=== PATIENT | female | born 1945 | race Caucasian/White ===

== ENCOUNTER 2020-02-02 07:56 | Day surgery (SDC) | payer OTHER ==
[2020-02-02] MEDS ORDERED: Ringers Lactate 1,000 ML IV ONE (08:38)
--- OUTSIDE RECORDS SUMMARY | 2020-02-02 09:04 | XMS REPORT | Clinical Summary ---
:1945 Author Organization [facility] Address [address] [place] [address] Care Team Providers Name Role Phone JOSEE Kraft Primary Care Provider Allergies Active Allergy Reactions Severity Noted Date Comments Amoxicillin Rash Low 08/28/2018 itching Medications Medication Sig Dispensed Refills Start Date End Date Status spironolactone Take 25 mg by 0 A ctive (ALDACTONE) 25 MG tablet mouth daily. oxybutynin (DITROPAN) 5 Take 5 mg by 0 Active MG tablet mouth 2 (two) times a day. divalproex (DEPAKOTE) Take 500 mg by 0 Active 500 MG EC tablet mouth daily. fluticasone (FLONASE) 50 2 sprays by Each 0 Active mcg/actuation nasal Nare route spray daily. clopidogrel (PLAVIX) 75 Take 75 mg by 0 Active mg tablet mouth daily. lisinopril Take 20 mg by 0 Activ e (PRINIVIL,ZESTRIL) 20 mg mouth daily. tablet pantoprazole (PROTONIX) Take 40 mg by 0 Active 40 MG EC tablet mouth daily. levothyroxine Take 100 mcg by 0 Active (SYNTHROID, LEVOXYL) 100 mouth daily. mcg tablet methocarbamol (ROBAXIN) Take 500 mg by 0 Active 500 MG tablet mouth 2 (two) times a day. traZODone (DESYREL) 100 Take 100 mg by 0 Active MG tablet mouth nightly. aspirin (ECOTRIN) 325 MG Take 325 mg by 0 Active enteric coated tablet mouth daily. Active Problems Problem Noted Date Coronary artery disease with angina pectoris 9 Essential hypertension 08/28/2018 Acquired hypothyroidism 08/28/2018 Pure hypercholesterolemia 08/28/2018 Bipolar 1 disorder 08/28/2018 Family History Medical History Relation Name Comments Hypertension Mother Relation Name Status Comments Mother Social History Tobacco Use Types Packs/Day Years Used Date Never Assessed Sex Assigned at Date Recorded Not on file Job Start Date Occupation Industry Not on file Not on file Not on file Travel History Travel Start Travel End No recent travel history available. Last Filed Vital Signs Not on file Plan of Treatment Health Maintenance Due Date Last Done Comments BREAST CANCER SCREENING 1996 COLONOSCOPY SCREENING 1996 SHINGLES VACCINES (#1) 1996 65+ PNEUMOCOCCAL VACCINE (1 of 2 - PCV13) 2011 INFLUENZA VACCINE 02/14/2020 Results Not on fileafter 02/01/2019 Advance Directives For more information, please contact: [phone] Type Date Recorded Patient Incident Response Consultant Explanati on Advance Directives, Living Will 08/28/2018 12:51 PM and Medical Power of Shaker Operator Code Status Date Activated Date Inactivated Comments Full Code 08/28/2018 7:06 PM 08/29/2018 2:42 PM Code Status decision reached by: Patient
--- OUTSIDE RECORDS SUMMARY | 2020-02-02 09:04 | XMS REPORT | Continuity of Care Document ---
:1945 Author Organization [employer] Care Team Providers Name Role Phone [facility] Unavailable Un available Problems Problem Status Onset Classification Date Comments Sourc e Date Reported Coronary Active Problem 05/30/2016 Ahmed atherosclerosis of A ed [place] coronary artery Pure Active Problem 05/30/2016 Ahmed hypercholesterolemia Ahmed Atherosclerosis of Active Problem 05/30/2016 Ahmed [place] arteries of the [facility] extremities with intermittent claudication Other symptoms Active Diagnosis 05/30/2016 Ahme d involving [facility] cardiovascular system Unspecified Active Diagnosis 05/30/2016 Ahmed hypothyroidism [facility] Medications Medication Details Route Status Patient Ordering Order Source Instructions Provider Date Protonix 1 tablet Orally Active 40 mg Orally Ahmed [facility] Once a day 015 [facility] Quetiapine 1 tablet Orally Active [address] [facility] Once a day [facility] bedtime Metoprolol 1 tablet Orally Active 25 MG Orally [facility] Succinate ER Once a day [facility] [place] 1 capsule Orally Active 300 MG Orally [facility] Carbonate Three times a Ahmed day Lamotrigine 1 tablet Orally Active 100 MG Orally [facility] Once a day [facility] Ropinirole HCl 1 tablet Orally Active 0.[address] [facility] med 1 to 3 Once a day [facility] hours before bedtime Risperidone 1 tablet Orally Active 3 MG Orally [facility] Once a day [facility] Asprin Unknown NA Active 325 once a day [facility] Lorazepam 1 tablet Orally Active 1 MG Orally [facility] Once a day [facility] Plavix 1 tablet Orally Active 75 MG Orally [facility] Once a day [facility] Levothyroxine 1 tablet Orally Active [address] [facility] med Sodium every Once a day [facility] morning on an empty stomach Zostavax Unknown Subcutaneous Active [facility] UNT/0.65ML [facility] Subcutaneous Hydrochlorot once NA Active 12.5 [facility] capsule [facility] once a day Crestor 1 tablet Orally Active 20 MG Orally [facility] Once a day [facility] Allergies, Adverse Reactions, Alerts Substance Category Reaction Severity Reaction Status Date Comments S ource type Reported N.K.D.A. Adverse Info Not Adverse Active Ahme d Reaction Available Reaction 5 Ahme d Immunizations No Data Provided for This Section Results No Data Provided for This Section Pathology Reports No Data Provided for This Section Diagnostic Reports No Data Provided for This Section Consultation Notes No Data Provided for This Section Discharge Summaries No Data Provided for This Section History and Physicals No Data Provided for This Section Vital Signs Vital Sign Value Date Comments Source Weight 166 04/14/2015 Ahmed Ahmed Heart Rate 68 04/14/2015 Ahmed Ahmed Diastolic (mm Hg) 60 04/14/2015 Ahmed Ahme d Systolic (mm Hg) 94 04/14/2015 Ahmed Ahmed Weight 164 03/11/2015 Ahmed Ahmed Heart Rate 78 03/11/2015 Ahmed Ahmed Diastolic (mm Hg) 78 03/11/2015 Ahmed Ahme d Systolic (mm Hg) 118 03/11/2015 Ahmed Ahmed Weight 164 02/23/2015 Ahmed Ahmed Heart Rate 60 02/23/2015 Ahmed Ahmed Diastolic (mm Hg) 58 02/23/2015 Ahmed Ahme d Systolic (mm Hg) 104 02/23/2015 Ahmed Ahmed Encounters Location Location Encounter Encounter Reason Attending ADM [place] Stat us Source Details Type Number For Provider Date Date Visit Ahmed pt referred [id number] 02/23 02/23 Candelario Palomino MD, by [id number] /2014 A [email or web address] HAIDER Garcia's [id number] office for 7d6 changes in pt EKG and CP Ahmed pt referred [id number] 02/23 02/23 Candelario Palomino MD, by Dr. [id number] /2014 A [employer] HAIDER Garcia's [id number] office for 0ae changes in pt EKG and CP Ahmed pt referred [id number] 02/23 02/23 Candelario Palomino MD, by [id number] /2014 A [employer] HAIDER Garcia's [id number] office for c3f changes in pt EKG and CP Ahmed Unknown [id number] 03/08 03/08 Jose Angel Palomino MD, [id number] /2014 A hmed PA [id number] Ahmed Unknown [id number] 03/08 03/08 Jose Angel Palomino MD, [id number] /2014 A hmed PA [id number] [id number] Ahmed Unknown [id number] 03/08 03/08 Jose Angel Palomino MD, [id number] /2014 A hmed PA [id number] [id number] Ahmed Unknown [id number] 03/08 03/08 Jose Angel Palomino MD, [id number] /2014 A hmed PA [id number] [id number] med f/u testing [id number] 03/11 03/11 Candelario Palomino MD, [id number] A hmed PA [id number] med f/u testing [id number] 03/11 03/11 Candelario Palomino MD, [id number] /2014 A hmed PA [id number] [id number] med pt was seen [id number] 04/14 04/14 Candelario Palomino MD, at [facility] for [id number] Candelario MALONEY [place] on [id number] 03.28.2015 1af Procedures No Data Provided for This Section Assessment and Plan No Data Provided for This Section Plan of Care No Data Provided for This Section Social History Social History Date Source Social History ElementQualifiersDate Reported 04/14/2015 Candelario Palomino Smoking: . Are you a: Never smoker Apr 14, 2015 Alcohol: . Social Apr 14, 2015 Family History No Data Provided for This Section Advance Directives No Data Provided for This Section Functional Status No Data Provided for This Section
--- OUTSIDE RECORDS SUMMARY | 2020-02-02 09:05 | XMS REPORT | Continuity of Care Document ---
:1945 Author Organization [facility] t Address [address] [place] [address] Care Team Providers Name Role Phone Swapnil TRIPP Primary Care Physician Problems Condition Condition Condition Status Onset Resolution Last Treating Co mments Source Name Details Category Date Date Treatment Clinician Date Coronary Coronary Disease Active [place] artery artery 2-13 [facility] disease disease 00:00: st with with 00 angina angina pectoris pectoris Essential Essential Disease Active [place] hypertensi hypertensi 2-13 Me thodi on on 00:00: st 00 Acquired Acquired Disease Active [place] hypothyroi hypothyroi 2-13 Me thodi dism dism 00:00: st 00 Pure Pure Disease Active [place] hyperchole hyperchole 2-13 Me thodi sterolemia sterolemia 00:00: st 00 Bipolar 1 Bipolar 1 Disease Active [place] disorder disorder 2-13 Method i 00:00: st 00 Coronary Problem Active 2016-05-30 Mem oria atheroscle 05:47:14 l rosis of Coronary Herm camelia [place] atheroscle coronary rosis of artery [place] coronary artery Active Problem 05/30/2016 [facility] Ahmed Pure Problem Active 2016-05-30 Memor ia hyperchole 05:47:14 l sterolemia Pure Ajay n hyperchole sterolemia Active Problem 05/30/2016 med Ahmed Atheroscle Problem Active 2016-05-30 M emoria rosis of 05:47:14 l [place] arteries Atheroscle of the rosis of extremitie [place] s with arteries intermitte of the nt extremitie claudicati s with on intermitte nt claudicati on Active Problem 6 Candelario Palomino Other Diagnosis Active 2016-05-30 Mem oria symptoms 05:47:14 l involving Other Ajay n cardiovasc symptoms ular involving system cardiovasc ular system Active Diagnosis 05/30/2016 Candelario Palomino Unspecifie Diagnosis Active 2016-05-30 Memoria d 05:47:14 l hypothyroi Ajay n dism Unspecifie d hypothyroi dism Active Diagnosis 05/30/2016 Candelario Palomino Allergies, Adverse Reactions, Alerts Allergy Allergy Status Severity Reaction(s) Onset Inactive Treating Comm ents Source Name Type Date Date Clinician Amoxicil Propensi Active Rash itching [place] david ty to 2-13 Methodi adverse 00:00: st reaction 00 s to drug N.K.D.A. N.K.D.A. Active Info Not Chris eldon Available 30 l 00:00: [place] 00 Family History Family Member Diagnosis Comments Start Date Stop Date Source Natural mother Hypertension [place] [employer] Social History Social Habit Start Date Stop Date Quantity Comments Source Sex Assigned At [facility] ethodi [place]2015-04-14 2015-04-14 [facility] nn 00:00:00 00:00:00 Medications Ordered Filled Start Stop Current Ordering Indication Dosage Frequency Signature Comments Components Source Medication Medication Date Date Medication? Clinician (SIG) Name Name spironolact Yes 25mg QD Take 25 mg [place] one 2-14 by mouth Methodi (ALDACTONE) 10:42: daily. st 25 MG 57 tablet oxybutynin Yes 5mg Q.5D Take 5 mg [place] (DITROPAN) 2-14 by mouth 2 Met hodi 5 MG tablet 10:42: (two) st 57 times a day. divalproex Yes 500mg Take 500 [place] (DEPAKOTE) 2-14 mg by Methodi 500 MG EC 10:42: mouth st tablet 57 daily. fluticasone 2019-0 Yes 2{spray QD 2 sprays [place] (FLONASE) 2-14 } by Each Methodi 50 10:42: Nare route st mcg/actuati 57 daily. on nasal spray clopidogrel Yes 75mg QD Take 75 mg [place] (PLAVIX) 75 2-14 by mouth Meth gilbert mg tablet 10:42: daily. st 57 lisinopril 2019-0 Yes 20mg QD Take 20 mg [place] (PRINIVIL,Z 2-14 by mouth Meth gilbert ESTRIL) 20 10:42: daily. st mg tablet 57 pantoprazol 2019-0 Yes 40mg QD Take 40 mg [place] e 2-14 by mouth Methodi (PROTONIX) 10:42: daily. st 40 MG EC 57 tablet levothyroxi 0 Yes 100ug QD Take 100 [place] ne 2-14 mcg by Methodi (SYNTHROID, 10:42: mouth st LEVOXYL) 57 daily. 100 mcg tablet methocarbam 0 Yes 500mg Q.5D Take 500 [place] ol 2-14 mg by Methodi (ROBAXIN) 10:42: mouth 2 st 500 MG 57 (two) tablet times a day. traZODone 0 Yes 100mg QD Take 100 [place] (DESYREL) 2-14 mg by Methodi 100 MG 10:42: mouth st tablet 57 nightly. aspirin 0 Yes 325mg QD Take 325 [place] (ECOTRIN) 2-14 mg by Methodi 325 MG 10:42: mouth st enteric 57 daily. coated tablet Quetiapine 2015-07 Yes Ahmed 1 tablet Me moria Fumarate 15 Ahmed at bedtime l 05:47: [place] Metoprolol 2015-07 Yes Ahmed 1 tablet Me moria Succinate 07-30 Ahmed l ER 05:47: Al[place] [employer] 2015-07 Yes Ahmed 1 capsule Chris eldon Carbonate 07-30 Ahmed l 05:47: [place] Lamotrigine 2015-07 Yes Ahmed 1 tablet M emoria 15 Ahmed l 05:47: [place] 14 Ropinirole 2015-07 Yes Ahmed 1 tablet 1 Memoria HCl 15 Ahmed to 3 hours l 05:47: before [place] bedtime Risperidone 2015-07 Yes Ahmed 1 tablet M emoria 15 Ahmed l 05:47: [place] Asprin 2015-07 Yes Ahmed Unknown Memoria -15 Ahmed l 05:47: [place] Lorazepam 2015-07 Yes Ahmed 1 tablet Mem oria 15 Ahmed l 05:47: [place] Plavix 2015-07 Yes Ahmed 1 tablet Memori a 1-15 Ahmed l 05:47: [place] 14 Levothyroxi 2015-07 Yes Ahmed 1 tablet M emoria ne Sodium 1-15 Ahmed every l 05:47: morning on [place] 14 an empty stomach Zostavax 2015-07 Yes Ahmed Unknown Memor ia 1-15 Ahmed l 05:47: [place] 14 Hydrochloro 2015-07 Yes Ahmed once Memor ia t 1-15 Ahmed capsule l 05:47: once a day [place] 14 Crestor 2015-07 Yes Ahmed 1 tablet Memor ia 1-15 Ahmed l 05:47: [place] 14 Protonix 0 Yes Ahmed 1 tablet Chris eldon 8-24 Ahmed l 00:00: [place] 00 Vital Signs Vital Name Observation Time Observation Value Comments Source Weight 2015-04-14 18:15:00 [facility] [place] Heart Rate 2015-04-14 18:15:00 [facility] [place] Diastolic (mm Hg) 2015-04-14 18:15:00 Mem orial [place] Systolic (mm Hg) 2015-04-14 18:15:00 Chris rial [place] Weight 2015-03-11 19:00:00 [facility] [place] Heart Rate 2015-03-11 19:00:00 [facility] [place] Diastolic (mm Hg) 2015-03-11 19:00:00 Mem orial [place] Systolic (mm Hg) 2015-03-11 19:00:00 Chris rial [place] Weight 2015-02-23 17:15:00 [facility] [place] Heart Rate 2015-02-23 17:15:00 [facility] [place] Diastolic (mm Hg) 2015-02-23 17:15:00 Mem orial [place] Systolic (mm Hg) 2015-02-23 17:15:00 Chris rial [place] Procedures This patient has no known procedures. Plan of Care Planned Activity Planned Date Details Comments Source Future Scheduled 2020-02-14 INFLUENZA VACCINE [facility] Test 00:00:00 [code = INFLUENZA VACCINE] Future Scheduled 2011 65+ PNEUMOCOCCAL [place] [facility] Test 00:00:00 VACCINE (1 of 2 - PCV13) [code = 65+ PNEUMOCOCCAL VACCINE (1 of 2 - PCV13)] Future Scheduled 1996 [facility] SCREENING [code = BREAST CANCER SCREENING] Future Scheduled 1996 COLONOSCOPY SCREENING [place] [facility] Test 00:00:00 [code = COLONOSCOPY SCREENING] Future Scheduled 1996 SHINGLES VACCINES (#1) [facility] [facility] Test 00:00:00 [code = SHINGLES VACCINES (#1)] Encounters Start End Encounter Admission Attending Care Care Encounter Source Date/Time Date/Time Type Type Clinicians Facility Department ID 2015-04-14 2015-04-14 Outpatient [facility] [id number] eClinic 12:15:00 12:15:00 Candelario Palomino MD, Dominick cordero MD, PA PA 2015-03-11 2015-03-11 Outpatient [facility] [id number] eClinic 13:00:00 13:00:00 Candelario Palomino MD, Dominick cordero MD, PA PA 2015-03-08 2015-03-08 Outpatient [facility] [id number] eClinic 09:14:00 09:14:00 Candelario Palomino MD, Dominick cordero MD, PA PA 2015-02-23 2015-02-23 Outpatient [facility] [id number] eClinic 11:15:00 11:15:00 Candelario Palomino MD, Dominick cordero MD, PA PA Results This patient has no known results.
[2020-02-02] MEDS ORDERED: propofoL 200 MG/20 ML VIAL IV ONE ×2 (09:14)
[2020-02-02] MEDS ORDERED: LIDOCAINE 1% MPF 5 ML VIAL ONE (09:14)
--- NOTE | 2020-02-02 10:43 | ENDO RPT ---
[address], [address] COLONOSCOPY PROCEDURE REPORT EXAM DATE: 02/02/2020 PATIENT NAME: Shannon Dumont MR #: [id number] BIRTHDATE: 1945 ATTENDING: Derick Kuo DR STATUS: outpatient PILE HEADER: Hannah Peterson RN and Jorge Smith [facility] INDICATIONS: The patient is a 74 yr old Female here for a colonoscopy due to colon cancer screening PROCEDURE PERFORMED: Colonoscopy with biopsy MEDICATIONS: Per Anesthesia. ESTIMATED BLOOD LOSS: None CONSENT: The patient understands the risks and benefits of the procedure and understands that these risks include, but are not limited to: sedation, allergic reaction, infection, perforation and/or bleeding. Alternative means of evaluation and treatment include, among others: physical exam, x-rays, and/or surgical intervention. The patient elects to proceed with this endoscopic procedure. DESCRIPTION OF PROCEDURE: During intra-op preparation period all mechanical medical equipment was checked for proper function. Hand hygiene and appropriate measures for infection prevention was taken. Procedure, possible complications, alternatives including, but not limited to possibility of bleeding, perforation, tear, infection, sepsis, need for surgery, need for blood transfusion, were explained to the patient. After the risks, benefits and alternatives of the procedure were thoroughly explained, Informed consent was verified, confirmed and timeout was successfully executed by the treatment team. The patient was placed in the left lateral position. A digital rectal exam was performed and revealed external hemorrhoids and A digital rectal exam was performed and revealed internal hemorrhoids. After appropriate level of anesthesia, the scope was passed. The EC-[id number] ([id number]) endoscope was introduced through the anus and advanced to the cecum, which was identified by the ileocecal valve. The quality of the prep was fair. The instrument was then slowly withdrawn as the colon was fully examined. Scope withdrawal time was 10 minutes. COLON FINDINGS: Moderate diverticulosis was noted in the sigmoid colon. No bleeding was noted from the diverticulosis. Small lipoma was found at the cecum. A biopsy was performed using cold forceps. Small internal and external hemorrhoids were found. Retroflexed views revealed no abnormalities. The scope was then completely withdrawn from the patient and the procedure terminated. ADVERSE EVENTS: There were no complications. IMPRESSIONS: 1. Moderate diverticulosis was noted in the sigmoid colon 2. Small lipoma at the cecum; biopsy was performed using cold forceps 3. Small internal and external hemorrhoids RECOMMENDATIONS: 1. avoid NSAIDS for 2 weeks 2. await biopsy results 3. follow-up: office 2 week(s) 4. Monitor for any evidence of rectal bleeding. 5. yearly hemoquant 6. hemorrhoidal hygiene 7. increase dietary water 8. low fiber / diverticular diet RECALL: for Colonoscopy, pending biopsy results. Derick Kuo DR eSigned: Derick Kuo DR 02/02/2020 10:43 AM cc: CPT CODES: ICD9 CODES: PATIENT NAME: Julia Shannon E. MR#: [id number]
[2020-02-02 13:16] VITALS: BP 115/57; TEMP 98.2; O2SAT 95
== END 2020-02-02 11:43 | disposition home or self-care (01) ==
LOC: OR 07:56
PROVIDERS: ATTEND Surgery
PROC: 0DBH8ZX Excision of Cecum, Via Natural or Artificial Opening Endoscopic, Diagnostic (ICD-10-PCS; principal; 2020-02-02 09:00)
DX: Z12.11 Encounter for screening for malignant neoplasm of colon (principal); D17.5 Benign lipomatous neoplasm of intra-abdominal organs; K57.30 Diverticulosis of large intestine without perforation or abscess without bleeding; K64.8 Other hemorrhoids; K64.4 Residual hemorrhoidal skin tags; I10 Essential (primary) hypertension; I25.10 Atherosclerotic heart disease of native coronary artery without angina pectoris; J44.9 Chronic obstructive pulmonary disease, unspecified; E78.00 Pure hypercholesterolemia, unspecified; E07.9 Disorder of thyroid, unspecified; F41.9 Anxiety disorder, unspecified; F32.9 Major depressive disorder, single episode, unspecified; Z11.59 Encounter for screening for other viral diseases; Z88.0 Allergy status to penicillin; Z88.3 Allergy status to other anti-infective agents; Z95.5 Presence of coronary angioplasty implant and graft
CPT/HCPCS: 88305; 45380; U0002; J2704 ×2; J7120

== ENCOUNTER 2020-02-19 08:50 | Emergency (ER) | payer OTHER ==
--- OUTSIDE RECORDS SUMMARY | 2020-02-19 09:27 | XMS REPORT | Continuity of Care Document ---
:1945 Author Organization [facility] Care Team Providers Name Role Phone [facility] Unavailable Un available Problems Problem Status Onset Classification Date Comments Sourc e Date Reported Coronary Active Problem 05/30/2016 Ahmed atherosclerosis of A ed [place] coronary artery Pure Active Problem 05/30/2016 Ahmed hypercholesterolemia Ahmed Atherosclerosis of Active Problem 05/30/2016 Ahmed [place] arteries of the [facility] extremities with intermittent claudication Other symptoms Active Diagnosis 05/30/2016 Ahme d involving [facility] cardiovascular system Unspecified Active Diagnosis 05/30/2016 Ahmed hypothyroidism [facility] Medications Medication Details Route Status Patient Ordering Order Source Instructions Provider Date Protonix 1 tablet Orally Active 40 mg Orally Ahmed [facility] Once a day 015 [facility] Quetiapine 1 tablet Orally Active 50 MG [facility] F[facility] Once a day [facility] bedtime Metoprolol 1 tablet Orally Active 25 MG Orally [facility] Succinate ER Once a day [facility] [place] 1 capsule Orally Active 300 MG Orally [facility] Carbonate Three times a Ahmed day Lamotrigine 1 tablet Orally Active 100 MG Orally [facility] Once a day [facility] Ropinirole HCl 1 tablet Orally Active 0.5 MG Orally [facility] med 1 to 3 Once a day [facility] hours before bedtime Risperidone 1 tablet Orally Active 3 MG Orally [facility] Once a day [facility] Asprin Unknown NA Active 325 once a day [facility] Lorazepam 1 tablet Orally Active 1 MG Or[facility] Once [facility] Plavix 1 tablet Orally Active 75 MG Or[facility] Once a day [facility] Levothyroxine 1 tablet Orally Active 100 MCG Orally [facility] med Sodium every Once a day [facility] morning on an empty stomach Zostavax Unknown Subcutaneous [facility] UNT/0.65ML [facility] Subcutaneous Hydrochlorot once NA Active 12.5 [facility] capsule [facility] once a day Crestor 1 tablet Orally Active 20 MG Orally [facility] Once a day [facility] Allergies, Adverse Reactions, Alerts Substance Category Reaction [...] Location Location Encounter Encounter Reason Attending ADM [place] Stat [place] Source Details Type Number For Provider Date Date Visit Ahmed pt referred [id number] 02/23 02/23 Candelario Palomino MD, by [id number] /2014 A [employer] HAIDER Garcia's [id number] office for 7d6 changes in pt EKG and CP Ahmed pt referred [id number] 02/23 02/23 Candelario Palomino MD, by Dr. [id number] /2014 A [employer] HAIDER Garcia's [id number] office for 0ae changes in pt EKG and CP Ahmed pt referred [id number] 02/23 02/23 Candelario Palomino MD, by [id number] /2014 A [employer] HAIDER Garcia's [id number] office for c3f changes in pt EKG and CP Ahmed Unknown [id number] 03/08 03/08 Jose Angel Palomino MD, [id number] /2014 A hmed PA [id number] Ahmed Unknown [id number] 03/08 03/08 Jose Angel Palomino MD, [id number] /2014 A hmed PA [id number] Ahmed Unknown [id number] 03/08 03/08 Jose Angel Palomino MD, [id number] /2014 A hmed PA [id number] ff7 Ahmed Unknown [id number] 03/08 03/08 Jose Angel Palomino MD, [id number] /2014 A hmed PA [id number] med f/u testing [id number] 03/11 03/11 Candelario Palomino MD, [id number] A hmed PA [id number] 5ee med f/u testing [id number] 03/11 03/11 Candelario Palomino MD, [id number] /2014 A hmed PA [id number] a37 med pt was seen [id number] 04/14 04/14 Candelario Palomino MD, at [facility] for [id number] Candelario MALONEY [place] on [id number] 03.28.2015 1af Procedures No Data Provided for [...]
--- OUTSIDE RECORDS SUMMARY | 2020-02-19 09:27 | XMS REPORT | Continuity of Care Document ---
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 2-13 Me thodi sterolemia sterolemia 00:00: st 00 Bipolar 1 Bipolar 1 Disease Active Bunny ston disorder disorder 2-13 Method i 00:00: st 00 Coronary Problem Active 2016-05-30 Mem oria atheroscle 05:47:14 l rosis of Coronary Herm camelia [place] atheroscle coronary rosis of artery [place] coronary artery Active Problem 05/30/2016 [facility] Ahmed Pure Problem Active 2016-05-30 Memor ia hyperchole 05:47:14 l sterolemia Pure Ajay n hyperchole sterolemia Active Problem 05/30/2016 [facility] Ahmed Atheroscle Problem Active 2016-05-30 M emoria rosis of 05:47:14 l [place] Alessandro arteries Atheroscle of the rosis of extremitie [place] with arteries intermitte of the nt [...] N.K.D.A. Active Info Not Chris eldon Available 9-30 l 00:00: Alessandro 00 Family History Family Member Diagnosis Comments Start Date Stop Date Source Natural mother Hypertension [place] Gnosticist Social History Social Habit Start Date Stop Date Quantity Comments Source Sex Assigned At [facility] ethodi [place]2015-04-14 2015-04-14 [facility] nn 00:00:00 00:00:00 Medications Ordered Filled Start [...] 10:42: mouth st tablet 57 daily. fluticasone 2018-0 Yes 2{spray QD 2 sprays [place] (FLONASE) [...] 10:42: daily. st mg tablet 57 pantoprazol 20190 Yes 40mg QD Take 40 mg Owens [...] 10:42: mouth st tablet 57 nightly. aspirin Yes 325mg QD Take 325 [place] on (ECOTRIN) 2-14 mg by Methodi 325 MG 10:42: mouth st enteric 57 daily. coated tablet Quetiapine 2015-07 Yes Ahmed 1 tablet Me moria Fumarate 07-30 Ahmed at bedtime l 05:47: [place] 14 Metoprolol 2015-07 Yes Ahmed 1 tablet Me moria Succinate 07-30 Ahmed l ER 05:47: [place] 2015-07 Yes Ahmed 1 capsule Chris eldon Carbonate 07-30 Ahmed l 05:47: Lamotrigine 2015-07 Yes Ahmed 1 tablet M emoria 15 Ahmed l 05:47: Ropinirole 2015-07 Yes Ahmed 1 tablet 1 Memoria HCl 15 Ahmed to 3 hours l 05:47: before bedtime Risperidone 2015-07 Yes Ahmed 1 tablet M emoria 15 Ahmed l 05:47: Asprin 2015-07 Yes Ahmed Unknown Memoria -15 Ahmed l 05:47: Lorazepam 2015-07 Yes Ahmed 1 tablet Mem oria 15 Ahmed l 05:47: Plavix 2015-07 Yes Ahmed 1 tablet Memori a 1-15 Ahmed l 05:47: [place] 14 Levothyroxi 2015- Yes Ahmed 1 tablet M emoria ne Sodium 1-15 Ahmed every l 05:47: morning on [place] 14 an empty stomach Zostavax 2015-07 Yes Ahmed Unknown Memor ia 1-15 Ahmed l 05:47: [place] 14 Hydrochloro 2015-07 Yes Ahmed once Memor ia t 1-15 Ahmed capsule l 05:47: once a day [place] 14 Crestor 2015-07 Yes Ahmed 1 tablet Memor ia 1-15 Ahmed l 05:47: [place] 14 Protonix 2014-0 Yes Ahmed 1 tablet Chris eldon 8-24 Ahmed l 00:00: [place] 00 Vital Signs Vital Name Observation Time Observation Value Comments Source Weight 2015-04-14 18:15:00 [facility] Heart Rate 2015-04-14 18:15:00 [facility] [place] Diastolic (mm Hg) 2015-04-14 18:15:00 Mem orial [place] Systolic (mm Hg) 2015-04-14 18:15:00 Chris rial [place] Weight 2015-03-11 19:00:00 [facility] [place] Heart Rate 2015-03-11 19:00:00 [facility] [place] Diastolic (mm Hg) 2015-03-11 19:00:00 Mem orial [place] Systolic (mm Hg) 2015-03-11 19:00:00 Chris rial [place] Weight 2015-02-23 17:15:00 [facility] [place] Heart Rate 2015-02-23 17:15:00 [facility] [place] Diastolic (mm Hg) 2015-02-23 17:15:00 Mem orial [place] Systolic (mm Hg) 2015-02-23 17:15:00 Chris rial [place] Procedures This patient has no known procedures. Plan of Care Planned Activity Planned Date Details Comments Source Future Scheduled 2020-02-14 INFLUENZA VACCINE Madhuto ilan Gnosticist Test 00:00:00 [code = INFLUENZA VACCINE] Future Scheduled 2011 65+ PNEUMOCOCCAL [place] [facility] Test 00:00:00 VACCINE (1 of 2 - PCV13) [code = 65+ PNEUMOCOCCAL VACCINE (1 of 2 - PCV13)] Future Scheduled [facility] [code = BREAST CANCER SCREENING] Future Scheduled 1996 COLONOSCOPY SCREENING [place] [facility] Test 00:00:00 [code = COLONOSCOPY SCREENING] Future Scheduled 1996 SHINGLES VACCINES (#1) [place] [facility] Test 00:00:00 [code = SHINGLES VACCINES (#1)] Encounters Start End Encounter Admission Attending Care Care Encounter Source Date/Time Date/Time Type Type Clinicians Facility Department ID 2015-04-14 2015-04-14 Outpatient [facility] [id number] eClinic 12:15:00 12:15:00 Candelario Palomino MD, Dominick cordero MD, PA PA 2015-03-11 2015-03-11 Outpatient [facility] [id number] eClinic 13:00:00 13:00:00 Candelario Palomino MD, Dominick cordero MD, PA PA 2015-03-08 2015-03-08 Outpatient [facility] [id number] eClinic 09:14:00 09:14:00 Candelario Palomino MD, Dominick cordero MD, PA PA 2015-02-23 2015-02-23 Outpatient [facility] [id number] eClinic 11:15:00 11:15:00 Candelario Palomino MD, Dominick cordero MD, PA PA Results This patient has no known results.
--- OUTSIDE RECORDS SUMMARY | 2020-02-19 09:27 | XMS REPORT | Clinical Summary ---
:1945 Author Organization [facility] Address [address] [place] [address] Care Team Providers Name Role Phone JOSEE [...] INFLUENZA VACCINE 02/14/2020 Results Not on fileafter 02/18/2019 Advance Directives For more information, please contact: [phone] Type Date Recorded Patient Systems Designer Explanati on Advance Directives, Living Will 08/28/2018 12:51 PM and Medical Power of Senior Benefits Specialist Code Status Date Activated Date Inactivated Comments Full Code 08/28/2018 7:06 PM 08/29/2018 2:42 PM Code Status decision reached by: Patient
[2020-02-19] MEDS ORDERED: NA CHLORIDE 0.9% 1,000 ML ONE (09:41)
[2020-02-19 10:14] LABS: Absolute Lymphocytes (CBC) 1.5 K/uL (0.7-4.9); Basophils % 0.7 % (0-1.3); Hematocrit 38.5 % (36.0-45.0); Lymphocytes % 33.1 % (15.3-44.8); MPV 8.1 fL (7.6-11.3); RBC Red Blood Cell Count 3.74 M/uL (3.86-4.86)
[2020-02-19 10:24] LABS: ALT/SGPT 15 U/L (12-78); AST/SGOT 13 U/L (15-37); Albumin 3.3 g/dL (3.4-5.0); Alkaline Phosphatase 54 U/L (45-117); BUN Blood Urea Nitrogen 10 mg/dL (7-18); Bicarbonate 31 mmol/L (21-32); Bilirubin Total 0.3 mg/dL (0.2-1.0); Glucose Level 128 mg/dL (74-106); Potassium 4.1 mmol/L (3.5-5.1); Protein, Total 6.6 g/dL (6.4-8.2); Sodium Level 144 mmol/L (136-145)
--- NOTE | 2020-02-19 10:38 | RAD REPORT ---
EXAM DESCRIPTION: RAD - Chest Single View - 02/19/2020 10:21 am CLINICAL HISTORY: shortness of breath COMPARISON: November 2018 TECHNIQUE: AP portable chest image was obtained 02/19/2020 10:21 am . FINDINGS: Lung volumes are low which accentuates interstitial pattern. This potentially masks early edema or infiltrate. Cardiac silhouette appears enlarged even for the adjustment between the current portable study and the prior PA examination. Retrocardiac assessment is limited. The left hemidiaphra gm is not obscured. Trachea is midline. No measurable pleural effusion and no pneumothorax. No acute bony abnormality seen. No acute aortic findings suspected. IMPRESSION: No peripheral mass or consolidation. Retrocardiac left base assessment is limited. Heart, vasculature and lung markings are prominent. This is in part due to shallow inspiration. Corre lation can be made with any mild failure or volume overload findings.
[2020-02-19] MEDS ORDERED: ACETAMINOPHEN 500 MG TAB ONE (10:48)
[2020-02-19 11:07] LABS: Blood Morphology Comment NOT SEEN (NOT SEEN); Platelet Estimate DECR
--- NOTE | 2020-02-19 11:07 | EDPHYS ---
Physician Documentation [facility] Name: Shannon Dumont Age: 74 yrs Sex: Female : 1945 Arrival Date: 02/19/2020 Time: 08:52 Bed 19 Private MD: ED Physician Inocencio Roque HPI: 02/18 09:07 This 74 yrs old Female presents to ER via Ambulatory with complaints of Ear jmm Pain, Sore Throat. 09:07 Onset: The symptoms/episode began/occurred gradually, 1 week(s) ago. Modifying factors: jmm The symptoms are alleviated by nothing. the symptoms are aggravated by nothing. Associated signs and symptoms: Pertinent positives: earache, sore throat. Historical: - Allergies: 09:17 Clindamycin; hb 09:17 Amoxicillin; hb - PMHx: 10:45 COPD; Hypertension; Hypothyroidism; Chronic pain; ph - Immunization history:: Adult Immunizations up to date. - Social history:: Smoking status: Patient denies any tobacco usage or history of. ROS: 09:07 Constitutional: Positive for body aches, chills, fatigue. jmm 09:07 ENT: Positive for ear pain, sore throat. 09:07 Respiratory: Positive for cough. 09:07 All other systems are negative. Exam: 09:07 Constitutional: This is a well developed, well nourished patient who is awake, alert, jmm and in no acute distress. Head/Face: atraumatic. Eyes: EOMI, no conjunctival erythema appreciated ENT: Moist Mucus Membranes Neck: Trachea midline, Supple Chest/axilla: Normal chest wall appearance and motion. 09:07 Abdomen/GI: Non distended, soft Back: Normal ROM Skin: General appearance color normal MS/ Extremity: Moves all extremities, no obvious deformities appreciated, no edema noted to the lower extremities Neuro: Awake and alert, normal gait Psych: Behavior is normal, Mood is normal, Patient is cooperative and pleasant 09:07 Cardiovascular: Rate: normal, Rhythm: regular. 09:07 Respiratory: the patient does not display signs of respiratory distress, Respirations: normal, Breath sounds: are clear throughout. Vital Signs: 09:15 BP 182 / 92; Pulse 73; Resp 16; Temp 98.4(O); Pulse Ox 94% ; Weight 71.67 kg; Height 5 hb ft. (152.40 cm); Pain 8/10; 09:59 BP 167 / 87; Pulse 70; Resp 16; Pulse Ox 91% on R/A; ph 10:44 BP 172 / 90; Pulse 71; Resp 18; Pulse Ox 95% on R/A; ph 11:25 BP 168 / 90; Pulse 69; Resp 18; Temp 98.0; Pulse Ox 95% on R/A; ph 09:15 Body Mass Index 30.86 (71.67 kg, 152.40 cm) hb 09:59 pt asleep ph MDM: 09:07 Patient medically screened. [facility] 11:06 Data reviewed: vital signs, nurses notes. Counseling: I had a detailed discussion with [facility] the patient and/or guardian regarding: the historical points, exam findings, and any diagnostic results supporting the discharge/admit diagnosis, lab results, radiology results, the need for outpatient follow up, to return to the emergency department if symptoms worsen or persist or if there are any questions or concerns that arise at home. ED course: Patient is alert and non toxic in appearance in the ED. Patient is advised to follow up with pcp and otherwise given strict return precautions. Patient understood and agrees with the plan of care. . 02/18 09:19 Order name: CBC with Diff [facility] 02/18 09:19 Order name: CMP [facility] 02/18 09:19 Order name: Procalcitonin [facility] 02/18 09:19 Order name: Blood Culture Adult (2) [facility] 02/18 09:19 Order name: Lactate [facility] 02/18 09:20 Order name: Strep [facility] 02/18 09:20 Order name: Chest Single View XRAY [facility] 02/18 10:21 Order name: CBC with Automated Diff; Complete Time: 11:13 EDMS 02/18 10:24 Order name: Comprehensive Metabolic Panel; Complete Time: 10:32 EDMS 02/18 10:36 Order name: Group A Streptococcus Rapid Sc; Complete Time: 10:39 EDMS 02/18 10:39 Order name: RAD; Complete Time: 10:39 EDMS 02/18 10:46 Order name: Lactate; Complete Time: 10:55 EDMS 02/18 10:54 Order name: Procalcitonin; Complete Time: 10:55 EDMS 02/18 11:07 Order name: Manual Differential; Complete Time: 11:13 EDMS 08/06 09:19 Order name: Saline Lock; Complete Time: 09:56 [facility] 02/18 10:02 Order name: Labs - recollect needed: recollect lactate, timed out; Complete Time: 10:26 bd Administered Medications: 09:56 Drug: NS 0.9% 1000 ml Route: IV; Rate: 1 bolus; Site: right antecubital; ph 11:27 Follow up: Response: No adverse reaction; IV Status: Completed infusion; IV Intake: ph 850ml 10:43 Drug: Tylenol 1000 mg Route: PO; ph 10:43 Follow up: Response: No adverse reaction ph 11:20 Drug: Decadron - Dexamethasone 10 mg Route: IVP; Site: right antecubital; ph 11:25 Follow up: Response: No adverse reaction ph Disposition: 02/19 07:59 Co-signature as Attending Physician, Inocencio Roque MD I agree with the assessment and kdr plan of care. Disposition: 02/19/20 11:07 Discharged to Home. Impression: Acute pharyngitis, Acute upper respiratory infection, unspecified. - Condition is Stable. - Discharge Instructions: Pharyngitis, Upper Respiratory Infection, Adult, COVID-19. - Prescriptions for Zithromax Z- David 250 mg Oral Tablet - take 1 tablet by ORAL route as directed for 5 days Day 1 - take two (2) tablets one time. Day 2, 3, 4 , 5 take one (1) tablet once daily.; 6 tablet. Albuterol Sulfate 90 mcg/actuation - inhale 1-2 puff by INHALATION route every 4-6 hours; 1 Inhaler. - Medication Reconciliation Form, Thank You Letter, Antibiotic Education, Prescription Opioid Use form. - Follow up: Private Physician; When: 2 - 3 days; Reason: Recheck today's complaints, Continuance of care, Re-evaluation by your physician. Signatures: Dispatcher [employer] [facility] Britney Villarreal Kevin, MD MD kdr Mickail, Joel, PA PA Jodi Zeng RN RN ph Angeles Alvarez RN RN Corrections: (The following items were deleted from the chart) 02/18 11:35 11:07 02/19/2020 11:07 Discharged to Home. Impression: Acute pharyngitis; Acute upper ph respiratory infection, unspecified. Condition is Stable. Forms are Medication Reconciliation Form, Thank You Letter, Antibiotic Education, Prescription Opioid Use. Follow up: Private Physician; When: 2 - 3 days; Reason: Recheck today's complaints, Continuance of care, Re-evaluation by your physician. [email or web address]
--- NOTE | 2020-02-19 11:07 | ER ---
Nurse's Notes [facility] Name: Shannon Dumont Age: 74 yrs Sex: Female : 1945 Arrival Date: 02/19/2020 Time: 08:52 Bed 19 Private MD: Diagnosis: Acute pharyngitis;Acute upper respiratory infection, unspecified Presentation: 02/18 09:15 Chief complaint: Sore throat, malaise, and bilateral ear pain x 1 week. Coronavirus hb screen: At this time, the client does not indicate any symptoms associated with coronavirus-19. Ebola Screen: No symptoms or risks identified at this time. Initial Sepsis Screen: Does the patient meet any 2 criteria? No. Patient's initial sepsis screen is negative. Does the patient have a suspected source of infection? No. Patient's initial sepsis screen is negative. Risk Assessment: Do you want to hurt yourself or someone else? Patient reports no desire to harm self or others. Onset of symptoms was February 14, 2020. 09:15 Method Of Arrival: Ambulatory hb 09:15 Acuity: ANNE MARIE 3 hb Historical: - Allergies: 09:17 Clindamycin; hb 09:17 Amoxicillin; hb - PMHx: 10:45 COPD; Hypertension; Hypothyroidism; Chronic pain; ph - Immunization history:: Adult Immunizations up to date. - Social history:: Smoking status: Patient denies any tobacco usage or history of. Screenin:17 Abuse screen: Denies threats or abuse. Denies injuries from another. Nutritional hb screening: No deficits noted. Tuberculosis screening: No symptoms or risk factors identified. Fall Risk None identified. Assessment: 09:56 General: Appears in no apparent distress. comfortable, well groomed, Behavior is calm, ph cooperative, appropriate for age, Denies fever, chills. Pain: Complains of pain in right ear and left ear and throat. Neuro: Level of Consciousness is awake, alert, obeys commands, Oriented to person, place, time, situation. Cardiovascular: Capillary refill < 3 seconds in bilateral fingers Patient's skin is warm and dry. Respiratory: Airway is patent Respiratory effort is even, unlabored, Respiratory pattern is regular, symmetrical. GI: No signs and/or symptoms were reported involving the gastrointestinal system. EENT: Reports pain in left ear and right ear when swallowing. Derm: Skin is intact, is healthy with good turgor, Skin is pink, warm \T\ dry. Musculoskeletal: Circulation, motion, and sensation intact. Range of motion: intact in all extremities. 10:44 Reassessment: Patient appears in no apparent distress at this time. Patient and/or ph family updated on plan of care and expected duration. Pain level reassessed. Patient is alert, oriented x 3, equal unlabored respirations, skin warm/dry/pink. Vital Signs: 09:15 BP 182 / 92; Pulse 73; Resp 16; Temp 98.4(O); Pulse Ox 94% ; Weight 71.67 kg; Height 5 hb ft. (152.40 cm); Pain 8/10; 09:59 BP 167 / 87; Pulse 70; Resp 16; Pulse Ox 91% on R/A; ph 10:44 BP 172 / 90; Pulse 71; Resp 18; Pulse Ox 95% on R/A; ph 11:25 BP 168 / 90; Pulse 69; Resp 18; Temp 98.0; Pulse Ox 95% on R/A; ph 09:15 Body Mass Index 30.86 (71.67 kg, 152.40 cm) hb 09:59 pt asleep ph ED Course: 08:52 Patient arrived in ED. ds1 09:06 Jose Faustin PA is PHCP. [facility] 09:06 Inocencio Roque MD is Attending Physician. [facility] 09:17 Triage completed. hb 09:17 Arm band placed on. hb 09:17 Patient has correct armband on for positive identification. Bed in low position. Call light in reach. Side rails up X 1. 09:20 Jodi Knott, RN is Primary Nurse. ph 09:40 Initial lab(s) drawn, by az, sent to lab. First set of blood cultures drawn by az, ph Strep swab sent to lab. Inserted saline lock: 20 gauge in right antecubital area, using aseptic technique. Blood collected. 11:26 No provider procedures requiring assistance completed. IV discontinued, intact, ph bleeding controlled, No redness/swelling at site. Pressure dressing applied. Administered Medications: 09:56 Drug: NS 0.9% 1000 ml Route: IV; Rate: 1 bolus; Site: right antecubital; ph 11:27 Follow up: Response: No adverse reaction; IV Status: Completed infusion; IV Intake: ph 850ml 10:43 Drug: Tylenol 1000 mg Route: PO; ph 10:43 Follow up: Response: No adverse reaction ph 11:20 Drug: Decadron - Dexamethasone 10 mg Route: IVP; Site: right antecubital; ph 11:25 Follow up: Response: No adverse reaction ph Intake: 11:27 IV: 850ml; Total: 850ml. ph Outcome: 11:07 Discharge ordered by MD. [email or web address] 11:26 Discharged to home ambulatory, with family. ph 11:26 Condition: good 11:26 Discharge instructions given to patient, Instructed on discharge instructions, follow up and referral plans. medication usage, Demonstrated understanding of instructions, follow-up care, medications, Prescriptions given X 2. 11:35 Patient left the ED. ph Signatures: Jose Faustin PA PA jmm Sanford, Demi ds1 Jodi Knott RN RN ph Angeles Alvarez RN RN
[2020-02-19] MEDS ORDERED: dexAMETHasone 10 MG/ML VIAL ONE (11:23)
[2020-02-19 11:49] VITALS: O2SAT 95
[2020-02-19 11:51] VITALS: BP 168/90; TEMP 98
== END 2020-02-19 11:35 | disposition home or self-care (01) ==
LOC: ER 08:50
DX: J06.9 Acute upper respiratory infection, unspecified (principal); J02.9 Acute pharyngitis, unspecified; Z88.1 Allergy status to other antibiotic agents; Z88.3 Allergy status to other anti-infective agents
CPT/HCPCS: 87040 ×2; 87070; 85025; 36415; 87081; 83605; 80053; 84145; 71045; J1100; J7030; 96361; 96374; 99284

== ENCOUNTER 2021-12-19 18:20 | Emergency (ER) | payer OTHER ==
--- OUTSIDE RECORDS SUMMARY | 2021-12-19 18:30 | XMS REPORT | Continuity of Care Document ---
:1945 Author Organization [facility] t Address [address] [place] [address] Care Team Providers Name Role Phone Lisa FAIR Primary Care Physician Unavailable TYRON Attending Clinician Unavailable ALICJA Attending Clinician Unavailable TANVI COYNE Attending Clinician Unavailable CHEKO HIRSCH Attending Clinician Unavailable Negro HOPPER Attending Clinician Unavailable RADIOLOGY Attending Clinician Unavailable Radiology Attending Clinician Unavailable Taco SCHWARTZ, B Attending Clinician Unavailable Hector DOBSON Attending Clinician Unavailable Hector Dobson MD Attending Clinician Carter WHATLEY Attending Clinician TEDDY Attending Clinician Unavailable MD KILO HOGAN Attending Clinician Unavailable Coreen Green DO Attending Clinician Micha CHURCH Attending Clinician Doctor Unassigned, Name Attending Clinician Unavailable SANIYA Attending Clinician Unavailable SANIYA, MD O. Attending Clinician Unavailable Alicja CHURCH Attending Clinician SONG Attending Clinician Unavailable Pob, Lab Main Attending Clinician Unavailable Song CHURCH Attending Clinician Margret SCHWARTZ Attending Clinician Syed STERN G Attending Clinician Cristina CHURCH Attending Clinician Da-Oksana_A_AH Attending Clinician Unavailable ATTAR Attending Clinician Unavailable ALICJA Admitting Clinician Unavailable TANVI COYNE Admitting Clinician Unavailable Lisa FAIR Admitting Clinician Unavailable CARTER Admitting Clinician Unavailable Carter WHATLEY Admitting Clinician TEDDY Admitting Clinician Unavailable JARRED LAY Admitting Clinician Unavailable SANIYA Admitting Clinician Unavailable MD SANIYA O. Admitting Clinician Unavailable Alicja CHURCH Admitting Clinician Cristina CHURCH Admitting Clinician Ju_A_AH Admitting Clinician Unavailable Payers Payer Name Policy Type Policy Number Effective Date Expiration Date S ourjosé [facility] [id number] 2010 PLUS CLASSIC/VALUE 00:00[facility]00 [id number] 2021 00:00:00 [facility] [id number] 2019 [facility] 00:[facility]:00 (MEDICARE REPLACEMENT/ADVANT AGE - HMO) Problems Condition Condition Condition Status Onset Resolution Last Treating Co mments Source Name Details Category Date Date Treatment Clinician Date Hypoxia Hypoxia Disease Active 2020-07 Univers 2-11 ity of 00:00: [address] Obesity Obesity Disease Active Univers (BMI (BMI 2-10 ity of 30-39.9) 30-39.9) 00:00: [address] NSTEMI NSTEMI Disease Active Univers (non-ST (non-ST 2-08 ity of elevated elevated 00:00: [place] myocardial myocardial 00 Me dical infarction infarction Br anch ) ) Chest pain Chest pain Disease Active U nivers 8-13 ity of 00:00: [address] Hypertensi Hypertensi Disease Active U nivers ve urgency ve urgency 8-13 it y of 00:00: [place] 00 Medical Branch Pneumonia Pneumonia Disease Active Uni vers 8-13 ity of 00:00: [place] 00 Medical Branch Chronic Chronic Disease Active Univers diastolic diastolic 8-13 ity of congestive [place]ive [place] heart heart 00 Medical failure failure Branch SOB SOB Disease Active Univers (shortness (shortness 9-14 it y of of breath) of breath) [place]: [place] [facility] Symptomati Symptomati Disease Active U nivers c sinus c sinus 9-13 ity of bradycardi bradycardi 00:[place] a a 00 [facility] [place] CAD CAD Disease Active Univers (coronary (coronary ity of artery artery [place] disease) disease) Medica l Branch Coronary Problem Active 2016-05-30 Mem oria atheroscle 05:47:14 l rosis of Coronary Herm camelia gambell atheroscle coronary rosis of artery [place] coronary artery Active Problem 05/30/2016 Candelario Smithmed Pure Problem Active 2016-05-30 Memor ia hyperchole 05:47:14 l sterolemia Pure Ajay n hyperchole sterolemia Active Problem 05/30/2016 Ahabdifatah Ahmed Atheroscle Problem Active 2016-05-30 M emoria rosis of 05:47:14 l [place] Alessandro arteries Atheroscle of the rosis of extremitie gambell s with arteries intermitte of the nt [...] ents Source Name Type Date Date Clinician AMOXICIL Allergy [facility] Zinc Propensi Active Unknown - Unive rs ty to See comments 01-10 ity of adverse 00:00: [place] reaction 00 Medical s Branch ZINC DRUG Active Unknown-Cmnt Univ ers INGREDI 01-10 ity of 00:00: [place] [facility] Clindamy Propensi Active Unknown - Uni vers lynne ty to See comments 02-25 ity of adverse 00:00: [place] reaction Medical s Branch CLINDAMY DRUG Active Unknown-Cmnt [place] LYNNE INGREDI 02-25 ity of 00:00: [place] [facility] Amoxicil Propensi Active Rash Univer s david ty to 02-21 ity of adverse 00:00: [place] reaction Medical s Branch AMOXICIL DRUG Active Rash Univers DAVID INGREDI 02-21 ity of 00:00: [place] 00 Medical Branch NO KNOWN Allergy Active [facility] S Social History Social Habit Start Date Stop Date Quantity Comments Source Exposure to Not sure [facility]-CoV-2 [facility] (event) Branch Alcohol intake 2021-06-27 2021-06-27 Current University 00:00:00 00:00:00 non-drinker of [facility] alcohol Branch (finding) Smokin2015-04-14 2015-04-14 [facility] 00:00:00 00:00:00 Tobacco use and 2015-03-29 2015-03-29 Never used Universit y of exposure 00:00:00 00:00:00 [facility] Sex Ass[birth year] At [birth year] Universit y of 00:00:00 00:00:00 [facility] Smoking Status Start Date Stop Date Source Never smoker [facility] Medications Ordered Filled Start Stop Current Ordering Indication Dosage Frequency Signature Comments Components Source Medication Medication Date Date Medication? Clinician (SIG) Name Name tamsulosin 2020-07- No [id number] .4mg Take 1 Univers 0.4 mg 24 2-01 08- capsule by ity of hr capsule 00:00: 05:59 mouth [place] 00 :00 daily for Medical 30 days. Branch tamsulosin 2020-07- No [id number] .4mg Take 1 Univers 0.4 mg 24 2-17 -17 capsule by ity of hr capsule 00:00: 05:59 mouth [place] 00 :00 daily for Medical 30 days. Branch tamsulosin 2020-07- No [id number] .4mg Take 1 Univers 0.4 mg 24 17 - capsule by ity of hr capsule 00:00: 05:59 mouth [place] 00 :00 daily for Medical 30 days. Branch Levothyroxi 2020-07 Yes Take by [place] ne 2-16 mouth. ity of (TIROSINT) 12:45: [place] 100 mcg Cap 14 Medical Branch lisinopril 2020-07 Yes 20mg Take 20 mg U nivers (PRINIVIL,Z 2-16 by mouth 2 it y of ESTRIL) 20 12:45: (two) [place] mg tablet 14 times Medical daily. Branch pantoprazol 2020-07 Yes 40mg Take 40 mg Univers e 2-16 by mouth 2 ity of (PROTONIX) 12:45: (two) [place] 40 mg EC 14 times Medical tablet daily. Branch baclofen 10 2020-07 Yes 10mg Take 10 mg Univers mg tablet 2-16 by mouth 3 ity of 12:45: (three) [place] 14 times Medical daily. Branch loratadine 2020-07 Yes 10mg Take 10 mg U nivers 10 mg 2-16 by mouth ity of tablet 12:45: daily. [place] 14 Medical Branch aspirin 2020-07 Yes 325mg Take 325 Unive rs E.C. 325 mg 2-16 mg by ity of EC tablet 12:45: mouth [place] 14 daily. Medical Branch amLODIPine 2020-07 Yes 5mg Take 5 mg [place] (NORVASC) 5 2-16 by mouth 2 it y of mg tablet 12:45: (two) [place] 14 times Medical daily. Branch lithium 2020-07 Yes 300mg Take 300 Unive rs carbonate 2-16 mg by ity of CR 300 mg 12:45: mouth 2 [place] SR tablet 14 (two) Medical times Branch daily. clonazePAM 2020-07 Yes 1mg Take 1 mg [place] 1 mg tablet 2-16 by mouth ity of 12:45: every 24 [place] 14 (twenty-fo Medical ur) hours Branch as needed. solifenacin 2020-07 Yes 5mg Take 5 mg U nivers 5 mg tablet 2-16 by mouth ity of 12:45: daily. [place] 14 Medical Branch doxepin 25 2020-07 Yes 50mg Take 50 mg U nivers mg capsule 2-16 by mouth ity o f 12:45: daily. [place] 14 Medical Branch venlafaxine 2020-07 Yes 50mg Take 50 mg Univers HCl 2-16 by mouth ity of (EFFEXOR 12:45: daily. [place] ORAL) 14 Medical Branch Levothyroxi 2020-07 Yes Take by [place] ne 2-16 mouth. ity of (TIROSINT) 12:45: [place] 100 mcg Cap 14 Medical Branch lisinopril 2020-07 Yes 20mg Take 20 mg U nivers (PRINIVIL,Z 2-16 by mouth 2 it y of ESTRIL) 20 12:45: (two) [place] mg tablet 14 times Medical daily. Branch pantoprazol 2020-07 Yes 40mg Take 40 mg Univers e 2-16 by mouth 2 ity of (PROTONIX) 12:45: (two) [place] 40 mg EC 14 times Medical tablet daily. Branch baclofen 10 2020-07 Yes 10mg Take 10 mg Univers mg tablet 2-16 by mouth 3 ity of 12:45: (three) [place] 14 times Medical daily. Branch loratadine 2020-07 Yes 10mg Take 10 mg U nivers 10 mg 2-16 by mouth ity of tablet 12:45: daily. [place] [address] Medical Branch aspirin 2020-07 Yes 325mg Take 325 Unive rs E.C. 325 mg 2-16 mg by ity of EC tablet 12:45: mouth [place] 14 daily. Medical Branch amLODIPine 2020-07 Yes 5mg Take 5 mg [place] (NORVASC) 5 2-16 by mouth 2 it y of mg tablet 12:45: (two) [place] 14 times Medical daily. Branch lithium 2020-07 Yes 300mg Take 300 Unive rs carbonate 2-16 mg by ity of CR 300 mg 12:45: mouth 2 [place] SR tablet 14 (two) Medical times Branch daily. clonazePAM 2020-07 Yes 1mg Take 1 mg [place] 1 mg tablet 2-16 by mouth ity of 12:45: every 24 [place] 14 (twenty-fo Medical ur) hours Branch as needed. solifenacin 2020-07 Yes 5mg Take 5 mg U nivers 5 mg tablet 2-16 by mouth ity of 12:45: daily. [place] [address] Medical Branch doxepin 25 2020-07 Yes 50mg Take 50 mg U nivers mg capsule 2-16 by mouth ity o f 12:45: daily. [place] [address] Medical Branch venlafaxine 2020-07 Yes 50mg Take 50 mg Univers HCl 2-16 by mouth ity of (EFFEXOR 12:45: daily. [place] ORAL) 14 Medical Branch Levothyroxi 2020-07 Yes Take by [place] ne 2-16 mouth. ity of (TIROSINT) 12:45: [place] 100 mcg Cap 14 Medical Branch lisinopril 2020-07 Yes 20mg Take 20 mg U nivers (PRINIVIL,Z 2-16 by mouth 2 it y of ESTRIL) 20 12:45: (two) [place] mg tablet 14 times Medical daily. Branch pantoprazol 2020-07 Yes 40mg Take 40 mg Univers e 2-16 by mouth 2 ity of (PROTONIX) 12:45: (two) [place] 40 mg EC 14 times Medical tablet daily. Branch baclofen 10 2020-07 Yes 10mg Take 10 mg Univers mg tablet 2-16 by mouth 3 ity of 12:45: (three) [place] 14 times Medical daily. Branch loratadine 2020-07 Yes 10mg Take 10 mg U nivers 10 mg 2-16 by mouth ity of tablet 12:45: daily. [place] [address] Medical Branch aspirin 2020-07 Yes 325mg Take 325 Unive rs E.C. 325 mg 2-16 mg by ity of EC tablet 12:45: mouth [place] 14 daily. Medical Branch amLODIPine 2020-07 Yes 5mg Take 5 mg [place] (NORVASC) 5 2-16 by mouth 2 it y of mg tablet 12:45: (two) [place] 14 times Medical daily. Branch lithium 2020-07 Yes 300mg Take 300 Unive rs carbonate 2-16 mg by ity of CR 300 mg 12:45: mouth 2 [place] SR tablet 14 (two) Medical times Branch daily. clonazePAM 2020-07 Yes 1mg Take 1 mg [place] 1 mg tablet 2-16 by mouth ity of 12:45: every 24 [place] 14 (twenty-fo Medical ur) hours Branch as needed. solifenacin 2020-07 Yes 5mg Take 5 mg U nivers 5 mg tablet 2-16 by mouth ity of 12:45: daily. [place] [address] Medical Branch doxepin 25 2020-07 Yes 50mg Take 50 mg U nivers mg capsule 2-16 by mouth ity o f 12:45: daily. [place] 14 Medical Branch venlafaxine 2020-07 Yes 50mg Take 50 mg Univers HCl 2-16 by mouth ity of (EFFEXOR 12:45: daily. [place] ORAL) 14 Medical Branch Levothyroxi 2020-07 Yes Take by [place] ne 2-16 mouth. ity of (TIROSINT) 12:45: [place] 100 mcg Cap 14 Medical Branch lisinopril 2020-07 Yes 20mg Take 20 mg U nivers (PRINIVIL,Z 2-16 by mouth 2 it y of ESTRIL) 20 12:45: (two) [place] mg tablet 14 times Medical daily. Branch pantoprazol 2020-07 Yes 40mg Take 40 mg Univers e 2-16 by mouth 2 ity of (PROTONIX) 12:45: (two) [place] 40 mg EC 14 times Medical tablet daily. Branch baclofen 10 2020-07 Yes 10mg Take 10 mg Univers mg tablet 2-16 by mouth 3 ity of 12:45: (three) [place] 14 times Medical daily. Branch loratadine 2020-07 Yes 10mg Take 10 mg U nivers 10 mg 2-16 by mouth ity of tablet 12:45: daily. [place] [address] Medical Branch aspirin 2020-07 Yes 325mg Take 325 Unive rs E.C. 325 mg 2-16 mg by ity of EC tablet 12:45: mouth [place] 14 daily. Medical Branch amLODIPine 2020-07 Yes 5mg Take 5 mg [place] (NORVASC) 5 2-16 by mouth 2 it y of mg tablet 12:45: (two) [place] 14 times Medical daily. Branch lithium 2020-07 Yes 300mg Take 300 Unive rs carbonate 2-16 mg by ity of CR 300 mg 12:45: mouth 2 [place] SR tablet 14 (two) Medical times Branch daily. clonazePAM 2020-07 Yes 1mg Take 1 mg [place] 1 mg tablet 2-16 by mouth ity of 12:45: every 24 [place] 14 (twenty-fo Medical ur) hours Branch as needed. solifenacin 2020-07 Yes 5mg Take 5 mg U nivers 5 mg tablet 2-16 by mouth ity of 12:45: daily. [place] [address] Medical Branch doxepin 25 2020-07 Yes 50mg Take 50 mg U nivers mg capsule 2-16 by mouth ity o f 12:45: daily. [place] 14 Medical Branch venlafaxine 2020-07 Yes 50mg Take 50 mg Univers HCl 2-16 by mouth ity of (EFFEXOR 12:45: daily. [place] ORAL) 14 Medical Branch albuterol 2020-07 Yes [id number] 2{puff} Inhale 2 Univers 90 2-16 Puffs ity of mcg/actuati 00:00: every 6 [place] on inhaler 00 (six) Medical hours as Branch needed for Wheezing or Shortness of Breath. albuterol 2020-07 Yes [id number] 2{puff} Inhale 2 Univers 90 2-16 Puffs ity of mcg/actuati 00:00: every 6 [place] on inhaler 00 (six) Medical hours as Branch needed for Wheezing or Shortness of Breath. albuterol 2020-07 Yes [id number] 2{puff} Inhale 2 Univers 90 2-16 Puffs ity of mcg/actuati 00:00: every 6 [place] on inhaler 00 (six) Medical hours as Branch needed for Wheezing or Shortness of Breath. albuterol 2020-07 Yes [id number] 2{puff} Inhale 2 Univers 90 2-16 Puffs ity of mcg/actuati 00:00: every 6 [place] on inhaler 00 (six) Medical hours as Branch needed for Wheezing or Shortness of Breath. tamsulosin 2020-07 Yes .4mg 0.4 mg, Univ ers (FLOMAX) 2-13 Oral, ity of capsule 0.4 03:00: DAILY, [place] mg 00 First dose Medical on [place] Branch 06/26/21 at 2100, Until Discontinu ed, Routine lithium 2020-07 Yes 300mg 300 mg, Univer s carbonate 2-13 Oral, BID, ity of (LITHONATE) 02:00: First dose [place] capsule 300 00 on [place] Medica l mg 06/26/21 Branch at 2000, Until Discontinu ed, Routine cefTRIAXone 2020-07 Yes 1000mg 1,000 mg, Univers (ROCEPHIN) 2-13 IV ity of 1,000 mg in 00:30: Piggyback, [place] NaCl 0.9% 00 Q24H ABX, Medic al (NS) 50 mL First dose Bra nch MINI-BAG on [place] 06/26/21 at 1830, Until Discontinu ed, Administer over 30 Minutes, 50 mL
Reas on for Anti-Infec tive: Empiric Therapy for Suspected Infection& lt;br>Empi torsten Therapy Site: Respirator y
Durat ion of therapy: 7 days doxepin 2020-07 Yes 50mg 50 mg, Univers (SINEQUAN) 2-12 Oral, ity of capsule 50 15:00: DAILY, [place] mg 00 First dose Medical on [facility] 06/26/21 at 0900, Until Discontinu ed, Routine clopidogreL 2020-07 Yes 75mg 75 mg, Univ ers (PLAVIX) 2-12 Oral, ity of tablet 75 15:00: DAILY, [place] mg 00 First dose Medical on [facility] 06/26/21 at 0900, Until Discontinu ed, Routine aspirin 2020-07 Yes 325mg 325 mg, Univer s E.C. 2-12 Oral, ity of (ECOTRIN) 15:00: DAILY, [place] tablet 325 00 First dose Med ical mg on [facility] 06/26/21 at 0900, Until Discontinu ed, Routine azithromyci 2020-07- No 500mg 500 mg, IV Univers n -12 -12 Piggyback, ity of (ZITHROMAX) 13:45: 23:22 Q24H ABX, [place] 500 mg in 00 :10 3 doses, Medica l NaCl 0.9% First dose Bran ch (NS) 250 mL on [place] VIAL-MATE 06/26/21 IV at 0745, piggyback Last dose on Sun06/28/21 at 0745, Administer over 60 Minutes, 250 mL
Reas on for Anti-Infec tive: Empiric Therapy for Suspected Infection< br>Empiric Therapy Site: Respirator y
Durat ion of therapy: 7 days levothyroxi 2020-07 Yes 100ug 100 mcg, U nivers ne 2-12 Oral, ity of (SYNTHROID) 12:00: QAM-0600, [place] tablet 100 00 First dose Med ical mcg on [facility] 06/26/21 at 0600, Until Discontinu ed venlafaxine 2020-07 Yes 37.5mg 37.5 mg, Univers XR (EFFEXOR 2-12 Oral, QHS, it y of XR) 24 hr 03:00: [place] dose [place] capsule 00 on [facility] Medical 37.5 mg 06/25/21 Branch at 2100, Until Discontinu ed atorvastati 2020-07 Yes 80mg 80 mg, Univ ers n (LIPITOR) 2-12 Oral, QHS, it y of tablet 80 03:00: First dose [place] mg 00 on [facility] 06/25/21 Branch at 2100, Until Discontinu ed, Routine pantoprazol 2020-07 Yes 40mg 40 mg, Univ ers e 2-12 Oral, BID, ity of (PROTONIX) 02:00: First dose [place] EC tablet 00 on [facility] Medical 40 mg 06/25/21 Branch at 1999, Until Discontinu ed, Routine lisinopriL 2020-07 Yes 20mg 20 mg, Unive rs (PRINIVIL,Z 2-12 Oral, BID, it y of ESTRIL) 02:00: First dose [place] tablet 20 00 on [facility] Medical mg 06/25/21 Branch at 2000, Until Discontinu ed, Routine amLODIPine 2020-07 Yes 5mg 5 mg, Univer s (NORVASC) 2-12 Oral, BID, ity of tablet 5 mg 02:00: First dose [place] 00 on [facility] 06/25/21 Branch at 2000, Until Discontinu ed, Routine enoxaparin 2020-07 Yes 40mg 40 mg, Unive rs (LOVENOX) 2-11 Subcutaneo ity of injection 23:00: us, DAILY, [place] 40 mg 00 First dose Medical on [facility] Branch 06/25/21 at 1700, Until Discontinu ed, Routine ipratropium 2020-07 Yes 3mL 3 mL, Unive rs -albuteroL 2-11 Inhalation ity of (DUONEB) 18:00: , QID, [place] 0.5 mg-3 00 First dose Medic al mg(2.5 mg on [facility] base)/3 mL 06/25/21 nebulizer at 1200, solution 3 Until mL Discontinu ed, Routine Sliding 2020-07 Yes Subcutaneo Univ ers Scale 2-11 us, TID ity of Insulin - 18:00: MEALS+HS, [place] Lispro 00 First dose Medical (HumaLOG) + on [facility] Fsbg 06/25/21 Testing at 1200, Until Discontinu ed, Routine predniSONE 2020-07 Yes 40mg 40 mg, Unive rs (DELTASONE) 2-11 Oral, ity of tablet 40 17:15: DAILY, [place] mg 00 First dose Medical on [facility] Branch 06/25/21 at 1115, Until Discontinu ed, Routine furosemide 2020-07 Yes 20mg 20 mg, Unive rs (LASIX) 2-11 Slow IV ity of injection 17:15: Push, [place] 20 mg 00 Q12H, Medical First dose Branch on [facility] 06/25/21 at 1115, Until Discontinu ed, Routine albuterol 2020-07 Yes 2.5mg 2.5 mg, Univ ers (PROVENTIL) 2-11 Inhalation it y of 2.5 mg /3 17:02: , Q4HPRN, [place] mL (0.083 11 Starting Medica l %) on [facility] nebulizer 06/25/21 solution at 1102, 2.5 mg Until Discontinu ed, Routine, Shortness of Breath, Wheezing baclofen 2020-07 Yes 10mg 10 mg, Univers (LIORESAL) 2-11 Oral, ity of tablet 10 16:48: TIDPRN, [place] mg 12 Starting Medical on [facility] Branch 06/25/21 at 1048, Until Discontinu ed, Routine, Pain (scale 7-10) glucagon 2020-07 Yes 1mg 1 mg, Univers (GLUCAGEN 2-11 Intramuscu ity of DIAGNOSTIC 16:26: lar, PRN, [place] KIT) 37 Starting Medical injection 1 on [facility] Branch mg 06/25/21 at 1026, Until Discontinu ed, JAKOB, Blood Glucose < or = 70 mg/dL and patient is unable to swallow or has mental changes. dextrose 50 2020-07 Yes 25mL 25 mL, Univ ers % in water 2-11 Slow IV ity of (D50W) 16:26: Push, PRN, [place] injection 37 Starting Medica l 25 mL on [facility] Branch 06/25/21 at 1026, Until Discontinu ed, JAKOB, Blood Glucose < or = 70 mg/dL and patient is unable to swallow or has mental status changes. acetaminoph 2020-07 Yes 650mg 650 mg, [place] en 08-26 Oral, ity of (TYLENOL) 16:26: Q6HPRN, [place] tablet 650 04 Starting Medic al mg on Sat Branch 06/25/21 at 1026, Until Discontinu ed, Routine, Pain (scale 1-3) iohexol 2020-07- No [id number] 100mL 100 mL, Univers (OMNIPAQUE 08-26 Intravenou it y of 350 12:15: 12:00 s, ONCE, 1 [place] BULK-100 00 :00 dose, On Medical mL) [facility] injection 06/25/21 100 mL at 0615, Routine eszopiclone 2020-07- No 3mg Take 3 mg Univers 3 mg tablet 08-26 by mouth ity of 10:51: 00:00 at [place] 23 :00 bedtime. Medical Branch gabapentin 2020-07- No Take by [place] (GRALISE) 08-26 mouth. ity of 300 mg Tb24 10:51: 00:00 [place] 18 :00 Medical Branch FLUTICASONE 2020-07- No Use in [place] PROPIONATE 08-26 each ity of (FLONASE 10:51: 00:00 nostril. [place] NASAL) 18 :00 Medical Branch levocetiriz 2020-07- No 5mg Take 5 mg Univers ine (XYZAL) 08-26 by mouth ity of 5 mg tablet 10:51: 00:00 every [place] 18 :00 evening. Medical Branch QUEtiapine 2020-07- No 50mg Take 50 mg Univers (SEROQUEL) 08-26 by mouth ity of 50 mg 10:51: 00:00 daily. [place] tablet 18 :00 Medical Branch nebivolol 2020-07- No 10mg Take 10 mg U nivers (BYSTOLIC) 08-26 by mouth ity of 10 mg 10:51: 00:00 daily. [place] tablet 18 :00 Medical Branch aspirin 2020-07- No 81mg Take 81 mg Uni vers (ECOTRIN 08-26 by mouth ity of LOW 10:51: 00:00 daily. [place] STRENGTH) 18 :00 Medical 81 mg EC Branch tablet cloNIDine 2020-07- No Take by Uni vers HCl 2-11 12-11 mouth. ity of (KAPVAY) 10:51: 00:00 [place] 0.1 mg 18 :00 Medical tablet Branch divalproex 2020-07- No 500mg Take 500 U nivers ER 500 mg 2-11 12-11 mg by ity of 24 hr 10:51: 00:00 mouth at [place] tablet 18 :00 bedtime. Medical Branch butalbital- 2020-07- No Take by U nivers acetaminoph 2-11 12-11 mouth. ity o f en 25-325 10:51: 00:00 [place] mg Tab 18 :00 Medical Branch traZODONE 2020-07- No 100mg Take 100 [place] 100 mg 2-11 12-11 mg by ity of tablet 10:51: 00:00 mouth at [place] 18 :00 bedtime. Medical Branch oxybutynin 2020-07 No 5mg Take 5 mg U nivers chloride 5 2- 12-11 by mouth 2 it y of mg tablet 10:51: 00:00 (two) [place] 18 :00 times Medical daily. Branch FLUoxetine 2020-07 No 20mg Take 20 mg Univers 20 mg - 12-11 by mouth ity of capsule 10:51: 00:00 daily. [place] 18 :00 Medical Branch furosemide 2020-07- No 40mg Take 40 mg Univers (LASIX) 40 2- 12-11 by mouth ity of mg tablet 10:51: 00:00 daily. [place] 18 :00 Medical Branch milnacipran 2020-07- No Take by U nivers HCl 2-11 12-11 mouth. ity of (SAVELLA 10:51: 00:00 [place] ORAL) 18 :00 Medical Branch ARIPiprazol 2020-07- No 2.5mg Take 2.5 Univers e 2 mg 2-11 12-11 mg by ity of tablet 10:51: 00:00 mouth [place] 18 :00 daily. Medical Branch Iloperidone 2020-07- No 3mg Take 3 mg Univers (FANAPT) 6 2-11 12-11 by mouth ity of mg Tab 10:51: 00:00 as needed. [place] 18 :00 Medical Branch divalproex 2020-07 No 250mg Take 250 U nivers 250 mg EC 2-11 12-11 mg by ity of tablet 10:51: 00:00 mouth at [place] 18 :00 bedtime. Medical Branch divalproex 2020-07 No 1000mg Take 1,000 Univers 500 mg EC 2- 12-11 mg by ity of tablet 10:51: 00:00 mouth at [place] 18 :00 bedtime. Medical Branch zolpidem 2020-07 No 5mg Take 5 mg Uni vers (AMBIEN) 5 - 12-11 by mouth ity of mg tablet 10:51: 00:00 at bedtime [place] 18 :00 as needed Medical for Branch Insomnia. iopamidol 2020- No [id number] 120mL 120 mL, Univers (ISOVUE 01-10 Intravenou ity o f 370-500 mL) 17:45: 17:45 s, ONCE, 1 [place] injection 00 :00 dose, Mon Medic al 120 mL 01/10/21 at Branch 1300, Routine NaCl 0.9% No 1000mL at 999 Uni vers (NS) bolus 01-10 mL/hr, ity of infusion 17:00: 18:03 1,000 mL, [place] 1,000 mL 00 :00 IV Medical Infusion, [place] ONCE, 1 dose, 01/10/21 at 1200, STAT gabapentin Yes Take by Uni vers (GRALISE) 2-12 mouth. ity of 300 mg Tb24 16:56: [place] 40 Medical Branch FLUTICASONE Yes Use in Uni vers PROPIONATE 2-12 each ity of (FLONASE 16:56: nostril. [place] NASAL) 40 Medical Branch levocetiriz Yes 5mg Take 5 mg U nivers ine (XYZAL) 2-12 by mouth ity of 5 mg tablet 16:56: every [place] [id number] evening. Medical Branch Levothyroxi Yes Take by [place] ne 2-12 mouth. ity of (TIROSINT) 16:56: [place] 100 mcg Cap Medical Branch QUEtiapine 2021-0 Yes 50mg Take 50 mg U nivers (SEROQUEL) 2-12 by mouth ity o f 50 mg 16:56: daily. [place] tablet 40 Medical Branch lisinopril 0 Yes 20mg Take 20 mg U nivers (PRINIVIL,Z 2-12 by mouth 2 it y of ESTRIL) 20 16:56: (two) [place] mg tablet 40 times Medical daily. Branch nebivolol 0 Yes 10mg Take 10 mg [place] (BYSTOLIC) 2-12 by mouth ity o f 10 mg 16:56: daily. [place] tablet 40 Medical Branch aspirin 0 Yes 81mg Take 81 mg Univ ers (ECOTRIN 2-12 by mouth ity of LOW 16:56: daily. [place] STRENGTH) 40 Medical 81 mg EC Branch tablet pantoprazol 0 Yes 40mg Take 40 mg [facility] e 2-12 by mouth 2 ity of (PROTONIX) 16:56: (two) [place] 40 mg EC 40 times Medical tablet daily. Branch cloNIDine Yes Take by Univ ers HCl 2-12 mouth. ity of (KAPVAY) 16:56: [place] 0.1 mg 40 Medical tablet Branch divalproex 0 Yes 500mg Take 500 [place] ER 500 mg 2-12 mg by ity of 24 hr 16:56: mouth at [place] tablet 40 bedtime. Medical Branch butalbital- 0 Yes Take by [place] acetaminoph 2-12 mouth. ity of en 25-325 16:56: [place] mg Tab 40 Medical Branch baclofen 10 0 Yes 10mg Take 10 mg [facility] mg tablet 2-12 by mouth 3 ity of 16:56: (three) [place] 40 times Medical daily. Branch traZODONE 0 Yes 100mg Take 100 Uni vers 100 mg 2-12 mg by ity of tablet 16:56: mouth at [place] 40 bedtime. Medical Branch oxybutynin 0 Yes 5mg Take 5 mg [place] chloride 5 2-12 by mouth 2 ity of mg tablet 16:56: (two) [place] 40 times Medical daily. Branch FLUoxetine 0 Yes 20mg Take 20 mg U nivers 20 mg 2-12 by mouth ity of capsule 16:56: daily. [place] 40 Medical Branch furosemide 2021-0 Yes 40mg Take 40 mg U nivers (LASIX) 40 2-12 by mouth ity o f mg tablet 16:56: daily. [place] [address] Medical Branch milnacipran 0 Yes Take by [place] HCl 2-12 mouth. ity of (SAVELLA 16:56: [place] ORAL) 40 Medical Branch ARIPiprazol Yes 2.5mg Take 2.5 U nivers e 2 mg 2-12 mg by ity of tablet 16:56: mouth [place] 40 daily. Medical Branch Iloperidone 0 Yes 3mg Take 3 mg U nivers (FANAPT) 6 2-12 by mouth ity o f mg Tab 16:56: as needed. [place] [address] Medical Branch divalproex 0 Yes 250mg Take 250 [place] 250 mg EC 2-12 mg by ity of tablet 16:56: mouth at [place] [address] bedtime. Medical Branch divalproex Yes 1000mg Take 1,000 [facility] 500 mg EC 2-12 mg by ity of tablet 16:56: mouth at [place] [address] bedtime. Medical Branch loratadine Yes 10mg Take 10 mg U n[facility] 10 mg 2-12 by mouth ity of tablet 16:56: daily. [place] [address] Medical Branch zolpidem 0 Yes 5mg Take 5 mg Univ ers (AMBIEN) 5 2-12 by mouth ity o f mg tablet 16:56: at bedtime [place] 40 as needed Medical for Branch Insomnia. gabapentin Yes Take by Uni vers (GRALISE) 2-12 mouth. ity of 300 mg Tb24 16:56: [place] 40 Medical Branch FLUTICASONE Yes Use in Uni vers PROPIONATE 2-12 each ity of (FLONASE 16:56: nostril. [place] NASAL) 40 Medical Branch levocetiriz 0 Yes 5mg Take 5 mg U nivers ine (XYZAL) 2-12 by mouth ity of 5 mg tablet 16:56: every [place] [address] evening. Medical Branch Levothyroxi Yes Take by [place] ne 2-12 mouth. ity of (TIROSINT) 16:56: [place] 100 mcg Cap 40 Medical Branch QUEtiapine Yes 50mg Take 50 mg U nivers (SEROQUEL) 2-12 by mouth ity o f 50 mg 16:56: daily. [place] tablet 40 Medical Branch lisinopril 0 Yes 20mg Take 20 mg U nivers (PRINIVIL,Z 2-12 by mouth 2 it y of ESTRIL) 20 16:56: (two) [place] mg tablet 40 times Medical daily. Branch nebivolol 0 Yes 10mg Take 10 mg [place] (BYSTOLIC) 2-12 by mouth ity o f 10 mg 16:56: daily. [place] tablet 40 Medical Branch aspirin 0 Yes 81mg Take 81 mg Univ ers (ECOTRIN 2-12 by mouth ity of LOW 16:56: daily. [place] STRENGTH) 40 Medical 81 mg EC Branch tablet pantoprazol 0 Yes 40mg Take 40 mg [facility] e 2-12 by mouth 2 ity of (PROTONIX) 16:56: (two) [place] 40 mg EC 40 times Medical tablet daily. Branch cloNIDine Yes Take by Univ ers HCl 2-12 mouth. ity of (KAPVAY) 16:56: [place] 0.1 mg 40 Medical tablet Branch divalproex 0 Yes 500mg Take 500 [place] ER 500 mg 2-12 mg by ity of 24 hr 16:56: mouth at [place] tablet 40 bedtime. Medical Branch butalbital- 0 Yes Take by [place] acetaminoph 2-12 mouth. ity of en 25-325 16:56: [place] mg Tab 40 Medical Branch baclofen 10 Yes 10mg Take 10 mg [facility] mg tablet 2-12 by mouth 3 ity of 16:56: (three) [place] 40 times Medical daily. Branch traZODONE 0 Yes 100mg Take 100 Uni vers 100 mg 2-12 mg by ity of tablet 16:56: mouth at [place] 40 bedtime. Medical Branch oxybutynin 0 Yes 5mg Take 5 mg [place] chloride 5 2-12 by mouth 2 ity of mg tablet 16:56: (two) [place] 40 times Medical daily. Branch FLUoxetine 0 Yes 20mg Take 20 mg U n[facility] 20 mg 2-12 by mouth ity of capsule 16:56: daily. [place] 40 Medical Branch furosemide 0 Yes 40mg Take 40 mg U nivers (LASIX) 40 2-12 by mouth ity o f mg tablet 16:56: daily. [place] [address] Medical Branch milnacipran 0 Yes Take by [place] HCl 2-12 mouth. ity of (SAVELLA 16:56: [place] ORAL) 40 Medical Branch ARIPiprazol Yes 2.5mg Take 2.5 U nivers e 2 mg 2-12 mg by ity of tablet 16:56: mouth [place] 40 daily. Medical Branch Iloperidone 0 Yes 3mg Take 3 mg U nivers (FANAPT) 6 2-12 by mouth ity o f mg Tab 16:56: as needed. [place] [address] Medical Branch divalproex 0 Yes 250mg Take 250 [place] 250 mg EC 2-12 mg by ity of tablet 16:56: mouth at [place] [address] bedtime. Medical Branch divalproex Yes 1000mg Take 1,000 [facility] 500 mg EC 2-12 mg by ity of tablet 16:56: mouth at [place] [address] bedtime. Medical Branch loratadine Yes 10mg Take 10 mg [facility] 10 mg 2-12 by mouth ity of tablet 16:56: daily. [place] [address] Medical Branch zolpidem 0 Yes 5mg Take 5 mg Univ ers (AMBIEN) 5 2-12 by mouth ity o f mg tablet 16:56: at bedtime [place] 40 as needed Medical for Branch Insomnia. gabapentin Yes Take by [facility] vers (GRALISE) 2-12 mouth. ity of 300 mg Tb24 16:56: [place] 40 Medical Branch FLUTICASONE Yes Use in Uni vers PROPIONATE 2-12 each ity of (FLONASE 16:56: nostril. [place] NASAL) 40 Medical Branch levocetiriz Yes 5mg Take 5 mg U nivers ine (XYZAL) 2-12 by mouth ity of 5 mg tablet 16:56: every [place] 40 evening. Medical Branch Levothyroxi Yes Take by [place] ne 2-12 mouth. ity of (TIROSINT) 16:56: [place] 100 mcg Cap 40 Medical Branch QUEtiapine Yes 50mg Take 50 mg U nivers (SEROQUEL) 2-12 by mouth ity o f 50 mg 16:56: daily. [place] tablet 40 Medical Branch lisinopril 0 Yes 20mg Take 20 mg U nivers (PRINIVIL,Z 2-12 by mouth 2 it y of ESTRIL) 20 16:56: (two) [place] mg tablet 40 times Medical daily. Branch nebivolol 0 Yes 10mg Take 10 mg [place] (BYSTOLIC) 2-12 by mouth ity o f 10 mg 16:56: daily. [place] tablet 40 Medical Branch aspirin 0 Yes 81mg Take 81 mg [facility] ers (ECOTRIN 2-12 by mouth ity of LOW 16:56: daily. [place] STRENGTH) 40 Medical 81 mg EC Branch tablet pantoprazol 0 Yes 40mg Take 40 mg [facility] e 2-12 by mouth 2 ity of (PROTONIX) 16:56: (two) [place] 40 mg EC 40 times Medical tablet daily. Branch cloNIDine 0 Yes Take by [facility] ers HCl 2-12 mouth. ity of (KAPVAY) 16:56: [place] 0.1 mg 40 Medical tablet Branch divalproex 0 Yes 500mg Take 500 [place] ER 500 mg 2-12 mg by ity of 24 hr 16:56: mouth at [place] tablet 40 bedtime. Medical Branch butalbital- 0 Yes Take by [place] acetaminoph 2-12 mouth. ity of en 25-325 16:56: [place] mg Tab 40 Medical Branch baclofen 10 0 Yes 10mg Take 10 mg [facility] mg tablet 2-12 by mouth 3 ity of 16:56: (three) [place] 40 times Medical daily. Branch traZODONE 0 Yes 100mg Take 100 Uni vers 100 mg 2-12 mg by ity of tablet 16:56: mouth at [place] 40 bedtime. Medical Branch oxybutynin 0 Yes 5mg Take 5 mg [place] chloride 5 2-12 by mouth 2 ity of mg tablet 16:56: (two) [place] 40 times Medical daily. Branch FLUoxetine 0 Yes 20mg Take 20 mg [facility] 20 mg 2-12 by mouth ity of capsule 16:56: daily. [place] 40 Medical Branch furosemide 2020-0 Yes 40mg Take 40 mg U nivers (LASIX) 40 2-12 by mouth ity o f mg tablet 16:56: daily. [place] [address] Medical Branch milnacipran 0 Yes Take by [place] HCl 2-12 mouth. ity of (SAVELLA 16:56: [place] ORAL) 40 Medical Branch ARIPiprazol Yes 2.5mg Take 2.5 U nivers e 2 mg 2-12 mg by ity of tablet 16:56: mouth [place] 40 daily. Medical Branch Iloperidone 0 Yes 3mg Take 3 mg U nivers (FANAPT) 6 2-12 by mouth ity o f mg Tab 16:56: as needed. [place] [address] Medical Branch divalproex 0 Yes 250mg Take 250 [place] 250 mg EC 2-12 mg by ity of tablet 16:56: mouth at [place] [address] bedtime. Medical Branch divalproex Yes 1000mg Take 1,000 [facility] 500 mg EC 2-12 mg by ity of tablet 16:56: mouth at [place] [address] bedtime. Medical Branch loratadine Yes 10mg Take 10 mg [facility] 10 mg 2-12 by mouth ity of tablet 16:56: daily. [place] [address] Medical Branch zolpidem 0 Yes 5mg Take 5 mg [facility] ers (AMBIEN) 5 2-12 by mouth ity o f mg tablet 16:56: at bedtime [place] 40 as needed Medical for Branch Insomnia. gabapentin Yes Take by [facility] vers (GRALISE) 2-12 mouth. ity of 300 mg Tb24 16:56: [place] [address] Medical Branch FLUTICASONE Yes Use in Uni vers PROPIONATE 2-12 each ity of (FLONASE 16:56: nostril. [place] NASAL) 40 Medical Branch levocetiriz Yes 5mg Take 5 mg U nivers ine (XYZAL) 2-12 by mouth ity of 5 mg tablet 16:56: every [place] [address] evening. Medical Branch Levothyroxi Yes Take by [place] ne 2-12 mouth. ity of (TIROSINT) 16:56: [place] 100 mcg Cap 40 Medical Branch QUEtiapine Yes 50mg Take 50 mg U nivers (SEROQUEL) 2-12 by mouth ity o f 50 mg 16:56: daily. [place] tablet 40 Medical Branch lisinopril 0 Yes 20mg Take 20 mg U nivers (PRINIVIL,Z 2-12 by mouth 2 it y of ESTRIL) 20 16:56: (two) [place] mg tablet 40 times Medical daily. Branch nebivolol 0 Yes 10mg Take 10 mg [place] (BYSTOLIC) 2-12 by mouth ity o f 10 mg 16:56: daily. [place] tablet 40 Medical Branch aspirin 0 Yes 81mg Take 81 mg [facility] ers (ECOTRIN 2-12 by mouth ity of LOW 16:56: daily. [place] STRENGTH) 40 Medical 81 mg EC Branch tablet pantoprazol 0 Yes 40mg Take 40 mg [facility] e 2-12 by mouth 2 ity of (PROTONIX) 16:56: (two) [place] 40 mg EC 40 times Medical tablet daily. Branch cloNIDine 0 Yes Take by [facility] ers HCl 2-12 mouth. ity of (KAPVAY) 16:56: [place] 0.1 mg 40 Medical tablet Branch divalproex 0 Yes 500mg Take 500 [place] ER 500 mg 2-12 mg by ity of 24 hr 16:56: mouth at [place] tablet 40 bedtime. Medical Branch butalbital- 0 Yes Take by [place] acetaminoph 2-12 mouth. ity of en 25-325 16:56: [place] mg Tab 40 Medical Branch baclofen 10 0 Yes 10mg Take 10 mg [facility] mg tablet 2-12 by mouth 3 ity of 16:56: (three) [place] 40 times Medical daily. Branch traZODONE 0 Yes 100mg Take 100 Uni vers 100 mg 2-12 mg by ity of tablet 16:56: mouth at [place] 40 bedtime. Medical Branch oxybutynin 0 Yes 5mg Take 5 mg [place] chloride 5 2-12 by mouth 2 ity of mg tablet 16:56: (two) [place] 40 times Medical daily. Branch FLUoxetine 2020-0 Yes 20mg Take 20 mg [facility] 20 mg 2-12 by mouth ity of capsule 16:56: daily. [place] 40 Medical Branch furosemide 2020-0 Yes 40mg Take 40 mg U nivers (LASIX) 40 2-12 by mouth ity o f mg tablet 16:56: daily. [place] [address] Medical Branch milnacipran Yes Take by [place] HCl 2-12 mouth. ity of (SAVELLA 16:56: [facility]) Medical Branch ARIPiprazol Yes 2.5mg Take 2.5 U nivers e 2 mg 2-12 mg by ity of tablet 16:56: mouth [place] 40 daily. Medical Branch Iloperidone Yes 3mg Take 3 mg U nivers (FANAPT) 6 2-12 by mouth ity o f mg Tab 16:56: as needed. [place] [address] Medical Branch divalproex Yes 250mg Take 250 [place] 250 mg EC 2-12 mg by ity of tablet 16:56: mouth at [place] [address] bedtime. Medical Branch divalproex Yes 1000mg Take 1,000 [facility] 500 mg EC 2-12 mg by ity of tablet 16:56: mouth at [place] [address] bedtime. Medical Branch loratadine Yes 10mg Take 10 mg [facility] 10 mg 2-12 by mouth ity of tablet 16:56: daily. [place] [address] Medical Branch zolpidem Yes 5mg Take 5 mg Univ ers (AMBIEN) 5 2-12 by mouth ity o f mg tablet 16:56: at bedtime [place] 40 as needed Medical for Branch Insomnia. divalproex Yes 1250mg 1,250 mg, Univers (DEPAKOTE) 2-11 Oral, QHS, ity of EC tablet 03:00: First dose [place] 1,250 mg 00 on Sun Medical 08/25/20 at Branch 2100, Until Discontinu ed, Routine sulfur 2020- No 5mL 5 mL, Univers hexafluorid 2-10 02-10 Intravenou i ty of e microsphr 21:45: 17:00 s, ONCE, 1 [place] (LUMASON) 00 :00 dose, Sun Medic al injection 5 08/25/20 at Br anch mL 1545, Routine
education faculty member approving Restricted medication : EDDIE SALAZAR nitroglycer Yes .5[in_u 0.5 Inch, Univers in (NITROL) 2-10 s] Transderma it y of 2 % 18:00: l (Apply [place] ointment 00 To Skin), Medica l 0.5 Inch Q6HHOL, Branch First dose on Sun08/25/20 at 1200, Until Discontinu ed, Routine levothyroxi Yes 100ug 100 mcg, U nivers ne 2-10 Oral, ity of (SYNTHROID) 12:00: QAM-0600, [place] tablet 100 00 First dose Med ical mcg on Sun Branch 08/25/20 at 0600, Until Discontinu ed acetaminoph Yes 650mg Take 2 Uni vers en 325 mg 2-10 tablets by ity of tablet 00:00: mouth [place] 00 every 6 Medical (six) Branch hours as needed for Pain (scale 1-3). heparin Yes 3000U Inject 3 Unive rs sodium,porc 2-10 mL as ity of ine 00:00: directed. [place] (HEPARIN 00 Medical 1000 Branch UNIT/ML) Soln injection heparin Yes by IV Univers sod,pork in 2-10 Infusion ity of 0.45% NaCl 00:00: route [place] (HEPARIN 00 TITRATE. Medical 25,000 UNIT Branch IN 0.45 NS 250 ML) 25,000 unit/250 mL infusion hydralAZINE 0 Yes 10mg Inject 0.5 [facility] 20 mg/mL 2-10 mL as ity of injection 00:00: directed [place] 00 every 4 Medical (four) Branch hours as needed. HYDROcodone Yes 1{tbl} Take 1 [place] -acetaminop 2-10 tablet by ity of hen 10-325 00:00: mouth [place] mg tablet 00 every 6 Medical (six) Branch hours as needed for Pain (scale 7-10). nitroglycer 0 Yes .5[in_u Apply 0.5 [facility] in 2 % 2-10 s] Inches to ity of ointment 00:00: skin every [place] 00 6 (six) Medical hours. Branch nitroglycer [address] 1 Uni vers in 0.4 mg 2-10 tablet ity of sublingual 00:00: under the [place] tablet 00 tongue Medical every 5 Branch (five) minutes as needed for Chest pain. ondansetron 2021-0 Yes 4mg Inject 2 [place] 4 mg/2 mL 2-10 mL as ity of injection 00:00: directed [place] 00 every 6 Medical (six) Branch hours as needed for Nausea and Vomiting (N/V). traMADoL 50 0 Yes 50mg Take 1 Univ ers mg tablet 2-10 tablet by ity o f 00:00: mouth [place] 00 every 8 Medical (eight) Branch hours as needed for Pain (scale 4-6). acetaminoph 0 Yes 650mg Take 2 Uni vers en 325 mg 2-10 tablets by ity of tablet 00:00: mouth [place] 00 every 6 Medical (six) Branch hours as needed for Pain (scale 1-3). heparin 0 Yes 3000U Inject 3 Unive rs sodium,porc 2-10 mL as ity of ine 00:00: directed. [place] (HEPARIN 00 Medical 1000 Branch UNIT/ML) Soln injection heparin Yes by IV Univers sod,pork in 2-10 Infusion ity of 0.45% NaCl 00:00: route [place] (HEPARIN 00 TITRATE. Medical 25,000 UNIT Branch IN 0.45 NS 250 ML) 25,000 unit/250 mL infusion hydralAZINE 0 Yes 10mg Inject 0.5 [facility] 20 mg/mL 2-10 mL as ity of injection 00:00: directed [place] 00 every 4 Medical (four) Branch hours as needed. HYDROcodone Yes 1{tbl} Take 1 [place] -acetaminop 2-10 tablet by ity of hen 10-325 00:00: mouth [place] mg tablet 00 every 6 Medical (six) Branch hours as needed for Pain (scale 7-10). nitroglycer 0 Yes .5[in_u Apply 0.5 Univers in 2 % 2-10 s] Inches to ity of ointment 00:00: skin every [place] 00 6 (six) Medical hours. Branch nitroglycer [address] 1 Uni vers in 0.4 mg 2-10 tablet ity of sublingual 00:00: under the [place] tablet 00 tongue Medical every 5 Branch (five) minutes as needed for Chest pain. ondansetron 0 Yes 4mg Inject 2 [place] 4 mg/2 mL 2-10 mL as ity of injection 00:00: directed [place] 00 every 6 Medical (six) Branch hours as needed for Nausea and Vomiting (N/V). traMADoL 50 Yes 50mg Take 1 Univ ers mg tablet 2-10 tablet by ity o f 00:00: mouth [place] 00 every 8 Medical (eight) Branch hours as needed for Pain (scale 4-6). acetaminoph 0 Yes 650mg Take 2 Uni vers en 325 mg 2-10 tablets by ity of tablet 00:00: mouth [place] 00 every 6 Medical (six) Branch hours as needed for Pain (scale 1-3). heparin 0 Yes 3000U Inject 3 Unive rs sodium,porc 2-10 mL as ity of ine 00:00: directed. [place] (HEPARIN 00 Medical 1000 Branch UNIT/ML) Soln injection heparin Yes by IV Univers sod,pork in 2-10 Infusion ity of 0.45% NaCl 00:00: route [place] (HEPARIN 00 TITRATE. Medical 25,000 UNIT Branch IN 0.45 NS 250 ML) 25,000 unit/250 mL infusion hydralAZINE Yes 10mg Inject 0.5 [facility] 20 mg/mL 2-10 mL as ity of injection 00:00: directed [place] 00 every 4 Medical (four) Branch hours as needed. HYDROcodone Yes 1{tbl} Take 1 [place] -acetaminop 2-10 tablet by ity of hen 10-325 00:00: mouth [place] mg tablet 00 every 6 Medical (six) Branch hours as needed for Pain (scale 7-10). nitroglycer Yes .5[in_u Apply 0.5 [facility] in 2 % 2-10 s] Inches to ity of ointment 00:00: skin every [place] 00 6 (six) Medical hours. Branch nitroglycer [address] 1 Uni vers in 0.4 mg 2-10 tablet ity of sublingual 00:00: under the [place] tablet 00 tongue Medical every 5 Branch (five) minutes as needed for Chest pain. ondansetron 0 Yes 4mg Inject 2 [place] 4 mg/2 mL 2-10 mL as ity of injection 00:00: directed [place] 00 every 6 Medical (six) Branch hours as needed for Nausea and Vomiting (N/V). traMADoL 50 Yes 50mg Take 1 Univ ers mg tablet 2-10 tablet by ity o f 00:00: mouth [place] 00 every 8 Medical (eight) Branch hours as needed for Pain (scale 4-6). acetaminoph Yes 650mg Take 2 Uni vers en 325 mg 2-10 tablets by ity of tablet 00:00: mouth [place] 00 every 6 Medical (six) Branch hours as needed for Pain (scale 1-3). heparin Yes 3000U Inject 3 Unive rs sodium,porc 2-10 mL as ity of ine 00:00: directed. [place] (HEPARIN 00 Medical 1000 Branch UNIT/ML) Soln injection heparin Yes by IV Univers sod,pork in 2-10 Infusion ity of 0.45% NaCl 00:00: route [place] (HEPARIN 00 TITRATE. Medical 25,000 UNIT Branch IN 0.45 NS 250 ML) 25,000 unit/250 mL infusion hydralAZINE Yes 10mg Inject 0.5 [facility] 20 mg/mL 2-10 mL as ity of injection 00:00: directed [place] 00 every 4 Medical (four) Branch hours as needed. HYDROcodone Yes 1{tbl} Take 1 [place] -acetaminop 2-10 tablet by ity of hen 10-325 00:00: mouth [place] mg tablet 00 every 6 Medical (six) Branch hours as needed for Pain (scale 7-10). nitroglycer Yes .5[in_u Apply 0.5 Univers in 2 % 2-10 s] Inches to ity of ointment 00:00: skin every [place] 00 6 (six) Medical hours. Branch nitroglycer [address] 1 Uni vers in 0.4 mg 2-10 tablet ity of sublingual 00:00: under the [place] tablet 00 tongue Medical every 5 Branch (five) minutes as needed for Chest pain. ondansetron Yes 4mg Inject 2 [place] 4 mg/2 mL 2-10 mL as ity of injection 00:00: directed [place] 00 every 6 Medical (six) Branch hours as needed for Nausea and Vomiting (N/V). traMADoL 50 Yes 50mg Take 1 Univ ers mg tablet 2-10 tablet by ity o f 00:00: mouth [place] 00 every 8 Medical (eight) Branch hours as needed for Pain (scale 4-6). acetaminoph 2020- No 650mg Take 2 [place] en 325 mg 2-10 12-11 tablets by ity of tablet 00:00: 00:00 mouth [place] 00 :00 every 6 Medical (six) Branch hours as needed for Pain (scale 1-3). heparin 2020- No 3000U Inject 3 Univ ers sodium,porc 2-10 12-11 mL as ity of ine 00:00: 00:00 directed. [place] (HEPARIN 00 :00 Medical 1000 Branch UNIT/ML) Soln injection heparin 2020- No by IV Univers sod,pork in 2- 12-11 Infusion ity of 0.45% NaCl 00:00: 00:00 route [place] (HEPARIN 00 :00 TITRATE. Medical 25,000 UNIT Branch IN 0.45 NS 250 ML) 25,000 unit/250 mL infusion hydralAZINE 2020- No 10mg Inject 0.5 [facility] 20 mg/mL 2-10 12-11 mL as ity of injection 00:00: 00:00 directed [place] 00 :00 every 4 Medical (four) Branch hours as needed. HYDROcodone 2020- No 1{tbl} Take 1 U nivers -acetaminop 2-10 12-11 tablet by it y of hen 10-325 00:00: 00:00 mouth [place] mg tablet 00 :00 every 6 Medical (six) Branch hours as needed for Pain (scale 7-10). nitroglycer 2020- No .5[in_u Apply 0.5 Univers in 2 % 2-10 12-11 s] Inches to ity of ointment 00:00: 00:00 skin every [place] 00 :00 6 (six) Medical hours. Branch nitroglycer 2020- No .4mg Place 1 [place] in 0.4 mg 2-10 12-11 tablet ity of sublingual 00:00: 00:00 under the [place] tablet 00 :00 tongue Medical every 5 Branch (five) minutes as needed for Chest pain. ondansetron 2020- No 4mg Inject 2 U nivers 4 mg/2 mL 2-10 12-11 mL as ity of injection 00:00: 00:00 directed [place] 00 :00 every 6 Medical (six) Branch hours as needed for Nausea and Vomiting (N/V). traMADoL 50 2020-0 2020- No 50mg Take 1 Uni vers mg tablet 2-10 12-11 tablet by ity of 00:00: 00:00 mouth [place] 00 :00 every 8 Medical (eight) Branch hours as needed for Pain (scale 4-6). diphenhydrA 2020- No 25mg 25 mg, Uni vers MINE 08-24- Oral, ity of (BENADRYL) 20:15: 20:22 ONCE, 1 [place] tablet 25 00 :00 dose, [facility] Medic al mg 08/24/20 at Branch 1415, Routine lisinopriL Yes 20mg 20 mg, Unive rs (PRINIVIL,Z 2- Oral, ity of ESTRIL) 15:00: DAILY, [place] tablet 20 00 First dose Medi gil mg on [facility] 08/24/20 at 0900, Until Discontinu ed, Routine FLUoxetine Yes 20mg 20 mg, Unive rs (PROZAC) 2- Oral, ity of capsule 20 15:00: DAILY, [place] mg 00 First dose Medical on [facility] 08/24/20 at 0900, Until Discontinu ed, Routine clopidogreL Yes 75mg 75 mg, Univ ers (PLAVIX) 08-24 Oral, ity of tablet 75 15:00: DAILY, [place] mg 00 First dose Medical on [facility] 08/24/20 at 0900, Until Discontinu ed, Routine aspirin Yes 81mg 81 mg, Univers chewable 08-24 Oral, ity of tablet 81 15:00: DAILY, [place] mg 00 First dose Medical on [facility] 08/24/20 at 0900, Until Discontinu ed, Routine ARIPiprazol 2020- No 2.5mg 2.5 mg, U nivers e (ABILIFY) 08-24-10 Oral, ity of tablet 2.5 15:00: 03:19 DAILY, [place] mg 00 :07 First dose Medical on [facility] Branch 08/24/20 at 0900, Until Discontinu ed, Routine pantoprazol Yes 40mg 40 mg, IV U nivers e 08-24 Piggyback, ity of (PROTONIX) 14:00: Q12H, [place] 40 mg in 00 First dose Medic al NaCl 0.9% on [facility] (NS) 100 mL 08/24/20 at MINI-BAG 0800, Until Discontinu ed, 100 mL divalproex No 500mg 500 mg, [place] ER 08-24 Oral, ity of (DEPAKOTE 13:15: 03:18 Q24H, [place] ER) 24 hr 00 :17 First dose Medi gil tablet 500 on [facility] mg 08/24/20 at 0715, Until Discontinu ed, Routine traZODone No 100mg 100 mg, Uni vers (DESYREL) 08-24 Oral, ity of tablet 100 12:06: 03:19 QHSPRN, [place] mg 35 :07 Starting Medical [facility] 08/24/20 Branch at 0606, Until [facility] 08/24/20 at 2119, Routine, Insomnia baclofen Yes 10mg 10 mg, Univers (LIORESAL) 08-24 Oral, ity of tablet 10 12:05: TIDPRN, [place] mg 09 Starting Medical [facility] 08/24/20 Branch at 0605, Until Discontinu ed, Routine, muscle spams hydralAZINE Yes 10mg 10 mg, Univ ers (APRESOLINE 08-24 Slow IV ity o f ) injection 12:04: Push, [place] 10 mg 23 Q4HPRN, Medical Starting Branch [facility] 08/24/20 at 0604, Until Discontinu ed, STAT, DBP=>100; SBP=>160, DBP=>100; SBP=>180<b r>Indicati on: Hypertensi ve Emergency iohexol No 82mL 82 mL, Univers (OMNIPAQUE 08-24 Intravenou it y of 350 10:00: 10:00 s, ONCE, 1 [place] BULK-100 00 :00 dose, Tue Medica l mL) 2/9/21 at [place] injection 0400, 82 mL Routine nitroglycer Yes .4mg 0.4 mg, Uni vers in 09 Sublingual ity of (NITROSTAT) 08:33: , Q5MIN [place] as sublingual 48 PRN, Medical tablet 0.4 Starting Branc h mg 08/24/20 at 0233, Until Discontinu ed, Routine, Chest pain ondansetron Yes 4mg 4 mg, Slow Univers (ZOFRAN 2 IV Push, ity of (PF)) 08:33: Q6HPRN, [place] injection 4 29 Starting Medi igl mg [facility] 08/24/20 Branch at 0233, Until Discontinu ed, Routine, Nausea and Vomiting (N/V) HYDROcodone 0 Yes 1{tbl} 1 tablet, Univers -acetaminop 08-24 Oral, ity of hen (NORCO) 08:33: Q6HPRN, [place] as 10-325 mg 26 Starting Medica l tablet 1 08/24/20 Branc h tablet at 0233, Until Discontinu ed, Routine, Pain (scale 7-10) traMADoL 2020- No 50mg 50 mg, Univer s (ULTRAM) 08-2411 Oral, ity of tablet 50 08:33: 08:32 Q8HPRN, [place] mg 17 :17 Starting Medical [facility] 08/24/20 Branch at 0233, Until [place] 08/26/20 at 0232, Routine, Pain (scale 4-6) acetaminoph Yes 650mg 650 mg, [place] en 209 Oral, ity of (TYLENOL) 08:33: Q6HPRN, [place] tablet 650 14 Starting Medic al mg [facility] 08/24/20 Branch at 0233, Until Discontinu ed, Routine, Pain (scale 1-3) aspirin 2020- No 325mg 325 mg, Unive rs tablet 325 08-24- Oral, ity of mg 06:30: 08:46 ONCE, 1 [place] 00 :00 dose, Tue Medical 08/24/20 at Branch 0030, STAT heparin Yes 12U/kg/ 12 Univers 25,000 2-09 h Units/kg/h ity of Units/250 06:19: r ?68.5 kg [place] mL 12 (8.22 Medical (Premixed mL/hr), IV Bran ch Bag) in Infusion, 0.45 % NS TITRATE, Parameters in Admin. Instr., Starting 08/24/20 at 0019
CA UTION - If LMWH given in ER, AVOID bolus and start next dose/drip 12 hrs after ER dosage.&nb sp; M ust program rate using programmab le infusion pump.&nbsp ; Digna ck with the ordering provider first prior to any administra tion should the patient be on existing/a dditional anticoagul ant therapy.&n bsp; Range, Dosing and Testing&nb sp; - aPTT < 40: & nbsp;Bolus 3000 units, increase rate 100 units/hr.& nbsp;- aPTT 40-49:&nbs p; In crease rate 50 units/hr. - aPTT 50-70:&nbs p; NO CHANGE.&nb sp;- aPTT 71-85:&nbs p; De crease rate 50 units/hr.& nbsp;- aPTT 86-100:&am p;nbsp;&nb sp;Hold 30 minutes, decrease rate 100 units/hr.& nbsp;- aPTT 101-150:&n bsp;&n bsp;Hold 60 minutes, decrease rate 150 units/hr.& nbsp;- aPTT > 150: Hold 60 minutes, decrease rate 300 units/hr.& nbsp;&nbsp ;Check aPTT 6 hours after initiation , then Q6H after every change, aPTT Q12H once therapeuti c levels are reached.&n bsp; DO NOT ADJUST INITIAL BOLUS OR INITIAL INFUSION RATE.
HEPARIN 2020- No 4000U 4,000 [facility] SODIUM 08-24 02-09 Units, IV ity of (PORCINE) 05:30: 06:22 Push, [place] 1,000 00 :00 ONCE, 1 Medical UNIT/ML dose, Mon Branch BOLUS ACS 08/23/20 at ORDER SET 2330, Routine heparin 2020-0 Yes 3000U FOR [facility] (1,000 2-09 REBOLUSING ity of unit/mL, 10 05:19: , Starting [place] mL vial) 12 Mon 08/23/20 Medic al for at 2319, Branch Rebolusing Until Discontinu ed, Routine
Dosing based on aPTT testing parameters (refer to continuous heparin drip order).
butalbital- 2019-0 Yes Take by [place] acetaminoph 8-15 mouth. ity of en 25-325 02:33: [place] mg Tab Medical Branch baclofen 10 2019-0 Yes 10mg Take 10 mg [facility] mg tablet 8-15 by mouth 3 ity of 02:33: (three) [place] [address] times Medical daily. Branch traZODONE 2019-0 Yes 100mg Take 100 Uni vers 100 mg 8-15 mg by ity of tablet 02:33: mouth at [place] [address] bedtime. Medical Branch oxybutynin 2019-0 Yes 5mg Take 5 mg [place] chloride 5 8-15 by mouth. ity of mg tablet 02:33: [place] [address] Medical Branch FLUoxetine 2019-0 Yes 20mg Take 20 mg U nivers 20 mg 8-15 by mouth ity of capsule 02:33: daily. [place] [address] Medical Branch furosemide 2019-0 Yes 40mg Take 40 mg U nivers (LASIX) 40 8-15 by mouth ity o f mg tablet 02:33: daily. [place] [address] Medical Branch milnacipran 2019-0 Yes Take by [place] HCl 8-15 mouth. ity of (SAVELLA 02:33: [place] ORAL) 39 Medical Branch ARIPiprazol 2019-0 Yes 2.5mg Take 2.5 U nivers e 2 mg 8-15 mg by ity of tablet 02:33: mouth [place] [address] daily. Medical Branch Iloperidone 2020-0 Yes 3mg Take 3 mg U nivers (FANAPT) 6 8-15 by mouth ity o f mg Tab 02:33: as needed. [place] [address] Medical Branch gabapentin 2020-0 Yes Take by Uni vers (GRALISE) 8-15 mouth. ity of 300 mg Tb24 02:33: [place] [address] Medical Branch FLUTICASONE 2019-0 Yes Use in Uni vers PROPIONATE 8-15 each ity of (FLONASE 02:33: nostril. [place] NASAL) 39 Medical Branch levocetiriz 2020-0 Yes 5mg Take 5 mg U nivers ine (XYZAL) 8-15 by mouth ity of 5 mg tablet 02:33: every [place] 39 evening. Medical Branch Levothyroxi 2020-0 Yes Take by [place] ne 8-15 mouth. ity of (TIROSINT) 02:33: [place] 100 mcg Cap 39 Medical Branch QUEtiapine 2020-0 Yes 50mg Take 50 mg U nivers (SEROQUEL) 8-15 by mouth 2 ity of 50 mg 02:33: (two) [place] tablet 39 times Medical daily. Branch lisinopril 2020-0 Yes 20mg Take 20 mg U nivers (PRINIVIL,Z 8-15 by mouth ity of ESTRIL) 20 02:33: daily. [place] mg tablet 39 Medical Branch nebivolol 2020-0 Yes 10mg Take 10 mg [place] (BYSTOLIC) 8-15 by mouth ity o f 10 mg 02:33: daily. [place] tablet 39 Medical Branch aspirin 2020-0 Yes 81mg Take 81 mg Univ ers (ECOTRIN 8-15 by mouth ity of LOW 02:33: daily. [place] STRENGTH) 39 Medical 81 mg EC Branch tablet pantoprazol 2020-0 Yes 40mg Take 40 mg Univers e 8-15 by mouth 2 ity of (PROTONIX) 02:33: (two) [place] 40 mg EC 39 times Medical tablet daily. Branch cloNIDine 2019-0 Yes Take by Univ ers HCl 8-15 mouth. ity of (KAPVAY) 02:33: [place] 0.1 mg 39 Medical tablet Branch divalproex 2020-0 Yes 500mg Take 500 [place] ER 500 mg 8-15 mg by ity of 24 hr 02:33: mouth [place] tablet 39 every 24 Medical (twenty-fo Branch ur) hours. butalbital- 2020-0 Yes Take by [place] acetaminoph 8-15 mouth. ity of en 25-325 02:33: [place] mg Tab 39 Medical Branch baclofen 10 2020-0 Yes 10mg Take 10 mg [facility] mg tablet 8-15 by mouth 3 ity of 02:33: (three) [place] 39 times Medical daily. Branch traZODONE 2020-0 Yes 100mg Take 100 Uni vers 100 mg 8-15 mg by ity of tablet 02:33: mouth at [place] 39 bedtime. Medical Branch oxybutynin 2020-0 Yes 5mg Take 5 mg [place] chloride 5 8-15 by mouth. ity of mg tablet 02:33: [place] [address] Medical Branch FLUoxetine 2020-0 Yes 20mg Take 20 mg U nivers 20 mg 8-15 by mouth ity of capsule 02:33: daily. [place] [address] Medical Branch furosemide 2020-0 Yes 40mg Take 40 mg U nivers (LASIX) 40 8-15 by mouth ity o f mg tablet 02:33: daily. [place] [address] Medical Branch milnacipran 2019-0 Yes Take by [place] HCl 8-15 mouth. ity of (SAVELLA 02:33: [place] ORAL) Medical Branch ARIPiprazol 2019-0 Yes 2.5mg Take 2.5 U nivers e 2 mg 8-15 mg by ity of tablet 02:33: mouth [place] [address] daily. Medical Branch Iloperidone 2019-0 Yes 3mg Take 3 mg U nivers (FANAPT) 6 8-15 by mouth ity o f mg Tab 02:33: as needed. [place] [address] Medical Branch gabapentin 2019-0 Yes Take by Uni vers (GRALISE) 8-15 mouth. ity of 300 mg Tb24 02:33: [place] [address] Medical Branch FLUTICASONE 2019-0 Yes Use in Uni vers PROPIONATE 8-15 each ity of (FLONASE 02:33: nostril. [place] NASAL) Medical Branch levocetiriz 2019-0 Yes 5mg Take 5 mg U nivers ine (XYZAL) 8-15 by mouth ity of 5 mg tablet 02:33: every [place] [address] evening. Medical Branch Levothyroxi 2019-0 Yes Take by [place] ne 8-15 mouth. ity of (TIROSINT) 02:33: [place] 100 mcg Cap Medical Branch QUEtiapine 2019-0 Yes 50mg Take 50 mg U nivers (SEROQUEL) 8-15 by mouth 2 ity of 50 mg 02:33: (two) [place] tablet 39 times Medical daily. Branch lisinopril 2019-0 Yes 20mg Take 20 mg U nivers (PRINIVIL,Z 8-15 by mouth ity of ESTRIL) 20 02:33: daily. [place] mg tablet 39 Medical Branch nebivolol 2019-0 Yes 10mg Take 10 mg [place] (BYSTOLIC) 8-15 by mouth ity o f 10 mg 02:33: daily. [place] tablet 39 Medical Branch aspirin 2020-0 Yes 81mg Take 81 mg Univ ers (ECOTRIN 8-15 by mouth ity of LOW 02:33: daily. [place] STRENGTH) 39 Medical 81 mg EC Branch tablet pantoprazol 2020-0 Yes 40mg Take 40 mg [facility] e 8-15 by mouth 2 ity of (PROTONIX) 02:33: (two) [place] 40 mg EC 39 times Medical tablet daily. Branch cloNIDine 2020-0 Yes Take by Univ ers HCl 8-15 mouth. ity of (KAPVAY) 02:33: [place] 0.1 mg 39 Medical tablet Branch divalproex 2020-0 Yes 500mg Take 500 [place] ER 500 mg 8-15 mg by ity of 24 hr 02:33: mouth [place] tablet 39 every 24 Medical (twenty-fo Branch ur) hours. butalbital- 2019-0 Yes Take by [place] acetaminoph 8-15 mouth. ity of en 25-325 02:33: [place] mg Tab 39 Medical Branch baclofen 10 2019-0 Yes 10mg Take 10 mg [facility] mg tablet 8-15 by mouth 3 ity of 02:33: (three) [place] 39 times Medical daily. Branch traZODONE 2019-0 Yes 100mg Take 100 Uni vers 100 mg 8-15 mg by ity of tablet 02:33: mouth at [place] 39 bedtime. Medical Branch oxybutynin 2019-0 Yes 5mg Take 5 mg [place] chloride 5 8-15 by mouth. ity of mg tablet 02:33: [place] 39 Medical Branch FLUoxetine 2020-0 Yes 20mg Take 20 mg U nivers 20 mg 8-15 by mouth ity of capsule 02:33: daily. [place] 39 Medical Branch furosemide 2020-0 Yes 40mg Take 40 mg U nivers (LASIX) 40 8-15 by mouth ity o f mg tablet 02:33: daily. [place] 39 Medical Branch milnacipran 2020-0 Yes Take by [place] HCl 8-15 mouth. ity of (SAVELLA 02:33: [place] ORAL) 39 Medical Branch ARIPiprazol 2020-0 Yes 2.5mg Take 2.5 U nivers e 2 mg 8-15 mg by ity of tablet 02:33: mouth [place] 39 daily. Medical Branch Iloperidone 2020-0 Yes 3mg Take 3 mg U nivers (FANAPT) 6 8-15 by mouth ity o f mg Tab 02:33: as needed. [place] 39 Medical Branch gabapentin 2019-0 Yes Take by Uni vers (GRALISE) 8-15 mouth. ity of 300 mg Tb24 02:33: [place] 39 Medical Branch FLUTICASONE 2020-0 Yes Use in Uni vers PROPIONATE 8-15 each ity of (FLONASE 02:33: nostril. [place] NASAL) 39 Medical Branch levocetiriz 2019-0 Yes 5mg Take 5 mg U nivers ine (XYZAL) 8-15 by mouth ity of 5 mg tablet 02:33: every [place] 39 evening. Medical Branch Levothyroxi 2019-0 Yes Take by [place] ne 8-15 mouth. ity of (TIROSINT) 02:33: [place] 100 mcg Cap 39 Medical Branch QUEtiapine 2019-0 Yes 50mg Take 50 mg U nivers (SEROQUEL) 8-15 by mouth 2 ity of 50 mg 02:33: (two) [place] tablet 39 times Medical daily. Branch lisinopril 2019-0 Yes 20mg Take 20 mg U nivers (PRINIVIL,Z 8-15 by mouth ity of ESTRIL) 20 02:33: daily. [place] mg tablet 39 Medical Branch nebivolol 2019-0 Yes 10mg Take 10 mg [place] (BYSTOLIC) 8-15 by mouth ity o f 10 mg 02:33: daily. [place] tablet 39 Medical Branch aspirin 2020-0 Yes 81mg Take 81 mg Univ ers (ECOTRIN 8-15 by mouth ity of LOW 02:33: daily. [place] STRENGTH) 39 Medical 81 mg EC Branch tablet pantoprazol 2019-0 Yes 40mg Take 40 mg [facility] e 8-15 by mouth 2 ity of (PROTONIX) 02:33: (two) [place] 40 mg EC 39 times Medical tablet daily. Branch cloNIDine 2019-0 Yes Take by Univ ers HCl 8-15 mouth. ity of (KAPVAY) 02:33: [place] 0.1 mg 39 Medical tablet Branch divalproex 2020-0 Yes 500mg Take 500 [place] ER 500 mg 8-15 mg by ity of 24 hr 02:33: mouth [place] tablet 39 every 24 Medical (twenty-fo Branch ur) hours. butalbital- 2019-0 Yes Take by [place] acetaminoph 8-15 mouth. ity of en 25-325 02:33: [place] mg Tab Medical Branch baclofen 10 2019-0 Yes 10mg Take 10 mg [facility] mg tablet 8-15 by mouth 3 ity of 02:33: (three) [place] [address] times Medical daily. Branch traZODONE 2019-0 Yes 100mg Take 100 Uni vers 100 mg 8-15 mg by ity of tablet 02:33: mouth at [place] [address] bedtime. Medical Branch oxybutynin 2019-0 Yes 5mg Take 5 mg [place] chloride 5 8-15 by mouth. ity of mg tablet 02:33: [place] [address] Medical Branch FLUoxetine 2019-0 Yes 20mg Take 20 mg U nivers 20 mg 8-15 by mouth ity of capsule 02:33: daily. [place] [address] Medical Branch furosemide 2019-0 Yes 40mg Take 40 mg U nivers (LASIX) 40 8-15 by mouth ity o f mg tablet 02:33: daily. [place] [address] Medical Branch milnacipran 2019-0 Yes Take by [place] HCl 8-15 mouth. ity of (SAVELLA 02:33: [place] ORAL) 39 Medical Branch ARIPiprazol 2019-0 Yes 2.5mg Take 2.5 U nivers e 2 mg 8-15 mg by ity of tablet 02:33: mouth [place] [address] daily. Medical Branch Iloperidone 2019-0 Yes 3mg Take 3 mg U nivers (FANAPT) 6 8-15 by mouth ity o f mg Tab 02:33: as needed. [place] [address] Medical Branch gabapentin 2019-0 Yes Take by Uni vers (GRALISE) 8-15 mouth. ity of 300 mg Tb24 02:33: [place] [address] Medical Branch FLUTICASONE 2019-0 Yes Use in Uni vers PROPIONATE 8-15 each ity of (FLONASE 02:33: nostril. [place] NASAL) Medical Branch levocetiriz 2019-0 Yes 5mg Take 5 mg U nivers ine (XYZAL) 8-15 by mouth ity of 5 mg tablet 02:33: every [place] [address] evening. Medical Branch Levothyroxi 2019-0 Yes Take by [place] ne 8-15 mouth. ity of (TIROSINT) 02:33: [place] 100 mcg Cap 39 Medical Branch QUEtiapine 2020-0 Yes 50mg Take 50 mg U nivers (SEROQUEL) 8-15 by mouth 2 ity of 50 mg 02:33: (two) [place] tablet 39 times Medical daily. Branch lisinopril 2020-0 Yes 20mg Take 20 mg U nivers (PRINIVIL,Z 8-15 by mouth ity of ESTRIL) 20 02:33: daily. [place] mg tablet 39 Medical Branch nebivolol 2020-0 Yes 10mg Take 10 mg [place] (BYSTOLIC) 8-15 by mouth ity o f 10 mg 02:33: daily. [place] tablet 39 Medical Branch aspirin 2020-0 Yes 81mg Take 81 mg Univ ers (ECOTRIN 8-15 by mouth ity of LOW 02:33: daily. [place] STRENGTH) 39 Medical 81 mg EC Branch tablet pantoprazol 2020-0 Yes 40mg Take 40 mg Univers e 8-15 by mouth 2 ity of (PROTONIX) 02:33: (two) [place] 40 mg EC 39 times Medical tablet daily. Branch cloNIDine 2019-0 Yes Take by Univ ers HCl 8-15 mouth. ity of (KAPVAY) 02:33: [place] 0.1 mg 39 Medical tablet Branch divalproex 2020-0 Yes 500mg Take 500 [place] ER 500 mg 8-15 mg by ity of 24 hr 02:33: mouth [place] tablet 39 every 24 Medical (twenty-fo Branch ur) hours. butalbital- 2020-0 Yes Take by [place] acetaminoph 8-15 mouth. ity of en 25-325 02:33: [place] mg Tab 39 Medical Branch baclofen 10 2019-0 Yes 10mg Take 10 mg [facility] mg tablet 8-15 by mouth 3 ity of 02:33: (three) [place] 39 times Medical daily. Branch traZODONE 2020-0 Yes 100mg Take 100 Uni vers 100 mg 8-15 mg by ity of tablet 02:33: mouth at [place] [address] bedtime. Medical Branch oxybutynin 2020-0 Yes 5mg Take 5 mg [place] chloride 5 8-15 by mouth. ity of mg tablet 02:33: [place] [address] Medical Branch FLUoxetine 2020-0 Yes 20mg Take 20 mg U nivers 20 mg 8-15 by mouth ity of capsule 02:33: daily. [place] [address] Medical Branch furosemide 2020-0 Yes 40mg Take 40 mg U nivers (LASIX) 40 8-15 by mouth ity o f mg tablet 02:33: daily. [place] [address] Medical Branch milnacipran 2019-0 Yes Take by [place] HCl 8-15 mouth. ity of (SAVELLA 02:33: [place] ORAL) 39 Medical Branch ARIPiprazol 2019-0 Yes 2.5mg Take 2.5 U nivers e 2 mg 8-15 mg by ity of tablet 02:33: mouth [place] 39 daily. Medical Branch Iloperidone 0 Yes 3mg Take 3 mg U nivers (FANAPT) 6 8-15 by mouth ity o f mg Tab 02:33: as needed. [place] [address] Medical Branch gabapentin 2019-0 Yes Take by Uni vers (GRALISE) 8-15 mouth. ity of 300 mg Tb24 02:33: [place] [address] Medical Branch FLUTICASONE 0 Yes Use in Uni vers PROPIONATE 8-15 each ity of (FLONASE 02:33: nostril. [place] NASAL) 39 Medical Branch levocetiriz 2019-0 Yes 5mg Take 5 mg U nivers ine (XYZAL) 8-15 by mouth ity of 5 mg tablet 02:33: every [place] [address] evening. Medical Branch Levothyroxi 2019-0 Yes Take by [place] ne 8-15 mouth. ity of (TIROSINT) 02:33: [place] 100 mcg Cap 39 Medical Branch QUEtiapine 2019-0 Yes 50mg Take 50 mg U nivers (SEROQUEL) 8-15 by mouth 2 ity of 50 mg 02:33: (two) [place] tablet 39 times Medical daily. Branch lisinopril 0 Yes 20mg Take 20 mg U nivers (PRINIVIL,Z 8-15 by mouth ity of ESTRIL) 20 02:33: daily. [place] mg tablet 39 Medical Branch nebivolol 2019-0 Yes 10mg Take 10 mg [place] (BYSTOLIC) 8-15 by mouth ity o f 10 mg 02:33: daily. [place] tablet 39 Medical Branch aspirin 2019-0 Yes 81mg Take 81 mg Univ ers (ECOTRIN 8-15 by mouth ity of LOW 02:33: daily. [place] STRENGTH) 39 Medical 81 mg EC Branch tablet pantoprazol 0 Yes 40mg Take 40 mg Univers e 8-15 by mouth 2 ity of (PROTONIX) 02:33: (two) [place] 40 mg EC 39 times Medical tablet daily. Branch cloNIDine 2020-0 Yes Take by [facility] [place] [facility] ers HCl 8-15 mouth. ity of (KAPVAY) 02:33: [place] 0.1 mg 39 Medical tablet Branch divalproex 2020-0 Yes 500mg Take 500 [place] ER 500 mg 8-15 mg by ity of 24 hr 02:33: mouth [place] tablet 39 every 24 Medical (twenty- [place] ur) hours. levothyroxi 2020-0 Yes 100ug 100 mcg, U nivers ne 8-14 Oral, ity of (SYNTHROID) 11:00: QAM-0600, [place] tablet 100 00 First dose Med ical mcg on [facility] [place] 02/27/20 at 0600, Until Discontinu ed, Routine traZODone 2020-0 Yes 100mg 100 mg, [facility] [place] [facility] ers (DESYREL) 8-14 Oral, QHS, ity of tablet 100 02:00: First dose [place] mg 00 on [facility] 02/26/20 at Branch 2100, Until Discontinu ed, Routine divalproex 2020-0 Yes 250mg 250 mg, Uni vers (DEPAKOTE) 8-14 Oral, QHS, ity of EC tablet 02:00: First dose [place] 250 mg 00 on [facility] 02/26/20 at Branch 2100, Until Discontinu ed, Routine atorvastati 2020-0 Yes 80mg 80 mg, [facility] [place] [facility] ers n (LIPITOR) 8-14 Oral, QHS, it y of tablet 80 02:00: First dose [place] mg 00 on [facility] 02/26/20 at Branch 2100, Until Discontinu ed, Routine morpHINE 2020-0 Yes 2mg 2 mg, Slow Uni vers injection 2 8-14 IV Push, ity of mg 00:00: Q3HPRN, [place] 00 Starting Medical [facility] 02/26/20 at 1900, Until Discontinu ed, Routine, Pain (scale 7-10) ascorbic 2020-0 2020- No [id number] 500mg Take 1 U nivers acid, 8 09-14 tablet by ity of vitamin C, 00:00: 04:59 mouth 2 [place] 500 mg 00 :00 (two) Medical tablet times [place] daily for 30 days. cholecalcif 2020-0 2020- No [id number] 1000U Take 1 [facility], 02-26-14 tablet by ity of vitamin D3, 00:00: 04:59 mouth 2 [place] 25 mcg 00 :00 (two) Medical (1,000 times Branch unit) daily for tablet 30 days. zinc 2020-0 2020- No [id number] 220mg Take 1 Unive rs sulfate 220 02-26-14 capsule by i ty of (50) mg 00:00: 04:59 mouth 2 [place] capsule 00 :00 (two) Medical times Branch daily for 30 days. ascorbic 2020-0 2020- No [id number] 500mg Take 1 U nivers acid, 02-26-14 tablet by ity of vitamin C, 00:00: 04:59 mouth 2 [place] 500 mg 00 :00 (two) Medical tablet times Branch daily for 30 days. cholecalcif 2020-0 2020- No [id number] 1000U Take 1 [facility] emmanuelle, 02-2614 tablet by ity of vitamin D3, 00:00: 04:59 mouth 2 [place] 25 mcg 00 :00 (two) Medical (1,000 times Branch unit) daily for tablet 30 days. zinc 2020-0 2020- No [id number] 220mg Take 1 Un[facility] rs sulfate 220 02-26- capsule by i ty of (50) mg 00:00: 04:59 mouth 2 [place] capsule 00 :00 (two) Medical times Branch daily for 30 days. ascorbic 2020-0 2020- No [id number] 500mg Take 1 U nivers acid, 02-2614 tablet by ity of vitamin C, 00:00: 04:59 mouth 2 [place] 500 mg 00 :00 (two) Medical tablet times Branch daily for 30 days. cholecalcif 2020-0 2020- No [id number] 1000U Take 1 [facility], 02-26-14 tablet by ity of vitamin D3, 00:00: 04:59 mouth 2 [place] 25 mcg 00 :00 (two) Medical (1,000 times Branch unit) daily for tablet 30 days. zinc 2020-0 2020- No [id number] 220mg Take 1 Un[facility] rs sulfate 220 8-29 03-14 capsule by i ty of (50) mg 00:00: 04:59 mouth 2 [place] capsule 00 :00 (two) Medical times Branch daily for 30 days. ascorbic 2020-0 2020- No [id number] 500mg Take 1 U nivers acid, 02-26 tablet by ity of vitamin C, 00:00: 04:59 mouth 2 [place] 500 mg 00 :00 (two) Medical tablet times Branch daily for 30 days. cholecalcif 2020-0 2020- No [id number] 1000U Take 1 [facility], 02-26 tablet by ity of vitamin D3, 00:00: 04:59 mouth 2 [place] 25 mcg 00 :00 (two) Medical (1,000 times Branch unit) daily for tablet 30 days. zinc 2020-0 2020- No [id number] 220mg Take 1 Unive rs sulfate 220 02-26 capsule by i ty of (50) mg 00:00: 04:59 mouth 2 [place] capsule 00 :00 (two) Medical times Branch daily for 30 days. ascorbic 2020-0 2020- No [id number] 500mg Take 1 U nivers acid, 02-26 tablet by ity of vitamin C, 00:00: 04:59 mouth 2 [place] 500 mg 00 :00 (two) Medical tablet times Branch daily for 30 days. cholecalcif 2020-0 2020- No [id number] 1000U Take 1 [facility] emmanuelle, 02-26 tablet by ity of vitamin D3, 00:00: 04:59 mouth 2 [place] 25 mcg 00 :00 (two) Medical (1,000 times Branch unit) daily for tablet 30 days. zinc 2020-0 2020- No [id number] 220mg Take 1 Unive rs sulfate 220 02-26 capsule by i ty of (50) mg 00:00: 04:59 mouth 2 [place] capsule 00 :00 (two) Medical times [place] daily for 30 days. ARIPiprazol 2020-0 Yes 5mg 5 mg, Unive rs e (ABILIFY) 8-13 Oral, QPM, it y of tablet 5 mg 22:00: First dose [place] 00 on [facility] 02/26/20 at Branch 1700, Until Discontinu ed, Routine QUEtiapine 2020-0 Yes 50mg 50 mg, Unive rs (SEROQUEL) 8-13 Oral, QPM, ity of tablet 50 22:00: First dose [place] mg 00 on [facility] 8/13/20 at Branch 1700, Until Discontinu ed, Routine morpHINE 2020-0 2020- No 2mg 2 mg, Slow [place] injection 2 02-25 IV Push, ity of mg 21:44: 22:23 Q3HPRN, [place] 48 :16 Starting Medical [facility] 02/26/20 at 1644, Until [facility] 02/26/20 at 1723, Routine, Pain (scale 7-10) sulfur 2020-0 2020- No 5mL 5 mL, Univers hexafluorid 02-25 Intravenou i ty of e microsphr 17:30: 14:45 s, ONCE, 1 [place] (LUMASON) 00 :00 dose, [facility] Medic al injection 5 02/26/20 at Br anch mL 1230, Routine
education faculty member approving Restricted medication : EDDIE SALAZAR amLODIPine 2020-0 Yes 5mg 5 mg, Univer s (NORVASC) 02-25 Oral, ity of tablet 5 mg 14:00: DAILY, [place] 00 First dose Medical on [facility] 02/26/20 at 0900, Until Discontinu ed, Routine FLUoxetine 2020-0 Yes 20mg 20 mg, Unive rs (PROZAC) 02-25 Oral, ity of capsule 20 14:00: DAILY, [place] mg 00 First dose Medical on [facility] 02/26/20 at 0900, Until Discontinu ed, Routine furosemide 2020-0 Yes 40mg 40 mg, Unive rs (LASIX) 02-25 Oral, ity of tablet 40 14:00: DAILY, [place] mg 00 First dose Medical on [facility] 02/26/20 at 0900, Until Discontinu ed, Routine clopidogreL 2020-0 Yes 75mg 75 mg, Univ ers (PLAVIX) 02-25 Oral, ity of tablet 75 14:00: DAILY, [place] mg 00 First dose Medical on [facility] 02/26/20 at 0900, Until Discontinu ed, Routine enoxaparin 2020-0 Yes 40mg 40 mg, Unive rs (LOVENOX) 02-25 Subcutaneo ity of injection 14:00: us, DAILY, [place] 40 mg 00 First dose Medical on [facility] 02/26/20 at 0900, Until Discontinu ed, Routine levoFLOXaci 2020-0 Yes 750mg 750 mg, IV Univers n in D5W 02-25 Piggyback, ity o f (LEVAQUIN) 13:45: Q24H ABX, [place] 750 mg/150 00 First dose Med ical mL on [facility] Branch [facility] 02/26/20 at 750 mg 0845, Until Discontinu ed, 150 mL
R marjan for Anti-Infec tive: Documented Infection< br>Documen jessica Infection Site: Respirator y
Durat ion of Therapy: 7 days baclofen 2020-0 Yes 10mg 10 mg, [facility] (LIORESAL) 8-13 Oral, BID, ity of tablet 10 13:00: First dose [place] mg 00 on [facility] Medical 02/26/20 at Branch 0800, Until Discontinu ed, Routine cholecalcif 2020-0 Yes 1000U 1,000 Univ ers emmanuelle 8- Units, ity of (vitamin 13:00: Oral, BID, [place] D3) tablet 00 First dose Med ical 1,000 Units on [facility] 02/26/20 at 0800, Until Discontinu ed, Routine ascorbic 2020-0 Yes 500mg 500 mg, Unive rs acid 8 Oral, TID, ity of (vitamin C) 13:00: First dose [place] (VITAMIN C) 00 on [facility] Medica l tablet 500 02/26/20 at [facility] mg 0800, Until Discontinu ed, Routine zinc 2020-0 Yes 220mg 220 mg, Univers sulfate 8- Oral, BID, ity of (ORAZINC) 13:00: First dose [place] capsule 220 00 on [facility] Medica l mg 02/26/20 at Branch 0800, Until Discontinu ed, Routine docusate 2020-0 Yes 100mg 100 mg, Unive rs (COLACE) 8- Oral, BID, ity o f capsule 100 13:00: First dose [place] mg 00 on [facility] 02/26/20 at Branch 0800, Until Discontinu ed, Routine lisinopril 2020-0 Yes 20mg 20 mg, Unive rs (PRINIVIL,Z 8- Oral, BID, it y of ESTRIL) 12:45: First dose [place] tablet 20 00 on [facility] Medical mg 02/26/20 at Branch 0745, Until Discontinu ed, Routine aspirin 2020-0 Yes 81mg 81 mg, [facility] chewable 8 Oral, QAM ity of tablet 81 12:45: WITH [place] mg 00 BREAKFAST, Medical First dose Branch on [facility] 02/26/20 at 0745, Until Discontinu ed, Routine hydralAZINE 2020-0 Yes 10mg 10 mg, Univ ers (APRESOLINE 02-25 Slow IV ity o f ) injection 12:32: Push, [place] 10 mg 39 Q4HPRN, Medical Starting Branch [facility] 02/26/20 at 0732, Until Discontinu ed, Routine, sbp > 180 or dbp > 115 lactobacill 2020-0 Yes 1{tbl} 1 tablet, Univers us 02-25 Oral, BID, ity of acidophilus 11:45: First dose [place] (ACIDOPHILL 00 on [facility] US) 25 02/26/20 at Branch million 0645, cell -100 Until mg captab 1 Discontinu tablet ed, Routine ondansetron 2020-0 Yes 4mg 4 mg, Slow [facility] (ZOFRAN 02-25 IV Push, ity of (PF)) 11:32: Q6HPRN, [place] injection 4 06 Starting Medi gil mg [facility] Branch 02/26/20 at 0632, Until Discontinu ed, Routine, Nausea and Vomiting (N/V) ondansetron 2020-0 2020- No 4mg 4 mg, Slow [facility] (ZOFRAN 02-25 IV Push, ity of (PF)) 10:30: 09:24 ONCE, 1 [place] injection 4 00 :00 dose, [facility] Med ical mg 02/26/20 at Branch 0530, JAKOB acetaminoph 2020-0 2020- No 650mg 650 mg, U nivers en 02-25 Oral, ity of (TYLENOL) 10:30: 09:23 ONCE, 1 [place] tablet 650 00 :00 dose, [facility] Medi gil mg 02/26/20 at Branch 0530, JAKOB iohexol 2020-0 2020- No 120mL 120 mL, Unive rs (OMNIPAQUE 02-25 Intravenou it y of 350 08:30: 08:30 s, ONCE, 1 [place] BULK-150 00 :00 dose, [facility] Medica l mL) 02/26/20 at Branch injection 0330, 120 mL Routine oxybutynin 2020-0 2020- No 5mg Take 5 mg U nivers chloride 5 02-25 by mouth. ity of mg tablet 07:19: 00:00 [place] 48 :00 Medical Branch rOPINIRole 2019- No 1mg Take 1 mg U nivers (REQUIP) 1 02-25 by mouth 2 it y of mg tablet 07:18: 00:00 (two) [place] 43 :00 times Medical daily. Branch LORazepam 2019- No 1mg Take 1 mg [place] (ATIVAN) 1 02-25 by mouth. ity of mg tablet 07:16: 00:00 [place] 58 :00 Medical Branch Lamotrigine 2019- No Take by U demetrioers (LAMICTAL 02-25 mouth. ity of ODT) 25 mg 07:16: 00:00 [place] TbDL 19 :00 Medical Branch aspirin 325 2020- No 325mg Take 325 Univers mg tablet 02-25 mg by ity of 07:14: 00:00 mouth [place] 55 :00 daily. Medical Branch amLODIPine 2019- No 10mg Take 10 mg Univers (NORVASC) 02-25 by mouth ity o f 10 mg 07:14: 00:00 daily. [place] tablet 46 :00 Medical Branch ACETAMINOPH 2019- No Take by U demetrioers EN WITH 02-25 mouth 2 ity of CODEINE 07:14: 00:00 (two) [place] (TYLENOL-CO 10 :00 times Medical DEINE NO.3 daily. Branch ORAL) spironolact 2019- No Unive rs one 25 mg 08-17 ity of tablet 00:00: 00:00 [place] 00 :00 Medical Branch RANEXA 500 2020- No Univer s mg 12 hr 08-17 ity of tablet 00:00: 00:00 [place] 00 :00 Medical Branch loratadine 2019- No 10mg Take 1 Univ ers 10 mg 04-06 tablet by ity of tablet 00:00: 00:00 mouth [place] 00 :00 daily. Medical Branch promethazin 2020- No 5mL Take 5 mL Univers e-codeine 04-06 by mouth 4 ity of 6.25-10 00:00: 00:00 (four) [place] mg/5 mL 00 :00 times Medical syrup daily as Branch needed for Cough. mupirocin 2018-0 Yes Apply to Uni vers (BACTROBAN) 3-20 area(s) 3 ity of 2 % 00:00: (three) [place] ointment 00 times Medical daily. Branch mupirocin 2018-0 Yes Apply to Uni vers (BACTROBAN) 3-20 area(s) 3 ity of 2 % 00:00: (three) [place] ointment 00 times Medical daily. Branch mupirocin 2018-0 Yes Apply to Uni vers (BACTROBAN) 3-20 area(s) 3 ity of 2 % 00:00: (three) [place] ointment 00 times Medical daily. Branch mupirocin 2018-0 Yes Apply to Uni vers (BACTROBAN) 3-20 area(s) 3 ity of 2 % 00:00: (three) [place] ointment 00 times Medical daily. Branch mupirocin 2018-0 Yes Apply to Uni vers (BACTROBAN) 3-20 area(s) 3 ity of 2 % 00:00: (three) [place] ointment 00 times Medical daily. Branch mupirocin 2018-0 Yes Apply to Uni vers (BACTROBAN) 3-20 area(s) 3 ity of 2 % 00:00: (three) [place] ointment 00 times Medical daily. Branch mupirocin 2018-0 Yes Apply to Uni vers (BACTROBAN) 3-20 area(s) 3 ity of 2 % 00:00: (three) [place] ointment 00 times Medical daily. Branch mupirocin 2018-0 Yes Apply to Uni vers (BACTROBAN) 3-20 area(s) 3 ity of 2 % 00:00: (three) [place] ointment 00 times Medical daily. Branch mupirocin 2018-0 Yes Apply to Uni vers (BACTROBAN) 3-20 area(s) 3 ity of 2 % 00:00: (three) [place] ointment 00 times Medical daily. Branch mupirocin 2018-0 2020- No Apply to [place] (BACTROBAN) 3-20 12-11 area(s) 3 it y of 2 % 00:00: 00:00 (three) [place] ointment 00 :00 times Medical daily. Branch Lorazepam 2015-07 Yes Ahmed 1 tablet Mem oria 1-15 Ahmed l 05:47: [place] Plavix 2015-07 Yes Ahmed 1 tablet Memori a 1-15 Ahmed l 05:47: [place] Levothyroxi 2015-07 Yes Ahmed 1 tablet M em[place] ne Sodium 1-15 Ahmed every l 05:47: morning on [place] 14 an empty stomach Zostavax 2015-07 Yes Ahmed Unknown Memor ia 1-15 Ahmed l 05:47: [place] Hydrochloro 2015-07 Yes Ahmed once Memor ia t 1-15 Ahmed capsule l 05:47: once a day [place] Crestor 2015-07 Yes Ahmed 1 tablet Memor ia 1-15 Ahmed l 05:47: [place] Quetiapine 2015-07 Yes Ahmed 1 tablet Me moria Fumarate 1-15 Ahmed at bedtime l 05:47: [place] Metoprolol 2015-07 Yes Ahmed 1 tablet Me moria Succinate 1-15 Ahmed l ER 05:47: [place] 2015-07 Yes Ahmed 1 capsule [place] Carbonate 1-15 Ahmed l 05:47: [place] Lamotrigine 2015-07 Yes Ahmed 1 tablet M emoria 1-15 Ahmed l 05:47: [place] Ropinirole 2015-07 Yes Ahmed 1 tablet 1 Memoria HCl 1-15 Ahmed to 3 hours l 05:47: before [place] bedtime Risperidone 2015-07 Yes Ahmed 1 tablet M [place] 1-15 Ahmed l 05:47: [place] Asprin 2015-07 Yes Ahmed Unknown Memoria 1-15 Ahmed l 05:47: [place] Lorazepam 2015-07 Yes Ahmed 1 tablet Mem oria 1-15 Ahmed l 05:47: [place] Plavix 2015-07 Yes Ahmed 1 tablet Memori a 1-15 Ahmed l 05:47: [place] Levothyroxi 2015-07 Yes Ahmed 1 tablet M [place] ne Sodium 1-15 Ahmed every l 05:47: morning on [place] 14 an empty stomach Zostavax 2015-07 Yes Ahmed Unknown Memor ia 1-15 Ahmed l 05:47: [place] Hydrochloro 2015-07 Yes Ahmed once Memor ia t 1-15 Ahmed capsule l 05:47: once a day [place] Crestor 2015-07 Yes Ahmed 1 tablet Memor ia 1-15 Ahmed l 05:47: [place] Quetiapine 2015-07 Yes Ahmed 1 tablet Me moria Fumarate 1-15 Ahmed at bedtime l 05:47: [place] Metoprolol 2015-07 Yes Ahmed 1 tablet Me moria Succinate 1-15 Ahmed l ER 05:47: [place] 2015-07 Yes Ahmed 1 capsule [place] Carbonate 1-15 Ahmed l 05:47: [place] Lamotrigine 2015-07 Yes Ahmed 1 tablet M emoria 1-15 Ahmed l 05:47: [place] Ropinirole 2015-07 Yes Ahmed 1 tablet 1 Memoria HCl 1-15 Ahmed to 3 hours l 05:47: before [place] bedtime Risperidone 2015-07 Yes Ahmed 1 tablet M [place] 1-15 Ahmed l 05:47: [place] Asprin 2015-07 Yes Ahmed Unknown Memoria 1-15 Ahmed l 05:47: [place] Lorazepam 2015-07 Yes Ahmed 1 tablet Mem oria 1-15 Ahmed l 05:47: [place] Plavix 2015-07 Yes Ahmed 1 tablet Memori a 1-15 Ahmed l 05:47: [place] Levothyroxi 2015-07 Yes Ahmed 1 tablet M [place] ne Sodium 1-15 Ahmed every l 05:47: morning on [place] 14 an empty stomach Zostavax 2015-07 Yes Ahmed Unknown Memor ia 1-15 Ahmed l 05:47: [place] Hydrochloro 2015-07 Yes Ahmed once Memor ia t 1-15 Ahmed capsule l 05:47: once a day [place] Crestor 2015-07 Yes Ahmed 1 tablet Memor ia 1-15 Ahmed l 05:47: [place] Quetiapine 2015-07 Yes Ahmed 1 tablet Me mor[place] Fumarate 1-15 Ahmed at bedtime l 05:47: [place] Metoprolol 2015-07 Yes Ahmed 1 tablet Me mor[place] Succinate 1-15 Ahmed l ER 05:47: [place] 2015-07 Yes Ahmed 1 capsule [place] Carbonate 1-15 Ahmed l 05:47: Lamotrigine 2015-07 Yes Ahmed 1 tablet M emoria -15 Ahmed l 05:47: Ropinirole 2015-07 Yes Ahmed 1 tablet 1 Memoria HCl -15 Ahmed to 3 hours l 05:47: before bedtime Risperidone 2015- Yes Ahmed 1 tablet M emoria -15 Ahmed l 05:47: Asprin 2015-07 Yes Ahmed Unknown Memoria -15 Ahmed l 05:47: atorvastati 0 Yes 80mg Take 1 Tab Univers n (LIPITOR) 9-19 by mouth ity of 80 mg 00:00: at [place] tablet 00 bedtime. Medical Branch clopidogrel 0 Yes 75mg Take 1 Tab Univers (PLAVIX) 75 9-19 by mouth ity of mg tablet 00:00: daily. Medical Branch atorvastati 0 Yes 80mg Take 1 Tab Univers n (LIPITOR) 9-19 by mouth ity of 80 mg 00:00: at [place] tablet 00 bedtime. Medical Branch clopidogrel 0 Yes 75mg Take 1 Tab Univers (PLAVIX) 75 9-19 by mouth ity of mg tablet 00:00: daily. Medical Branch aspirin 81 2014-0 Yes 81mg Take 1 Tab U nivers mg chewable 9-19 by mouth ity of tablet 00:00: daily. Medical Branch atorvastati 2014-0 Yes 80mg Take 1 Tab Univers n (LIPITOR) 9-19 by mouth ity of 80 mg 00:00: at [place] tablet 00 bedtime. Medical Branch clopidogrel 2015-0 Yes 75mg Take 1 Tab Univers (PLAVIX) 75 9-19 by mouth ity of mg tablet 00:00: daily. Medical Branch aspirin 81 2014-0 Yes 81mg Take 1 Tab U nivers mg chewable 9-19 by mouth ity of tablet 00:00: daily. Medical Branch atorvastati 2014-0 Yes 80mg Take 1 Tab Univers n (LIPITOR) 9-19 by mouth ity of 80 mg 00:00: at [place] tablet 00 bedtime. Medical Branch clopidogrel 2014-0 Yes 75mg Take 1 Tab Univers (PLAVIX) 75 9-19 by mouth ity of mg tablet 00:00: daily. Medical Branch aspirin 81 2014-0 Yes 81mg Take 1 Tab U nivers mg chewable 9-19 by mouth ity of tablet 00:00: daily. Medical Branch atorvastati 2014-0 Yes 80mg Take 1 Tab Univers n (LIPITOR) 9-19 by mouth ity of 80 mg 00:00: at [place] tablet 00 bedtime. Medical Branch clopidogrel 2015-0 Yes 75mg Take 1 Tab Univers (PLAVIX) 75 9-19 by mouth ity of mg tablet 00:00: daily. Medical Branch aspirin 81 2014-0 Yes 81mg Take 1 Tab U nivers mg chewable 9-19 by mouth ity of tablet 00:00: daily. Medical Branch atorvastati 2014-0 Yes 80mg Take 1 Tab Univers n (LIPITOR) 9-19 by mouth ity of 80 mg 00:00: at [place] tablet 00 bedtime. Medical Branch clopidogrel 2014-0 Yes 75mg Take 1 Tab Univers (PLAVIX) 75 9-19 by mouth ity of mg tablet 00:00: daily. Medical Branch aspirin 81 2014-0 Yes 81mg Take 1 Tab U nivers mg chewable 9-19 by mouth ity of tablet 00:00: daily. Medical Branch atorvastati 2014-0 Yes 80mg Take 1 Tab Univers n (LIPITOR) 9-19 by mouth ity of 80 mg 00:00: at [place] tablet 00 bedtime. Medical Branch clopidogrel 2014-0 Yes 75mg Take 1 Tab Univers (PLAVIX) 75 9-19 by mouth ity of mg tablet 00:00: daily. Medical Branch aspirin 81 2014-0 Yes 81mg Take 1 Tab U nivers mg chewable 9-19 by mouth ity of tablet 00:00: daily. Medical Branch atorvastati 2014-0 Yes 80mg Take 1 Tab Univers n (LIPITOR) 9-19 by mouth ity of 80 mg 00:00: at [place] tablet 00 bedtime. Medical Branch clopidogrel 2015-0 Yes 75mg Take 1 Tab Univers (PLAVIX) 75 9-19 by mouth ity of mg tablet 00:00: daily. Medical Branch aspirin 81 2014-0 Yes 81mg Take 1 Tab U nivers mg chewable 9-19 by mouth ity of tablet 00:00: daily. Medical Branch atorvastati 2014-0 Yes 80mg Take 1 Tab Univers n (LIPITOR) 9-19 by mouth ity of 80 mg 00:00: at [place] tablet 00 bedtime. Medical Branch clopidogrel 2015-0 Yes 75mg Take 1 Tab Univers (PLAVIX) 75 9-19 by mouth ity of mg tablet 00:00: daily. Medical Branch aspirin 81 2014-0 Yes 81mg Take 1 Tab U nivers mg chewable 9-19 by mouth ity of tablet 00:00: daily. Medical Branch atorvastati 2014-0 Yes 80mg Take 1 Tab Univers n (LIPITOR) 9-19 by mouth ity of 80 mg 00:00: at [place] tablet 00 bedtime. Medical Branch clopidogrel 2015-0 Yes 75mg Take 1 Tab Univers (PLAVIX) 75 9-19 by mouth ity of mg tablet 00:00: daily. Medical Branch atorvastati 2014-0 Yes 80mg Take 1 Tab Univers n (LIPITOR) 9-19 by mouth ity of 80 mg 00:00: at [place] tablet 00 bedtime. Medical Branch clopidogrel 2015-0 Yes 75mg Take 1 Tab Univers (PLAVIX) 75 9-19 by mouth ity of mg tablet 00:00: daily. Medical Branch aspirin 81 2014-0 Yes 81mg Take 1 Tab U nivers mg chewable 9-19 by mouth ity of tablet 00:00: daily. Medical Branch atorvastati 2014-0 Yes 80mg Take 1 Tab Univers n (LIPITOR) 9-19 by mouth ity of 80 mg 00:00: at [place] tablet 00 bedtime. Medical Branch clopidogrel 2015-0 Yes 75mg Take 1 Tab Univers (PLAVIX) 75 9-19 by mouth ity of mg tablet 00:00: daily. Medical Branch atorvastati 2015-0 Yes 80mg Take 1 Tab Univers n (LIPITOR) 9-19 by mouth ity of 80 mg 00:00: at [place] tablet 00 bedtime. Medical Branch clopidogrel 2015-0 Yes 75mg Take 1 Tab Univers (PLAVIX) 75 9-19 by mouth ity of mg tablet 00:00: daily. [place] [facility] aspirin 81 2014-0 2021- No 81mg Take 1 Tab Univers mg chewable 9-19 12-11 by mouth ity of tablet 00:00: 00:00 daily. [place] 00 :00 Medical Branch metoprolol 2020- No 12.5mg Take 0.5 Univers tartrate 04-03 Tabs by ity of (LOPRESSOR) 00:00: 00:00 mouth 2 [place] 25 mg 00 :00 (two) Medical tablet times Branch daily. nitroglycer 2020- No .3mg Place 1 [place] in 04-03 Tab under ity of (NITROSTAT) 00:00: 00:00 the tongue [place] 0.3 mg 00 :00 every 5 Medical sublingual (five) Branch tablet minutes as needed for Chest pain. Protonix Yes Ahmed 1 tablet [place] 8-24 Ahmed l 00:00: Protonix Yes Ahmed 1 tablet [place] 8-24 Ahmed l 00:00: 00 Protonix Yes Ahmed 1 tablet [place] 8-24 Ahmed l 00:00: 00 Immunizations Ordered Filled Immunization Date Status Comments [facility] e Immunization Name Name Influenza Virus 2021-03-23 Completed Universit y of Vaccine (3+ yrs) 00:00:[address] [facility] Influenza Virus 2021-03-23 Completed Universit y of Vaccine (3+ yrs) 00:00:[address] [facility] Influenza Virus 2021-03-23 Completed Universit y of Vaccine (3+ yrs) 00:00:[address] [facility] Influenza Virus 2021-03-23 Completed Universit y of Vaccine (3+ yrs) 00:00:[address] [facility] Pneumococcal 2020-04-17 Completed University o f Polysaccharide, 00:00:00 [facility] ical PPSV23 (PNEUMOVAX) Branch Influenza High Dose 2020-04-17 Completed Unive rsity of 00:00:00 [facility] Pneumococcal 2020-04-17 Completed University o f Polysaccharide, 00:00:00 [place] Med ical PPSV23 (PNEUMOVAX) Branch Influenza High Dose 2020-04-17 Completed Unive rsity of 00:00:00 [facility] Pneumococcal 2020-04-17 Completed University o f Polysaccharide, 00:00:00 [place] Med ical PPSV23 (PNEUMOVAX) Branch Influenza High Dose 2020-04-17 Completed Unive rsity of 00:00:00 [facility] Pneumococcal 2020-04-17 Completed University o f Polysaccharide, 00:00:00 [facility] ica PPSV23 (PNEUMOVAX) Branch Influenza High Dose 2020-04-17 Completed Unive rsity of 00:00:00 [facility] Zoster(Zostavax)( 2020-01-01 Completed Unive rsity of ingles) 00:00:00 [facility] Pneumococcal 13 2020-01-01 Completed Universit y of Conjugate, PCV13 00:00:00 [facility] dical (Prevnar 13) Branch Zoster Vaccine 2020-01-01 Completed University of Recombinant 00:00:00 [facility] Zoster(Zostavax)( 2020-01-01 Completed Unive rsity of ingles) 00:00:00 [facility] Pneumococcal 13 2020-01-01 Completed Universit y of Conjugate, PCV13 00:00:00 [facility] dical (Prevnar 13) Branch Zoster Vaccine 2020-01-01 Completed University of Recombinant 00:00:00 [facility] Zoster(Zostavax)( 2020-01-01 Completed Unive rsity of ingles) 00:00:00 [facility] Pneumococcal 13 2020-01-01 Completed Universit y of Conjugate, PCV13 00:00:00 [facility] dical (Prevnar 13) [place] Zoster Vaccine 2020-01-01 Completed University of Recombinant 00:00:00 [facility] Pneumococcal 13 2020-01-01 Completed Universit y of Conjugate, PCV13 00:00:00 [facility] dical (Prevnar 13) Branch Zoster Vaccine 2020-01-01 Completed University of Recombinant 00:00:00 [facility] Pneumococcal 13 2020-01-01 Completed Universit y of Conjugate, PCV13 00:00:00 [facility] dical (Prevnar 13) Branch Zoster Vaccine 2020-01-01 Completed University of Recombinant 00:00:00 [facility] Pneumococcal 13 2020-01-01 Completed Universit y of Conjugate, PCV13 00:00:00 [place] [facility] dical (Prevnar 13) Branch Zoster Vaccine 2020-01-01 Completed University of Recombinant 00:00:00 [facility] Pneumococcal 13 2020-01-01 Completed Universit y of Conjugate, PCV13 00:00:00 [place] Me dical (Prevnar 13) [place] Zoster Vaccine 2020-01-01 Completed University of Recombinant 00:00:00 [facility] Pneumococcal 13 2020-01-01 Completed Universit y of Conjugate, PCV13 00:00:00 [facility] dical (Prevnar 13) [place] Zoster Vaccine 2020-01-01 Completed University of Recombinant 00:00:00 [facility] Pneumococcal 13 2020-01-01 Completed Universit y of Conjugate, PCV13 00:00:00 [facility] dical (Prevnar 13) Branch Zoster Vaccine 2020-01-01 Completed University of Recombinant 00:00:00 [facility] Pneumococcal 13 2020-01-01 Completed Universit y of Conjugate, PCV13 00:00:00 [facility] dical (Prevnar 13) Branch Zoster Vaccine 2020-01-01 Completed University of Recombinant 00:00:00 [facility] Pneumococcal 13 2020-01-01 Completed Universit y of Conjugate, PCV13 00:00:00 [facility] dical (Prevnar 13) [place] Zoster Vaccine 2020-01-01 Completed University of Recombinant 00:00:00 [facility] Pneumococcal 13 2020-01-01 Completed Universit y of Conjugate, PCV13 00:00:00 [facility] dical (Prevnar 13) [place] Zoster Vaccine 2020-01-01 Completed University of Recombinant 00:00:00 [facility] Zoster(Zostavax)( 2020-01-01 Completed Unive rsity of ingles) 00:00:00 [facility] Pneumococcal 13 2020-01-01 Completed Universit y of Conjugate, PCV13 00:00:00 [facility] dical (Prevnar 13) [place] Zoster Vaccine 2020-01-01 Completed University of Recombinant 00:00:00 [facility] Influenza High Dose 2019-08-12 Completed Unive rsity of 00:00:00 [facility] Zoster Vaccine 2019-08-12 Completed University of Recombinant 00:00:00 [facility] Zoster(Zostavax)( 2019-08-12 Completed Unive rsity of ingles) 00:00:00 [facility] Influenza High Dose 2019-08-12 Completed Unive rsity of 00:00:00 [facility] Zoster Vaccine 2019-08-12 Completed University of Recombinant 00:00:00 [facility] Zoster(Zostavax)( 2019-08-12 Completed Unive rsity of ingles) 00:00:00 [facility] Influenza High Dose 2019-08-12 Completed Unive rsity of 00:00:00 [facility] Zoster Vaccine 2019-08-12 Completed University of Recombinant 00:00:00 [facility] Influenza High Dose 2019-08-12 Completed Unive rsity of 00:00:00 [facility] Zoster Vaccine 2019-08-12 Completed University of Recombinant 00:00:00 [facility] Influenza High Dose 2019-08-12 Completed Unive rsity of 00:00:00 [facility] Zoster Vaccine 2019-08-12 Completed University of Recombinant 00:00:00 [facility] Influenza High Dose 2019-08-12 Completed Unive rsity of 00:00:00 [facility] Zoster Vaccine 2019-08-12 Completed University of Recombinant 00:00:00 [facility] Influenza High Dose 2019-08-12 Completed Unive rsity of 00:00:00 [facility] Zoster Vaccine 2019-08-12 Completed University of Recombinant 00:00:00 [facility] Influenza High Dose 2019-08-12 Completed Unive rsity of 00:00:00 [facility] Zoster Vaccine 2019-08-12 Completed University of Recombinant 00:00:00 [facility] Influenza High Dose 2019-08-12 Completed Unive rsity of 00:00:00 [facility] Zoster Vaccine 2019-08-12 Completed University of Recombinant 00:00:00 [facility] Influenza High Dose 2019-08-12 Completed Unive rsity of 00:00:00 [facility] Zoster Vaccine 2019-08-12 Completed University of Recombinant 00:00:00 [facility] Influenza High Dose 2019-08-12 Completed Unive rsity of 00:00:00 [facility] Zoster Vaccine 2019-08-12 Completed University of Recombinant 00:00:00 [facility] Influenza High Dose 2019-08-12 Completed Unive rsity of 00:00:00 [facility] Zoster Vaccine 2019-08-12 Completed University of Recombinant 00:00:00 [facility] Zoster(Zostavax)( 2019-08-12 Completed Unive rsity of ingles) 00:00:00 [facility] Influenza High Dose 2019-08-12 Completed Unive rsity of 00:00:00 [facility] Zoster Vaccine 2019-08-12 Completed University of Recombinant 00:00:00 [facility] Zoster(Zostavax)(Sh 2019-08-12 Completed Unive rsity of ingles) 00:00:00 [facility] Td 2017-10-02 Completed University of 00:00:00 [place] [facility] Tetanus/Diptheria 2017-10-02 Completed Univers ity of 00:00:00 [place] [facility] Td 2017-10-02 Completed University of 00:00:00 [place] [facility] Tetanus/Diptheria 2017-10-02 Completed Univers ity of 00:00:00 [place] [facility] Td 2017-10-02 Completed University of 00:00:00 [facility] Branch Td 2017-10-02 Completed University of 00:00:00 [place] [facility] Td 2017-10-02 Completed University of 00:00:00 [place] [facility] Td 2017-10-02 Completed University of 00:00:00 [facility] Td 2017-10-02 Completed University of 00:00:00 [facility] Td 2017-10-02 Completed University of 00:00:00 [place] [facility] Td 2017-10-02 Completed University of 00:00:00 [place] [facility] Td 2017-10-02 Completed University of 00:00:00 [facility] Td 2017-10-02 Completed University of 00:00:00 [facility] Td 2017-10-02 Completed University of 00:00:00 [facility] Tetanus/Diptheria 2017-10-02 Completed Univers ity of 00:00:00 [facility] Td 2017-10-02 Completed University of 00:00:00 [facility] Tetanus/Diptheria 2017-10-02 Completed Univers ity of 00:00:00 [facility] Vital Signs Vital Name Observation Time Observation Value Comments Source HEIGHT 2021-10-31 03:00:00 152.4 cm WEIGHT 2021-10-31 03:00:00 68.947 kg HEIGHT 2021-10-31 03:00:00 152.4 cm WEIGHT 2021-10-31 03:00:00 68.947 kg Respiratory rate 2021-06-30 17:27:00 18 /min Univ ersity of [facility] Oxygen saturation in 2021-06-30 17:27:00 95 /min [facility] Arterial blood by [facility] Pulse oximetry Branch Systolic blood 2021-06-30 13:34:00 115 mm[Hg] Univer sity of pressure [facility] Diastolic blood 2021-06-30 13:34:00 63 mm[Hg] Unive rsity of pressure [facility] Heart rate 2021-06-30 13:34:00 64 /min [facility]i ty [facility] [place] [facility] Body temperature 2021-06-30 13:34:00 36.89 [place] Univ ersity of [place] [facility] Body weight 2021-06-29 09:57:00 70.988 kg Universi ty [facility] [place] [facility] BMI 2021-06-29 09:57:00 30.56 kg/m2 [facility] [place] [facility] Body height 2021-06-25 09:50:00 152.4 cm [facility]i [facility] [place] [facility] Systolic blood 2021-01-11 04:00:00 111 mm[Hg] Univer sity of pressure [place] [facility] Diastolic blood 2021-01-11 04:00:00 66 mm[Hg] Unive rsity of pressure [place] [facility] Heart rate 2021-01-11 04:00:00 66 /min Universi ty of [place] [facility] Respiratory rate 2021-01-11 04:00:00 21 /min Univ ersity of [place] [facility] Oxygen saturation in 2021-01-11 04:00:00 94 /min University of Arterial blood by [place] [facility] Pulse oximetry Branch Body temperature 2021-01-11 03:35:00 36.83 [place] Univ ersity of [place] [facility] Body weight 2021-01-11 03:35:00 74.39 kg Universi ty [facility] [place] [facility] BMI 2021-01-11 03:35:00 32.03 kg/m2 [facility] [place] [facility] Systolic blood 2021-01-10 21:07:00 95 mm[Hg] Univer sity of pressure [place] [facility] Diastolic blood 2021-01-10 21:07:00 48 mm[Hg] Unive rsity of pressure [place] [facility] Heart rate 2021-01-10 21:07:00 66 /min [facility]i ty [facility] [place] [facility] Respiratory rate 2021-01-10 21:07:00 24 /min Univ ersity of [place] [facility] Oxygen saturation in 2021-01-10 21:07:00 97 /min University of Arterial blood by [place] [facility] Pulse oximetry Branch Body weight 2021-01-10 15:20:00 74.39 kg [facility]i ty [facility] [place] [facility] BMI 2021-01-10 15:20:00 32.03 kg/m2 [facility] [place] [facility] Body temperature 2021-01-10 15:15:00 36.83 [place] Univ ersity of [place] [facility] Systolic blood 2020-08-25 21:44:00 140 mm[Hg] Univer sity of pressure [place] [facility] Diastolic blood 2020-08-25 21:44:00 71 mm[Hg] Unive rsity of pressure [place] [facility] Heart rate 2020-08-25 21:44:00 73 /min [facility]i [facility] [place] [facility] Body temperature 2020-08-25 21:44:00 37 [place] Univ ersity of [place] [facility] Respiratory rate 2020-08-25 21:44:00 18 /min Univ ersity of [place] [facility] Oxygen saturation in 2020-08-25 21:44:00 90 /min University of Arterial blood by [place] [facility] Pulse oximetry Branch Body weight 2020-08-25 11:36:00 74.39 kg bedscale [facility] ty [facility] [place] [facility] [place] BMI 2020-08-25 11:36:00 32.03 kg/m2 [facility] [place] [facility] Body height 2020-08-24 07:04:00 152.4 cm [facility] [place] [facility] Systolic blood 2020-02-28 01:30:00 102 mm[Hg] Univer sity of pressure [place] [facility] Diastolic blood 2020-02-28 01:30:00 73 mm[Hg] Unive rsity of pressure [place] [facility] Heart rate 2020-02-28 01:30:00 81 /min Universi ty of [place] Medical Branch Body temperature 2020-02-28 01:30:00 36.33 Kaylan [facility] [place] [facility] Respiratory rate 2020-02-28 01:30:00 22 /min [facility] [place] [facility] Oxygen saturation in 2020-02-28 01:30:00 93 /min [facility] Arterial blood by [place] [facility] gil Pulse oximetry Branch Body weight 2020-02-27 09:00:00 70.489 kg [facility] [place] [facility] BMI 2020-02-27 09:00:00 30.35 kg/m2 [facility] [place] [facility] Body height 2020-02-26 06:19:00 152.4 cm [facility] [place] [facility] Systolic blood 2020-02-28 01:30:00 102 mm[Hg] [facility] [place] [facility] Diastolic blood 2020-02-28 01:30:00 73 mm[Hg] Unive rsity of pressure [place] [facility] Heart rate 2020-02-28 01:30:00 81 /min [facility] Body temperature 2020-02-28 01:30:00 36.33 Kaylan [facility] Res[facility] rate 2020-02-28 01:30:00 22 /min [facility] Oxygen saturation in 2020-02-28 01:30:00 93 /min [facility] Arterial blood by [facility] Pulse oximetry [place] Body weight 2020-02-27 09:00:00 70.489 kg [facility] BMI 2020-02-27 09:00:00 30.35 kg/m2 [facility] Body height 2020-02-26 06:19:00 152.4 cm [facility] Weight 2015-04-14 18:15:00 [facility] Heart Rate 2015-04-14 18:15:00 [facility] Diastolic (mm Hg) 2015-04-14 18:15:00 [facility] Systolic (mm Hg) 2015-04-14 18:15:00 Chris [facility] Weight 2015-03-11 19:00:00 [facility] Heart Rate 2015-03-11 19:00:00 [facility] [place] Diastolic (mm Hg) 2015-03-11 19:00:00 Mem [facility] [place] Systolic (mm Hg) 2015-03-11 19:00:00 Chris rial [place] Weight 2015-02-23 17:15:00 [facility] Heart Rate 2015-02-23 17:15:00 [facility] Diastolic (mm Hg) 2015-02-23 17:15:00 Mem [facility] [place] Systolic (mm Hg) 2015-02-23 17:15:00 Chris [facility] Procedures Procedure Date / Time Performing Clinician Source Performed XR SHOULDER 2+ VW RIGHT 2021-08-05 18:16:41 Boaz Fair [facility] POCT GLUCOSE (AUTOMATED) 2021-06-30 13:37:00 [facility] 2021-06-30 01:48:00 [facility]SE (AUTOMATED) 2021-06-29 22:47:00 Jeronimo Dobson [facility] POCT GLUCOSE (AUTOMATED) 2021-06-29 17:31:00 Jeronimo Dobson [facility] [place] [facility] POCT GLUCOSE (AUTOMATED) 2021-06-29 13:54:00 Jeronimo Dobson Un [facility]ity [facility] BASIC METABOLIC PANEL 2021-06-29 09:50:[address] [facility] (NA, K, CL, CO2, GLUCOSE, Medica l Branch BUN, CREATININE, CA) CBC WITH DIFF 2021-06-29 09:50:00 Edgardo Love [facility] POCT GLUCOSE (AUTOMATED) 2021-06-29 02:57:00 Jeronimo Dobson [facility] [place] [facility] LITHIUM 2021-06-29 00:46:00 Edgardo Love [facility] POCT GLUCOSE (AUTOMATED) 2021-06-28 23:02:00 Jeronimo Dobson [facility] POCT GLUCOSE (AUTOMATED) 2021-06-28 19:27:00 Jeronimo Dobson [facility] POCT GLUCOSE (AUTOMATED) 2021-06-28 17:54:00 Jeronimo Dobson [facility] [place] [facility] POCT GLUCOSE (AUTOMATED) 2021-06-28 13:54:00 Jeronimo Dobson [facility] [place] [facility] POCT GLUCOSE (AUTOMATED) 2021-06-28 02:59:00 Jeronimo Dobson [facility] [place] [facility] POCT GLUCOSE (AUTOMATED) 2021-06-27 23:08:00 Jeronimo Dobson [facility] [place] [facility] POCT GLUCOSE (AUTOMATED) 2021-06-27 17:48:00 Jeronimo Dobson [facility] POCT GLUCOSE (AUTOMATED) 2021-06-27 13:42:00 Jeronimo Dobson Un [facility] CBC WITH DIFF 2021-06-27 10:31:00 Edgardo Love [facility] BASIC METABOLIC PANEL 2021-06-27 10:30:[address] [facility] (NA, K, CL, CO2, GLUCOSE, Medica l Branch BUN, CREATININE, CA) LITHIUM 2021-06-27 10:30:00 Edgardo Love [facility] POCT GLUCOSE (AUTOMATED) 2021-06-27 04:10:00 Jeronimo Dobson Un iversity [facility] POCT GLUCOSE (AUTOMATED) 2021-06-26 23:15:00 Jeronimo Dobson Un iversity [facility] POCT GLUCOSE (AUTOMATED) 2021-06-26 17:57:00 Jeronimo Dobson Un iversity [facility] POCT GLUCOSE (AUTOMATED) 2021-06-26 14:15:00 Jeronimo Dobson Un iversity [facility] MAGNESIUM 2021-06-26 10:57:00 [facility] BASIC METABOLIC PANEL 2021-06-26 10:57:[address] [facility] (NA, K, CL, CO2, GLUCOSE, Medica l Branch BUN, CREATININE, CA) LITHIUM 2021-06-26 10:57:00 [facility] CBC WITH DIFF 2021-06-26 10:57:00 [facility]) 2021-06-26 03:42:00 [facility]imo [facility] POCT GLUCOSE (AUTOMATED) 2021-06-25 23:28:00 [facility] GLYCOSYLATED HEMOGLOBIN 2021-06-25 18:33:00 Carter Edgardo [facility] (A1C) [facility] POCT GLUCOSE (AUTOMATED) 2021-06-25 17:50:00 [facility] CHEST PULMONARY 2021-06-25 12:05:29 Jeronimo Dobson [facility] ANGIOGRAM Medical Branch CT HEAD WO CONTRAST 2021-06-25 12:04:25 Jeronimo Dobson [facility] XR CHEST 1 VW 2021-06-25 10:11:48 Jeronimo Dboson [facility] ACUTE CARE ARTERIAL BLOOD 2021-06-25 10:02:00 [facility] Branch LIPASE 2021-06-25 09:52:00 Jeronimo Dobson [facility] TROPONIN I 2021-06-25 09:52:00 Jeronimo Dobson [facility] THYROID STIMULATING 2021-06-25 09:52:00 Jeronimo Dobson [facility] HORMONE [facility] COMP. METABOLIC PANEL 2021-06-25 09:52:00 Jeronimo Dobson [facility] ([id number]) Medical Branch LITHIUM 2021-06-25 09:52:00 Jeronimo Dobson [facility] VALPROIC ACID, FREE 2021-06-25 09:52:00 Jeronimo Dobson [facility] CBC WITH DIFF 2021-06-25 09:52:00 Jeronimo Dobson [facility] N-TERMINAL PRO-BNP 2021-06-25 09:52:00 Jeronimo Dobson [facility] COVID-19 (ID NOW RAPID 2021-06-25 09:52:00 Jeronimo Dobson [facility] TESTING) Medical Branch LAB ONLY COVID 2021-06-25 09:52:00 Jeronimo Dobson [facility] INTERPRETATION [facility] HB ECG ROUTINE & RHYTHM 2021-06-25 09:38:10 Jeronimo Dobson [facility] STRIP [facility] CONSENT/REFUSAL FOR 2021-06-25 09:30:41 Doctor Unassigned, [facility] DIAGNOSIS AND TREATMENT [place] [facility] CONSENT/REFUSAL FOR 2021-01-11 03:23:18 Doctor Unassskip, [facility] DIAGNOSIS AND TREATMENT [place] [facility] CT ABDOMEN PELVIS W 2021-01-10 17:52:47 Sharron Muse [facility] CONTRAST [facility] CT HEAD WO CONTRAST 2021-01-10 16:46:02 Sharron Muse [facility] XR CHEST 1 VW 2021-01-10 16:40:02 Sharron Muse [facility] BLOOD CULTURE SCREEN 2021-01-10 15:57:00 Sharron Muse [facility] URINALYSIS 2021-01-10 15:54:00 Sharron Muse [facility] COVID-19 (ID NOW RAPID 2021-01-10 15:50:00 Sharron Muse [facility] TESTING) [facility] BLOOD CULTURE SCREEN 2021-01-10 15:49:00 Sharron Muse [facility] LIPASE 2021-01-10 15:49:00 Sharron Muse [facility] TROPONIN I 2021-01-10 15:49:00 Sharron Muse [facility] HEPATIC FUNCTION PANEL 2021-01-10 15:49:00 Sharron Muse [facility] ([id number]) (ALB,T.PRO,BILI Medical [place] T,BU/BC,ALT,AST,ALK PHOS) BASIC METABOLIC PANEL 2021-01-10 15:49:[address] [facility] (NA, K, CL, CO2, GLUCOSE, Medica l Branch BUN, CREATININE, CA) CBC WITH DIFF 2021-01-10 15:49:00 Sharron Muse [facility] PROTHROMBIN TIME / INR 2021-01-10 15:49:00 Sharron Muse [facility] ACTIVATED PARTIAL 2021-01-10 15:49:00 [facility] N-TERMINAL PRO-BNP 2021-01-10 15:49:00 Sharron Muse [facility] LACTIC ACID WHOLE BLOOD 2021-01-10 15:48:00 Sharron Muse [facility] CONSENT/REFUSAL FOR 2021-01-10 15:07:15 Doctor Unassigned, [facility] DIAGNOSIS AND TREATMENT [place] [facility] ACTIVATED PARTIAL 2020-08-25 17:37:00 Alicja [facility] ECHO ROUTINE W/DOPPLER 2020-08-25 16:02:28 Eddie Salazar [facility] TROPONIN I 2020-08-25 11:31:00 Eddie Salazar [facility] BASIC METABOLIC PANEL 2020-08-25 11:31:00 Alicja [facility] (NA, K, CL, CO2, GLUCOSE, Medica l Branch BUN, CREATININE, CA) VALPROIC ACID, FREE 2020-08-25 11:31:00 Alicja [facility] CBC WITH DIFF 2020-08-25 11:31:00 Alicja [facility] ACTIVATED PARTIAL 2020-08-25 04:49:00 Alicja [facility] ACTIVATED PARTIAL 2020-08-24 21:33:00 [facility] 2020-08-24 12:55:00 Alicja [facility] CT CHEST PULMONARY 2020-08-24 09:48:08 Alicja [facility] ANGIOGRAM Medical [place] CT HEAD WO CONTRAST 2020-08-24 09:46:17 Alicja [facility] CRITICAL CARE 2020-08-24 05:26:20 [facility]W 2020-08-24 04:24:36 [facility] LIP[facility] 2020-08-24 04:11:00 [facility] TROPONIN I 2020-08-24 04:11:00 Micha [facility] HEPATIC FUNCTION PANEL 2020-08-24 04:11:00 Sharron Muse [facility] ([id number]) (ALB,T.PRO,BILI [facility] Branch T,BU/BC,ALT,AST,ALK PHOS) BASIC METABOLIC PANEL 2020-08-24 04:11:[address] [facility] (NA, K, CL, CO2, GLUCOSE, Medica l Branch BUN, CREATININE, CA) LIPID PANEL ([id number])(TOTAL 2020-08-24 04:11:00 Alicja [facility] CHOLESTEROL, Medical Branch TRIGLYCERIDES, HDL) CBC WITH DIFF 2020-08-24 04:11:00 Sharron Muse [facility] PROTHROMBIN TIME / INR 2020-08-24 04:11:00 Sharron Muse [facility] ACTIVATED PARTIAL 2020-08-24 04:11:00 Sharron Muse [facility] THRMPLAS JENNA [facility] N-TERMINAL PRO-BNP 2020-08-24 04:11:00 Sharron Muse [facility] COVID-19 (ID NOW RAPID 2020-08-24 04:11:00 [facility]ron [facility] TESTING) Medical Branch LAB ONLY COVID 2020-08-24 04:11:00 Sharron Muse [facility] INTERPRETATION [facility] HB ECG ROUTINE & RHYTHM 2020-08-24 04:05:40 Sharron Muse [facility] NOTICE OF PRIVACY 2020-08-24 03:37:43 Doctor Unassigned, [facility] PRACTICES [place] [facility] [place] CONSENT/REFUSAL FOR 2020-08-24 03:37:26 Doctor Unassskip, [facility]IS [facility] 2020-08-23 06:01:00 Doctor Unassskip, [facility] URINALYSIS 2020-03-08 20:53:00 Boaz Fair [facility] CBC WITH DIFF 2020-03-08 20:30:00 Boaz Fair [facility] XR CHEST 2 VW 2020-03-08 20:14:25 Boaz Fair [facility] ASSIGNMENT OF BENEFITS 2020-03-08 19:52:19 Doctor Unassskip, [facility] MAGNESIUM 2020-02-27 10:25:00 Heike Evans [facility] TROPONIN I 2020-02-27 10:25:00 Cristina josefa [facility] COMP. METABOLIC PANEL 2020-02-27 10:25:[address] [facility] ([id number]) Medical Branch CBC WITH DIFF 2020-02-27 10:25:00 Cristina josefa [facility] N-TERMINAL PRO-BNP 2020-02-27 10:25:00 Heike Evans [facility] ACUTE CARE VENOUS BLOOD 2020-02-27 10:20:00 Heike Evans [facility] GAS [facility] URINALYSIS 2020-02-26 15:55:00 Cristina josefa [facility] URINE CULTURE 2020-02-26 15:55:00 Cristina josefa [facility] SODIUM, URINE RANDOM 2020-02-26 15:55:00 Heike Evans [facility] ADC / LCC - DRUG SCREEN 2020-02-26 15:55:00 Heike Evans [facility] TRIAGE [facility] PROTEIN CREAT RATIO URINE 2020-02-26 15:55:[address] [facility] W/DOPPLER 2020-02-26 13:42:41 Heike Evans [facility] VITAMIN B12, LEVEL 2020-02-26 13:32:00 Cristina josefa [facility] FOLATE 2020-02-26 13:32:00 Heike Evans [facility] PROTHROMBIN TIME / INR 2020-02-26 13:32:00 Heike Evans [facility] D-DIMER 2020-02-26 13:32:00 Cristina josefa [facility] ACTIVATED PARTIAL 2020-02-26 13:32:00 Cristina [facility] D, 25-OH 2020-02-26 13:32:00 Cristina josefa [facility] PROCALCITONIN 2020-02-26 13:32:00 Cristina josefa [facility] LACTATE DEHYDROGENASE 2020-02-26 13:31:00 Heike Evans [facility] TROPONIN I 2020-02-26 13:31:00 Cristina [facility] POCT GLUCOSE (AUTOMATED) 2020-02-26 12:33:00 Heike Evans [facility] COVID-19 (PCR MOLECULAR 2020-02-26 09:16:00 Jeronimo Dobson [facility] CT CHEST PULMONARY 2020-02-26 08:21:09 Nelida Lynch [facility] ANGIOGRAM Medical Branch XR CHEST 1 VW 2020-02-26 06:50:57 Nelida Lynch [facility] PHOSPHORUS 2020-02-26 06:45:00 Cristina [facility] URIC ACID 2020-02-26 06:45:00 Cristina [facility] LIPASE 2020-02-26 06:45:00 Nelida Lynch [facility] MAGNESIUM 2020-02-26 06:45:00 Cristina [facility] FERRITIN SERUM 2020-02-26 06:45:00 Cristina [facility] TROPONIN I 2020-02-26 06:45:00 Nelida Lynch [facility] THYROID STIMULATING 2020-02-26 06:45:00 Nelida Lynch [facility] HORMONE [facility] HEPATIC FUNCTION PANEL 2020-02-26 06:45:00 Nelida Lynch [facility] ([id number]) (ALB,T.PRO,BILI [facility] Branch T,BU/BC,ALT,AST,ALK PHOS) BASIC METABOLIC PANEL 2020-02-26 06:45:00 Nelida Lynch [facility] (NA, K, CL, CO2, GLUCOSE, Medica l Branch BUN, CREATININE, CA) LIPID PANEL ([id number])(TOTAL 2020-02-26 06:45:00 Heike Evans [facility] CHOLESTEROL, [facility] TRIGLYCERIDES, HDL) SEDIMENTATION RATE 2020-02-26 06:45:00 Heike Evans [facility] CBC WITH DIFF 2020-02-26 06:45:00 Nelida Lynch [facility] GLYCOSYLATED HEMOGLOBIN 2020-02-26 06:45:00 Cristina josefa [facility] (A1C) [facility] N-TERMINAL PRO-BNP 2020-02-26 06:45:00 Nelida Lynch [facility] COVID-19 (ID NOW RAPID 2020-02-26 06:45:00 Nelida Lynch [facility] TESTING) Medical Branch EKG-12 LEAD 2020-02-26 06:37:08 Nelida Lynch [facility] EKG-12 LEAD 2020-02-26 06:33:25 Jeronimo Dobson [facility] NOTICE OF PRIVACY 2020-02-26 06:09:15 Doctor Unassigned, [facility] PRACTICES [place] [facility] CONSENT/REFUSAL FOR 2020-02-26 06:08:44 Doctor Unassigned, [facility] DIAGNOSIS AND TREATMENT [place] [facility] Encounters Start End Encounter Admission Attending Care Care Encounter Source Date/Time Date/Time Type Type Clinicians Facility Department ID 2021-08-10 Outpatient TYRON, [facility] [id number] Common 14:15:17 BOAZ [facility] 2021-05-16 Emergency [facility] [id number] Univers 04:29:43 ity [facility] 2021-05-16 Emergency [facility] [id number] Univers 04:16[facility]10 [facility] 2021-05-13 Emergency [facility] [id number] Univers 12:12:27 [facility] 2020-08-23 Inpatient X ALICJA [facility] ANTHONY [id number] Univers 21:53:00 TYE [facility] 2021-10-31 2021-11-02 Inpatient ER DORETHA [facility] Neurology [id number] [facility] 03:05:00 17:56:00 FRANCOIS 2021-09-15 2021-09-15 Outpatient RU[facility]I [facility] [id number] [facility] 08:35:00 23:59:00 MARY 2021-08-05 2021-08-05 Outpatient R RADIOLOGY [facility] [id number] Univers 11:52:00 23:59:00 ity [facility] 2021-08-05 2021-08-05 Hospital Radiology [facility] [id number] Univers 11:45:00 23:59:00 Encounter [place] [id number] ity [facility] 4.2.7.2.686 [facility] [id number] [facility] 807 Branch 2021-08-05 2021-08-05 Outpatient R RADIOLOGY [facility] [id number] Univers 11:45:00 11:45:00 [id number] ity of [facility] 2021-07-01 2021-07-01 Transition ANTHONY [place] 1.2.840.114 [id number] Univers 00:00:00 00:00:00 of Care Wendy [place] [id number] [place] [id number] [facility] 403 Branch 2021-07-01 2021-07-01 Transition ANTHONY [place] 1.2.840.114 [id number] Univers 00:00:00 00:00:00 of Care Wendy [place] [id number] [id number] [id number] [facility] 403 [place] 2021-06-25 2021-06-30 Inpatient X IVANIALA [facility] ANTHONY [id number] Univers 03:33:00 12:43:00 [facility] ity [facility] 2021-06-25 2021-06-30 [facility] 1.2.840. 114 [id number] [facility] 03:33:00 12:43:00 Encounter Edgardo Love [id number] ity [place] 4.2.7.2.686 [facility] [id number] [place] [id number] Branch 2021-06-20 2021-06-20 ambulatory STLMLC STLMLC [id number] Common 00:00:00 00:00:00 [facility] 2021-06-02 2021-06-02 ambulatory STLMLC STLMLC [id number] Common 00:00:00 00:00:00 [facility] 2021-03-02 2021-03-02 Outpatient [facility] [id number] 697 [place] 00:00:00 00:00:[address] 2021-02-22 2021-02-22 Outpatient [facility] [id number] 898 [place] 00:00:00 00:00:[address] 2021-02-08 2021-02-17 Inpatient [facility] [id number] 264 [place] 00:00:00 00:00:00 CHERELLE [address] 2021-01-10 2021-01-10 Emergency [facility] 1.2.840.114 [id number] Univers 22:27:00 23:03:00 Jazmin Blackwood [id number] ity of [place] 4.2.7.2.686 [facility] [id number] [facility] 084 Branch 2021-01-10 2021-01-10 Emergency [facility] [id number] Univers 10:08:00 16:27:00 [facility] [place] [id number] i ty of [place] 4.2.7.2.686 [facility] [id number] [facility] 084 Branch 2021-01-10 2021-01-10 Orders Doctor LB 1.2.840.114 [id number] [facility] 00:00:00 00:00:00 Only Unassigned, MEGAN [id number] ity of [place] [facility] 4.2.7.2.686 [facility] [id number] [facility] 009 Branch 2020-08-25 2020-08-27 Inpatient [facility] [id number] 0698 [place] 00:00:00 00:00:00 ROBERTA [address] 2020-08-23 2020-08-25 [facility] Sharron Muse [facility] 1.2.840.1 [id number] Univers 21:53:00 19:10:00 Encounter Tye Helm [id number] ity of [place] 4.2.7.2.686 [facility] [id number] [facility] 001 Branch 2020-03-08 2020-03-08 Hospital Radiology [place] 1.2.840.114 [id number] 14:58:59 23:59:00 Encounter [place] [id number] [place] 4.2.7.2.686 [place] [id number] 2020-03-08 2020-03-08 [facility] Radiology [place] 1.2.840.114 [id number] Univers 14:58:59 23:59:00 Encounter [place] [id number] [place] [id number] [facility] 807 [place] 2020-03-08 2020-03-08 Outpatient R [facility] [id number] Univers 15:15:00 15:15:00 [id number] ity of [facility] 2020-03-08 2020-03-08 Outpatient R ANASTACIO ZULETA [facility] [id number] Univers 15:15:00 15:15:00 ity of [facility] 2020-03-08 2020-03-08 Ceramic Painter Ravi, [facility] 1.2.840.114 [id number] 14:56:21 15:11:21 Visit Lab Main [place] [id number] [place] 4.2.7.2.686 Professio [id number] [address] 2020-03-08 2020-03-08 Ceramic Painter Ravi [facility] Lab Main [facility] 1.2.8 40.114 [id number] Univers 14:56:21 15:11:21 Visit Anastacio Zuleta [id number] [place]2.[place].2.686 [place] [facility] [id number] [place] dical [address] 2020-03-08 2020-03-08 Orders Doctor LB 1.2.840.114 [id number] 00:00:00 00:00:00 Only Unassigned, MEGAN [id number] [place] [facility] 4.2.7.2.686 [id number] [facility] 2020-03-08 2020-03-08 Orders Doctor ASHER 1.2.840.114 [id number] Univers 00:00:00 00:00:00 Only Unassigned, MEGAN [id number] ity of [place] HOSPITAL 4.2.7.2.686 [place] as [id number] [facility] 009 [place] 2020-03-01 2020-03-01 Transition Anthony Oswald 1.2.840.114 [id number] 00:00:00 00:00:00 of Care Taniagonzález Irizarry 350.1.13.10 [place] 4.2.7.2.686 [id number] [facility] 2020-03-01 2020-03-01 Transition Anthony Oswald 1.2.840.114 [id number] Univers 00:00:00 00:00:00 of Care Tania Irizarry [id number] it y of [place] 4.2.7.2.686 [facility] [id number] [facility] 403 Branch 2020-02-26 2020-02-27 [facility] 1.2.840. 114 [id number] 01:10:00 21:32:00 Encounter Heike Evans [id number] [place] 4.2.7.2.686 [place] [id number] 08 2020-02-26 2020-02-27 [facility] 1.2.840. 114 [id number] [facility] 01:10:00 21:32:00 Encounter Shaheen Evansjosefa [place] [id number] ity of [place] 4.2.7.2.686 [facility] [id number] [facility] 080 Branch 2019-09-03 2019-09-03 Outpatient Da-Mbayo VFP VFP [id number] [facility] 07:18:00 07:18:00 _A_AH [id number] Family Practic e 2019-09-03 2019-09-03 Outpatient Da-Mbayo VFP VFP [id number] [facility] 07:18:00 07:18:00 _A_AH [id number] Family Practic e 2019-09-03 2019-09-03 Outpatient Da-Mbayo VFP VFP [id number] [facility] 07:18:00 07:18:00 _A_AH [id number] Family Practic e 2019-09-03 2019-09-03 Outpatient Da-Mbayo VFP VFP [id number] [facility] 07:18:00 07:18:00 _A_AH [id number] Family Practic e 2018-11-13 2018-11-13 Outpatient ATTAR, [facility] [id number] [address] [place] [address] 00:00:00 00:00:[address] 2015-04-14 2015-04-14 pt was Dwain Palomino [id number] Memoria 18:15:00 18:15:00 seen at anahi Palomino MD, [id number] l [facility] for HAIDER [id number] Herm [place] on [id number] 2015-03-11 2015-03-11 f/u nullFlavo Ahmed [id number] -[id number] [facility]oria 19:00:00 19:00:00 testing anahi Palomino MD, [id number] l HAIDER [id number] Shanice nn [id number] 2015-03-11 2015-03-11 f/u nullFlavo Ahmed [id number] -[id number] Memoria 19:00:00 19:00:00 testing anahi Palomino MD, [id number] l HAIDER [id number] Shanice nn [id number] 2015-03-08 2015-03-08 Unknown nullFlavo Ahmed [id number] -[id number] Memoria 15:14:00 15:14:00 anahi Palomino MD, [id number] l HAIDER [id number] Shanice nn [id number] 2015-03-08 2015-03-08 Unknown nullFlavo Ahmed [id number] Memoria 15:14:00 15:14:00 anahi Palomino MD, [id number] l HAIDER [id number] Shanice nn [id number] 2015-03-08 2015-03-08 Unknown nullFlavo Ahmed [id number] -[id number] Memoria 15:14:00 15:14:00 anahi Palomino MD, [id number] l HAIDER [id number] Shanice nn 2015-03-08 2015-03-08 Unknown nullFlavo Ahmed [id number] -[id number] Memoria 14:14:00 14:14:00 anahi Palomino MD, [id number] l HAIDER [id number] Shanice nn [id number] 2015-02-23 2015-02-23 pt nullFlavo Ahmed [id number] -[id number] Memoria 17:15:00 17:15:00 referred anahi Palomino MD, [id number] l by Dr. MALONEY [id number] Shanice demarco [facility]'s [id number] office for changes in pt EKG and CP 2015-02-23 2015-02-23 pt nullFlavo Sarahmed [id number] -4 Memoria 17:15:00 17:15:00 referred anahi Palomino MD, [id number] MALONEY [id number] Shanice [facility]'s [id number] office for changes in pt EKG and CP 2015-02-23 2015-02-23 pt Lilibetho Candelario [id number] -[id number] Memoria 17:15:00 17:15:00 referred anahi Palomino MD, [id number] l by Dr. MALONEY [id number] Shanice [facility] [id number] office for changes in pt EKG and CP Results Test Description Test Time Test Comments Results Result Comments Source POCT-GLUCOSE METER 2021-11-02 17:14:46 Test Item Value Reference Range Interpretation Comme nts POC-GLUCOSE METER (BEAKER) 148 mg/dL 70-110 H : TESTED AT [address] (test code = 1538) [facility], [address]: Waiter Waitress/Techni karis ID = [id number] for Umeh, Akumbu POCT-GLUCOSE [id number] 12:16:00 Test Item Value Reference Range Interpretation Comments POC-GLUCOSE METER 204 mg/dL 70-110 H : [facility] ([facility] (test code = [facility], 1538) [address]: Waiter Waitress/Techni karis ID = [id number] for Um eh, Akumbu POCT-GLUCOSE [id number] 08:20:04 Test Item Value Reference Range Interpretation Comments POC-GLUCOSE METER 123 mg/dL 70-110 H : [facility] (test code = [facility], 1538) [address]: Waiter Waitress/Techni karis ID = [id number] for Um eh, Akumbu POCT-GLUCOSE [id number] 21:10:11 Test Item Value Reference Range Interpretation Comments POC-GLUCOSE METER 180 mg/dL 70-110 H : [facility] ([place] (test code = [facility], 1538) [address]: Waiter Waitress/Techni karis ID = [id number] for Nadiya Wild POCT-GLUCOSE [id number] 17:56:50 Test Item Value Reference Range Interpretation Comments POC-GLUCOSE METER 156 mg/dL 70-110 H : TESTED A T [facility] [address] (BEAKER) (test code = [facility], 153) [address]: Waiter Waitress/Techni karis ID = [id number] for Carol Garrido POCT-GLUCOSE [id number] 14:36:46 Test Item Value Reference Range Interpretation Comments POC-GLUCOSE METER 245 mg/dL 70-110 H : TESTED A T [facility] 67[address] (BEAKER) (test code = [facility], 153) [address]: Waiter Waitress/Techni karis ID = [id number] for Heather Lopez HEMOGLOBIN [id number] 10:02:53 Test Item Value Reference Range Interpretation Comments HEMOGLOBIN A1C 6.9 % See_Comment H [Automated m essage] ELECTROPHORESIS (AKER) The system which (test code = 3811) generated this result transmitted ref erence range: <=5.6%. The reference range was not used to int erpret this result as normal/abnormal . "The A1c is measured using a NGSP-certified method. HbA1c value equal to or greater than 6.5% as thediagnosis cutoff for diabetes. An HbA1c value of 5.7- 6.4% indicates increased risk for diabetes (prediabetes)."Waiter Waitress ID - ADMOperator ID - ADMPOCT-GLUCOSE [id number] 08:48:27 Test Item Value Reference Range Interpretation Comments POC-GLUCOSE METER 133 mg/dL 70-110 H : TESTED A T [facility] [address] (BEAKER) (test code = [facility], 153) [address]: Waiter Waitress/Techni karis ID = [id number] for MAKEDA INGRAM HEPATIC FUNCTION [id number] 06:11:15 Test Item Value Reference Range Interpretation Comments TOTAL PROTEIN (BEAKER) (test code = 5.4 gm/dL 6.0-8.3 L 770) ALBUMIN (BEAKER) (test code = 1145) 3.4 g/dL 3.5-5.0 L BILIRUBIN TOTAL (BEAKER) (test code 0.5 mg/dL 0.2-1.2 = 377) BILIRUBIN DIRECT (BEAKER) (test 0.2 mg/dL 0.1-0.5 code = 706) ALKALINE PHOSPHATASE (BEAKER) (test 88 U/L 40-150 code = 346) AST (SGOT) (BEAKER) (test code = 9 U/L 5-34 353) ALT (SGPT) (BEAKER) (test code = 9 U/L 6-55 347) Waiter Waitress ID Julian NGUYEN WLIPID [id number] 06:11:14 Test Item Value Reference Range Interpretation Comments TRIGLYCERIDES (BEAKER) (test code = 274 mg/dL 540) CHOLESTEROL (BEAKER) (test code = 163 mg/dL 631) HDL CHOLESTEROL (BEAKER) (test code 44 mg/dL = 976) LDL CHOLESTEROL CALCULATED (BEAKER) 64 mg/dL (test code = 633) Triglyceride Reference Range: Low Risk <150 Borderline 150-199 High Risk 200-499 Very High Risk >=500Cholesterol Reference Range: Low Risk <200 Borderline 200-239 High Risk >240HDL Cholesterol Reference Range: Low Risk >=60 High Risk <40LDL Cholesterol Reference Range: Optimal <100 Near Optimal 100-129 Borderline 130-159 High 160-189 Very High >=190 Waiter Waitress ID Julian NGUYENCOODZLCYRWRMPPM2750-04-03 06:11:13 Test Item Value Reference Range Interpretation Comments MAGNESIUM (BEAKER) (test code = 1.7 mg/dL 1.6-2.6 627) Waiter Waitress ID Julian NGUYEN [id number] 06:11:13 Test Item Value Reference Range Interpretation Comments PHOSPHORUS (BEAKER) (test code = 2.7 mg/dL 2.3-4.7 604) Waiter Waitress ID - WENDY WBASIC METABOLIC [id number] 06:11:12 Test Item Value Reference Range Interpretation Comments SODIUM (BEAKER) 142 meq/L 136-145 (test code = 381) POTASSIUM (BEAKER) 3.9 meq/L 3.5-5.1 (test code = 379) CHLORIDE (BEAKER) 107 meq/L 98-107 (test code = 382) CO2 (BEAKER) (test 28 meq/L 22-29 code = 355) BLOOD UREA NITROGEN 9 mg/dL 7-21 (BEAKER) (test code = 354) CREATININE (BEAKER) 0.66 mg/dL 0.57-1.25 (test code = 358) GLUCOSE RANDOM 133 mg/dL 70-105 H (BEAKER) (test code = 652) CALCIUM (BEAKER) 9.0 mg/dL 8.4-10.2 (test code = 697) EGFR (BEAKER) (test 87 mL/min/1.73 ESTIMA JESSICA GFR IS code = 1092) sq m NOT ACCURATE CREATININE CLEARANCE IN PREDICTING GLOMERULAR FILTRATION RATE . ESTIMATED GFR I S NOT APPLICABLE FOR DIALYSIS PATIEN TS. Waiter Waitress ID - WENDY WPROTHROMBIN TIME/[id number] 05:31:32 Test Item Value Reference Range Interpretation Comments PROTIME (BEAKER) 12.8 seconds 11.9-14.2 (test code = 759) INR (BEAKER) (test 0.98 See_Comment [Automat ed message] code = 370) The system Otelic generated this result transmitted ref erence range: <=5.90. The reference range was not used to int erpret this result as normal/abnormal . RECOMMENDED COUMADIN/WARFARIN INR THERAPY RANGESSTANDARD DOSE: 2.0 - 3.0 Includes: PROPHYLAXIS forvenous thrombosis, systemic embolization; TREATMENT for venous thrombosis and/or pulmonary embolus.HIGH RISK: Target INR is 2.5-3.5 for patients with mechanical heart valves.CBC W/PLT COUNT & AUTO DIFFERENTIAL 2021-11-01 05:16:25 Test Item Value Reference Range Interpretation Comments WHITE BLOOD CELL COUNT (BEAKER) 7.4 K/ L 3.5-10.5 (test code = 775) RED BLOOD CELL COUNT (BEAKER) 4.05 M/ L 3.93-5.22 (test code = 761) HEMOGLOBIN (BEAKER) (test code = 12.8 GM/DL 11.2-15.7 410) HEMATOCRIT (BEAKER) (test code = 40.6 % 34.1-44.9 411) MEAN CORPUSCULAR VOLUME (BEAKER) 100.2 fL 79.4-94.8 H (test code = 753) MEAN CORPUSCULAR HEMOGLOBIN 31.6 pg 25.6-32.2 (BEAKER) (test code = 751) MEAN CORPUSCULAR HEMOGLOBIN CONC 31.5 GM/DL 32.2-35.5 L (BEAKER) (test code = 752) RED CELL DISTRIBUTION WIDTH 13.0 % 11.7-14.4 (BEAKER) (test code = 412) PLATELET COUNT (BEAKER) (test 160 K/CU MM 150-450 code = 756) MEAN PLATELET VOLUME (BEAKER) 9.9 fL 9.4-12.3 (test code = 754) NUCLEATED RED BLOOD CELLS 0 /100 WBC 0-0 (BEAKER) (test code = 413) NEUTROPHILS RELATIVE PERCENT 61 % (BEAKER) (test code = 429) LYMPHOCYTES RELATIVE PERCENT 27 % (BEAKER) (test code = 430) MONOCYTES RELATIVE PERCENT 6 % (BEAKER) (test code = 431) EOSINOPHILS RELATIVE PERCENT 4 % (BEAKER) (test code = 432) BASOPHILS RELATIVE PERCENT 1 % (BEAKER) (test code = 437) NEUTROPHILS ABSOLUTE COUNT 4.47 K/ L 1.56-6.13 (BEAKER) (test code = 670) LYMPHOCYTES ABSOLUTE COUNT 2.02 K/ L 1.18-3.74 (BEAKER) (test code = 414) MONOCYTES ABSOLUTE COUNT (BEAKER) 0.47 K/ L 0.24-0.36 H (test code = 415) EOSINOPHILS ABSOLUTE COUNT 0.30 K/ L 0.04-0.36 (BEAKER) (test code = 416) BASOPHILS ABSOLUTE COUNT (BEAKER) 0.05 K/ L 0.01-0.08 (test code = 417) IMMATURE GRANULOCYTES-RELATIVE 1 % 0-1 PERCENT (BEAKER) (test code = 2801) POCT-GLUCOSE [id number] 21:22:09 Test Item Value Reference Range Interpretation Comments POC-GLUCOSE METER 131 mg/dL 70-110 H : TESTED A T [facility] 67[address] (BEAKER) (test code = [facility], 1538) [address]: Waiter Waitress/Techni akris ID = [id number] for DE NNIS, JANIS POCT-GLUCOSE [id number] 17:58:49 Test Item Value Reference Range Interpretation Comments POC-GLUCOSE METER 123 mg/dL 70-110 H : TESTED A T [facility] 67[address] (BEAKER) (test code = [facility], 1538) [address]: Waiter Waitress/Techni karis ID = [id number] for MA RTINEZ, MAKEDA POCT-GLUCOSE [id number] 11:49:12 Test Item Value Reference Range Interpretation Comments POC-GLUCOSE METER 124 mg/dL 70-110 H : TESTED A T [facility] 67[address] ([place]) (test code = [place], 1538) [address]: Waiter Waitress/Techni karis ID = [id number] for MAKEDA INGRAM [id number] 11:30:26 Test Item Value Reference Range Interpretation Comments RPR SCREEN (YUE) (test code = Nonreactive Nonreactive 420) MR, BRAIN, WITHOUT [id number] 11:17:00Reason for exam:->Ischemic Stroke EvaluationCONTRA [facility] : 1945 Sex: FFINAL REPORT MR, BRAIN, WITHOUT CONTRAST INDICATION: Stroke, follow upIschemic Stroke Evaluation TECHNIQUE: Multiplanar, multisequence MR imaging of the brain was obtained. COMPARISON: None FINDINGS:Brain parenchyma is normal in morphology. Midline structures are normally developed. No restricted diffusion to suggest recent ischemic insult. No abnormal susceptibility. Mildgeneralized parenchymal volume loss is present.Scattered T2/FLAIR hyperintense foci within the periventricular and subcortical white matter are nonspecific, however, statistically represent chronic microvascular ischemic changes. No hydrocephalus. Orbits are within normal limits. Bilateral lens prostheses are present. No obstructive paranasal sinus disease. Mild T2 hyperintensity within the left mastoid air cells. IMPRESSION: No acute intracranial findings Signed: Mendel Theodoreort Verified Date/Time: 10/31/2021 11:17:06 Reading Location: [address] Neuro Reading Room VITAMIN B12 AND [id number] 09:41:02 Test Item Value Reference Range Interpretation Comments VITAMIN B12 377 pg/mL 213-816 (BEAKER) (test code = 774) FOLATE (BEAKER) 12.06 ng/mL See_Comment [Automated message] (test code = 362) The system which generated this result transmitted ref erence range: >=7.00. The reference range was not used to interpr et this result as normal/abnormal . Waiter Waitress ID - WENDY ROBERTSONIGH SENSITIVITY TROPONIN [id number] 09:16:31 Test Item Value Reference Range Interpretation Comments HIGH SENSITIVITY 8 pg/ml See_Comment [Automated message] TROPONIN I (test code = The system which 1717528) generated this result transmitted ref erence range: <=17. Th e reference range was not used to interpr et this result as normal/abnormal . Waiter Waitress ID - ADMINThe RN DIGESTIVE STAT High Sensitivity Troponin-I results should be used in conjunction with other diagnostic information such as ECG, clinical observations and information, and patientsymptoms to aid in the diagnosis of WA. URINALYSIS W/ [id number] 09:11:47 Test Item Value Reference Range Interpretation Comments COLOR (BEAKER) (test code = 470) Colorless CLARITY (BEAKER) (test code = 469) Clear SPECIFIC GRAVITY UA (BEAKER) (test 1.015 1.001-1.035 code = 468) PH UA (BEAKER) (test code = 467) 7.0 5.0-8.0 PROTEIN UA (BEAKER) (test code = Negative Negative 464) GLUCOSE UA (BEAKER) (test code = 50 mg/dL Negative A 365) KETONES UA (BEAKER) (test code = Negative Negative 371) BILIRUBIN UA (BEAKER) (test code = Negative Negative 462) BLOOD UA (BEAKER) (test code = 461) Negative Negative NITRITE UA (BEAKER) (test code = Negative Negative 465) LEUKOCYTE ESTERASE UA (BEAKER) Small Negative A (test code = 466) UROBILINOGEN UA (BEAKER) (test code 0.2 mg/dL 0.2-1.0 = 463) RBC UA (BEAKER) (test code = 519) 1 /HPF WBC UA (BEAKER) (test code = 520) 4 /HPF BACTERIA (BEAKER) (test code = 517) None Seen SQUAMOUS EPITHELIAL (BEAKER) (test < /HPF code = 516) CRYSTALS, URINE (BEAKER) (test code None Seen = 1521) SOURCE(BEAKER) (test code = 2795) Waiter Waitress ID - [auto]Waiter Waitress ID - techPOCT-GLUCOSE [id number] 08:33:13 Test Item Value Reference Range Interpretation Comments POC-GLUCOSE METER 153 mg/dL 70-110 H : TESTED A T [facility] 67[address] (BEAKER) (test code = FABIO Fowler [facility], 1538) [address]: Waiter Waitress/Techni karis ID = [id number] for MAKEDA INGRAM TSH/FREE T4 IF [id number] 06:22:39 Test Item Value Reference Range Interpretation Comments THYROID STIMULATING HORMONE 4.087 uIU/mL 0.350-4.940 (BEAKER) (test code = 772) Waiter Waitress ID - WENDY WC-REACTIVE [id number] 06:09:55 Test Item Value Reference Range Interpretation Comments C-REACTIVE PROTEIN (BEAKER) (test 0.09 mg/dL 0.00-0.50 code = 676) Waiter Waitress ID - ADMINHIGH SENSITIVITY TROPONIN [id number] 05:54:45 Test Item Value Reference Range Interpretation Comments HIGH SENSITIVITY 10 pg/ml See_Comment [Automated message] TROPONIN I (test code = The system which 6492300) generated this result transmitted ref erence range: <=17. Th e reference range was not used to int erpret this result as normal/abnormal . Waiter Waitress ID - ADMINThe RN DIGESTIVE STAT High Sensitivity Troponin-I results should be used in conjunction with other diagnostic information such as ECG, clinical observations and information, and patientsymptoms to aid in the diagnosis of WA. POCT GLUCOSE (AUTOMATED)2021-06-30 17:54:03 Test Item Value Reference Range Interpretation Comments POCT GLU (test code = 8089090687) 123 mg/dL 70-110 H Lab Interpretation (test code = Abnormal 11239-5) [facility] GLUCOSE (AUTOMATED)2021-06-30 01:51:13 Test Item Value Reference Range Interpretation Comments POCT GLU (test code = 6782906879) 187 mg/dL 70-110 H Lab Interpretation (test code = Abnormal 42343-7) [facility] GLUCOSE (AUTOMATED)2021-06-30 00:01:13 Test Item Value Reference Range Interpretation Comments POCT GLU (test code = 3660202703) 234 mg/dL 70-110 H Lab Interpretation (test code = Abnormal 26336-0) [facility] GLUCOSE (AUTOMATED)2021-06-29 18:26:23 Test Item Value Reference Range Interpretation Comments POCT GLU (test code = 5803654078) 168 mg/dL 70-110 H Lab Interpretation (test code = Abnormal 24629-6) [facility] GLUCOSE (AUTOMATED)2021-06-29 13:59:36 Test Item Value Reference Range Interpretation Comments POCT GLU (test code = 1948534536) 136 mg/dL 70-110 H Lab Interpretation (test code = Abnormal 07196-0) [facility] METABOLIC PANEL (NA, K, CL, CO2, GLUCOSE, BUN, CREATININE, CA)2021-06-29 10:49:32 Test Item Value Reference Range Interpretation Comments NA (test code = 135 mmol/L 135-145 5905350355) K (test code = 3.8 mmol/L 3.5-5.0 6321698484) CL (test code = 100 mmol/L 98-108 3921006042) CO2 TOTAL (test code = 29 mmol/L 23-31 4249527345) AGAP (test code = 2-16 0102248617) BUN (test code = 45 mg/dL 7-23 H 9464843214) GLUCOSE (test code = 123 mg/dL 70-110 H 5656134026) CREATININE (test code = 1.02 mg/dL 0.50-1.04 2671055823) CALCIUM (test code = 9.9 mg/dL 8.6-10.6 9316249315) eGFR (test code = mL/min/1.73m2 1528991237) JOSELITO (test code = JOSELITO) Association of Glomerular Filtration Rate (GFR) and Staging of Kidney Disease* + --+ --+ ------+| GFR (mL/min/1.73 m2) ?| With Kidney Damage ?| ?Without Kidney Damage+ --------+ --------+ +| ?>90 ?| ?Stage one ?| ? Normal ?+ ---+ ---+ -------+| ?60-89 ?| ?Stage two ?| ? Decreased GFR ? + --+ --+ ------+| ?30-59 ?| ?Stage three ?| ? Stage three ? + --+ --+ ------+| ?15-29 ?| ?Stage four ? | ? Stage four ?+ ---+ ---+ -------+| ?<15 (or dialysis) ? ?| ?Stage five ? | ? Stage five ?+ ---+ ---+ -------+ *Each stage assumes the associated GFR level has been in effect for at least three months. ?Stages 1 to 5, with or without kidney disease, indicate chronic kidney disease. Notes: Determination of stages one and two (with eGFR >59mL/min/1.73 m2) requires estimation of kidney damage for at least three months as defined by structural or functional abnormalities of the kidney, manifested by either:Pathological abnormalities or Markers of kidney damage (including abnormalities in the composition of the blood or urine or abnormalities in imaging tests). Lab Interpretation Abnormal (test code = 10026-7) [facility] WITH [id number] 10:43:29 Test Item Value Reference Range Interpretation Comments WBC (test code = See_Comment H [Automated 3210-2) message] The sy stem which generated this result transmitted reference range : 4.30 - 11.10 10*3/?L. The reference range was not used to interpret this result as normal/abnormal . RBC (test code = See_Comment [Automated 959-8) message] The sy stem which generated this result transmitted reference range : 3.93 - 5.25 10*6/?L. The reference range was not used to interpret this result as normal/abnormal . HGB (test code = 13.2 g/dL 11.6-15.0 718-7) HCT (test code = 41.0 % 35.7-45.2 4544-3) MCV (test code = 96.5 fL 80.6-95.5 H 787-2) MCH (test code = 31.1 pg 25.9-32.8 785-6) MCHC (test code = 32.2 g/dL 31.6-35.1 786-4) RDW-SD (test code = 52.7 fL 39.0-49.9 H 49726-5) RDW-CV (test code = 14.8 % 12.0-15.5 788-0) PLT (test code = See_Comment [Automated 777-3) message] The sy stem which generated this result transmitted reference range : 166 - 358 10*3/ ?L. The reference r lawrence was not used to interpret this result as normal/abnormal . MPV (test code = 10.3 fL 9.5-12.9 10311-3) NRBC/100 WBC (test See_Comment [Automat ed code = 3290081658) message] The system which generated this result transmitted reference range : 0.0 - 10.0 /100 WBCs. The refer ence range was not u sed to interpret th is result as normal/abnormal . NRBC x10^3 (test code <0.01 See_Comment [Auto mated = 9184398426) message] The s ystem which generated this result transmitted reference range : 10*3/?L. The reference range was not used to interpret this result as normal/abnormal . GRAN MAT (NEUT) % 68.3 % (test code = 770-8) IMM GRAN % (test code 1.90 % = 2794234982) LYMPH % (test code = 20.8 % 736-9) MONO % (test code = 8.4 % 5905-5) EOS % (test code = 0.3 % 713-8) BASO % (test code = 0.3 % 706-2) GRAN MAT x10^3(ANC) 8.42 10*3/uL 1.88-7.09 H (test code = 7605238319) IMM GRAN x10^3 (test 0.23 10*3/uL 0.00-0.06 H code = 3849384764) LYMPH x10^3 (test code 2.57 10*3/uL 1.32-3.29 = 731-0) MONO x10^3 (test code 1.04 10*3/uL 0.33-0.92 H = 742-7) EOS x10^3 (test code = 0.04 10*3/uL 0.03-0.39 711-2) BASO x10^3 (test code 0.04 10*3/uL 0.01-0.07 = 704-7) Lab Interpretation Abnormal (test code = 29469-5) [facility] GLUCOSE (AUTOMATED)2021-06-29 03:27:42 Test Item Value Reference Range Interpretation Comments POCT GLU (test code = 0148213284) 180 mg/dL 70-110 H Lab Interpretation (test code = Abnormal 36700-2) [facility] Test Item Value Reference Range Interpretation Comments [place] (test code = 1.2 mmol/L 0.6-1.2 9431145215) JOSELITO (test code = JOSELITO) Toxic Range: ? Greater than 1.2 mmol/L Lab Interpretation (test Normal code = 94795-8) [facility] GLUCOSE (AUTOMATED)2021-06-28 23:05:55 Test Item Value Reference Range Interpretation Comments POCT GLU (test code = 7977009806) 257 mg/dL 70-110 H Lab Interpretation (test code = Abnormal 81259-4) [facility] GLUCOSE (AUTOMATED)2021-06-28 19:34:47 Test Item Value Reference Range Interpretation Comments POCT GLU (test code = 4042143653) 264 mg/dL 70-110 H Lab Interpretation (test code = Abnormal 36875-4) [facility] GLUCOSE (AUTOMATED)2021-06-28 18:12:03 Test Item Value Reference Range Interpretation Comments POCT GLU (test code = 7900654865) 193 mg/dL 70-110 H Lab Interpretation (test code = Abnormal 08872-8) [facility] GLUCOSE (AUTOMATED)2021-06-28 14:00:09 Test Item Value Reference Range Interpretation Comments POCT GLU (test code = 2217512755) 137 mg/dL 70-110 H Lab Interpretation (test code = Abnormal 83193-0) [facility] GLUCOSE (AUTOMATED)2021-06-28 03:05:08 Test Item Value Reference Range Interpretation Comments POCT GLU (test code = 2203599441) 201 mg/dL 70-110 H Lab Interpretation (test code = Abnormal 71550-5) [facility] GLUCOSE (AUTOMATED)2021-06-27 23:21:36 Test Item Value Reference Range Interpretation Comments POCT GLU (test code = 5394304386) 274 mg/dL 70-110 H Lab Interpretation (test code = Abnormal 81276-3) [facility] GLUCOSE (AUTOMATED)2021-06-27 17:51:17 Test Item Value Reference Range Interpretation Comments POCT GLU (test code = 6840525438) 220 mg/dL 70-110 H Lab Interpretation (test code = Abnormal 52724-4) [facility] GLUCOSE (AUTOMATED)2021-06-27 13:47:06 Test Item Value Reference Range Interpretation Comments POCT GLU (test code = 7266201937) 153 mg/dL 70-110 H Lab Interpretation (test code = Abnormal 82091-1) [facility] METABOLIC PANEL (NA, K, CL, CO2, GLUCOSE, BUN, CREATININE, CA)2021-06-27 12:18:05 Test Item Value Reference Range Interpretation Comments NA (test code = 137 mmol/L 135-145 5193057949) K (test code = 4.2 mmol/L 3.5-5.0 3745138000) CL (test code = 102 mmol/L 98-108 4360064991) CO2 TOTAL (test code = 33 mmol/L 23-31 H 4993675627) AGAP (test code = 2-16 2629367423) BUN (test code = 29 mg/dL 7-23 H 1168356374) GLUCOSE (test code = 132 mg/dL 70-110 H 8417444865) CREATININE (test code = 0.89 mg/dL 0.50-1.04 1794804318) CALCIUM (test code = 9.9 mg/dL 8.6-10.6 7868301351) eGFR (test code = mL/min/1.73m2 2094291444) JOSELITO (test code = JOSELITO) Association of Glomerular Filtration Rate (GFR) and Staging of Kidney Disease* + --+ --+ ------+| GFR (mL/min/1.73 m2) ?| With Kidney Damage ?| ?Without Kidney Damage+ --------+ --------+ +| ?>90 ?| ?Stage one ?| ? Normal ?+ ---+ ---+ -------+| ?60-89 ?| ?Stage two ?| ? Decreased GFR ? + --+ --+ ------+| ?30-59 ?| ?Stage three ?| ? Stage three ? + --+ --+ ------+| ?15-29 ?| ?Stage four ? | ? Stage four ?+ ---+ ---+ -------+| ?<15 (or dialysis) ? ?| ?Stage five ? | ? Stage five ?+ ---+ ---+ -------+ *Each stage assumes the associated GFR level has been in effect for at least three months. ?Stages 1 to 5, with or without kidney disease, indicate chronic kidney disease. Notes: Determination of stages one and two (with eGFR >59mL/min/1.73 m2) requires estimation of kidney damage for at least three months as defined by structural or functional abnormalities of the kidney, manifested by either:Pathological abnormalities or Markers of kidney damage (including abnormalities in the composition of the blood or urine or abnormalities in imaging tests). Lab Interpretation Abnormal (test code = 50503-4) [facility] 12:14[facility]49 Test Item Value Reference Range Interpretation Comments [place] (test code = 1.1 mmol/L 0.6-1.2 2643953416) JOSELITO (test code = JOSELITO) Toxic Range: ? Greater than 1.2 mmol/L Lab Interpretation (test Normal code = 42390-8) [facility] WITH [id number] 11:55:26 Test Item Value Reference Range Interpretation Comments WBC (test code = See_Comment H [Automated 5190-2) message] The sy stem which generated this result transmitted reference range : 4.30 - 11.10 10*3/?L. The reference range was not used to interpret this result as normal/abnormal . RBC (test code = See_Comment [Automated 149-8) message] The sy stem which generated this result transmitted reference range : 3.93 - 5.25 10*6/?L. The reference range was not used to interpret this result as normal/abnormal . HGB (test code = 13.2 g/dL 11.6-15.0 718-7) HCT (test code = 41.1 % 35.7-45.2 4544-3) MCV (test code = 97.9 fL 80.6-95.5 H 787-2) MCH (test code = 31.4 pg 25.9-32.8 785-6) MCHC (test code = 32.1 g/dL 31.6-35.1 786-4) RDW-SD (test code = 53.7 fL 39.0-49.9 H 00869-8) RDW-CV (test code = 14.9 % 12.0-15.5 788-0) PLT (test code = See_Comment [Automated 777-3) message] The sy stem which generated this result transmitted reference range : 166 - 358 10*3/ ?L. The reference r lawrence was not used to interpret this result as normal/abnormal . MPV (test code = 10.3 fL 9.5-12.9 47293-9) NRBC/100 WBC (test See_Comment [Automat ed code = 6911479917) message] The system which generated this result transmitted reference range : 0.0 - 10.0 /100 WBCs. The refer ence range was not u sed to interpret th is result as normal/abnormal . NRBC x10^3 (test code <0.01 See_Comment [Auto mated = 7979339581) message] The s ystem which generated this result transmitted reference range : 10*3/?L. The reference range was not used to interpret this result as normal/abnormal . GRAN MAT (NEUT) % 72.7 % (test code = 770-8) IMM GRAN % (test code 1.20 % = 3381716603) LYMPH % (test code = 17.8 % 736-9) MONO % (test code = 7.6 % 5905-5) EOS % (test code = 0.3 % 713-8) BASO % (test code = 0.4 % 706-2) GRAN MAT x10^3(ANC) 8.38 10*3/uL 1.88-7.09 H (test code = 0308134940) IMM GRAN x10^3 (test 0.14 10*3/uL 0.00-0.06 H code = 1802203012) LYMPH x10^3 (test code 2.05 10*3/uL 1.32-3.29 = 731-0) MONO x10^3 (test code 0.88 10*3/uL 0.33-0.92 = 742-7) EOS x10^3 (test code = 0.03 10*3/uL 0.03-0.39 711-2) BASO x10^3 (test code 0.05 10*3/uL 0.01-0.07 = 704-7) Lab Interpretation Abnormal (test code = 61886-6) [facility] GLUCOSE (AUTOMATED)2021-06-27 04:14:04 Test Item Value Reference Range Interpretation Comments POCT GLU (test code = 9748900535) 181 mg/dL 70-110 H Lab Interpretation (test code = Abnormal 18802-6) [facility] GLUCOSE (AUTOMATED)2021-06-26 23:24:01 Test Item Value Reference Range Interpretation Comments POCT GLU (test code = 6195328923) 239 mg/dL 70-110 H Lab Interpretation (test code = Abnormal 27001-5) [facility] GLUCOSE (AUTOMATED)2021-06-26 18:00:26 Test Item Value Reference Range Interpretation Comments POCT GLU (test code = 7563225102) 176 mg/dL 70-110 H Lab Interpretation (test code = Abnormal 38271-1) [facility] GLUCOSE (AUTOMATED)2021-06-26 14:20:03 Test Item Value Reference Range Interpretation Comments POCT GLU (test code = 1237037838) 141 mg/dL 70-110 H Lab Interpretation (test code = Abnormal 01539-8) [facility] [id number] 12:30:12 Test Item Value Reference Range Interpretation Comments MAGNESIUM (test code = 0862289833) 1.8 mg/dL 1.7-2.4 Lab Interpretation (test code = Normal 09634-5) [facility] Metabolic Panel (NA, K, CL, CO2, GLUCOSE, BUN, CREATININE, CA)2021-06-26 12:30:12 Test Item Value Reference Range Interpretation Comments NA (test code = 136 mmol/L 135-145 2780418479) K (test code = 4.5 mmol/L 3.5-5.0 0782114680) CL (test code = 100 mmol/L 98-108 8781861541) CO2 TOTAL (test code = 32 mmol/L 23-31 H 3130050760) AGAP (test code = 2-16 6048173519) BUN (test code = 25 mg/dL 7-23 H 9063684251) GLUCOSE (test code = 130 mg/dL 70-110 H 8898956818) CREATININE (test code = 0.80 mg/dL 0.50-1.04 7127205370) CALCIUM (test code = 9.9 mg/dL 8.6-10.6 8818979337) eGFR (test code = mL/min/1.73m2 2433419805) JOSELITO (test code = JOSELITO) Association of Glomerular Filtration Rate (GFR) and Staging of Kidney Disease* + --+ --+ ------+| GFR (mL/min/1.73 m2) ?| With Kidney Damage ?| ?Without Kidney Damage+ --------+ --------+ +| ?>90 ?| ?Stage one ?| ? Normal ?+ ---+ ---+ -------+| ?60-89 ?| ?Stage two ?| ? Decreased GFR ? + --+ --+ ------+| ?30-59 ?| ?Stage three ?| ? Stage three ? + --+ --+ ------+| ?15-29 ?| ?Stage four ? | ? Stage four ?+ ---+ ---+ -------+| ?<15 (or dialysis) ? ?| ?Stage five ? | ? Stage five ?+ ---+ ---+ -------+ *Each stage assumes the associated GFR level has been in effect for at least three months. ?Stages 1 to 5, with or without kidney disease, indicate chronic kidney disease. Notes: Determination of stages one and two (with eGFR >59mL/min/1.73 m2) requires estimation of kidney damage for at least three months as defined by structural or functional abnormalities of the kidney, manifested by either:Pathological abnormalities or Markers of kidney damage (including abnormalities in the composition of the blood or urine or abnormalities in imaging tests). Lab Interpretation Abnormal (test code = 27738-5) [facility]2021-12-12 12:26:51 Test Item Value Reference Range Interpretation Comments [place] (test code = 1.0 mmol/L 0.6-1.2 0844683377) JOSELITO (test code = JOSELITO) Toxic Range: ? Greater than 1.2 mmol/L Lab Interpretation (test Normal code = 77581-3) [facility] with [id number] 11:48:08 Test Item Value Reference Range Interpretation Comments WBC (test code = See_Comment H [Automated 6690-2) message] The system which generated this result transmit jessica reference range : 4.30 - 11.10 10*3/?L. The reference range was not used to interpret this result as normal/abnormal . RBC (test code = See_Comment [Automated 789-8) message] The system which generated this result transmit jessica reference range : 3.93 - 5.25 10*6/?L. The reference range was not used to interpret this result as normal/abnormal . HGB (test code = 12.8 g/dL 11.6-15.0 718-7) HCT (test code = 40.0 % 35.7-45.2 4544-3) MCV (test code = 98.3 fL 80.6-95.5 H 787-2) MCH (test code = 31.4 pg 25.9-32.8 785-6) MCHC (test code = 32.0 g/dL 31.6-35.1 786-4) RDW-SD (test code = 52.7 fL 39.0-49.9 H 14885-2) RDW-CV (test code = 14.7 % 12.0-15.5 788-0) PLT (test code = See_Comment [Automated 777-3) message] The system which generated this result transmit jessica reference range : 166 - 358 10*3/ ?L. The reference range was not u sed to interpret th is result as normal/abnormal . MPV (test code = 10.0 fL 9.5-12.9 99760-1) NRBC/100 WBC (test See_Comment [Automat ed code = 9820191223) message] The system which generated this result transmit jessica reference range : 0.0 - 10.0 /100 WBCs. The reference range was not used to interpret this result as normal/abnormal . NRBC x10^3 (test code <0.01 See_Comment [Auto mated = 3319903747) message] The system which generated this result transmit jessica reference range : 10*3/?L. The reference range was not used to interpret this result as normal/abnormal . GRAN MAT (NEUT) % 82.1 % (test code = 770-8) IMM GRAN % (test code 1.40 % = 3724799482) LYMPH % (test code = 10.7 % 736-9) MONO % (test code = 5.5 % 5905-5) EOS % (test code = 0.0 % 713-8) BASO % (test code = 0.3 % 706-2) GRAN MAT x10^3(ANC) 11.86 10*3/uL 1.88-7.09 H (test code = 8659135190) IMM GRAN x10^3 (test 0.20 10*3/uL 0.00-0.06 H code = 2094811406) LYMPH x10^3 (test code 1.54 10*3/uL 1.32-3.29 = 731-0) MONO x10^3 (test code 0.80 10*3/uL 0.33-0.92 = 742-7) EOS x10^3 (test code = <0.03 0.03-0.39 L 711-2) BASO x10^3 (test code 0.05 10*3/uL 0.01-0.07 = 704-7) Lab Interpretation Abnormal (test code = 63450-0) [facility] GLUCOSE (AUTOMATED)2021-06-26 04:13:50 Test Item Value Reference Range Interpretation Comments POCT GLU (test code = 6866711418) 247 mg/dL 70-110 H Lab Interpretation (test code = Abnormal 18613-2) [facility] GLUCOSE (AUTOMATED)2021-06-25 23:32:22 Test Item Value Reference Range Interpretation Comments POCT GLU (test code = 8771334072) 203 mg/dL 70-110 H Lab Interpretation (test code = Abnormal 89093-5) [facility] Center[facility]cos[facility] Hemoglobin (A1C[facility]2021-06-25 19:15:18 Test Item Value Reference Range Interpretation Comments HGB A1C (test code = 7.4 % 4.0-5.7 H 4548-4) JOSELITO (test code = JOSELITO) Reference RangesNormal: <5.7%Prediabetes: 5.7 - 6.4%Diabetes: > 6.5% Lab Interpretation (test Abnormal code = 13116-3) [facility] CenterVALPROIC ACID, [id number] 18:48:46 Test Item Value Reference Range Interpretation Comments Valproic Acid, Free <2.0 4.0-15.0 L (test code = 0087551821) JOSELITO (test code = JOSELITO) Toxic Range: ? Greater than 15 ug/mL Test developed and characteristics determined by [facility] Laboratory Services. Lab Interpretation Abnormal (test code = 86758-8) [facility]2021-06-25 17:55:33 Test Item Value Reference Range Interpretation Comments POCT GLU (test code = 5135770837) 125 mg/dL 70-110 H Lab Interpretation (test code = Abnormal 67541-0) [facility] CenterN-TERMINAL [id number] 11:07:16 Test Item Value Reference Range Interpretation Comments NT-proBNP (test code 127 pg/mL See_Comment [Autom ated = 4098385483) message] The system which generated this result transmitted reference range : <=450. The reference range was not used to interpret this result as normal/abnormal . JOSELITO (test code = JOSELITO) Biotin has been reported to cause a negative bias, interpret results relative to patient's use of biotin. Lab Interpretation Normal (test code = 24861-2) [facility]2021-[facility] 10:46:23 Test Item Value Reference Range Interpretation Comments [place] (test code = 1.7 mmol/L 0.6-1.2 H 9919694533) JOSELITO (test code = JOSELITO) Toxic Range: ? Greater than 1.2 mmol/L Lab Interpretation (test Abnormal code = 09237-8) [facility] CenterCOMP. METABOLIC PANEL (30624)2021-06-25 10:46:18 Test Item Value Reference Range Interpretation Comments NA (test code = 137 mmol/L 135-145 6447272738) K (test code = 4.7 mmol/L 3.5-5.0 8884758263) CL (test code = 105 mmol/L 98-108 6899229461) CO2 TOTAL (test code = 32 mmol/L 23-31 H 5865139313) AGAP (test code = <1 2-16 L 6872725173) BUN (test code = 21 mg/dL 7-23 0283377272) GLUCOSE (test code = 138 mg/dL 70-110 H 1482172258) CREATININE (test code = 0.93 mg/dL 0.50-1.04 6723085100) TOTAL BILI (test code = 0.6 mg/dL 0.1-1.0 7738786445) CALCIUM (test code = 10.0 mg/dL 8.6-10.6 2416634097) T PROTEIN (test code = 6.1 g/dL 6.3-8.2 L 0024965185) ALBUMIN (test code = 3.7 g/dL 3.5-5.0 8055643970) ALK PHOS (test code = 82 U/L 34-122 0793687302) ALTv (test code = 22 U/L 5-35 1742-6) AST(SGOT) (test code = 25 U/L 13-40 6329542732) eGFR (test code = mL/min/1.73m2 9145041997) JOSELITO (test code = JOSELITO) Association of Glomerular Filtration Rate (GFR) and Staging of Kidney Disease* + --+ --+ ------+| GFR (mL/min/1.73 m2) ?| With Kidney Damage ?| ?Without Kidney Damage+ --------+ --------+ +| ?>90 ?| ?Stage one ?| ? Normal ?+ ---+ ---+ -------+| ?60-89 ?| ?Stage two ?| ? Decreased GFR ? + --+ --+ ------+| ?30-59 ?| ?Stage three ?| ? Stage three ? + --+ --+ ------+| ?15-29 ?| ?Stage four ? | ? Stage four ?+ ---+ ---+ -------+| ?<15 (or dialysis) ? ?| ?Stage five ? | ? Stage five ?+ ---+ ---+ -------+ *Each stage assumes the associated GFR level has been in effect for at least three months. ?Stages 1 to 5, with or without kidney disease, indicate chronic kidney disease. Notes: Determination of stages one and two (with eGFR >59mL/min/1.73 m2) requires estimation of kidney damage for at least three months as defined by structural or functional abnormalities of the kidney, manifested by either:Pathological abnormalities or Markers of kidney damage (including abnormalities in the composition of the blood or urine or abnormalities in imaging tests). Lab Interpretation Abnormal (test code = 10497-2) [facility] CenterTHYROID STIMULATING [id number] 10:45:12 Test Item Value Reference Range Interpretation Comments TSH (test code = See_Comment H [Automated message] 9070215351) The system [employer] generated this result transmitted ref erence range: 0.45 - 4 .70 mIU/L. The refe rence range was not u sed to interpret this result as normal/abnor mal. Lab Interpretation (test Abnormal code = 90207-5) [facility] CenterTROPONIN [id number] 10:26:31 Test Item Value Reference Interpretation Comments Range TROPONIN I (test 0.003 ng/mL See_Comment [Automated code = 4462764011) message] The system which generated this result transmitted reference range : <=0.034. The reference range was not used to interpret this result as normal/abnormal . JOSELITO (test code = Reference (Normal) JOSELITO) Range (defined by the 99th percentile reference limit): <= 0.034 ng/mL Note: Cardiac troponin begins to rise 3-4 hours after the onset of ischemia. Repeat in 4-6 hours if the sample was drawn within 3-4 hours of the onset of the symptom and found normal. Diagnosis of myocardial injury is made with acute changes in cTn concentrations with at least one serial sample above the 99th percentile upper reference limit (URL), taken together with the patient's clinical presentation. Biotin has been reported to cause a negative bias, interpret results relative to patient's use of biotin. Lab Interpretation Normal (test code = 13014-1) [facility] CenterLIPASE, [id number] 10:14:53 Test Item Value Reference Range Interpretation Comments LIPASE (test code = 6053213188) 246 U/L 0-220 H Lab Interpretation (test code = Abnormal 62642-4) [facility] CenterAc[facility] Arterial Blood Gas.2021-06-25 10:06:46 Test Item Value Reference Range Interpretation Comments PH (test code = 2) 7.35-7.45 L PCO2 (test code = See_Comment H [Automat ed message] 4435262196) The system Get [employer] h generated this result transmitted ref erence range: 35 - 45 mmHg. The reference r lawrence was not used to interpret this result as normal/abnor mal. PO2 (test code = See_Comment [Automated message] 1633219163) The system [employer] generated this result transmitted ref erence range: 80 - 100 mmHg. The reference r lawrence was not used to interpret this result as normal/abnor mal. HCO3 (test code = See_Comment [Automate d message] 2033100815) The system [employer] generated this result transmitted ref erence range: 22 - 26 mEq/L. The reference r lawrence was not used to interpret this result as normal/abnor mal. BE (test code = See_Comment [Automated message] 1744409219) The system [employer] generated this result transmitted ref erence range: -3.0 - 3 .0 mEq/L. The refe rence range was not u sed to interpret this result as normal/abnor mal. Lab Interpretation (test Abnormal code = 45356-3) [facility] WITH [id number] 10:03:11 Test Item Value Reference Range Interpretation Comments WBC (test code = See_Comment [Automated 4290-2) message] The sy stem which generated this result transmitted reference range : 4.30 - 11.10 10*3/?L. The reference range was not used to interpret this result as normal/abnormal . RBC (test code = See_Comment [Automated 349-8) message] The sy stem which generated this result transmitted reference range : 3.93 - 5.25 10*6/?L. The reference range was not used to interpret this result as normal/abnormal . HGB (test code = 12.5 g/dL 11.6-15.0 718-7) HCT (test code = 40.2 % 35.7-45.2 4544-3) MCV (test code = 100.0 fL 80.6-95.5 H 787-2) MCH (test code = 31.1 pg 25.9-32.8 785-6) MCHC (test code = 31.1 g/dL 31.6-35.1 L 786-4) RDW-SD (test code = 54.3 fL 39.0-49.9 H 07809-3) RDW-CV (test code = 14.7 % 12.0-15.5 788-0) PLT (test code = See_Comment [Automated 777-3) message] The sy stem which generated this result transmitted reference range : 166 - 358 10*3/ ?L. The reference r lawrence was not used to interpret this result as normal/abnormal . MPV (test code = 10.0 fL 9.5-12.9 07389-1) NRBC/100 WBC (test See_Comment [Automat ed code = 6181370827) message] The system which generated this result transmitted reference range : 0.0 - 10.0 /100 WBCs. The refer ence range was not u sed to interpret th is result as normal/abnormal . NRBC x10^3 (test code <0.01 See_Comment [Auto mated = 5107696385) message] The s ystem which generated this result transmitted reference range : 10*3/?L. The reference range was not used to interpret this result as normal/abnormal . GRAN MAT (NEUT) % 54.4 % (test code = 770-8) IMM GRAN % (test code 1.60 % = 0035202079) LYMPH % (test code = 32.2 % 736-9) MONO % (test code = 7.1 % 5905-5) EOS % (test code = 3.6 % 713-8) BASO % (test code = 1.1 % 706-2) GRAN MAT x10^3(ANC) 4.36 10*3/uL 1.88-7.09 (test code = 2345535984) IMM GRAN x10^3 (test 0.13 10*3/uL 0.00-0.06 H code = 2400679715) LYMPH x10^3 (test code 2.58 10*3/uL 1.32-3.29 = 731-0) MONO x10^3 (test code 0.57 10*3/uL 0.33-0.92 = 742-7) EOS x10^3 (test code = 0.29 10*3/uL 0.03-0.39 711-2) BASO x10^3 (test code 0.09 10*3/uL 0.01-0.07 H = 704-7) Lab Interpretation Abnormal (test code = 25676-4) [facility] CenterSARS[facility]CoV-[facility] ([facility]OVID-19) RNA [Presence] in Respiratory specimen by WILMER with probe [id number] 00:06:22 Test Item Value Reference Range Interpretation Comments SARS-CoV-2 (COVID-19) RNA Not detected Not-Detected [Presence] in Respiratory specimen by WILMER with probe detection (test code = 43948-5) Whether patient is employed in a healthcare setting (test code = 31326-3) Whether the patient has symptoms related to condition of interest (test code = 82380-3) Patient was hospitalized because of this condition (test code = 82258-1) Whether the patient was admitted to intensive care unit (ICU) for condition of interest (test code = 53503-1) Whether patient resides in a congregate care setting (test code = 95752-3) XR CHEST 1 [id number] 19:34:29 No acute cardiopulmonary abnormality. Preliminary Report Dictated by Resident: Augie Murphy MD., have reviewed this study and agree with the abovereport.EXAM: XR CHEST 1 VW HISTORY: 75 years-old Female; hypoxia TECHNIQUE: Single frontal view of the chest. COMPARISON: Chest CT date08/24/2020. Chest radiographs dated 08/23/2020. FINDINGS: The lungs are moderately well-expanded, and clear apart from mild perihilarvascular congestion. No focal consolidation, pleural effusion, orpneumothorax is visualized. An azygos fissure is incidentally seen. The cardiomediastinal silhouette is at the upper limits of normal in size.Calcifications outline the aortic arch. No acute osseous abnormality is present. Osteophytic changes affect theleft glenohumeral joint. [facility], Radiant Results Inft User- 01/10/2021 2:35 PM CDT EXAM: XR CHEST1 VWHISTORY: 75 years-old Female; hypoxia TECHNIQUE: Single frontal view of the chest.COMPARISON: Chest CT dated 08/24/2020. Chest radiographs dated 08/23/2020.FINDINGS:The lungs are moderately well-expanded, and clear apart from mild perihilarvascular congestion. No focal consolidation, pleural effusion,orpneumothorax is visualized. An azygos fissure is incidentally seen.The cardiomediastinal silhouette is at the upper limits of normal in size.Calcifications outline the aortic arch. No acute osseous ab normality is present. Osteophytic changes affect theleft glenohumeral joint.IMPRESSIONNo acute cardiopulmonary abnormality.Preliminary Report Dictated by Resident: Augie Tesfaye MD., have reviewed this study and agree with the abovereport.[facility] CenterCT ABDOMEN PELVIS W [id number] 18:54:43 1. ?No acute intra-abdominal abnormality.2. ?Diverticulosis of the descending sigmoid colon withoutevidence ofdiverticulitis.3. ?Anterior wedge deformity of the L1 vertebral body with less than 30%height loss is old.. Preliminary Report Dictated by Resident: Augie Bell MD., have reviewed this study and agree with the abovereport.EXAM: CT ABDOMEN PELVIS W CONTRAST 01/10/2021 12:32 PM HISTORY: 75 years-old Female with Diverticulitis suspected . COMPARISON: CT PE 08/24/2020. TECHNIQUE AND FINDINGS: Contiguous axial imaging from the level of the lungbases through the pubic symphysis was performed after the administration ofintravenous nonionic iodinated contrast. Abdomen was scanned in venousphase. Corresponding coronal and sagittal MPR reconstructions wereobtained. ?Auto mA and/or iterative reconstruction were used to reduceradiation dose. FINDINGS:Evaluation is limited by motion artifact. LOWER THORAX: Trace bibasilar streaky atelectasis. Coronary artery stentsor atherosclerotic disease of the coronary arteries are seen. The lungsbases are otherwise clear. No pleural or pericardial effusions arevisualized. LIVER: The liver has is diffusely hypoattenuating compared to spleen. Theliver has normal contour. Focal fatty sparing is seen along the gallbladderfossa. No other focal hepatic lesion. The portal veins are patent. GALLBLADDER AND BILIARY TREE: The gallbladder is unrem arkable. There is nointra or extrahepatic biliary ductal dilation. SPLEEN: The spleen enhances normally. PANCREAS: Unremarkable. ADRENAL GLANDS: Indeterminate attenuation 2.4 x 1.8 x 2.1 cm right adrenalnodule. The left adrenal gland is unremarkable. KIDNEYS: The kidneys enhance normally. No nephrolithiasis or hydronephrosisis seen. No masses. PERITONEUM AND RETROPERITONEUM: Trace simple appearing free fluid is seenwithin the pelvis. LYMPH NODES: No lymphadenopathy. GI TRACT: Moderate descending and sigmoid colon diverticulosis withoutevidence of diverticulitis. An unremarkable appendix is seen. The smallbowel is unremarkable. PELVIS/BLADDER: The urinary bladder is mildly distended. The uterus andbilateral ovaries appear unremarkable. VESSELS: Mild atherosclerotic disease of the abdominal aortaand itsbranches. BONES AND SOFT TISSUES: No suspicious lytic or sclerotic bony lesions. Mildlevocurvature of the thoracolumbar spine. An anterior wedge deformity ofthe L1 vertebral body is seen with less than 30% height loss. [facility], Radiant Results Inft User - 01/10/2021 1:55 PM CDT EXAM: CT ABDOMEN PELVIS W CONTRAST 01/10/2021 12:32 PMHISTORY: 75 years-old Female with Diverticulitis suspected .COMPARISON: CT PE 08/24/2020.TECHNIQUE AND FINDINGS: Contiguous axial imaging from the level of the lungbases through the pubic symphysis was performed after the administration ofintravenous nonionic iodinated contrast. Abdomen was scanned in venousphase. Corresponding coronal and sagittal MPR reconstructions wereobtained. Auto mA and/or iterative re construction were used to reduceradiation dose.FINDINGS:Evaluation is limited by motion artifact.LOWER THORAX: Trace bibasilar streaky atelectasis. Coronary artery stentsor atherosclerotic disease of the coronary arteries are seen. The lungsbases are otherwise clear. No pleural or pericardial effusions arevisualized. LIVER: The liver has is diffusely hypoattenuating compared to spleen. Theliver has normal contour. Focal fatty sparing is seen along the gallbladderfossa. No other focal hepatic lesion.The portal veins are patent.GALLBLADDER AND BILIARY TREE: The gallbladder is unremarkable. There is n ointra or extrahepatic biliary ductal dilation.SPLEEN: The spleen enhances normally. PANCREAS: Unremarkable.ADRENAL GLANDS: Indeterminate attenuation 2.4 x 1.8 x 2.1 cm right adrenalnodule. The left adrenal gland is unremarkable.KIDNEYS: The kidneys enhance normally. No nephrolithiasis or hydronephrosisis seen. No masses. PERITONEUM AND RETROPERITONEUM: Trace simple appearing free fluid is seenwithinthe pelvis.LYMPH NODES: No lymphadenopathy.GI TRACT: Moderate descending and sigmoid colon diverticulosis withoutevidence of diverticulitis. An unremarkable appendix is seen. The smallbowel is unremarka ble.PELVIS/BLADDER: The urinary bladder is mildly distended. The uterus andbilateral ovaries appear unremarkable.VESSELS: Mild atherosclerotic disease of the abdominal aorta and itsbranches.BONES AND SOFT TISSUES: No suspicious lytic or sclerotic bony lesions. Mildlevocurvature of the thoracolumbar spine. An anterior wedge deformity ofthe L1 vertebral body is seen with less than 30% height loss.IMPRESSION1. No acute intra-abdominal abnormality.2. Diverticulosis of the descending sigmoid colon without evidence ofdiverticulitis.3. Anterior wedge deformity of the L1 vertebral body with less than 30%height loss is old..Preliminary Report Dictated by Resident: Augie Cruz MD., have reviewed this study and agree with the abovereport.[facility] CenterCT HEAD WO [id number] 17:01:[address] headCT HEAD WO CONTRAST HISTORY: Female 75 years Mental status change, unknown cause COMPARISON: CT head dated 08/24/2020 TECHNIQUE: Routine CT head without contrast FINDINGS: The ventricles and cerebral sulci are normal in caliber and configuration.No hydrocephalus, midline shift or patholog ical extra-axial fluidcollection is present. The basal cisterns are unremarkable. No acute intracranial hemorrhage or mass effect is present. The sahu-whitematter differentiation is preserved. No parenchymal attenuation abnormalityis present. The calvarium and skull base are unremarkable. The mastoid air cells andvisualized paranasal air sinuses are clear. [facility], Radiant Results Inft User - 112:[address] HEAD WO CONTRASTHISTORY:Female 75 years Mental status change, unknown cause COMPARISON: CT head dated 08/24/2020TECHNIQUE: Rout ine CT head without contrastFINDINGS:The ventricles and cerebral sulci are normal in caliber and configuration.No hydrocephalus, midline shift or pathological extra-axial fluidcollection is present. The basal cisterns are unremarkable.No acute intracranial hemorrhage or mass effect is present. The sahu-whitematter differentiation is preserved. No parenchymal attenuation abnormalityis present.The calvarium and skull base are unremarkable. The mastoid air cells andvisualized paranasal air sinuses are clear.IMPRESSIONNormal CT headUnDel Sol Medical CenterCBC with [id number] 16:44:53 Test Item Value Reference Range Interpretation Comments WBC (test code = See_Comment [Automated 6690-2) message] The sy stem which generated this result transmitted reference range : 4.30 - 11.10 10*3/?L. The reference range was not used to interpret this result as normal/abnormal . RBC (test code = See_Comment L [Automated 789-8) message] The sy stem which generated this result transmitted reference range : 3.93 - 5.25 10*6/?L. The reference range was not used to interpret this result as normal/abnormal . HGB (test code = 12.6 g/dL 11.6-15.0 718-7) HCT (test code = 38.8 % 35.7-45.2 4544-3) MCV (test code = 102.6 fL 80.6-95.5 H 787-2) MCH (test code = 33.3 pg 25.9-32.8 H 785-6) MCHC (test code = 32.5 g/dL 31.6-35.1 786-4) RDW-SD (test code = 54.3 fL 39.0-49.9 H 78217-6) RDW-CV (test code = 14.2 % 12.0-15.5 788-0) PLT (test code = See_Comment L [Automated 777-3) message] The sy stem which generated this result transmitted reference range : 166 - 358 10*3/ ?L. The reference r lawrence was not used to interpret this result as normal/abnormal . MPV (test code = 10.9 fL 9.5-12.9 37077-7) IPF % (test code = 3.6 % 1.3-7.7 Platelet count 0789109879) measured by fluorescence method. NRBC/100 WBC (test See_Comment [Automat ed code = 6935104033) message] The system which generated this result transmitted reference range : 0.0 - 10.0 /100 WBCs. The refer ence range was not u sed to interpret th is result as normal/abnormal . NRBC x10^3 (test code <0.01 See_Comment [Auto mated = 5489806943) message] The s ystem which generated this result transmitted reference range : 10*3/?L. The reference range was not used to interpret this result as normal/abnormal . GRAN MAT (NEUT) % 48.3 % (test code = 770-8) IMM GRAN % (test code 4.10 % = 7663014671) LYMPH % (test code = 37.9 % 736-9) MONO % (test code = 8.3 % 5905-5) EOS % (test code = 0.9 % 713-8) BASO % (test code = 0.5 % 706-2) GRAN MAT x10^3(ANC) 2.73 10*3/uL 1.88-7.09 (test code = 8909870802) IMM GRAN x10^3 (test 0.23 10*3/uL 0.00-0.06 H code = 6513729407) LYMPH x10^3 (test code 2.14 10*3/uL 1.32-3.29 = 731-0) MONO x10^3 (test code 0.47 10*3/uL 0.33-0.92 = 742-7) EOS x10^3 (test code = 0.05 10*3/uL 0.03-0.39 711-2) BASO x10^3 (test code 0.03 10*3/uL 0.01-0.07 = 704-7) PLT ESTIMATE (test Decreased Normal A code = 9317-9) Lab Interpretation Abnormal (test code = 87855-7) [facility] CenterDonny [id number] 16:36:49 Test Item Value Reference Interpretation Comments Range TROPONIN I (test 0.011 ng/mL See_Comment [Automated code = 9300228728) message] The system which generated this result transmitted reference range : <=0.034. The reference range was not used to interpret this result as normal/abnormal . JOSELITO (test code = Reference (Normal) JOSELITO) Range (defined by the 99th percentile reference limit): <= 0.034 ng/mL Note: Cardiac troponin begins to rise 3-4 hours after the onset of ischemia. Repeat in 4-6 hours if the sample was drawn within 3-4 hours of the onset of the symptom and found normal. Diagnosis of myocardial injury is made with acute changes in cTn concentrations with at least one serial sample above the 99th percentile upper reference limit (URL), taken together with the patient's clinical presentation. Biotin has been reported to cause a negative bias, interpret results relative to patient's use of biotin. Lab Interpretation Normal (test code = 90328-1) [facility] CenterN-TERMINAL [id number] 16:33:49 Test Item Value Reference Range Interpretation Comments NT-proBNP (test code 348 pg/mL See_Comment H [Autom ated = 9174268532) message] The system which generated this result transmitted reference range : <=125. The reference range was not used to interpret this result as normal/abnormal . JOSELITO (test code = JOSELITO) Biotin has been reported to cause a negative bias, interpret results relative to patient's use of biotin. Lab Interpretation Abnormal (test code = 36016-5) [facility] CenterBasi Metabolic Panel (NA, K, CL, CO2, GLUCOSE, BUN, CREATININE, CA)2021-01-10 16:24:49 Test Item Value Reference Range Interpretation Comments NA (test code = 137 mmol/L 135-145 3841097680) K (test code = 4.8 mmol/L 3.5-5.0 3480131800) CL (test code = 106 mmol/L 98-108 0114476712) CO2 TOTAL (test code = 27 mmol/L 23-31 2706727639) AGAP (test code = 2-16 4068692894) BUN (test code = 22 mg/dL 7-23 4629949060) GLUCOSE (test code = 113 mg/dL 70-110 H 8500371552) CREATININE (test code = 0.99 mg/dL 0.50-1.04 8455776204) CALCIUM (test code = 9.4 mg/dL 8.6-10.6 4756282690) eGFR (test code = mL/min/1.73m2 6304780330) JOSELITO (test code = JOSELITO) Association of Glomerular Filtration Rate (GFR) and Staging of Kidney Disease* + --+ --+ ------+| GFR (mL/min/1.73 m2) ?| With Kidney Damage ?| ?Without Kidney Damage+ --------+ --------+ +| ?>90 ?| ?Stage one ?| ? Normal ?+ ---+ ---+ -------+| ?60-89 ?| ?Stage two ?| ? Decreased GFR ? + --+ --+ ------+| ?30-59 ?| ?Stage three ?| ? Stage three ? + --+ --+ ------+| ?15-29 ?| ?Stage four ? | ? Stage four ?+ ---+ ---+ -------+| ?<15 (or dialysis) ? ?| ?Stage five ? | ? Stage five ?+ ---+ ---+ -------+ *Each stage assumes the associated GFR level has been in effect for at least three months. ?Stages 1 to 5, with or without kidney disease, indicate chronic kidney disease. Notes: Determination of stages one and two (with eGFR >59mL/min/1.73 m2) requires estimation of kidney damage for at least three months as defined by structural or functional abnormalities of the kidney, manifested by either:Pathological abnormalities or Markers of kidney damage (including abnormalities in the composition of the blood or urine or abnormalities in imaging tests). Lab Interpretation Abnormal (test code = 84516-4) [facility] CenterHepatic Function Panel (ALB, T.PRO, BILI T, BU/BC, ALT, AST, ALK PHOS)2021-01-10 16:24:49 Test Item Value Reference Range Interpretation Comments TOTAL BILI (test code = 8747702810) 0.5 mg/dL 0.1-1.1 BILI UNCON (test code = 2642209207) 0.3 mg/dL 0.1-1.1 BILI CONJ (test code = 5215436370) 0.0 mg/dL 0.0-0.3 T PROTEIN (test code = 0471457987) 6.4 g/dL 6.3-8.2 ALBUMIN (test code = 7686263964) 3.9 g/dL 3.5-5.0 ALK PHOS (test code = 3556106846) 53 U/L 34-122 ALTv (test code = 1742-6) 10 U/L 5-35 AST(SGOT) (test code = 6575152764) 19 U/L 13-40 Lab Interpretation (test code = Normal 85237-7) [facility] CenterLipase [id number] 16:24:49 Test Item Value Reference Range Interpretation Comments LIPASE (test code = 1322747423) 228 U/L 0-220 H Lab Interpretation (test code = Abnormal 10829-5) [facility] CenterCOVID-19 (ID NOW RAPID TESTING)2021-01-10 16:23:48 Test Item Value Reference Range Interpretation Comments SARS-CoV-2 Rapid ID NOW Not Detected Not Detected (test code = 32588-8) JOSELITO (test code = JOSELITO) ID NOW COVID-19 Assay is an isothermal nucleic acid amplification test intended for the qualitative detection of nucleic acid from SARS-CoV-2 viral RNA in nasopharyngeal (HYDRAMATIC SPECIALIST) specimens. It is used under Emergency Use Authorization (EUA) by FDA. The limit of detection (LOD) of the assay is 125 Genome Equivalents/mL. A positive result is indicative of the presence of SARS-CoV-2 RNA. ?Clinical correlation with patient history and other diagnostic information is necessary to determine patient infection status. A negative (Not Detected) result does not preclude SARS-CoV-2 infection. In patients with clinical symptoms and other tests that are consistent with SARS-CoV-2 infection, negative results should be treated as presumptive negative and a new specimen should be tested with alternative PCR molecular test. Invalid: Please collect a new specimen for repeat patient testing if clinically indicated. Lab Interpretation Normal (test code = 84768-3) [facility] CenteraPTT2021-06-28 16:18:29 Test Item Value Reference Range Interpretation Comments APTT Patient (test See_Comment [Automat ed code = 3173-2) message] The system which generated this result transmitted reference range : 23 - 38 Seconds . The reference range was not used to interpr et this result as normal/abnormal . JOSELITO (test code = JOSELITO) The [facility] patient population mean normal value for aPTT is 30 seconds. Lab Interpretation Normal (test code = 08801-2) [facility] CenterProthrombin Time (PT) / [id number] 16:16:28 Test Item Value Reference Range Interpretation Comments PROTIME PATIENT (test See_Comment [Auto mated message] code = 5964-2) The system [employer] generated this result transmitted ref erence range: 12.0 - 1 4.7 Seconds. The re ference range was not u sed to interpret this result as normal/abnor mal. INR (test code = 6301-6) Nor mal INR <1.1; Warfarin Therap eutic range 2.0 to 3. 0 or 2.5 to 3.5, dep ending upon the indica tions. Lab Interpretation (test Normal code = 30191-5) [facility] CenterUrinalysis2021-06-28 16:16:28 Test Item Value Reference Range Interpretation Comments APPEARANCE (test code = Clear Clear 8230154038) COLOR (test code = Yellow Yellow 9864898141) PH (test code = 4.8-8.0 9766585146) SP GRAVITY (test code = 1.003-1.030 1276845529) GLU U QUAL (test code = Normal Normal 0495090239) BLOOD (test code = Negative Negative 7657674712) KETONES (test code = 5 mg/dL Negative A 9254653550) PROTEIN (test code = Negative Negative 2887-8) UROBILIN (test code = Normal Normal 8311798475) BILIRUBIN (test code = Negative Negative 5518092288) NITRITE (test code = Negative Negative 6409617887) LEUK JACOB (test code = Negative Negative 5255152640) RBC/HPF (test code = <1 See_Comment [Autom ated message] 6439819092) The system [employer] generated this result transmitted ref erence range: 0 - 3 HP F. The reference range was not used to int erpret this result as normal/abnormal . WBC/HPF (test code = See_Comment [Autom ated message] 3105812764) The system [employer] generated this result transmitted ref erence range: 0 - 5 HP F. The reference range was not used to int erpret this result as normal/abnormal . BACTERIA (test code = Negative Negative 5244524883) MUCOUS (test code = Slight Negative LPF A 9346526606) HYAL CAST (test code = See_Comment H [Aut omated message] 6471706085) The system [employer] generated this result transmitted ref erence range: <=2 LPF. The reference range was not used to int erpret this result as normal/abnormal . Lab Interpretation (test Abnormal code = 74359-0) [facility] CenterLactic Acid Whole [id number] 16:02:54 Test Item Value Reference Range Interpretation Comments LACTIC ACID (test code = 1.55 mmol/L 0.50-2.20 4341114583) Lab Interpretation (test code = Normal 87670-0) [facility] CenterSARS-CoV-2 (COVID-19) RNA [Presence] in Respiratory specimen by WILMER with probe [id number] 08:55:44 Test Item Value Reference Range Interpretation Comments SARS-CoV-2 (COVID-19) RNA Not detected Not-Detected [Presence] in Respiratory specimen by WILMER with probe detection (test code = 13420-7) [facility] [id number] 18:29:00 Test Item Value Reference Range Interpretation Comments APTT Patient (test See_Comment H [Automat ed code = 3173-2) message] The system which generated this result transmitted reference range : 23 - 38 Seconds . The reference range was not used to interpr et this result as normal/abnormal . JOSELITO (test code = JOSELITO) The [facility] patient population mean normal value for aPTT is 30 seconds. Lab Interpretation Abnormal (test code = 94438-3) [facility] CenterVALPROIC ACID, [id number] 17:22:00 Test Item Value Reference Range Interpretation Comments Valproic Acid, Free 21.8 ug/mL 4-15 H (test code = 2199715087) JOSELITO (test code = JOSELITO) Toxic Range: ? Greater than 15 ug/mL Test developed and characteristics determined by [facility] Laboratory Services. Lab Interpretation Abnormal (test code = 76332-9) [facility] CenterTROPONIN [id number] 14:31:00 Test Item Value Reference Range Interpretation Comments TROPONIN I (test 0.064 ng/mL See_Comment H [Automated code = 1389013955) message] The system which generated this result transmitted reference range : <=0.034. The reference range was not used to interpret this result as normal/abnormal . JOSELITO (test code = Equal or Less than JOSELITO) 0.034 ng/ml---Normal ?Note: Cardiac troponin begins to rise 3-4 hours after the onset of ischemia. Repeat in 4-6 hours if the sample was drawn within 3-4 hours of the onset of the symptom and found normal. Between 0.035 and 0.120 ng/mL--- Borderline. Questionable myocardial injury or necrosis ? ?Note: Serial measurement may be necessary to confirm or exclude the diagnosis of myocardial injury or necrosis; Clinical correlation (symptoms, EKGs, imaging studies, and others) required; Repeat in 4-6 hours if clinically indicated. ? Equal or Higher than 0.121 ng/mL---Abnormal. Myocardial Injury or Necrosis Likely ? Biotin has been reported to cause a negative bias, interpret results relative to patient's use of biotin. ? Lab Interpretation Abnormal (test code = 10508-3) [facility] CenterBab[facility] (NA, K, CL, CO2, GLUCOSE, BUN, CREATININE, CA)2020-08-25 12:58:00 Test Item Value Reference Range Interpretation Comments NA (test code = 138 mmol/L 135-145 4948057338) K (test code = 3.6 mmol/L 3.5-5 1138135183) CL (test code = 104 mmol/L 98-108 8107961107) CO2 TOTAL (test code = 27 mmol/L 23-31 1394953004) AGAP (test code = 2-16 1657890723) BUN (test code = 11 mg/dL 7-23 9638909016) GLUCOSE (test code = 159 mg/dL 70-110 H 8397043266) CREATININE (test code = 0.56 mg/dL 0.5-1.04 8323514363) CALCIUM (test code = 8.9 mg/dL 8.6-10.6 8881534148) eGFR Calculation mL/min/1.73m2 (Non-) (test code = 5711884016) eGFR Calculation mL/min/1.73m2 () (test code = 5252940652) JOSELITO (test code = JOSELITO) Association of Glomerular Filtration Rate (GFR) and Staging of Kidney Disease* + --+ --+ ------+| GFR (mL/min/1.73 m2) ?| With Kidney Damage ?| ?Without Kidney Damage+ --------+ --------+ +| ?>90 ?| ?Stage one ?| ? Normal ?+ ---+ ---+ -------+| ?60-89 ?| ?Stage two ?| ? Decreased GFR ? + --+ --+ ------+| ?30-59 ?| ?Stage three ?| ? Stage three ? + --+ --+ ------+| ?15-29 ?| ?Stage four ? | ? Stage four ?+ ---+ ---+ -------+| ?<15 (or dialysis) ? ?| ?Stage five ? | ? Stage five ?+ ---+ ---+ -------+ *Each stage assumes the associated GFR level has been in effect for at least three months. ?Stages 1 to 5, with or without kidney disease, indicate chronic kidney disease. Notes: Determination of stages one and two (with eGFR >59mL/min/1.73 m2) requires estimation of kidney damage for at least three months as defined by structural or functional abnormalities of the kidney, manifested by either:Pathological abnormalities or Markers of kidney damage (including abnormalities in the composition of the blood or urine or abnormalities in imaging tests). Lab Interpretation Abnormal (test code = 04724-4) [facility] with [id number] 12:45:00 Test Item Value Reference Range Interpretation Comments WBC (test code = See_Comment [Automated 0490-2) message] The sy stem which generated this result transmitted reference range : 4.30 - 11.10 10*3/?L. The reference range was not used to interpret this result as normal/abnormal . RBC (test code = See_Comment L [Automated 284-8) message] The sy stem which generated this result transmitted reference range : 3.93 - 5.25 10*6/?L. The reference range was not used to interpret this result as normal/abnormal . HGB (test code = 13.0 g/dL 11.6-15 718-7) HCT (test code = 39.9 % 35.7-45.2 4544-3) MCV (test code = 102.0 fL 80.6-95.5 H 787-2) MCH (test code = 33.2 pg 25.9-32.8 H 785-6) MCHC (test code = 32.6 g/dL 31.6-35.1 786-4) RDW-SD (test code = 51.3 fL 39-49.9 H 49974-6) RDW-CV (test code = 13.8 % 12-15.5 788-0) PLT (test code = See_Comment L [Automated 777-3) message] The sy stem which generated this result transmitted reference range : 166 - 358 10*3/ ?L. The reference r lawrence was not used to interpret this result as normal/abnormal . MPV (test code = 10.5 fL 9.5-12.9 66556-8) NRBC/100 WBC (test See_Comment [Automat ed code = 5212775359) message] The system which generated this result transmitted reference range : 0.0 - 10.0 /100 WBCs. The refer ence range was not u sed to interpret th is result as normal/abnormal . NRBC x10^3 (test code <0.01 See_Comment [Auto mated = 5525218126) message] The s ystem which generated this result transmitted reference range : 10*3/?L. The reference range was not used to interpret this result as normal/abnormal . GRAN MAT (NEUT) % 32.6 % (test code = 770-8) IMM GRAN % (test code 1.30 % = 5294343547) LYMPH % (test code = 46.8 % 736-9) MONO % (test code = 11.4 % 5905-5) EOS % (test code = 7.3 % 713-8) BASO % (test code = 0.6 % 706-2) GRAN MAT x10^3(ANC) 2.18 10*3/uL 1.88-7.09 (test code = 8783415424) IMM GRAN x10^3 (test 0.09 10*3/uL 0-0.06 H code = 8303034702) LYMPH x10^3 (test code 3.13 10*3/uL 1.32-3.29 = 731-0) MONO x10^3 (test code 0.76 10*3/uL 0.33-0.92 = 742-7) EOS x10^3 (test code = 0.49 10*3/uL 0.03-0.39 H 711-2) BASO x10^3 (test code 0.04 10*3/uL 0.01-0.07 = 704-7) Lab Interpretation Abnormal (test code = 28100-4) [facility] CenterACTIVATED PARTIAL THRMPLAS [id number] 05:48:00 Test Item Value Reference Range Interpretation Comments APTT Patient (test See_Comment H [Automat ed code = 3173-2) message] The system which generated this result transmitted reference range : 23 - 38 Seconds . The reference range was not used to interpr et this result as normal/abnormal . JOSELITO (test code = JOSELITO) The [facility] patient population mean normal value for aPTT is 30 seconds. Lab Interpretation Abnormal (test code = 74953-2) [facility] CenterLAB ONLY COVID [id number] 22:44:00COVID DMT InterpretationInterpretation/Recommendations: Molecular NAAT Tests for Active Infection with the SARS-CoV-2 Virus: This patient has tested negative on three occasions for the SARS-CoV-2 virusthat causes COVID-19 illness. This most likely indicates that the patient does not have an active inf ection with the SARS-CoV-2 virus, especially if these tests coincide with the patient's current presentation. However, infection is not completely ruled out as the false negative rate for molecular NAAT testing using a nasopharyngeal sample can be up to 30%, mostly dependent on the timing of sample collection in relation to illness onset and any deficiencies in sampling techniques. If the patient hassymptoms concerning for COVID-19 illness, a repeat NAAT test (PCR, Rapid ID Now, etc.) should be performed, at which time the SARS-CoV-2 virus - if present - may have reached a detectable viral load (usually peaking by the end of the first week of symptoms). Tests for IgM and/or IgG Antibodies to ZIYAD S-CoV-2 Virus: Testing for IgM and IgG antibodies 1-3 weeks after illness onset will indicate whether the patient has produced antibodies to the virus. At this time, it is not known if the production of antibodies - specifically IgG antibodies - indicates whether the patient is immune to future infections with the SARS-CoV-2 virus. Interpretation Result Comments:These interpretation comments are based upon all COVID-19 testing the patient has had at [facility], including molecular NAAT testing (more commonly known as PCR testing and Rapid ID Now testing) and antibody testing. It does not take into account any testing that a patient has had outside of the [facility] medical record. [facility] LABORATORY SERVICESCOVID TaeqrinUWQL-XaU-2 NAAT (no units) ? ? Date ? Value ? 02/26/2020 ? Not Detected ? SARS-CoV-2 Rapid ID NOW (no units) ? ? Date ? Value ? 08/23/2020 ? Not Detected ? ? ? 02/26/2020 ? Not Detected ? [facility] LABORATORY SERVICESUnDel Sol Medical CenterACTIVATED PARTIAL THRMPLAS [id number] 22:09:00 Test Item Value Reference Range Interpretation Comments APTT Patient (test code See_Comment H [Au tomated message] = 3173-2) The system [employer] generated this result transmitted ref erence range: 23 - 38 Seconds. The reference range was not used to int erpret this result as normal/abnormal . Lab Interpretation (test Abnormal code = 85566-7) [facility] CenterACTIVATED PARTIAL THRMPLAS [id number] 14:04:00 Test Item Value Reference Range Interpretation Comments APTT Patient (test See_Comment HH [Automat ed code = 3173-2) message] The system which generated this result transmitted reference range : 23 - 38 Seconds . The reference range was not used to interpr et this result as normal/abnormal . JOSELITO (test code = JOSELITO) The [facility] patient population mean normal value for aPTT is 30 seconds. Lab Interpretation Abnormal (test code = 53468-0) [facility] CenterCT CHEST PULMONARY [id number] 10:08:06Impression: 1. No evidence of pulmonary embolus.2. Scattered bilateral groundglass opacities, likelyrepresent subsegmentalatelectasis. Mildly typical infection cannot be excluded.3. Distal esophageal wall thickening, which can be seen with esophagitis,esophageal metaplasia, or esophageal neoplasm. Small hiatal hernia.4. Fatty liver.5. Bilateral adrenal nodules, measuring up to 2.5 cm on the right. Followupadrenal MRI is suggested to further evaluate. RL: [id number]: [id number] End of Report Exam: CT Angiography Chest With Contrast, 08/24/2020 2:30 AM. Ordering Physician: TYE HELM. History: Chest pain. Technique: CT angiography chest was performed with intravenous contrast. 3D MIP images were rendered. CT was performed according to ALARA (As Low AsReasonably Achievable). Comparison: None. Findings: There is no evidence of pulmonary embolus. Central pulmonary arteries arenormal in caliber. ? There is no pleural effusion. Azygos fissure is noted. There are bilateralscattered groundglass opacities, which may represent subsegmentalatelectatic changes. ?There is no parenchymal consolidation or pulmonarymass. Central airways are patent. Heart size is normal. There is coronary artery calcification. ?There is nopericardial effusion. Thoracic aorta is normal in caliber and demonstratesmild calcified plaque. Great vessels demonstrate mild calcified plaqueproximally. ?There is no mediastinal, hilar, or axillary adenopathy. Thereis a small hiatal hernia. Distal esophageal wall thickening is noted. Visualized liver demonstrates decreased attenuation, consistent with fattyinfiltration. 2.5 cm right adrenal nodule is partially visualized. Theremay be a small left adrenal nodule, also partially visualized.Calcification in the spleen may be related to prior granulomatous disease. There are degenerative changes of the spine. [facility], Radiant Results Inft User - 08/24/2020 4:09 AM CSTExam: CT Angiography Chest With Contrast, 08/24/2020 2:30 AM.Ordering Physician: TYE HELM.History: Chest pain.Technique: CT angiography chest was performed with intravenous contrast. 3D MIP images were rendered. CT was performed according to ALARA (As Low AsRea sonably Achievable).Comparison: None.Findings: There is no evidence of pulmonary embolus. Central pulmonary arteries arenormal in caliber. There is no pleural effusion. Azygos fissure is noted. There are bilateralscattered groundglass opacities, which may represent subsegmentalatelectatic changes. There is no parenchymal consolidation or pulmonarymass. Central airways are patent.Heart size is normal. There is coronary artery calcification. There is nopericardial effusion. Thoracic aorta is normalin caliber and demonstratesmild calcified plaque. Great vessels demonstrate mild calcified plaqueproximally. There is no mediastinal, hilar, or axillary adenopathy. Thereis a small hiatal hernia. Dista l esophageal wall thickening is noted.Visualized liver demonstrates decreased attenuation, consistent with fattyinfiltration. 2.5 cm right adrenal nodule is partially visualized. Theremay be a small left adrenal nodule, also partially visualized.Calcification in the spleen may be related to prior granulomatous disease.There are degenerative changes of the spine.IMPRESSIONImpression: 1. No evidence ofpulmonary embolus.2. Scattered bilateral groundglass opacities, likely represent subsegmentalatelectasis. Mildly typical infection cannot be excluded.3. Distal esophageal wall thickening, which can be seen with esophagitis,esophageal metaplasia, or esophageal neoplasm. Small hiatal hernia.4. Fatty liver.5. Bilateral adrenal nodules, measuring up to 2.5 cm on the right. Followupadrenal MRI is suggested to further evaluate. RL: 2824AFC: [id number] of Report [facility] CenterCT [facility] WO [id number] 10:01:15 Impression:No intracranial hemorrhage or midline shift. RL: 2824AFC: [id number] End of Report Exam: CT Head Without Contrast, 08/24/2020 2:30 AM. Ordering Physician: TYE HELM. History: Headache. Technique: CT head was obtained without intravenous contrast. ?CT wasperformed according to ALARA (As Low As Reasonably Achievable). Comparison: None. Findings:There is no parenchymal hemorrhage, mass effect, or midline shift. Thereare no extra-axialfluid collections. Sahu-white matter differentiation ispreserved. There is no acute major vascular territory infarct. There is mild intracranial arterial calcification. Ventricles, basalcisterns, and cortical sulci are mildly enlarged, consistent with corticalvolume loss. ?Osseous structures are unremarkable. Visualized orbits,paranasal sinuses, and mastoid complexes are normal. [facility], Radiant Results Inft User - 08/24/2020 4:02 AM CSTExam: CT Head Without Contrast, 08/24/2020 2:30 AM.Ordering Physician: TYE HELM.History: Headache.Technique: CT head was obtained without intravenous contrast. CT wasperformed according to ALARA (As Low As Reasonably Achievable).Comparison: None.Findings:There is no parenchymal hemorrhage, mass effect, or midline shift. Thereare no extra-axial fluid collections. Sahu-white matter differentiation ispreserved. There is no acute major vascular territory infarct.There is mild intracranial arterial calcification. Ventricles, basalcisterns, and cortical sulci are mildly enlarged, consistent with corticalvolume loss. Osseous structures are unremarkable. Visualized orbits,paranasal sinuses, and mastoid complexes are normal. IMPRESSIONImpression:No intracranial hemorrhage or midline shift. RL: 2824AFC: 17580Vwj of Report [facility] BranchLIPID PANEL (71551)(TOTAL CHOLESTEROL, TRIGLYCERIDES, HDL)2020-08-24 08:59:00 Test Item Value Reference Range Interpretation Comments CHOL (test code = 180 mg/dL 120-200 2538836274) HDL (test code = 35 mg/dL >50 L 5707640424) HDLC RATIO (test code = See_Comment H [Au tomated message] 4582708648) The system Otelic generated this result transmit jessica reference range : <=4.5. The refe rence range was not u sed to interpret th is result as normal/abnormal . TRIG (test code = 251 mg/dL 30-170 H 3391026362) LDL CHOL (test code = 95 mg/dL See_Comment [Auto mated message] 76219-7) The system Otelic generated this result transmit jessica reference range : <=160. The refe rence range was not u sed to interpret th is result as normal/abnormal . VLDL (test code = 50 mg/dL 5-60 0010019530) Lab Interpretation (test Abnormal code = 47516-8) [facility] CenterCritical [id number] 05:26:20NeSharron canseco MD ? ? 08/23/2020 11:26 PMCritical CarePerformed by: Sharron Muse MDAuthorized by: Sharron Muse MD Critical care provider statement: ?Critical care time (minutes): ?45 ?Critical care was necessary to treat or prevent imminent or life-threatening deterioration of the following conditions: ?Cardiac failure ?Critical care was time spent personally by me on the following activities: ?Ordering and performing treatments and interventions, ordering and review of laboratory studies,ordering and review of radiographic studies, pulse oximetry, re-evaluation of patient's condition, blood draw for specimens, development of treatment plan with patient or surrogate, discussions with lilia rider and discussions with primary providerUn[facility] CBC with [id number] 05:16:00 Test Item Value Reference Range Interpretation Comments WBC (test code = See_Comment [Automated 5990-2) message] The sy stem which generated this result transmitted reference range : 4.30 - 11.10 10*3/?L. The reference range was not used to interpret this result as normal/abnormal . RBC (test code = See_Comment L [Automated 959-8) message] The sy stem which generated this result transmitted reference range : 3.93 - 5.25 10*6/?L. The reference range was not used to interpret this result as normal/abnormal . HGB (test code = 12.4 g/dL 11.6-15 718-7) HCT (test code = 38.2 % 35.7-45.2 4544-3) MCV (test code = 103.0 fL 80.6-95.5 H 787-2) MCH (test code = 33.4 pg 25.9-32.8 H 785-6) MCHC (test code = 32.5 g/dL 31.6-35.1 786-4) RDW-SD (test code = 51.6 fL 39-49.9 H 62828-6) RDW-CV (test code = 13.6 % 12-15.5 788-0) PLT (test code = See_Comment L [Automated 777-3) message] The sy stem which generated this result transmitted reference range : 166 - 358 10*3/ ?L. The reference r lawrence was not used to interpret this result as normal/abnormal . MPV (test code = 10.5 fL 9.5-12.9 94228-7) IPF % (test code = 2.3 % 1.3-7.7 Platelet count [id number]) measured by fluorescence method. NRBC/100 WBC (test See_Comment [Automat ed code = 8903264156) message] The system which generated this result transmitted reference range : 0.0 - 10.0 /100 WBCs. The refer ence range was not u sed to interpret th is result as normal/abnormal . NRBC x10^3 (test code <0.01 See_Comment [Auto mated = 0017393967) message] The s ystem which generated this result transmitted reference range : 10*3/?L. The reference range was not used to interpret this result as normal/abnormal . GRAN MAT (NEUT) % 33.0 % (test code = 770-8) IMM GRAN % (test code 1.40 % = 4813053415) LYMPH % (test code = 50.3 % 736-9) MONO % (test code = 10.8 % 5905-5) EOS % (test code = 3.6 % 713-8) BASO % (test code = 0.9 % 706-2) GRAN MAT x10^3(ANC) 1.46 10*3/uL 1.88-7.09 L (test code = 8922288156) IMM GRAN x10^3 (test 0.06 10*3/uL 0-0.06 code = 3306701745) LYMPH x10^3 (test code 2.23 10*3/uL 1.32-3.29 = 731-0) MONO x10^3 (test code 0.48 10*3/uL 0.33-0.92 = 742-7) EOS x10^3 (test code = 0.16 10*3/uL 0.03-0.39 711-2) BASO x10^3 (test code 0.04 10*3/uL 0.01-0.07 = 704-7) Lab Interpretation Abnormal (test code = 23541-8) [facility] 1 [id number] 05:01:07 No radiographic evidence of acute cardiopulmonary disease. RL: 36515WAM: 58349 End of report. ORDERING PROVIDER: EDEL MUSE HISTORY: chest pain TECHNIQUE: AP view of the chest COMPARISON: None FINDINGS: Shallow inspiratory volume with asymmetric elevation of the righthemidiaphragm. Right apical azygous fissure. No focal consolidation,pleural effusion, or pneumothorax. The cardiac silhouette and pulmonaryvasculature are withinnormal limits. Aortic arch calcifications. Theosseous structures are unremarkable. [facility], Radiant Results Inft User - 08/23/2020 11:02 PM CSTORDERING PROVIDER: SHARRON MUSEHISTORY: chest pain TECHNIQUE: AP view of the chest COMPARISON: NoneFINDINGS: Shallow inspiratory volume with asymmetric elevation of the righthemidiaphragm. Right apical azygous fissure. No focal consolidation,pleural effusion,or pneumothorax. The cardiac silhouette and pulmonaryvasculature are within normal limits. Aortic arch calcifications. Theosseous structures are unremarkable.IMPRESSIONNo radiographic evidence of acutecardiopulmonary disease.RL: 54471DJD: 02181Jbo of report. [facility]Mad[facility]allc [id number] 04:58:00 Test Item Value Reference Range Interpretation Comments TROPONIN I (test 0.079 ng/mL See_Comment H [Automated code = 6907453602) message] The system which generated this result transmitted reference range : <=0.034. The reference range was not used to interpret this result as normal/abnormal . JOSELITO (test code = Equal or Less than JOSELITO) 0.034 ng/ml---Normal ?Note: Cardiac troponin begins to rise 3-4 hours after the onset of ischemia. Repeat in 4-6 hours if the sample was drawn within 3-4 hours of the onset of the symptom and found normal. Between 0.035 and 0.120 ng/mL--- Borderline. Questionable myocardial injury or necrosis ? ?Note: Serial measurement may be necessary to confirm or exclude the diagnosis of myocardial injury or necrosis; Clinical correlation (symptoms, EKGs, imaging studies, and others) required; Repeat in 4-6 hours if clinically indicated. ? Equal or Higher than 0.121 ng/mL---Abnormal. Myocardial Injury or Necrosis Likely ? Biotin has been reported to cause a negative bias, interpret results relative to patient's use of biotin. ? Lab Interpretation Abnormal (test code = 91192-7) [facility] CenterN-TERMINAL HRU-[id number] 04:54:00 Test Item Value Reference Range Interpretation Comments NT-proBNP (test code 373 pg/mL See_Comment H [Autom ated = 5120392690) message] The system which generated this result transmitted reference range : <=125. The reference range was not used to interpret this result as normal/abnormal . JOSELITO (test code = JOSELITO) Biotin has been reported to cause a negative bias, interpret results relative to patient's use of biotin. Lab Interpretation Abnormal (test code = 41798-4) [facility] CenterCOVID-19 (ID NOW RAPID TESTING)2020-08-24 04:48:00 Test Item Value Reference Range Interpretation Comments SARS-CoV-2 Rapid ID NOW Not Detected Not Detected (test code = 04232-6) JOSELITO (test code = JOSELITO) ID NOW COVID-19 Assay is an isothermal nucleic acid amplification test intended for the qualitative detection of nucleic acid from SARS-CoV-2 viral RNA in nasopharyngeal (HYDRAMATIC SPECIALIST) specimens. It is used under Emergency Use Authorization (EUA) by FDA. The limit of detection (LOD) of the assay is 125 Genome Equivalents/mL. A positive result is indicative of the presence of SARS-CoV-2 RNA. ?Clinical correlation with patient history and other diagnostic information is necessary to determine patient infection status. A negative (Not Detected) result does not preclude SARS-CoV-2 infection. In patients with clinical symptoms and other tests that are consistent with SARS-CoV-2 infection, negative results should be treated as presumptive negative and a new specimen should be tested with alternative PCR molecular test. Invalid: Please collect a new specimen for repeat patient testing if clinically indicated. Lab Interpretation Normal (test code = 25603-7) [facility] Metabolic Panel (NA, K, CL, CO2, GLUCOSE, BUN, CREATININE, CA)2020-08-24 04:46:00 Test Item Value Reference Range Interpretation Comments NA (test code = 140 mmol/L 135-145 0864695768) K (test code = 3.9 mmol/L 3.5-5 6642063407) CL (test code = 107 mmol/L 98-108 2573346326) CO2 TOTAL (test code = 29 mmol/L 23-31 9518691421) AGAP (test code = 2-16 8308838891) BUN (test code = 12 mg/dL 7-23 2093427087) GLUCOSE (test code = 157 mg/dL 70-110 H 5904919654) CREATININE (test code = 0.62 mg/dL 0.5-1.04 1186759315) CALCIUM (test code = 9.1 mg/dL 8.6-10.6 5354051483) eGFR Calculation mL/min/1.73m2 (Non-) (test code = 0938592477) eGFR Calculation mL/min/1.73m2 () (test code = 5538330266) JOSELITO (test code = JOSELITO) Association of Glomerular Filtration Rate (GFR) and Staging of Kidney Disease* + --+ --+ ------+| GFR (mL/min/1.73 m2) ?| With Kidney Damage ?| ?Without Kidney Damage+ --------+ --------+ +| ?>90 ?| ?Stage one ?| ? Normal ?+ ---+ ---+ -------+| ?60-89 ?| ?Stage two ?| ? Decreased GFR ? + --+ --+ ------+| ?30-59 ?| ?Stage three ?| ? Stage three ? + --+ --+ ------+| ?15-29 ?| ?Stage four ? | ? Stage four ?+ ---+ ---+ -------+| ?<15 (or dialysis) ? ?| ?Stage five ? | ? Stage five ?+ ---+ ---+ -------+ *Each stage assumes the associated GFR level has been in effect for at least three months. ?Stages 1 to 5, with or without kidney disease, indicate chronic kidney disease. Notes: Determination of stages one and two (with eGFR >59mL/min/1.73 m2) requires estimation of kidney damage for at least three months as defined by structural or functional abnormalities of the kidney, manifested by either:Pathological abnormalities or Markers of kidney damage (including abnormalities in the composition of the blood or urine or abnormalities in imaging tests). Lab Interpretation Abnormal (test code = 82268-9) [facility] CenterHepatic Function Panel (ALB, T.PRO, BILI T, BU/BC, ALT, AST, ALK PHOS)2020-08-24 04:46:00 Test Item Value Reference Range Interpretation Comments TOTAL BILI (test code = 9918436627) 0.6 mg/dL 0.1-1.1 BILI UNCON (test code = 3524676440) 0.5 mg/dL 0.1-1.1 BILI CONJ (test code = 2355258253) 0.0 mg/dL 0-0.3 T PROTEIN (test code = 0864603093) 5.7 g/dL 6.3-8.2 L ALBUMIN (test code = 7249755365) 3.4 g/dL 3.5-5 L ALK PHOS (test code = 7188034359) 61 U/L 34-122 ALTv (test code = 1742-6) 10 U/L 5-35 AST(SGOT) (test code = 9512017165) 18 U/L 13-40 Lab Interpretation (test code = Abnormal 84381-1) [facility] CenterLipase [id number] 04:46:00 Test Item Value Reference Range Interpretation Comments LIPASE (test code = 1133062069) 118 U/L 0-220 Lab Interpretation (test code = Normal 42726-1) [facility] CenteraPTT2021-02-09 04:45:00 Test Item Value Reference Range Interpretation Comments APTT Patient (test See_Comment [Automat ed code = 3173-2) message] The system which generated this result transmitted reference range : 23 - 38 Seconds . The reference range was not used to interpr et this result as normal/abnormal . JOSELITO (test code = JOSELITO) The [facility] patient population mean normal value for aPTT is 30 seconds. Lab Interpretation Normal (test code = 01059-8) [facility] CenterProthrombin Time (PT) / [id number] 04:43:00 Test Item Value Reference Range Interpretation Comments PROTIME PATIENT (test See_Comment [Auto mated message] code = 5964-2) The system wh ich generated this result transmitted ref erence range: 12.0 - 1 4.7 Seconds. The re ference range was not u sed to interpret this result as normal/abnor mal. INR (test code = 6301-6) Nor mal INR <1.1; Warfarin Therap eutic range 2.0 to 3. 0 or 2.5 to 3.5, dep ending upon the indica tions. Lab Interpretation (test Normal code = 22146-0) [facility] WITH [id number] 00:30:00 Test Item Value Reference Range Interpretation Comments WBC (test code = See_Comment Previous 6690-2) preliminary verified result was 5.39 10*3/?L on 03/08/2020 at 16 03 CDT [Automated message] The sy stem which generated this result transmitted reference range : 4.30 - 11.10 10*3/?L. The reference range was not used to interpret this result as normal/abnormal . RBC (test code = See_Comment L Previous 789-8) preliminary verified result was 3.54 10*6/?L on 03/08/2020 at 16 03 CDT [Automated message] The sy stem which generated this result transmitted reference range : 3.93 - 5.25 10*6/?L. The reference range was not used to interpret this result as normal/abnormal . HGB (test code = 12.1 g/dL 11.6-15 Previous 718-7) preliminary verified result was 11.9 g/dL on 03/08/2020 at 16 03 CDT HCT (test code = 36.7 % 35.7-45.2 Previous 4544-3) preliminary verified result was 36.4 % on 2019 at 1603 CDT MCV (test code = 102.5 fL 80.6-95.5 H Previous 787-2) preliminary verified result was 102.8 fL on 03/08/2020 at 16 03 CDT MCH (test code = 33.8 pg 25.9-32.8 H Previous 785-6) preliminary verified result was 33.6 pg on 03/08/2020 at 16 03 CDT MCHC (test code = 33.0 g/dL 31.6-35.1 Previous 786-4) preliminary verified result was 32.7 g/dL on 03/08/2020 at 16 03 CDT RDW-SD (test code = 47.7 fL 39-49.9 Previous 57916-8) preliminary verified result was 47.8 fL on 03/08/2020 at 16 03 CDT RDW-CV (test code = 12.6 % 12-15.5 Previous 788-0) preliminary verified result was 12.7 % on 2019 at 1603 CDT PLT (test code = See_Comment L Previous 777-3) preliminary verified result was 138 10*3/?L on 03/08/2020 at 16 03 CDT [Automated message] The sy stem which generated this result transmitted reference range : 166 - 358 10*3/ ?L. The reference r lawrence was not used to interpret this result as normal/abnormal . MPV (test code = 10.3 fL 9.5-12.9 Previous 49904-7) preliminary verified result was 10.4 fL on 03/08/2020 at 16 03 CDT IPF % (test code = 2.6 % 1.3-7.7 Platelet count 5110243929) measured by fluorescence method. NRBC/100 WBC (test See_Comment [Automat ed code = 2156029139) message] The system which generated this result transmitted reference range : 0.0 - 10.0 /100 WBCs. The refer ence range was not u sed to interpret th is result as normal/abnormal . NRBC x10^3 (test code <0.01 See_Comment [Auto mated = 3567155062) message] The s ystem which generated this result transmitted reference range : 10*3/?L. The reference range was not used to interpret this result as normal/abnormal . GRAN MAT (NEUT) % 49.6 % (test code = 770-8) IMM GRAN % (test code 2.50 % = 4639309259) LYMPH % (test code = 30.8 % 736-9) MONO % (test code = 10.7 % 5905-5) EOS % (test code = 5.6 % 713-8) BASO % (test code = 0.8 % 706-2) GRAN MAT x10^3(ANC) 2.59 10*3/uL 1.88-7.09 (test code = 4371857100) IMM GRAN x10^3 (test 0.13 10*3/uL 0-0.06 H code = 3072119482) LYMPH x10^3 (test code 1.61 10*3/uL 1.32-3.29 = 731-0) MONO x10^3 (test code 0.56 10*3/uL 0.33-0.92 = 742-7) EOS x10^3 (test code = 0.29 10*3/uL 0.03-0.39 711-2) BASO x10^3 (test code 0.04 10*3/uL 0.01-0.07 = 704-7) Lab Interpretation Abnormal (test code = 54720-4) [facility] CenterURINALYSIS2020-08-24 21:44:00 Test Item Value Reference Range Interpretation Comments APPEARANCE (test code = Clear Clear 9360310220) COLOR (test code = Yellow Yellow 4895698932) PH (test code = 4.8-8.0 5544085208) SP GRAVITY (test code = 1.003-1.030 7140470557) GLU U QUAL (test code = Normal Normal 7254002634) BLOOD (test code = Negative Negative 5153246129) KETONES (test code = Negative Negative 2082991001) PROTEIN (test code = Negative Negative 2887-8) UROBILIN (test code = Normal Normal 4962104541) BILIRUBIN (test code = Negative Negative 6053375855) NITRITE (test code = Negative Negative 4783404854) LEUK JACOB (test code = Negative Negative 9704599241) RBC/HPF (test code = <1 See_Comment [Autom ated message] 9181857401) The system [employer] generated this result transmitted ref erence range: 0 - 3 HP F. The reference range was not used to int erpret this result as normal/abnormal . WBC/HPF (test code = <1 See_Comment [Autom ated message] 0505580800) The system [employer] generated this result transmitted ref erence range: 0 - 5 HP F. The reference range was not used to int erpret this result as normal/abnormal . BACTERIA (test code = Negative Negative 5288364663) MUCOUS (test code = Slight Negative LPF A 4466337906) SQ EPITH (test code = HPF 7304810130) Lab Interpretation (test Abnormal code = 08970-0) [facility] CenterXR [facility] 2 [id number] 20:37:13 No acute cardiopulmonary abnormality Preliminary Report Dictated by Resident: Augie Moon MD., have reviewed this study and agree with the abovereport.XR CHEST 2 VW HISTORY: 74 years-old; Female; Obstructive chronic bronchitis withexacerbation COMPARISON: Chest radiograph 02/26/2020 FINDINGS: The lungs are clear with no focal consolidation. There is no pleuraleffusion or pneumothorax. The cardiomediastinal silhouette is normal. Aortic knob calcification. No acute osseous abnormality is identified. [facility], Radiant Results Inft User - 03/08/2020 3:38 PM CDTXR CHEST 2 VWHISTORY: 74 years-old; Female; Obstructive chronic bronchitis withexacerbation COMPARISON: Chest radiograph02/26/2020FINDINGS: The lungs are clear with no focal consolidation. There is no pleuraleffusion or pneumothorax.The cardiomediastinal silhouette is normal. Aortic knob calcification.No acute osseous abnormality is identified.IMPRESSIONNo acute cardiopulmonary abnormalityPreliminary Report Dictated by Resident: Augie Murray MD., have reviewed this study and agree with the abovereport.[facility] CenterURINE [id number] 16:47:00 Test Item Value Reference Range Interpretation Comments URINE CULTURE (test 10,000 - 100,000 CFU/mL code = 630-4) mixed aerobic organisms - suggests endogenous microbial contamination [facility] WITH [id number] 14:11:00 Test Item Value Reference Range Interpretation Comments WBC (test code = See_Comment [Automated 6690-2) message] The system which generated this result transmitted reference range : 4.30 - 11.10 10*3/?L. The reference range was not used to interpret this result as normal/abnormal . RBC (test code = See_Comment [Automated 789-8) message] The system which generated this result transmitted reference range : 3.93 - 5.25 10*6/?L. The reference range was not used to interpret this result as normal/abnormal . HGB (test code = 14.8 g/dL 11.6-15 718-7) HCT (test code = 44.4 % 35.7-45.2 4544-3) MCV (test code = 101.6 fL 80.6-95.5 H 787-2) MCH (test code = 33.9 pg 25.9-32.8 H 785-6) MCHC (test code = 33.3 g/dL 31.6-35.1 786-4) RDW-SD (test code = 49.1 fL 39-49.9 88490-9) RDW-CV (test code = 13.2 % 12-15.5 788-0) PLT (test code = See_Comment L [Automated 777-3) message] The system which generated this result transmitted reference range : 166 - 358 10*3/?L. The reference range was not used to interpret this result as normal/abnormal . MPV (test code = 10.1 fL 9.5-12.9 50802-8) NRBC/100 WBC (test See_Comment [Automat ed code = 0733212785) message] The system which generated this result transmitted reference range : 0.0 - 10.0 /100 WBCs. The reference range was not used to interpret this result as normal/abnormal . NRBC x10^3 (test code <0.01 See_Comment [Auto mated = 4660623372) message] The system which generated this result transmitted reference range : 10*3/?L. The reference range was not used to interpret this result as normal/abnormal . GRAN MAT (NEUT) % 54.5 % (test code = 770-8) IMM GRAN % (test code 2.40 % = 9452780844) LYMPH % (test code = 24.5 % 736-9) MONO % (test code = 15.7 % 5905-5) EOS % (test code = 2.0 % 713-8) BASO % (test code = 0.9 % 706-2) GRAN MAT x10^3(ANC) 3.78 10*3/uL 1.88-7.09 (test code = 6824916120) IMM GRAN x10^3 (test 0.17 10*3/uL 0-0.06 H code = 4935478498) LYMPH x10^3 (test 1.70 10*3/uL 1.32-3.29 code = 731-0) MONO x10^3 (test code 1.09 10*3/uL 0.33-0.92 H = 742-7) EOS x10^3 (test code 0.14 10*3/uL 0.03-0.39 = 711-2) BASO x10^3 (test code 0.06 10*3/uL 0.01-0.07 = 704-7) BANDS (test code = MARKED INCREASED A 1872629780) Lab Interpretation Abnormal (test code = 94803-5) [facility] CenterDONNY [id number] 11:51:00 Test Item Value Reference Range Interpretation Comments TROPONIN I (test <0.012 See_Comment [Automated code = 6254114296) message] The system which generated this result transmitted reference range : <=0.034 ng/mL. The reference range was not used to interpr et this result as normal/abnormal . JOSELITO (test code = Equal or Less than JOSELITO) 0.034 ng/ml---Normal ?Note: Cardiac troponin begins to rise 3-4 hours after the onset of ischemia. Repeat in 4-6 hours if the sample was drawn within 3-4 hours of the onset of the symptom and found normal. Between 0.035 and 0.120 ng/mL--- Borderline. Questionable myocardial injury or necrosis ? ?Note: Serial measurement may be necessary to confirm or exclude the diagnosis of myocardial injury or necrosis; Clinical correlation (symptoms, EKGs, imaging studies, and others) required; Repeat in 4-6 hours if clinically indicated. ? Equal or Higher than 0.121 ng/mL---Abnormal. Myocardial Injury or Necrosis Likely ? Biotin has been reported to cause a negative bias, interpret results relative to patient's use of biotin. ? Lab Interpretation Normal (test code = 11236-6) [facility] CenterN-TERMINAL [id number] 11:48:00 Test Item Value Reference Range Interpretation Comments NT-proBNP (test code 231 pg/mL See_Comment H [Autom ated = 0776439770) message] The system which generated this result transmitted reference range : <=125. The reference range was not used to interpret this result as normal/abnormal . JOSELITO (test code = JOSELITO) Biotin has been reported to cause a negative bias, interpret results relative to patient's use of biotin. Lab Interpretation Abnormal (test code = 36524-2) [facility] CenterCOMP. METABOLIC PANEL (23059)2020-02-27 11:40:00 Test Item Value Reference Range Interpretation Comments NA (test code = 136 mmol/L 135-145 2107557445) K (test code = 4.1 mmol/L 3.5-5 7931946223) CL (test code = 101 mmol/L 98-108 6199267987) CO2 TOTAL (test code = 28 mmol/L 23-31 8095329699) AGAP (test code = 2-16 6450276941) BUN (test code = 26 mg/dL 7-23 H 6374043130) GLUCOSE (test code = 152 mg/dL 70-110 H 0826500246) CREATININE (test code = 0.72 mg/dL 0.5-1.04 3891777415) TOTAL BILI (test code = 0.5 mg/dL 0.1-1.3 2278309110) CALCIUM (test code = 9.5 mg/dL 8.6-10.6 3686472145) T PROTEIN (test code = 6.5 g/dL 6.3-8.2 1146266170) ALBUMIN (test code = 3.7 g/dL 3.5-5 4550245862) ALK PHOS (test code = 55 U/L 34-122 6663987032) ALTv (test code = 12 U/L 5-35 1742-6) AST(SGOT) (test code = 22 U/L 13-40 1139996281) eGFR Calculation mL/min/1.73m2 (Non-) (test code = 3583750566) eGFR Calculation mL/min/1.73m2 () (test code = 8536081175) JOSELITO (test code = JOSELITO) Association of Glomerular Filtration Rate (GFR) and Staging of Kidney Disease* + --+ --+ ------+| GFR (mL/min/1.73 m2) ?| With Kidney Damage ?| ?Without Kidney Damage+ --------+ --------+ +| ?>90 ?| ?Stage one ?| ? Normal ?+ ---+ ---+ -------+| ?60-89 ?| ?Stage two ?| ? Decreased GFR ? + --+ --+ ------+| ?30-59 ?| ?Stage three ?| ? Stage three ? + --+ --+ ------+| ?15-29 ?| ?Stage four ? | ? Stage four ?+ ---+ ---+ -------+| ?<15 (or dialysis) ? ?| ?Stage five ? | ? Stage five ?+ ---+ ---+ -------+ *Each stage assumes the associated GFR level has been in effect for at least three months. ?Stages 1 to 5, with or without kidney disease, indicate chronic kidney disease. Notes: Determination of stages one and two (with eGFR >59mL/min/1.73 m2) requires estimation of kidney damage for at least three months as defined by structural or functional abnormalities of the kidney, manifested by either:Pathological abnormalities or Markers of kidney damage (including abnormalities in the composition of the blood or urine or abnormalities in imaging tests). Lab Interpretation Abnormal (test code = 63923-5) [facility] CenterMAGNESIUM2020-08-14 11:40:00 Test Item Value Reference Range Interpretation Comments MAGNESIUM (test code = 2165343695) 1.8 mg/dL 1.7-2.4 Lab Interpretation (test code = Normal 44525-1) [facility] CenterAC[facility] VENOUS BLOOD [id number] 10:29:00 Test Item Value Reference Range Interpretation Comments PH (test code = 7.32-7.42 0366925191) PCO2 NELY (test code = See_Comment H [Auto mated message] 1867763901) The system Ot[employer] generated this result transmitted ref erence range: 41 - 51 mmHg. The reference r lawrence was not used to interpret this result as normal/abnor mal. PO2 NELY (test code = See_Comment [Autom ated message] 0725068734) The system [employer] generated this result transmitted ref erence range: 25 - 40 mmHg. The reference r lawrence was not used to interpret this result as normal/abnor mal. HCO3 NELY (test code = See_Comment H [Auto mated message] 4367146732) The system [employer] generated this result transmitted ref erence range: 24 - 28 mEq/L. The reference r alwrence was not used to interpret this result as normal/abnor mal. AC VBE(BEAKER) (test mEq/L code = 8111347580) Lab Interpretation (test Abnormal code = 50008-3) [facility] CenterVITAMIN D, [id number] 23:35:00 Test Item Value Reference Range Interpretation Comments VIT D 25OH (test code = 23 ng/mL 25-80 L 75735-5) JOSELITO (test code = JOSELITO) Deficiency: <20 ng/mLInsufficiency: 20-24 ng/mLOptimal: 25-80 ng/mL Lab Interpretation (test Abnormal code = 01474-4) [facility] CenterPROCALCITONIN2020-08-13 23:29:00 Test Item Value Reference Interpretation Comments Range Procalcitonin (test <0.02 See_Comment [Automa jessica code = 9839568100) message] The system which generated this result transmitted reference range: <0.07 ng/mL. The reference range was not used to interpret this result as normal/abnormal . JOSELITO (test code = INTERPRETATION OF JOSELITO) PROCALCITONIN RESULTS IN ADULTS >= 18 YEARS OF AGE Initiation and discontinuation of antibiotics on patients with suspected or confirmed Lower Respiratory Tract Infection in Adults >= 18 years of age. + +------ + ----+ +|Procalcit onin |Interpretation ?|Antibiotic ? ? |Considerations ? |ng/mL ? | ?|recommendation | ? + +------ + ----+ +| <0.1 ? | Bacterial ? ? ?| Strongly ? ? ?| ? | ?| infection very | discouraged ? | Overruling: ? | ?| unlikely ? ? ? | ? | ? Clinically unstable ? ? ? + +------ + ----+ ? High risk for adverse ? ? | <0.25 ?| Bacterial ? ? ?| Discouraged ? | ? outcome ? | ?| infection ? ? ?| ? | ? SEE IMPORTANT NOTE ?| ?| unlikely ? ? ? | ? | ? + +------ + ----+ +| >=0.25 ? ? ? | Bacterial ? ? ?| Encouraged ? ?| ? | ?| infection ? ? ?| ? | ? | ?| likely ? | ? | Consider treatment failure ?+ +----- + -----+ if levels does not decrease | >0.5 ? | Bacterial ? ? ?| Strongly ? ? ?| appropriately ? | ?| infection very | encouraged ? ?| ? | ?| likely ? | ? | ? + +------ + ----+ + Discontinuation of antibiotics in high-acuity patients with suspected or confirmed sepsis in Adults >= 18 years of age. + +------ + ----+ +|Procalcit onin |Interpretation ?|Antibiotic ? ? |Considerations ? |ng/mL ? | ?|recommendation | ? + +------ + ----+ +| <0.25 ?| Bacterial ? ? ?| Strongly ? ? ?| ? | ?| infection very | discouraged ? | Overruling: ? | ?| unlikely ? ? ? | ? | ? Clinically unstable ? ? ? + +------ + ----+ ? High risk for adverse ? ? | <0.5 or drop | Bacterial ? ? ?| Discouraged ? | ? outcome ? | >80% from ? ?| infection ? ? ?| ? | ? SEE IMPORTANT NOTE ?| highest PCT ?| unlikely ? ? ? | ? | ? | level ?| ?| ? | ? + +------ + ----+ +| >=0.5 ?| Bacterial ? ? ?| Encouraged ? ?| ? | ?| infection ? ? ?| ? | ? | ?| likely ? | ? | Consider treatment failure ?+ +----- + -----+ if levels does not decrease | >1.0 ? | Bacterial ? ? ?| Strongly ? ? ?| appropriately ? | ?| infection very | encouraged ? ?| ? | ?| likely ? | ? | ? + +------ + ----+ + Percentage of drop of Procalcitonin calculation for Discontinuation of antibiotics in high-acuity patients with suspected or confirmed sepsis in Adults >= 18 years of age. ? Procalcitonin highest{}-Procalcitoni n current{}Delta Procalcitonin = ___ x100% ? Procalcitonin current {} IMPORTANT NOTE: Procalcitonin may be elevated without bacterial infection by physiologic stress related to trauma, molina, chronic dialysis, metastatic cancer, surgery in the past seven days, malaria, some fungal infections, and some forms of vasculitis. The interpretation algorithm may not apply to patients with immunosuppression (equivalent of >10 mg of prednisone daily), HIV with CD4 cell count < 350 cells/mm3, active malignancy on systemic chemotherapy, solid organ transplant or hematopoietic stem cell transplantation, or hospital acquired pneumonia. Additionally, some clinical trials of procalcitonin have excluded patients with shock requiring vasopressor use, acute respiratory failure requiring mechanical ventilation, or those with known lung abscess/empyema. For further information please refer to:[email or web address] Lab Interpretation Normal (test code = 44145-1) [facility] CenterVITAMIN B12, [id number] 22:16:00 Test Item Value Reference Range Interpretation Comments VIT B12 (test code = 385 pg/mL 240-930 1775322765) JOSELITO (test code = JOSELITO) Biotin has been reported to cause a positive bias, interpret results relative to patient's use of biotin. Lab Interpretation (test Normal code = 32733-4) [facility] CenterFOLATE2020-08-13 22:16:00 Test Item Value Reference Range Interpretation Comments FOLATE SER (test code = 4.9 ng/mL 3-20 Biot in has been 2915889181) reported to cau se a positive bias, interpret resul ts relative to patient's use o f biotin. Lab Interpretation (test Normal code = 06849-4) [facility] CenterCORONAVIRUS COVID-19 [id number] 21:14:00 Test Item Value Reference Range Interpretation Comments SARS-CoV-2 PCR (test Not Detected Not Detected code = 65315-0) JOSELITO (test code = JOSELITO) [employer] Aptima SARS-CoV-2 Assay is a nucleic acid amplification test intended for the qualitative detection of RNA from SARS-CoV-2 from nasopharyngeal (HYDRAMATIC SPECIALIST) specimens. ?It is used under Emergency Use Authorization (EUA) by FDA. A positive result is indicative of the presence of SARS-CoV-2 RNA. ?Clinical correlation with patient history and other diagnostic information is necessary to determine patient infection status. A negative (Not Detected) result does not preclude SARS-CoV-2 infection. ?Clinical correlation with patient history and other diagnostic information should be used in patient management decisions. Invalid: Unable to generate a valid test result on this specimen. ?Please submit a new specimen for repeat testing if clinically indicated. Lab Interpretation Normal (test code = 86024-9) [facility] CenterPROTEIN CREAT RATIO URINE [id number] 18:19:00 Test Item Value Reference Range Interpretation Comments T. PROT U (test code = 2888-6) 8 mg/dL CREAT U (test code = 2573686584) 52.3 mg/dL Protein/Creatinine Ratio Urine 0.0-2.0 (test code = 0314355480) [facility] CenterSODIUM, URINE [id number] 17:54:00 Test Item Value Reference Range Interpretation Comments NA URINE (test code = 9547094693) 54 mmol/L [facility] CenterADC / [facility] - DRUG SCREEN [id number] 16:52:00 Test Item Value Reference Range Interpretation Comments BENZO U (test code = Negative Negative 7219316737) CARMEN U (test code = Negative Negative 8388026076) AMPHET (test code = Negative Negative 6972794903) THC (test code = Negative Negative 0472776567) METHADONE (test code Negative Negative = 1613181445) Meth U (test code = Negative Negative 9968261352) OPIATES (test code = Presumptive Negative A 8316796910) Positive Cocaine Metabolite Negative Negative (test code = 5678084856) PROPOXY (test code = Negative Negative 4671631956) Tric U (test code = Presumptive Negative A Confirma tion of 8477814844) Positive Presumptive Positive TCA result requires physician order and this will b e sent to referen ce lab. PCP (test code = Negative Negative 4755170053) OXYCOD (test code = Negative Negative 9361729271) JOSELITO (test code = Urine Drug Cutoff JOSELITO) Ranges Benzodiazepines: ? ? 150 ng/mLBarbiturates : ?200 ng/mLAmphetamine: ? 500 ng/mLCannabinoids : ?50 ?ng/mLMethadone: ? 200 ng/mLMethamphetam ine: ? ? 500 ng/mL Opiates: ? 100 ng/mL or 2000 ng/mLCocaine: ? 150 ng/mLPropoxyphene : ?300 ng/mLTricyclics: ?300 ng/mLOxycodone: ? 100 ng/mLPCP: ? 25 ?ng/mL The results are to be used only for medical (i.e., treatment) purposes. Unconfirmed screening results must not be used for non-medical purposes (e.g., employment testing, legal testing). Lab Interpretation Abnormal (test code = 46457-3) [facility] CenterURINALYSIS2020-08-13 16:42:00 Test Item Value Reference Range Interpretation Comments APPEARANCE (test code = Clear Clear 9494388815) COLOR (test code = Yellow Yellow 2893112251) PH (test code = 4.8-8.0 3619931347) SP GRAVITY (test code = 1.003-1.030 H 0594370385) GLU U QUAL (test code = 50 mg/dL Normal A 8822491713) BLOOD (test code = Negative Negative 4183055205) KETONES (test code = 5 mg/dL Negative A 7816459995) PROTEIN (test code = Negative Negative 2887-8) UROBILIN (test code = Normal Normal 5072073047) BILIRUBIN (test code = Negative Negative 7928179428) NITRITE (test code = Negative Negative 5129937917) LEUK JACOB (test code = Negative Negative 1188234572) RBC/HPF (test code = See_Comment [Autom ated message] 3524932602) The system [employer] generated this result transmitted ref erence range: 0 - 3 HP F. The reference range was not used to int erpret this result as normal/abnormal . WBC/HPF (test code = See_Comment [Autom ated message] 5698739808) The system [employer] generated this result transmitted ref erence range: 0 - 5 HP F. The reference range was not used to int erpret this result as normal/abnormal . BACTERIA (test code = Negative Negative 3152132983) Lab Interpretation (test Abnormal code = 55645-7) [facility] [id number] 14:35:00 Test Item Value Reference Range Interpretation Comments TROPONIN I (test 0.015 ng/mL See_Comment [Automated code = 2450909314) message] The system which generated this result transmitted reference range : <=0.034. The reference range was not used to interpret this result as normal/abnormal . JOSELITO (test code = Equal or Less than JOSELITO) 0.034 ng/ml---Normal ?Note: Cardiac troponin begins to rise 3-4 hours after the onset of ischemia. Repeat in 4-6 hours if the sample was drawn within 3-4 hours of the onset of the symptom and found normal. Between 0.035 and 0.120 ng/mL--- Borderline. Questionable myocardial injury or necrosis ? ?Note: Serial measurement may be necessary to confirm or exclude the diagnosis of myocardial injury or necrosis; Clinical correlation (symptoms, EKGs, imaging studies, and others) required; Repeat in 4-6 hours if clinically indicated. ? Equal or Higher than 0.121 ng/mL---Abnormal. Myocardial Injury or Necrosis Likely ? Biotin has been reported to cause a negative bias, interpret results relative to patient's use of biotin. ? Lab Interpretation Normal (test code = 94005-1) [facility] CenterLACTATE [id number] 14:24:00 Test Item Value Reference Range Interpretation Comments LDH (test code = 1464757235) 480 U/L 300-600 Lab Interpretation (test code = Normal 57678-0) [facility] CenterD-[id number] 14:11:00 Test Item Value Reference Interpretation Comments Range D-DIMER (test code = See_Comment [Autom ated 5000763826) message] The system which generated this result transmitted reference range : <0.41 ?g/mL (FEU). The reference range was not used to interpret this result as normal/abnormal . JOSELITO (test code = This test may be JOSELITO) used in conjunction with a clinical pretest probability (PTP) assessment model to exclude venous thromboembolism (VTE) in patients suspected of deep venous thrombosis (DVT) and pulmonary embolism (PE) A D-Dimer value less than 0.50 ?g/ml (FEU) has a negative predicative value of 96 to 100% (95% CI)and 97 to 100% (95% CI) as an aid in the diagnosis of deep vein thrombosis (DVT) and pulmonary embolism when there is low or moderate pretest probability of PE or DVT. D-Dimer values are expressed in initial fibrinogen equivalent units (FEU)" The assay results should be used with other information, including the clinical context, in forming a diagnosis. Lab Interpretation Normal (test code = 36413-7) [facility] CenterMAGNESIUM2020-08-13 14:07:00 Test Item Value Reference Range Interpretation Comments MAGNESIUM (test code = 5967374801) 1.7 mg/dL 1.7-2.4 Lab Interpretation (test code = Normal 00165-7) [facility] CenterPHOSPHORUS2020-08-13 14:07:00 Test Item Value Reference Range Interpretation Comments PHOSPHORUS (test code = 5257163578) 3.6 mg/dL 2.5-5 Lab Interpretation (test code = Normal 05057-3) [facility] CenterURIC [id number] 14:07:00 Test Item Value Reference Range Interpretation Comments URIC ACID (test code = 1230366987) 5.3 mg/dL 2.9-6 Lab Interpretation (test code = Normal 72637-6) [facility] CenterFERRITIN [id number] 14:07:00 Test Item Value Reference Range Interpretation Comments FERRITIN (test code = 96.9 ng/mL 11-264 2536448227) JOSELITO (test code = JOSELITO) Biotin has been reported to cause a negative bias, interpret results relative to patient's use of biotin. Lab Interpretation (test Normal code = 54868-8) [facility] CenterGLYCOSYLATED HEMOGLOBIN (A1C)2020-02-26 14:06:00 Test Item Value Reference Range Interpretation Comments HGB A1C (test code = 6.7 % 4-6 H 4548-4) JOSELITO (test code = JOSELITO) %A1C (NGSP) Interpretation (ADA)4.8-5.6 ? ? Normal or (Non-Diabetic Range)5.7-6.4 ? ? Increased Risk (Pre-Diabetic)>6.5 ?Diabetes Indicated Lab Interpretation Abnormal (test code = 90416-4) [facility] CenteraPTT2020-08-13 14:05:00 Test Item Value Reference Range Interpretation Comments APTT Patient (test See_Comment [Automat ed code = 3173-2) message] The system which generated this result transmitted reference range : 23 - 38 Seconds . The reference range was not used to interpr et this result as normal/abnormal . JOSELITO (test code = JOSELITO) The [facility] patient population mean normal value for aPTT is 30 seconds. Lab Interpretation Normal (test code = 33900-3) [facility] CenterPROTHROMBIN TIME / [id number] 14:03:00 Test Item Value Reference Range Interpretation Comments PROTIME PATIENT (test See_Comment [Auto mated message] code = 5964-2) The system wh ich generated this result transmitted ref erence range: 12.0 - 1 4.7 Seconds. The re ference range was not u sed to interpret this result as normal/abnor mal. INR (test code = 6301-6) Nor mal INR <1.1; Warfarin Therap eutic range 2.0 to 3. 0 or 2.5 to 3.5, dep ending upon the indica tions. Lab Interpretation (test Normal code = 79629-7) [facility] CenterLIPID PANEL (29546)(TOTAL CHOLESTEROL, TRIGLYCERIDES, HDL)2020-02-26 13:17:00 Test Item Value Reference Range Interpretation Comments CHOL (test code = 166 mg/dL 120-200 5287859548) HDL (test code = 40 mg/dL >50 L 6459146963) HDLC RATIO (test code = See_Comment [Au tomated message] 7773522790) The system [employer]elic generated this result transmit jessica reference range : <=4.5. The refe rence range was not u sed to interpret th is result as normal/abnormal . TRIG (test code = 342 mg/dL 30-170 H 3112879892) LDL CHOL (test code = 58 mg/dL See_Comment [Auto mated message] 18090-3) The system Otelic generated this result transmit jessica reference range : <=160. The refe rence range was not u sed to interpret th is result as normal/abnormal . VLDL (test code = 68 mg/dL 5-60 H 4856355434) Lab Interpretation (test Abnormal code = 15712-8) [facility] CenterCT CHEST PULMONARY [id number] 12:46:05 Multifocal groundglass opacities throughout the bilateral lungs. Given thedominant distribution in the perihilar region it may represent changes ofpulmonary edema. an atypical or multifocal infectiousprocess including butnot limited to COVID-19 pneumonia is another possibility. No acute PTE to the alexander bsegmental level. Bilateral hilar lymphadenopathy, likely reactive. Severe narrowing of the proximalright vertebral artery Preliminary Report Dictated by Resident: Tyrell Palumbo MD., have reviewed this study and agree with theabove report.PROCEDURE: CT ANGIO CHEST WITH CONTRAST - PE PROTOCOL CLINICAL INDICATION: PE suspected, high pretest prob ? COMPARISON: 05/14/2018. TECHNIQUE AND FINDINGS: A helical CT scan was performed and reconstructedusing 1.25 mm slice thickness from the lung bases through the apices afterthe uncomplicated administration of 100 cc of intravenous Omn ipaquecontrast. Sagittal and coronal reconstructions, and axial maximum intensityprojections were generated and reviewed to further define anatomy andpossible pathology. (DFOV = 35.1. Less than cm) FINDINGS: Technically adequate enhancement of the pulmonary arteries demonstrates noacute pulmonary embolus to the subsegmental level. The pulmonary arteriesare normal in caliber. The lower neck is unremarkable. Small, atrophic thyroid gland. Incidentalnote is made of an azygos fissure. There are multifocal groundglass opacities noted in the B/L upper lobeslower lobes. In the left lung and these are predominantly centered aroundthe moshe medially. Trace ground glass opacities in the central right middlelobe are noted. No pleural effusion or pneumothorax. The central airway ispatent. No bronchiectasis or mucous plugging. No bronchial wall thickening. Right hilar lymph nodes measure up to 1.1 cm. Calcified right hilar nodesare noted. Prominent left hilar nodes measure up to 1.2 cm in the shortaxis. Themediastinal structures are unremarkable. Left atrial enlargement is noted. Mild left ventricular hypertrophy.Coronary arterial calcifications and coronary arterial stents are noted.The thoracic aorta is normal in caliber. Moderate atheroscleroticcalcifications affect the aortic arch. There is moderate narrowing of theleft subclavian artery at its origin. The distal branches are patent. Thereis moderate to severe narrowing of the proximal right vertebral arteryapproximately 1 cm from its origin (4:29). Anterior wedging of T11 is likely secondary to a prominent superiorendplate Schmorl's node. No suspicious lytic or sclerotic bony lesions. Nodular thickening of the right adrenal gland, unchanged. The remainder ofthe upper abdomen is unremarkable. [facility], Radiant Results Inft User - 02/26/2020 7:47 AM CDTPROCEDURE: CT ANGIO CHEST WITH CONTRAST - PE PROTOCOLCLINICAL INDICATION: PE suspected, high pretest prob COMPARISON: 05/14/2018.TECHNIQUE AND FINDINGS: A helical CT scan was performed and reconstructedusing 1.25 mm slice thickness from the lung bases through the apices afterthe uncomplicated administration of 100 cc of intravenous Omnipaquecontrast. Sagittal and coronal reconstructions, and axial maximum intensityprojections were generated and reviewed to further define anatomy andpossible pathology. (DFOV = 35.1. Less than cm)FINDINGS: Technically adequate enhancement of the pulmonary arteries demonstrates noacute pulmonary embolus to the subsegmental level. The pulmonary arteriesare normal in caliber.The lower neck is unremarkable. Small, atrophic thyroid gland. Incidentalnote is made ofan azygos fissure.There are multifocal groundglass opacities noted in the B/L upper lobeslower lobes. In the left lung and these are predominantly centered aroundthe moshe medially. Trace ground glass opacities in the central right middlelobe are noted. No pleural effusion or pneumothorax. The central airway ispatent. No bronchiectasis or mucous plugging. No bronchial wall thickening.Right hilar lymphnodes measure up to 1.1 cm. Calcified right hilar nodesare noted. Prominent left hilar nodes measureup to 1.2 cm in the shortaxis. The mediastinal structures are unremarkable.Left atrial enlargement is noted. Mild left ventricular hypertrophy.Coronary arterial calcifications and coronary arterial stents are noted.The thoracic aorta is normal in caliber. Moderate atheroscleroticcalcifications affect the aortic arch. There is moderate narrowing of theleft subclavian artery at its origin. The distal branches are patent. Thereis moderate to severe narrowing of the proximal right vertebral arteryapproximately 1 cm from its origin (4:29).Anterior wedging of T11 is likely secondary to a prominent superiorendplate Schmorl's node. No suspicious lytic or sclerotic bony lesions.Nodular thickening of the right adrenal gland, unchanged. The remainder ofthe upper abdomen is unremarkable.IMPRESSIONMultifocal groundglass opacities throughout the bilateral lungs. Given thedominant distribution in the perihilarregion it may represent changes ofpulmonary edema. an atypical or multifocal infectious process inclu ding butnot limited to COVID-19 pneumonia is another possibility.No acute PTE to the subsegmental level.Bilateral hilar lymphadenopathy, likely reactive.Severe narrowing of the proximal right vertebralarteryPreliminary Report Dictated by Resident: Tyrell Caraballo MD., have reviewed this study and agree with theabove report.[facility] Center[facility] 2020-02-26 12:39:00 Test Item Value Reference Range Interpretation Comments ESR (test code = See_Comment [Automated message] [id number]) The system [employer] generated this result transmitted ref erence range: 0 - 20 m m/HR. The reference r lawrence was not used to interpret this result as normal/abnor mal. Lab Interpretation (test Normal code = 19001-3) [facility] (AUT[facility]ATED)2020-02-26 12:38:00 Test Item Value Reference Range Interpretation Comments POCT GLU (test code = 2250987376) 160 mg/dL 70-110 H Lab Interpretation (test code = Abnormal 91101-1) [facility] CenterChes 1 [id number] 12:31:33EXAM: XR CHEST 1 VW CLINICAL INDICATION: chest pain and SOB COMPARISON: 09/13/2015 TECHNIQUE: A frontal view of the chest was obtained FINDINGS: Questionable peripheral hazy density in the left upper lobe. Lungs areotherwise clear. No pleural effusion or pneumothorax. The cardiac silhouette is normal in size. Atherosclerotic calcificationsare seen in the aortic arch. No acute osseous abnormality. Pre liminary Report Dictated by Resident: Zac Palumbo MD., have reviewed this study and agree withthe above report.[facility], Radiant Results Inft User - 02/26/2020 7:32 AM CDTEXAM: XR CHEST 1 VWCLINICAL INDICATION: chest pain and SOB COMPARISON: 09/13/2015TECHNIQUE: A frontal view of the chest was obtainedFINDINGS:Questionable peripheral hazy density in the left upper lobe. Lungs areotherwise clear. No pleural effusion or pneumothorax.The cardiac silhouette is normal in size. Atherosclerotic calcificationsare seen in the aortic arch.No acute osseous abnormality. Preliminary Report Dictated by Resident: Zac Caraballo MD., have reviewed this study andagree withthe above report.[facility] CenterTHYROID STIMULATING [id number] 08:04:00 Test Item Value Reference Range Interpretation Comments TSH (test code = See_Comment Biotin has been [id number]) reported to cau se a negative bias, interpret resul ts relative to pat ient's use of biotin. [Automated mess age] The system [employer] generated this result transmitted ref erence range: 0.45 - 4 .70 mIU/L. The refe rence range was not u sed to interpret this result as normal/abnor mal. Lab Interpretation (test Normal code = 34378-6) [facility] with [id number] 07:28:00 Test Item Value Reference Range Interpretation Comments WBC (test code = See_Comment [Automated 6690-2) message] The sy stem which generated this result transmitted reference range : 4.30 - 11.10 10*3/?L. The reference range was not used to interpret this result as normal/abnormal . RBC (test code = See_Comment [Automated 789-8) message] The sy stem which generated this result transmitted reference range : 3.93 - 5.25 10*6/?L. The reference range was not used to interpret this result as normal/abnormal . HGB (test code = 13.3 g/dL 11.6-15 718-7) HCT (test code = 40.7 % 35.7-45.2 4544-3) MCV (test code = 102.8 fL 80.6-95.5 H 787-2) MCH (test code = 33.6 pg 25.9-32.8 H 785-6) MCHC (test code = 32.7 g/dL 31.6-35.1 786-4) RDW-SD (test code = 49.7 fL 39-49.9 90776-6) RDW-CV (test code = 13.1 % 12-15.5 788-0) PLT (test code = See_Comment L [Automated 777-3) message] The sy stem which generated this result transmitted reference range : 166 - 358 10*3/ ?L. The reference r lawrence was not used to interpret this result as normal/abnormal . MPV (test code = 9.5 fL 9.5-12.9 38904-5) NRBC/100 WBC (test See_Comment [Automat ed code = 2713158215) message] The system which generated this result transmitted reference range : 0.0 - 10.0 /100 WBCs. The refer ence range was not u sed to interpret th is result as normal/abnormal . NRBC x10^3 (test code <0.01 See_Comment [Auto mated = 8280708476) message] The s ystem which generated this result transmitted reference range : 10*3/?L. The reference range was not used to interpret this result as normal/abnormal . SEG % (test code = 32 % 33-76 L 28664-9) BAND % (test code = 9 % 0-1 H 35779-2) LYMPH % (test code = 50 % 14-54 67921-4) MONO % (test code = 9 % 0-4 H 18540-2) ANC (test code = 2.59 10*3/uL 1.88-7.09 6916439640) Lab Interpretation Abnormal (test code = 30965-8) [facility] CenterTroponin [id number] 07:23:00 Test Item Value Reference Range Interpretation Comments TROPONIN I (test <0.012 See_Comment [Automated code = 7382626093) message] The system which generated this result transmitted reference range : <=0.034 ng/mL. The reference range was not used to interpr et this result as normal/abnormal . JOSELITO (test code = Equal or Less than JOSELITO) 0.034 ng/ml---Normal ?Note: Cardiac troponin begins to rise 3-4 hours after the onset of ischemia. Repeat in 4-6 hours if the sample was drawn within 3-4 hours of the onset of the symptom and found normal. Between 0.035 and 0.120 ng/mL--- Borderline. Questionable myocardial injury or necrosis ? ?Note: Serial measurement may be necessary to confirm or exclude the diagnosis of myocardial injury or necrosis; Clinical correlation (symptoms, EKGs, imaging studies, and others) required; Repeat in 4-6 hours if clinically indicated. ? Equal or Higher than 0.121 ng/mL---Abnormal. Myocardial Injury or Necrosis Likely ? Biotin has been reported to cause a negative bias, interpret results relative to patient's use of biotin. ? Lab Interpretation Normal (test code = 24860-5) [facility] CenterN-TERMINAL [id number] 07:20:00 Test Item Value Reference Range Interpretation Comments NT-proBNP (test code 335 pg/mL See_Comment H [Autom ated = 8225220507) message] The system which generated this result transmitted reference range : <=125. The reference range was not used to interpret this result as normal/abnormal . JOSELITO (test code = JOSELITO) Biotin has been reported to cause a negative bias, interpret results relative to patient's use of biotin. Lab Interpretation Abnormal (test code = 98247-3) [facility] CenterCOVID-19 (ID NOW RAPID TESTING)2020-02-26 07:13:00 Test Item Value Reference Range Interpretation Comments SARS-CoV-2 Rapid ID NOW Not Detected Not Detected (test code = 20651-5) JOSELITO (test code = JOSELITO) ID NOW COVID-19 Assay is an isothermal nucleic acid amplification test intended for the qualitative detection of nucleic acid from SARS-CoV-2 viral RNA in nasopharyngeal (HYDRAMATIC SPECIALIST) specimens. It is used under Emergency Use Authorization (EUA) by FDA. The limit of detection (LOD) of the assay is 125 Genome Equivalents/mL. A positive result is indicative of the presence of SARS-CoV-2 RNA. ?Clinical correlation with patient history and other diagnostic information is necessary to determine patient infection status. A negative (Not Detected) result does not preclude SARS-CoV-2 infection. In patients with clinical symptoms and other tests that are consistent with SARS-CoV-2 infection, negative results should be treated as presumptive negative and a new specimen should be tested with alternative PCR molecular test. Invalid: Please collect a new specimen for repeat patient testing if clinically indicated. Lab Interpretation Normal (test code = 89546-5) [facility] Metabolic Panel (NA, K, CL, CO2, GLUCOSE, BUN, CREATININE, CA)2020-02-26 07:11:00 Test Item Value Reference Range Interpretation Comments NA (test code = 137 mmol/L 135-145 9274896567) K (test code = 4.0 mmol/L 3.5-5 4885610109) CL (test code = 105 mmol/L 98-108 3783378503) CO2 TOTAL (test code = 23 mmol/L 23-31 9204934416) AGAP (test code = 2-16 5561100850) BUN (test code = 24 mg/dL 7-23 H 2650680910) GLUCOSE (test code = 176 mg/dL 70-110 H 9035379500) CREATININE (test code = 0.69 mg/dL 0.5-1.04 2903365063) CALCIUM (test code = 9.7 mg/dL 8.6-10.6 8080393115) eGFR Calculation mL/min/1.73m2 (Non-) (test code = 7448478851) eGFR Calculation mL/min/1.73m2 () (test code = 2534033626) JOSELITO (test code = JOSELITO) Association of Glomerular Filtration Rate (GFR) and Staging of Kidney Disease* + --+ --+ ------+| GFR (mL/min/1.73 m2) ?| With Kidney Damage ?| ?Without Kidney Damage+ --------+ --------+ +| ?>90 ?| ?Stage one ?| ? Normal ?+ ---+ ---+ -------+| ?60-89 ?| ?Stage two ?| ? Decreased GFR ? + --+ --+ ------+| ?30-59 ?| ?Stage three ?| ? Stage three ? + --+ --+ ------+| ?15-29 ?| ?Stage four ? | ? Stage four ?+ ---+ ---+ -------+| ?<15 (or dialysis) ? ?| ?Stage five ? | ? Stage five ?+ ---+ ---+ -------+ *Each stage assumes the associated GFR level has been in effect for at least three months. ?Stages 1 to 5, with or without kidney disease, indicate chronic kidney disease. Notes: Determination of stages one and two (with eGFR >59mL/min/1.73 m2) requires estimation of kidney damage for at least three months as defined by structural or functional abnormalities of the kidney, manifested by either:Pathological abnormalities or Markers of kidney damage (including abnormalities in the composition of the blood or urine or abnormalities in imaging tests). Lab Interpretation Abnormal (test code = 96518-1) [facility] CenterHepatic Function Panel (ALB, T.PRO, BILI T, BU/BC, ALT, AST, ALK PHOS)2020-02-26 07:11:00 Test Item Value Reference Range Interpretation Comments TOTAL BILI (test code = 9149592791) 0.2 mg/dL 0.1-1.1 BILI UNCON (test code = 5279304034) 0.4 mg/dL 0.1-1.1 BILI CONJ (test code = 6219722909) 0.0 mg/dL 0-0.3 T PROTEIN (test code = 0703676454) 6.5 g/dL 6.3-8.2 ALBUMIN (test code = 0736512486) 3.8 g/dL 3.5-5 ALK PHOS (test code = 5273898062) 51 U/L 34-122 ALTv (test code = 1742-6) 13 U/L 5-35 AST(SGOT) (test code = 2114473230) 21 U/L 13-40 Lab Interpretation (test code = Normal 92545-5) [facility] CenterLipase [id number] 07:11:00 Test Item Value Reference Range Interpretation Comments LIPASE (test code = 7383189824) 188 U/L 0-220 Lab Interpretation (test code = Normal 79993-0) [facility]
[2021-12-19 20:05] LABS: Absolute Lymphocytes (CBC) 2.3 K/uL (0.7-4.9); MPV 8.1 fL (7.6-11.3); RBC Red Blood Cell Count 4.49 M/uL (3.86-4.86)
[2021-12-19 20:13] LABS: Protime INR 0.88
[2021-12-19 20:23] LABS: Lithium 0.8 mmol/L (0.6-1.2); Salicylates Level 10.3 mg/dL (2.8-20)
--- NOTE | 2021-12-19 20:27 | RAD REPORT ---
EXAM DESCRIPTION: CT - Head Brain Wo Cont - 12/19/2021 8:10 pm CLINICAL HISTORY: Tremor COMPARISON: Brain Wo Cont dated 08/04/2021 TECHNIQUE: Axial 5 mm thick images of the head were obtained without IV contrast. All CT scans are performed using dose optimization technique as appropriate and may include automated exposure control or mA/KV adjustment according to patient size. FINDINGS: No intracranial hemorrhage, mass, edema or shift of mid-line structures. No acute infarcti on changes seen. No abnormal extra-axial fluid collections. Ventricles are normal. Atrophy changes ar e minimal. No significant chronic ischemic change. Mastoid air cells and visualized portions of the paranasal sinuses are clear. No acute bony findings. IMPRESSION: Negative non-contrast CT head examination for acute or significant finding.
[2021-12-19 20:38] LABS: ALT/SGPT 20 U/L (12-78); AST/SGOT 11 U/L (15-37); Albumin 3.8 g/dL (3.4-5.0); Alkaline Phosphatase 81 U/L (45-117); BUN Blood Urea Nitrogen 14 mg/dL (7-18); Bicarbonate 27 mmol/L (21-32); Bilirubin Direct 0.1 mg/dL (0-0.2); Bilirubin Total 0.5 mg/dL (0.2-1.0); Glomerular Filtration Rate 79 ml/min (=/>90); Glucose Level 240 mg/dL (74-106); Potassium 3.4 mmol/L (3.5-5.1); Protein, Total 7.2 g/dL (6.4-8.2); Sodium Level 143 mmol/L (136-145)
[2021-12-19] MEDS ORDERED: METHYLPREDNISOLONE 125 MG INJ ONE (20:44)
[2021-12-19] MEDS ORDERED: ALBUTEROL 2.5 MG/3 ML NEB SOL ONE (20:44)
[2021-12-19] MEDS ORDERED: IPRATROPIUM BROM 0.5MG/2.5ML ONE (20:44)
--- NOTE | 2021-12-19 20:55 | ER ---
Nurse's Notes [facility] Name: Shannon Dumont Age: 76 yrs Sex: Female : 1945 Arrival Date: 12/19/2021 Time: 18:22 Bed 13 Private MD: Diagnosis: Tremor, unspecified;COPD/ Chronic obstructive pulmonary disease with (acute) exacerbation Presentation: 12/19 18:50 Chief complaint: Patient states: Mind is racing and feeling manic. Unsteady walking and ww slurred speech that has been going on but today things are getting worse. Patient feels like she is breathing fast. Her Dr wanted her to come get evaluated. Coronavirus screen: Client denies travel out of the [place] in the last 14 days. Ebola Screen: Patient denies travel to an Ebola-affected area in the 21 days before illness onset. Initial Sepsis Screen: Does the patient meet any 2 criteria? No. Patient's initial sepsis screen is negative. Does the patient have a suspected source of infection? No. Patient's initial sepsis screen is negative. Risk Assessment: Do you want to hurt yourself or someone else? Patient reports no desire to harm self or others. Onset of symptoms is unknown. 18:50 Method Of Arrival: Ambulatory ww 18:50 Acuity: ANNE MARIE 3 ww Historical: - Allergies: 18:52 Amoxicillin; ww 18:52 Clindamycin; ww - PMHx: 18:52 Chronic pain; COPD; Hypertension; Hypothyroidism; ww - Immunization history:: Adult Immunizations up to date. - Social history:: Smoking status: Patient denies any tobacco usage or history of. Screenin:57 Abuse screen: Denies threats or abuse. Denies injuries from another. Nutritional lg3 screening: No deficits noted. Tuberculosis screening: No symptoms or risk factors identified. Fall Risk None identified. Assessment: 19:57 General: Appears in no apparent distress. comfortable, Behavior is cooperative, lg3 anxious. Pain: Denies pain. Neuro: No deficits noted. Call Agitation-Sedation Scale (RASS): +1 Restless Level of Consciousness is awake, alert, obeys commands, Oriented to person, place, time, situation. Cardiovascular: No deficits noted. Denies chest pain, Capillary refill < 3 seconds Clubbing of nail beds is absent JVD is absent Patient's skin is warm and dry. Respiratory: Reports shortness of breath Airway is patent Trachea midline Respiratory effort is even, unlabored, Respiratory pattern is regular, symmetrical. GI: No deficits noted. No signs and/or symptoms were reported involving the gastrointestinal system. : No deficits noted. No signs and/or symptoms were reported regarding the genitourinary system. EENT: No deficits noted. No signs and/or symptoms were reported regarding the EENT system. Derm: No deficits noted. No signs and/or symptoms reported regarding the dermatologic system. Skin is intact, is healthy with good turgor, Skin is dry, Skin temperature is warm. Musculoskeletal: Reports generalized weakness. 20:50 Reassessment: Patient appears in no apparent distress at this time. No changes from lg3 previously documented assessment. Patient and/or family updated on plan of care and expected duration. Pain level reassessed. Patient is alert, oriented x 3, equal unlabored respirations, skin warm/dry/pink. 22:57 Reassessment: Patient appears in no apparent distress at this time. No changes from lg3 previously documented assessment. Patient and/or family updated on plan of care and expected duration. Pain level reassessed. Patient is alert, oriented x 3, equal unlabored respirations, skin warm/dry/pink. Patient states feeling better. Patient states symptoms have improved. Psych: 20:00 [place] Suicide Severity Screening: In the past month, have you wished you were lg3 or wished you could go to sleep and not wake up? Patient responds "No." "In the past month, have you actually had any thoughts of killing yourself?" Patient responds "no." "In your lifetime, have you ever done anything, started to do anything, or prepared to do anything to end your life?" Patient responds "no.". Subjective: Delusions are denied, Hallucinations are denied. Objective: Patient is cooperative, Speech is normal, Affect is appropriate. Interventions: Patient placed in hospital gown. Urine collected and sent for urine drug test. Safety Checks: Door is open. Pt denies substance abuse. Vital Signs: 18:50 BP 137 / 83; Pulse 70; Resp 18; Temp 98.7; Pulse Ox 94% ; Weight 70.31 kg; Height 5 ft. ww 1 in. (154.94 cm); Pain 0/10; 19:57 BP 135 / 82; Pulse 67; Resp 18; Pulse Ox 95% on R/A; lg3 20:50 BP 138 / 60; Pulse 60; Resp 17; Pulse Ox 98% on R/A; lg3 22:57 BP 132 / 64; Pulse 64; Resp 18; Pulse Ox 97% on R/A; lg3 18:50 Body Mass Index 29.29 (70.31 kg, 154.94 cm) ED Course: 18:22 Patient arrived in ED. as 18:26 Jhon Anaya PA is PHCP. cp 18:26 Kamar Singh MD is Attending Physician. cp 18:52 Triage completed. ww 18:52 Arm band placed on. ww 19:[address], EFREN is Primary Nurse. lg3 19:43 PHCP role handed off by Jhon Anaya PA en 19:43 Isabelle Montemayor PA is PHCP. en 19:56 [place] Sent. lg3 19:56 Acetaminophen Sent. lg3 19:56 Basic Metabolic Panel Sent. lg3 19:56 CBC with Diff Sent. lg3 19:56 ETOH Level Sent. lg3 19:56 Hepatic Function Sent. lg3 19:56 PT-INR Sent. lg3 19:56 Ptt, Activated Sent. lg3 19:57 Patient has correct armband on for positive identification. Bed in low position. Call lg3 light in reach. Side rails up X 1. Client placed on continuous cardiac and pulse oximetry monitoring. NIBP monitoring applied. Door closed. Noise minimized. Warm blanket given. 19:57 Salicylate Sent. lg3 19:57 Inserted saline lock: 20 gauge in right antecubital area, using aseptic technique. lg3 Blood collected. 20:12 CT Head Brain wo Cont In Process Unspecified. EDMS 22:57 No provider procedures requiring assistance completed. IV discontinued, intact, lg3 bleeding controlled, No redness/swelling at site. Pressure dressing applied. Administered Medications: 20:48 Drug: Albuterol - atroVENT (ipratropium) (3:1) (2.5 mg - 0.5 mg) 3 ml Route: Nebulizer; lg3 20:48 Follow up: Response: No adverse reaction lg3 20:49 Drug: SOLU-Medrol (methylPrednisoLONE) 125 mg Route: IVP; Site: right antecubital; lg3 20:49 Follow up: Response: No adverse reaction lg3 Medication: 19:57 VIS not applicable for this client. lg3 Outcome: 20:54 Discharge ordered by . en 22:58 Discharged to home via wheelchair, with significant other. lg3 22:58 Condition: stable 22:58 Discharge instructions given to patient, significant other, Instructed on discharge instructions, medication usage, Demonstrated understanding of instructions, medications, Prescriptions given X 2. 23:00 Patient left the ED. lg3 Signatures: Dispatcher [employer] Verenice Gomez Corey, PA PA cp Gibson, Lacie, EFREN RN lg3 Sanjuanita London RN RN ww Newkirk, Elizabeth, PA PA en
--- NOTE | 2021-12-19 20:55 | EDPHYS ---
Physician Documentation [facility] Name: Shannon Dumont Age: 76 yrs Sex: Female : 1945 Arrival Date: 12/19/2021 Time: 18:22 Bed 13 Private MD: ED Physician Kamar Singh HPI: 12/19 18:55 This 76 yrs old Female presents to ER via Ambulatory with complaints of Psych Problem - cp manic episodes, needs lithium checked. 18:55 The patient presents to the emergency department with feels like her mind is racing. cp Onset: The symptoms/episode began/occurred gradually, and became worse today. Past psychiatric history: Prior diagnosis: bipolar disorder, Psychiatric medications include: Hilmar-Irwin. Associated signs and symptoms: Pertinent positives; tremor, unsteady gait, Pertinent negatives: abdominal pain, chest pain, fever, hallucinations, suicide ideation. Historical: - Allergies: 18:52 Amoxicillin; ww 18:52 Clindamycin; ww - PMHx: 18:52 Chronic pain; COPD; Hypertension; Hypothyroidism; ww - Immunization history:: Adult Immunizations up to date. - Social history:: Smoking status: Patient denies any tobacco usage or history of. ROS: 19:00 Constitutional: Negative for body aches, chills, fever, poor PO intake. cp 19:00 ENT: Negative for drainage from ear(s), ear pain, sore throat, difficulty swallowing, cp difficulty handling secretions. 19:00 Cardiovascular: Negative for chest pain. 19:00 Respiratory: Positive for shortness of breath, Negative for cough, wheezing. 19:00 Abdomen/GI: Negative for abdominal pain, nausea, vomiting, and diarrhea. 19:00 Neuro: Positive for tremor, Negative for altered mental status, headache, weakness. 19:00 All other systems are negative. Exam: 19:15 Head/Face: Normocephalic, atraumatic. cp 19:15 Constitutional: The patient appears in no acute distress, alert, awake, non-toxic, well developed, well nourished. 19:15 Chest/axilla: Inspection: normal, Palpation: is normal, no crepitus, no tenderness. 19:15 Cardiovascular: Rate: normal, Rhythm: regular. 19:15 Respiratory: the patient does not display signs of respiratory distress, Respirations: normal, no use of accessory muscles, no retractions, labored breathing, that is mild, Breath sounds: are clear throughout, no decreased breath sounds, no stridor, no wheezing, decreased breath sounds, that are mild, throughout, stridor, is not appreciated. 19:15 Abdomen/GI: Exam negative for discomfort, distension, guarding, Inspection: abdomen appears normal. 19:15 Neuro: Orientation: to person, place \T\ time. Mentation: able to follow commands, slow to respond, Motor: moves all fours, strength is normal. 19:15 Back: pain, is absent, ROM is normal. cp 19:15 Skin: no rash present. Vital Signs: 18:50 BP 137 / 83; Pulse 70; Resp 18; Temp 98.7; Pulse Ox 94% ; Weight 70.31 kg; Height 5 ft. ww 1 in. (154.94 cm); Pain 0/10; 19:57 BP 135 / 82; Pulse 67; Resp 18; Pulse Ox 95% on R/A; lg3 20:50 BP 138 / 60; Pulse 60; Resp 17; Pulse Ox 98% on R/A; lg3 22:57 BP 132 / 64; Pulse 64; Resp 18; Pulse Ox 97% on R/A; lg3 18:50 Body Mass Index 29.29 (70.31 kg, 154.94 cm) ww MDM: 19:22 Patient medically screened. cp 19:40 Transition of care: After a detail discussion of the patient's case, care is cp transferred to Isabelle MALONEY. 20:52 Differential diagnosis: Tremors, lithium toxicity, electrolyte abnormality. Data en reviewed: vital signs, nurses notes, lab test result(s), EKG, radiologic studies, and as a result, I will discharge patient, with PCP f/u. Hilmar-Irwin level normal. Pt getting breathing tx. Lungs CTA with shallow breaths. No R/R/W. No hypoxia or respiratory distress. 20:56 ED course: Reviewed imaging labs with patient and family. Labs within normal limits. No en within toxicity. CT imaging of the head normal. EKG sinus rhythm with right bundle branch block. Inverted T waves in lead III.. 22:01 ED course: Lung sounds clear. Patient feeling better. Will DC home with refill of en albuterol and steroids.. No evidence of respiratory distress.. 12/19 18:53 Order name: Acetaminophen; Complete Time: 20:51 cp 12/19 18:53 Order name: Basic Metabolic Panel; Complete Time: 20:51 cp 12/19 18:53 Order name: CBC with Diff; Complete Time: 20:51 cp 12/19 18:53 Order name: ETOH Level; Complete Time: 20:51 cp 12/19 18:53 Order name: Hepatic Function; Complete Time: 20:51 cp 12/19 18:53 Order name: PT-INR; Complete Time: 20:51 cp 12/19 18:53 Order name: Ptt, Activated; Complete Time: 20:51 cp 12/19 18:53 Order name: Salicylate; Complete Time: 20:51 cp 12/19 18:53 Order name: Hilmar-Irwin; Complete Time: 20:51 cp 12/19 19:35 Order name: CT Head Brain wo Cont; Complete Time: 20:51 cp 12/19 18:53 Order name: EKG; Complete Time: 18:54 cp 12/19 18:53 Order name: EKG - Nurse/Tech; Complete Time: 19:56 cp 12/19 18:53 Order name: IV Saline Lock; Complete Time: 19:56 cp 12/19 18:53 Order name: Labs collected and sent; Complete Time: 19:56 cp 12/19 18:53 Order name: Suicide Screening ([place]); Complete Time: 19:56 cp Administered Medications: 20:48 Drug: Albuterol - atroVENT (ipratropium) (3:1) (2.5 mg - 0.5 mg) 3 ml Route: Nebulizer; lg3 20:48 Follow up: Response: No adverse reaction lg3 20:49 Drug: SOLU-Medrol (methylPrednisoLONE) 125 mg Route: IVP; Site: right antecubital; lg3 20:49 Follow up: Response: No adverse reaction lg3 Disposition: 12/20 18:28 Co-signature as Attending Physician, Kamar Singh MD. rn Disposition Summary: 12/19/21 20:54 Discharge Ordered Location: Home en Problem: an acute exacerbation en Symptoms: have improved en Condition: Stable en Diagnosis - Tremor, unspecified en - COPD/ Chronic obstructive pulmonary disease with (acute) exacerbation en Followup: en - With: Private Physician - When: 1 - 2 days - Reason: Discharge Instructions: - Discharge Summary Sheet en - Chronic Obstructive Pulmonary Disease en - Tremor en Forms: - Medication Reconciliation Form en - Thank You Letter en - Antibiotic Education en - Prescription Opioid Use en Prescriptions: - ProAir HFA 90 mcg/actuation Inhalation HFA aerosol inhaler - inhale 2 puff by INHALATION route 6 times per day; 1 puff; Refills: 0, Product en Selection Permitted - Prednisone 20 mg Oral Tablet - take 2 tablets by ORAL route once daily for 5 days; 10 tablet; Refills: 0, en Product Selection Permitted Signatures: Dispatcher [employer] EDMS Kamar Singh MD MD rn Page, Corey, PA PA cp Gibson, Lacie, RN RN lg3 Sanjuanita London RN RN Isabelle Soto PA PA en Corrections: (The following items were deleted from the chart) 12/19 19:32 19:15 Respiratory: the patient does not display signs of respiratory distress, cp Respirations: normal, no use of accessory muscles, no retractions, labored breathing, is not present, Breath sounds: are clear throughout, no decreased breath sounds, no stridor, no wheezing, cp 19:33 19:00 Respiratory: Negative for cough, wheezing, cp cp 21:13 20:52 Data reviewed: vital signs, nurses notes, lab test result(s), EKG, radiologic en studies, and as a result, I will discharge patient, with PCP f/u. Hilmar-Irwin level normal. Lungs CTAB after neb for mild COPD exacerbation. No Resp distress, en 21:13 20:56 ED course: Reviewed imaging labs with patient and family. Labs within normal en limits. No within toxicity. CT imaging of the head normal. EKG sinus rhythm with right bundle branch block. Inverted T waves in lead III.. en
[2021-12-19 23:37] VITALS: TEMP 98.7
[2021-12-19 23:56] VITALS: BP 132/64; O2SAT 97
--- NOTE | 2021-12-20 09:50 | EKG ---
Test Date: 2021-12-19 Test Time: 19:44:36 Mold Preparer: MEASUREMENT RESULTS: Intervals: Rate: 65 IN: 142 QRSD: 134 QT: 420 QTc: 436 [place]: P: 56 IN: 142 QRS: 60 T: 107 INTERPRETIVE STATEMENTS: Normal sinus rhythm Right bundle branch block T wave abnormality, consider lateral ischemia Abnormal ECG Compared to ECG 12/19/2021 19:43:28 T-wave abnormality now present Possible ischemia now present ST (T wave) deviation no longer present Myocardial infarct finding no longer present Electronically Signed On 12-20-21 09:49:42 CDT by Santi Maria
--- NOTE | 2021-12-20 09:50 | EKG ---
Test Date: 2021-12-19 Test Time: 19:43:28 Linux Admin: MEASUREMENT RESULTS: Intervals: Rate: 65 [place]: 164 QRSD: 134 QT: 474 QTc: 492 [place]: P: 61 [place]: 164 QRS: 60 T: 109 INTERPRETIVE STATEMENTS: Normal sinus rhythm Right bundle branch block ST elevation, consider lateral injury or acute infarct ACUTE UT / STEMI Abnormal ECG Compared to ECG 08/27/2003 10:27:00 Right bundle-branch block now present ST (T wave) deviation now present Myocardial infarct finding now present Sinus bradycardia no longer present T-wave abnormality no longer present Electronically Signed On 12-20-21 09:49:43 CDT by Santi Maria
== END 2021-12-19 23:00 | disposition home or self-care (01) ==
LOC: ER 18:20
DX: R25.1 Tremor, unspecified (principal); J44.1 Chronic obstructive pulmonary disease with (acute) exacerbation; I10 Essential (primary) hypertension; Z88.1 Allergy status to other antibiotic agents; Z88.3 Allergy status to other anti-infective agents
CPT/HCPCS: 93005 ×2; 85025; 80048; 36415; 80320; 80329 ×2; 85610; 80178; 80076; 85730; 70450; 94640; 96374; 99284; J2930

== ENCOUNTER 2022-02-16 11:43 | Inpatient (IN) | payer OTHER ==
[2022-02-16 13:50] LABS: Absolute Lymphocytes (CBC) 2.2 K/uL (0.7-4.9); Lymphocytes % 21.2 % (15.3-44.8); MCV 94.1 fL (80-100); MPV 8.1 fL (7.6-11.3); RBC Red Blood Cell Count 4.35 M/uL (3.86-4.86)
[2022-02-16 13:56] LABS: Protime INR 0.88
[2022-02-16 14:00] LABS: Potassium 3.7 mmol/L (3.5-5.1); Troponin High Sensitivity 11.7 pg/mL (<58.9)
--- NOTE | 2022-02-16 17:26 | EDPHYS ---
Physician Documentation [facility] Name: Shannon Dumont Age: 76 yrs Sex: Female : 1945 Arrival Date: 02/16/2022 Time: 11:45 Bed 8 Private MD: Anahi Julian ED Physician Inocencio Roque HPI: 02/16 18:06 This 76 yrs old Female presents to ER via Wheelchair with complaints of Low Pulse kb rate,Low O2. 18:06 The patient has shortness of breath at rest. Onset: The symptoms/episode began/occurred kb and became worse today. Duration: The symptoms are continuous. The patient's shortness of breath is aggravated by exertion, is alleviated by nothing. Associated signs and symptoms: The patient has no apparent associated signs or symptoms. Severity of symptoms: At their worst the symptoms were moderate in the emergency department the symptoms are unchanged. The patient has not experienced similar symptoms in the past. The patient has not recently seen a physician. Pt reports shortness of breath that started sometime ago but was worse today. Has been checked O2 sat and it was low, patient does not remember the number.. Historical: - Allergies: 12:28 Amoxicillin; ld1 12:28 Clindamycin; ld1 - PMHx: 12:28 Chronic pain; COPD; Hypertension; Hypothyroidism; Bipolar disorder; Incontinence; ld1 - Immunization history:: Adult Immunizations up to date, Client reports receiving the 2nd dose of the Covid vaccine. - Social history:: Smoking status: Patient denies any tobacco usage or history of. Patient/guardian denies using alcohol. ROS: 18:05 Constitutional: Negative for fever, chills, and weight loss. kb 18:05 Respiratory: Positive for shortness of breath, Negative for cough, dyspnea on exertion, hemoptysis, orthopnea, pleurisy, sputum production, wheezing. 18:05 All other systems are negative. Exam: 18:05 Constitutional: This is a well developed, well nourished patient who is awake, alert, kb and in no acute distress. Head/Face: Normocephalic, atraumatic. ENT: Moist Mucous membranes Cardiovascular: Regular rate and rhythm with a normal S1 and S2. No gallops, murmurs, or rubs. No pulse deficits. Abdomen/GI: Soft, non-tender. No distention Skin: Warm, dry with normal turgor. Normal color. MS/ Extremity: Pulses equal, no cyanosis. Neurovascular intact. Full, normal range of motion. Neuro: Awake and alert, GCS 15, oriented to person, place, time, and situation. Moves all extremities. Normal gait. Psych: Awake, alert, with orientation to person, place and time. Behavior, mood, and affect are within normal limits. 18:05 Respiratory: the patient does not display signs of respiratory distress, Respirations: normal, Breath sounds: decreased breath sounds, that are moderate, are located in both bases. Vital Signs: 12:24 BP 121 / 60; Pulse 50; Resp 18; Temp 97.8(TE); Pulse Ox 93% on R/A; Weight 74.84 kg; ld1 Height 5 ft. 0 in. (152.40 cm); Pain 0/10; 13:00 BP 132 / 82; Pulse 56; ll1 13:30 BP 144 / 62; Pulse 52; Resp 18; Pulse Ox 93% on R/A; ll1 14:00 BP 139 / 68; Pulse 50; Resp 19; Pulse Ox 91% on R/A; ll1 14:30 BP 134 / 69; Pulse 52; Resp 18; Pulse Ox 88% on R/A; ll1 15:00 BP 143 / 68; Pulse 51; Resp 18; Pulse Ox 97% on 2 lpm NC; ll1 15:30 BP 139 / 69; Pulse 52; Resp 18; Pulse Ox 97% ; ll1 16:00 BP 145 / 72; Pulse 55; Resp 18; Pulse Ox 92% on R/A; ll1 16:30 BP 146 / 72; Pulse 54; Resp 18; Pulse Ox 88% on R/A; ll1 16:50 ll1 17:03 Pulse Ox 94% on 2 lpm NC; ll1 18:59 BP 140 / 94; Pulse 59; Resp 18; Pulse Ox 99% on 2 lpm NC; ph 20:02 BP 132 / 86; Pulse 59; Resp 18; Pulse Ox 100% on 2 lpm NC; ll3 12:24 Body Mass Index 32.22 (74.84 kg, 152.40 cm) ld1 16:50 Oxygenation 86-88% RA after walking from the restroom. Dago Zhou NP notified. ll1 MDM: 13:08 Patient medically screened. kb 16:54 Data reviewed: vital signs, nurses notes. Data interpreted: Pulse oximetry: on room air kb is 93 %. Interpretation: normal. 16:54 ED course: O2 sat decreased to 87% at rest, O2 placed on pt, sat increased to 99%. Pt kb ambulated with assist, sat decreased to 85%. . 17:06 Counseling: I had a detailed discussion with the patient and/or guardian regarding: the kb historical points, exam findings, and any diagnostic results supporting the discharge/admit diagnosis, lab results, radiology results, the need for further work-up and treatment in the hospital. 02/16 13:13 Order name: Basic Metabolic Panel; Complete Time: 14:02 kb 02/16 13:13 Order name: CBC with Diff; Complete Time: 13:53 kb 02/16 13:13 Order name: D-Dimer; Complete Time: 13:57 kb 02/16 13:13 Order name: NT PRO-BNP; Complete Time: 14:02 kb 02/16 13:13 Order name: PT-INR; Complete Time: 13:57 kb 02/16 13:13 Order name: Troponin HS; Complete Time: 14:02 kb 02/16 13:13 Order name: EKG; Complete Time: 13:14 kb 02/16 13:13 Order name: Cardiac monitoring; Complete Time: 13:22 kb 02/16 13:58 Order name: COVID-19 SARS RT PCR (Document "Date of Onset" if Symptomatic); Complete kb Time: 15:51 02/16 16:58 Order name: Diet Heart Healthy; Complete Time: 16:58 ph 02/16 17:54 Order name: ABG; Complete Time: 18:25 kb 02/16 18:25 Order name: ARTERIAL BLOOD GAS EDMS 02/16 13:13 Order name: EKG - Nurse/Tech; Complete Time: 13:22 kb 02/16 13:13 Order name: IV Saline Lock; Complete Time: 13:36 kb 02/16 13:13 Order name: Labs collected and sent; Complete Time: 13:36 kb 02/16 13:13 Order name: O2 Per Protocol; Complete Time: 13:36 kb 02/16 13:13 Order name: O2 Sat Monitoring; Complete Time: 13:36 kb Administered Medications: 19:18 Drug: Albuterol 2.5 mg Route: Inhalation; ll1 19:18 Drug: AtroVENT (ipratropium) Aerosol 0.5 mg Route: Inhalation; ll1 Disposition: 02/17 09:09 Co-signature as Attending Physician, Inocencio Roque MD I agree with the assessment and kdr plan of care. Disposition Summary: 02/16/22 17:26 Hospitalization Ordered Condition: Stable kb Problem: new kb Symptoms: are unchanged kb Bed/Room Type: Standard Provider: Stewart Barrientos(02/16/22 18:11) la1 Hospitalization Status: Inpatient Admission(02/16/22 18:14) kb Location: Telemetry/MedSurg (Inpatient)(02/16/22 18:14) Room Assignment: [facility](02/16/22 19:34) Diagnosis - COPD/ Chronic obstructive pulmonary disease with (acute) exacerbation kb Forms: - Medication Reconciliation Form kb - SBAR form kb Signatures: Dispatcher [employer] EDJeanna Morris, CARISSAC DAVE-Elb Inocencio Roque MD MD kdr Attema, Lee CLASSROOM COORDINATORJulianC CLASSROOM COORDINATOR-Jenni Kelly, RN RN cg Stacy Kwan RN RN ll1 Perla Kumar RN RN ld1 Corrections: (The following items were deleted from the chart) 02/16 17:07 17:06 Counseling: I had a detailed discussion with the patient and/or guardian regarding: the historical points, exam findings, and any diagnostic results supporting the discharge/admit diagnosis, lab results, radiology results, the need for further work-up and treatment in the hospital, 18:11 17:26 Mika Singh la1 18:14 17:26 Observation kb 18:14 17:26 Telemetry/MedSurg (observation) [facility] 18:14 17:26 kb 19:34 18:14 kb
--- NOTE | 2022-02-16 17:26 | ER ---
Nurse's Notes [facility] Name: Shannon Dumont Age: 76 yrs Sex: Female : 1945 Arrival Date: 02/16/2022 Time: 11:45 Bed 8 Private MD: Anahi Julian Diagnosis: COPD/ Chronic obstructive pulmonary disease with (acute) exacerbation Presentation: 02/16 12:24 Chief complaint: Patient states: Pt reports bringing her to ER due to low SpO2 ld1 at home- lethargic lately and having headache. Reports chest x ray yesterday at hospital - seeking results from xray. Unable to remember SpO2 level at home. Upon arrival SpO2 94% RA. Coronavirus screen: Client presents with at least one sign or symptom that may indicate coronavirus-19. Standard/surgical mask placed on the client. Ebola Screen: No symptoms or risks identified at this time. Initial Sepsis Screen: Does the patient meet any 2 criteria? No. Patient's initial sepsis screen is negative. Does the patient have a suspected source of infection? No. Patient's initial sepsis screen is negative. Risk Assessment: Do you want to hurt yourself or someone else? Patient reports no desire to harm self or others. Onset of symptoms was February 16, 2022. 12:24 Method Of Arrival: Wheelchair ld1 12:24 Acuity: ANNE MARIE 3 ld1 Triage Assessment: 12:32 General: Appears in no apparent distress. comfortable, Behavior is calm, cooperative, ld1 appropriate for age. Pain: Complains of pain in face Pain does not radiate. Pain currently is 3 out of 10 on a pain scale. EENT: No signs and/or symptoms were reported regarding the EENT system. Neuro: Level of Consciousness is awake, alert, obeys commands, Oriented to person, place, time, situation, Appropriate for age. Cardiovascular: Capillary refill < 3 seconds Patient's skin is warm and dry. Respiratory: Airway is patent Respiratory effort is even, unlabored. GI: Abdomen is round non-distended. : No signs and/or symptoms were reported regarding the genitourinary system. : Reports incontinence. Derm: No signs and/or symptoms reported regarding the dermatologic system. Musculoskeletal: No signs and/or symptoms reported regarding the musculoskeletal system. Historical: - Allergies: 12:28 Amoxicillin; ld1 12:28 Clindamycin; ld1 - PMHx: 12:28 Chronic pain; COPD; Hypertension; Hypothyroidism; Bipolar disorder; Incontinence; ld1 - Immunization history:: Adult Immunizations up to date, Client reports receiving the 2nd dose of the Covid vaccine. - Social history:: Smoking status: Patient denies any tobacco usage or history of. Patient/guardian denies using alcohol. Screenin:04 Abuse screen: Denies threats or abuse. Nutritional screening: No deficits noted. ll1 Tuberculosis screening: No symptoms or risk factors identified. Fall Risk IV access (20 points). Gait- Weak (10 pts.). Total Chandler Fall Scale indicates Low Risk Score (25-44 pts). Fall prevention measures have been instituted. Side Rails Up X 2 Placed close to Nursing Station Frequent Obs/Assesments occuring Family Present and informed to notify staff if they need to leave bedside As available Patient and Family Educated on Fall Prevention Program and strategies. Assessment: 13:23 Reassessment: No changes from previously documented assessment. Patient and/or family kr3 updated on plan of care and expected duration. Pain level reassessed. Patient is alert, oriented x 3, equal unlabored respirations, skin warm/dry/pink. 14:20 Reassessment: No changes from previously documented assessment. Patient and/or family ll1 updated on plan of care and expected duration. Pain level reassessed. given socks and another warm blanket. 15:20 Reassessment: No changes from previously documented assessment. Patient and/or family ll1 updated on plan of care and expected duration. Pain level reassessed. 16:20 Reassessment: No changes from previously documented assessment. Patient and/or family ll1 updated on plan of care and expected duration. Pain level reassessed. 17:20 Reassessment: No changes from previously documented assessment. Patient and/or family ll1 updated on plan of care and expected duration. Pain level reassessed. 17:56 Reassessment: Patient appears in no apparent distress at this time. Patient and/or ph family updated on plan of care and expected duration. Pain level reassessed. Pt awake and alert, eating dinner and tolerating well, oxygen temporarily turned off for accurate ABG. 19:00 Reassessment: No changes from previously documented assessment. Patient and/or family ll1 updated on plan of care and expected duration. Pain level reassessed. Vital Signs: 12:24 BP 121 / 60; Pulse 50; Resp 18; Temp 97.8(TE); Pulse Ox 93% on R/A; Weight 74.84 kg; ld1 Height 5 ft. 0 in. (152.40 cm); Pain 0/10; 13:00 BP 132 / 82; Pulse 56; ll1 13:30 BP 144 / 62; Pulse 52; Resp 18; Pulse Ox 93% on R/A; ll1 14:00 BP 139 / 68; Pulse 50; Resp 19; Pulse Ox 91% on R/A; ll1 14:30 BP 134 / 69; Pulse 52; Resp 18; Pulse Ox 88% on R/A; ll1 15:00 BP 143 / 68; Pulse 51; Resp 18; Pulse Ox 97% on 2 lpm NC; ll1 15:30 BP 139 / 69; Pulse 52; Resp 18; Pulse Ox 97% ; ll1 16:00 BP 145 / 72; Pulse 55; Resp 18; Pulse Ox 92% on R/A; ll1 16:30 BP 146 / 72; Pulse 54; Resp 18; Pulse Ox 88% on R/A; ll1 16:50 ll1 17:03 Pulse Ox 94% on 2 lpm NC; ll1 18:59 BP 140 / 94; Pulse 59; Resp 18; Pulse Ox 99% on 2 lpm NC; ph 20:02 BP 132 / 86; Pulse 59; Resp 18; Pulse Ox 100% on 2 lpm NC; ll3 12:24 Body Mass Index 32.22 (74.84 kg, 152.40 cm) ld1 16:50 Oxygenation 86-88% RA after walking from the restroom. Dago Zhou NP notified. ll1 ED Course: 11:45 Patient arrived in ED. mr 11:45 nAahi Julian MD is Private Physician. mr 12:28 Triage completed. ld1 12:30 Patient has correct armband on for positive identification. Bed in low position. Call ll1 light in reach. Side rails up X2. Client placed on continuous cardiac and pulse oximetry monitoring. NIBP monitoring applied. 12:34 Arm band placed on right wrist. ld1 13:06 Jeanna [facility] F[facility]-C [facility]. kb 13:06 Inocencio Roque MD is Attending Physician. kb 13:08 Jodi Knott, RN is Primary Nurse. ph 13:22 EKG completed in triage. Results shown to . kr3 13:37 Inserted saline lock: 22 gauge in right antecubital area, using aseptic technique. ll1 Blood collected. 14:33 COVID-19 SARS RT PCR (Document "Date of Onset" if Symptomatic) Sent. ll1 17:25 Mika Singh MD is Hospitalizing Provider. kb 18:11 Stewart Barrientos MD is Hospitalizing Provider. la1 19:00 No provider procedures requiring assistance completed. Patient admitted, IV remains in ph place. Administered Medications: 19:18 Drug: Albuterol 2.5 mg Route: Inhalation; ll1 19:18 Drug: AtroVENT (ipratropium) Aerosol 0.5 mg Route: Inhalation; ll1 Medication: 17:05 VIS not applicable for this client. ll1 Outcome: 17:26 Decision to Hospitalize by Provider. kb 20:16 Admitted to Med/surg accompanied by nurse, via stretcher, room 210, with oxygen, Report ll3 called to EFREN Castillo 20:16 Condition: stable 20:16 Instructed on the need for admit, Demonstrated understanding of instructions. 20:30 Patient left the ED. ll3 Signatures: Jeanna Zhou, INDUCTION HEATING EQUIPMENT SETTER-C INDUCTION HEATING EQUIPMENT SETTER-Ckb Cassandra Lockwood Lee, INDUCTION HEATING EQUIPMENT SETTER-C INDUCTION HEATING EQUIPMENT SETTER-Cla1 Jodi Knott, RN Stacy Man ph, RN RN ll1 Perla Kumar RN RN ld1 Vahid Collado RN RN ll3 Merlyn Bolton RN RN kr3 Corrections: (The following items were deleted from the chart) 17:00 16:50 Oxygenation 86-88% RA after walking from the restroom.; ll1 ll1
[2022-02-16] MEDS ORDERED: ALBUTEROL 2.5 MG/3 ML NEB SOL ONE (17:48)
[2022-02-16] MEDS ORDERED: IPRATROPIUM BROM 0.5MG/2.5ML ONE (17:49)
[2022-02-16 18:18] LABS: Arterial Blood Carboxyhemoglob 1.2 % (0-1.5); Blood Gas Oxyhemoglobin 84.8 % (94-97); Blood O2 Saturation 86.9 % (92-98.5)
--- NOTE | 2022-02-16 19:25 | P.HP ---
Certification for Inpatient Patient admitted to: Inpatient With expected LOS: >2 Midnights Patient will require the following post-hospital care: None Practitioner: I am a practitioner with admitting privileges, knowledge of patient current condition, hospital course, and medical plan of care. Services: Services provided to patient in accordance with Admission requirements found in Title 42 Section 412.3 of the Code of Federal Regulations <Mo Louise - Last Filed: 02/16/22 19:19> Patient History Date of Service: 02/16/22 Reason for admission: Respiratory failure History of Present Illness: 76-year-old female who is a very poor historian possible past medical history of COPD, hypertension, hypothyroidism and bipolar disorder presented to the emergency department for shortness of breath. She reports increasing shortness of breath over the course of the last 1 year although she reports significantly worse over the course of last 2 days or so. She said that she was evaluated by a aged or disabled carer who did not believe that she had COPD she cannot tell me if she has a history of CHF or any other respiratory conditions. She denies ever smoking her life she does report that in the past she was put on home oxygen after a hospitalization for about 6 weeks but no longer required it after that point. Patient was found to be hypoxic on room air and ABG was obtained which demonstrated a pH of 7.38 PCO2 of 55.9, HCO3 32.2 PO2 of 53.5 and oxygen saturation of 86.9 her other labs showed mild hyperglycemia her BNP was normal at 187 as well as a normal troponin and negative D-dimer level. She had a chest x-ray performed outpatient yesterday which showed no peripheral mass or consolidation the heart, vasculature and lung markings are mildly prominent which is believed to be mostly or entirely due to the shallow inspiration, a minimal failure or volume overload could be masked in the setting. Patient does not have a home medications cannot tell me when she takes or when she takes medicine for. We will need to admit for further evaluation and management of respiratory failure/hypoxia/hypercapnia. - Past Medical/Surgical History -: COPD? -: CHF? -: Hypertension -: Hyperlipidemia -: None Psychosocial/ Personal History: Patient lives at home with her , is retired - Family History Mother -: Other (see notes) (Dementia) Father -: Cancer - Social History Smoking Status: Never smoker Alcohol use: No CD- Drugs: No Caffeine use: Yes Place of Residence: Home <Mo Louise - Last Filed: 02/16/22 19:19> Date of Service: 02/17/22 <IlianaStewart washburn - Last Filed: 02/17/22 14:02> Allergies amoxicillin Allergy (Verified 01/30/20 13:20) Rash clindamycin Allergy (Verified 01/30/20 13:20) Rash zinc Allergy (Verified 02/16/22 20:48) Itching Review of Systems 10-point ROS is otherwise unremarkable Respiratory: Shortness of Breath <Mo Louise - Last Filed: 02/16/22 19:19> Physical Examination - Physical Exam General: Alert, In no apparent distress, Oriented x3 HEENT: Atraumatic, PERRLA, Mucous membr. moist/pink, EOMI, Sclerae nonicteric Neck: Supple, 2+ carotid pulse no bruit, No LAD, Without JVD or thyroid abnormality Respiratory: Clear to auscultation bilaterally, Diminished Cardiovascular: No edema, Regular rate/rhythm, Normal S1 S2 Capillary refill: <2 Seconds Gastrointestinal: Normal bowel sounds, No tenderness Musculoskeletal: No tenderness Integumentary: No rashes Neurological: Normal speech, Normal strength at 5/5 x4 extr, Normal tone, Normal affect - Studies Laboratory Data (last 24 hrs) 02/16/22 13:30: PT 9.7, INR 0.88 02/16/22 13:30: WBC 10.4, Hgb 13.5, Hct 41.0, Plt Count 189 02/16/22 13:30: Sodium 137, Potassium 3.7, BUN 22 H, Creatinine 0.94, Glucose 155 H <Mo Louise - Last Filed: 02/16/22 19:19> Assessment and Plan - Plan Assessment: Acute hypoxic/hypercapnic respiratory failure Hypertension Hypothyroidism Bipolar disorder Plan: Acute hypoxic/hypercapnic respiratory failure: Unclear etiology, patient with questionable history of COPD no significant expiratory wheezing, cough or increased sputum production. No fevers chills or elevated white blood cell count to suggest infective process. Questionable history of CHF, no echo available to review, pt unsure of her home meds, BNP, trop, DD WNL. She denies ever smoking in the past although she reports she has been on home oxygen once before. We will consult pulmonology, obtain echocardiogram treat with IV steroids and as needed nebs for time being. Patient may require home oxygen on discharge. Hypertension: Evaluate and continue home medications as appropriate when confirmed Hypothyroidism: Evaluate and continue home medications as appropriate when confirmed Bipolar disorder: Evaluate and continue home medications as appropriate when confirmed DVT PPX: lovenox Code status:Full Discharge Plan: Home Plan to discharge in: 48 Hours - Advance Directives Does patient have a Living Will: Yes Does patient have a Durable POA for Healthcare: No - Code Status/Comfort Care Code Status Assessed: Yes (Full) Critical Care: No Time Spent Managing Pts Care (In Minutes): 70 <Mo Louise - Last Filed: 02/16/22 19:19> Physician Review: Patient Assessed, Agree with Above Assessment and Plan <Stewart Barrientos - Last Filed: 02/17/22 14:02>
[2022-02-16] MEDS ORDERED: ALBUTEROL 2.5 MG/3 ML NEB SOL NEB PRN (20:39)
[2022-02-16] MEDS ORDERED: IPRATROPIUM BROM 0.5MG/2.5ML NEB PRN (20:39)
[2022-02-16] MEDS ORDERED: ONDANSETRON 4 MG/2 ML VIAL IV PRN (20:39)
[2022-02-16] MEDS: DULERA 200/5 (MOMETASONE/FORMOTEROL) INHALER IH SCH (21:00)
[2022-02-16] MEDS: METHYLPREDNISOLONE 40 MG INJ IV SCH (21:09)
[2022-02-16] MEDS: ACETAMINOPHEN 500 MG TAB PO PRN (21:09)
[2022-02-17] MEDS: METHYLPREDNISOLONE 40 MG INJ IV SCH ×3 (05:15→21:32)
[2022-02-17 06:20] LABS: Absolute Lymphocytes (CBC) 0.9 K/uL (0.7-4.9); Lymphocytes % 9.4 % (15.3-44.8); MCV 96.3 fL (80-100); MPV 8.3 fL (7.6-11.3); RBC Red Blood Cell Count 4.26 M/uL (3.86-4.86)
[2022-02-17 06:50] LABS: Albumin 3.5 g/dL (3.4-5.0); Bilirubin Total 0.4 mg/dL (0.2-1.0); Potassium 4.2 mmol/L (3.5-5.1); Protein, Total 6.5 g/dL (6.4-8.2); Thyroid Stimulating Hormone 0.548 uIU/mL (0.360-3.740)
--- NOTE | 2022-02-17 10:46 | P.CNS ---
Date of Consult: 02/17/22 Reason for Consult: Respiratory failure Chief Complaint: Respiratory failure History of Present Illness: Patient is 76 years of age poor historian family members at the bedside history of COPD hypertension bipolar disorder admitted with worsening dyspnea signi ficantly worse in the past 2 days patient does not smoke found to be hypoxic hypercarbic currently stable denies any fever or chills Allergies amoxicillin Allergy (Verified 01/30/20 13:20) Rash clindamycin Allergy (Verified 01/30/20 13:20) Rash zinc Allergy (Verified 02/16/22 20:48) Itching - Past Medical/Surgical History Diabetic: No -: COPD? -: CHF? -: Hypertension -: Hyperlipidemia -: None Psychosocial/ Personal History: Patient lives at home with her , is retired - Family History Mother Medical History: Other (see notes) Father Medical History: Cancer - Social History Alcohol use: No CD- Drugs: No Caffeine use: No Place of Residence: Home Review of Systems 10-point ROS is otherwise unremarkable General: Weakness Respiratory: Shortness of Breath Physical Examination Temp Pulse Resp BP Pulse Ox 97.8 F 66 28 H 130/63 92 02/17/22 08:00 02/17/22 08:00 02/17/22 08:00 02/17/22 08:00 02/17/22 08:00 General: Alert, In no apparent distress, Oriented x3 Neck: Supple Respiratory: Clear to auscultation bilaterally, Diminished Cardiovascular: No edema, Regular rate/rhythm, Normal S1 S2 Gastrointestinal: Normal bowel sounds, Soft and benign Laboratory Data (last 24 hrs) 02/16/22 13:30: PT 9.7, INR 0.88 02/16/22 13:30: WBC 10.4, Hgb 13.5, Hct 41.0, Plt Count 189 02/16/22 13:30: Sodium 137, Potassium 3.7, BUN 22 H, Creatinine 0.94, Glucose 155 H - Problems (1) Respiratory failure Current Visit: Yes Status: Acute Plan: Patient is 76 years of age admitted with acute on chronic shortness of breath she has hypoxic hypercapnic respiratory failure labs unremarkable apart from hypoxic hypoxemia and hypercarbia most likely chronic chest x-ray has been ordered normal thyroid function Qualifiers: Chronicity: acute on chronic
[2022-02-17] MEDS: ASPIRIN EC 81 MG TAB PO SCH (10:47)
[2022-02-17] MEDS: DULERA 200/5 (MOMETASONE/FORMOTEROL) INHALER IH SCH ×2 (10:47→20:55)
[2022-02-17] MEDS: ACETAMINOPHEN 500 MG TAB PO PRN ×3 (10:47→21:33)
[2022-02-17] MEDS: ENOXAPARIN 40 MG/0.4 ML SQ SCH (10:58)
--- NOTE | 2022-02-17 11:16 | RAD REPORT ---
EXAM DESCRIPTION: RAD - Chest Single View - 02/17/2022 11:10 am CLINICAL HISTORY: Resp. failure Chest pain. COMPARISON: Chest Pa And Lat (2 Views) dated 02/15/2022; Chest Single View dated 02/19/2020; Chest Pa An d Lat (2 Views) dated 11/25/2018 FINDINGS: Portable technique limits examination quality. Mild interstitial pulmonary edema is seen. The heart is mildly enlarged in size. No displaced fractur es.Aortic atherosclerosis. IMPRESSION: Mild CHF.
--- NOTE | 2022-02-17 14:06 | P.PN ---
Subjective Date of Service: 02/17/22 Chief Complaint: Respiratory failure Subjective: Improving No acute events since admission. She reports that her breathing is slightly improved compared to admission. Her symptoms appear to be worse when lying flat and improved when she sits upright. SpO2 was 93 % on 2 L NC. Review of Systems 10-point ROS is otherwise unremarkable Respiratory: Cough, Dry, Shortness of Breath, SOB with Excertion Cardiovascular: Orthopnea Physical Examination - Vital Signs Temperature: 98.3 F Blood Pressure: 147/64 Pulse: 69 Respirations: 36 Pulse Ox (%): 92 - Physical Exam General: Alert, In no apparent distress, Oriented x3 HEENT: Atraumatic, PERRLA, Mucous membr. moist/pink, EOMI, Sclerae nonicteric Neck: Supple, JVD distended (minimally) Respiratory: Normal air movement, Crackles/rales (faint, bibasilar) Cardiovascular: No edema, Regular rate/rhythm, Normal S1 S2, No gallops, No r ubs, No murmurs Gastrointestinal: Normal bowel sounds, Hypoactive, Soft and benign, No tenderness, No rebound, No guarding Musculoskeletal: No clubbing Integumentary: No rashes Neurological: Normal gait, Cranial nerves 3-12 intact, Normal affect Assessment And Plan - Plan # Mild Acute Hypoxic Hypercapnic Respiratory Failure - suspect secondary Acute on Chronic Decompensated Congestive Heart Failure (Unknown Ejection Fraction) and Possible Mild Acute Chronic Obstructive Pulmonary Disease Exacerbation # Obesity - BMI 32.2 kg/m2 Currently, she is on 2 L nasal cannula, with improvement of her SpO2 readings to 93 %. - Evaluation thus far: - D-Dimer = <215 - Procalcitonin = pending - NT-Pro BNP = 187 (may be falsely low/normal in obesity) - Troponin = 11.7 - ABG = pH 7.38, PCO2 55.9, PO2 53.5 - Chest x-ray = "Mild CHF" - Management plan: - Consulted Pulmonary Medicine - recommendations appreciated - Bronchodilators and steroids per Pulm - Consulted Cardiology - recommendations appreciated - TTE pending - Consulted Respiratory Therapy - Supplemental oxygen to maintain SpO2 > 92% - May require home oxygen - Strict I/Os - Daily weight - Encouraged incentive spirometry # Steroid-Induced Hyperglycemia Denies history of diabetes mellitus - Ordered Hgb A1c - Correction scale insulin ordered # Hypertension # Hypothyroidism # Bipolar disorder - Resume home medications when able Stewart Barrientos M.D. Discharge Plan: Home Plan to discharge in: 24 Hours
[2022-02-17] MEDS ORDERED: GLUCAGON 1 MG/VIAL IM PRN (14:12)
[2022-02-17] MEDS ORDERED: DEXTROSE 10%-WATER 500 ML IV BAG IV PRN (14:16)
[2022-02-17] MEDS ORDERED: ALBUTEROL 2.5 MG/3 ML NEB SOL NEB PRN (15:00)
--- NOTE | 2022-02-17 15:06 | ECHO ---
HEIGHT: 5 ft 0 in WEIGHT: 165 lb 0 oz DATE OF STUDY: 02/17/[address]: Mo Louise NP 2-DIMENSIONAL: YES M.MODE: YES DOPPLER: YES COLOR FLOW: YES TDS: YES PORTABLE: YES DEFINITY: NO BUBBLE STUDY: NO DIAGNOSIS: HYPOXIA, RESPIRATORY FAILURE CARDIAC HISTORY: CATHERIZATION:YES SURGERY: NO PROSTHETIC VALVE: NO PACEMAKER: NO MEASUREMENTS (cm) DIASTOLIC (NORMALS) SYSTOLIC (NORMALS) IVSd 1.3 (0.6-1.2) LA Diam 3.3 (1.9-4.0) LVEF 79% LVIDd 4.9 (3.5-5.7) LVIDs 2.6 (2.0-3.5) %FS 47% LVPWd 1.3 (0.6-1.2) Ao Diam 2.6 (2.0-3.7) 2 DIMENSIONAL ASSESSMENT: RIGHT ATRIUM: NORMAL LEFT ATRIUM: NORMAL RIGHT VENTRICLE: NORMAL LEFT VENTRICLE: MILD LEFT VENTRICULAR HYPERTROPHY TRICUSPID VALVE: MITRAL VALVE: PULMONIC VALVE: NORMAL AORTIC VALVE: CALCFICATED PERICARDIAL EFFUSION: NONE AORTIC ROOT: NORMAL LEFT VENTRICULAR WALL MOTION: NORMAL DOPPLER/COLOR FLOW: SEE BELOW COMMENTS: NORMAL LEFT VENTRICULAR EJECTION FRACTION OF > 60%. HYPERDYNAMIC LEFT VENTRICLE. MILD MITRAL AND TRICUSPID REGURGITATION. AORTIC VALVE SCLEROSIS WITH NO AORTIC STENOSIS. TECHNOLOGIST: Kalyn KOTHARI
--- NOTE | 2022-02-17 15:09 | EKG ---
Test Date: 2022-02-16 Test Time: 13:15:38 Fly Tier: MEL MEASUREMENT RESULTS: Intervals: Rate: 51 AR: 156 QRSD: 146 QT: 518 QTc: 477 [place]: P: 55 AR: 156 QRS: 64 T: 26 INTERPRETIVE STATEMENTS: Sinus bradycardia Right bundle branch block T wave abnormality, consider inferolateral ischemia Abnormal ECG Compared to ECG 12/19/2021 19:44:36 Sinus rhythm no longer present T-wave abnormality still present Possible ischemia still present Electronically Signed On 02-17-22 15:08:10 CDT by Derrick Max
[2022-02-17] MEDS: INSULIN -REGULAR HUMAN 50 UNIT/0.5 ML ML SQ SCH ×2 (16:30→20:55)
[2022-02-17] MEDS: FUROSEMIDE 20 MG/ 2ML VIAL IV SCH (17:07)
[2022-02-17] MEDS: LITHIUM CARBONATE 300 MG CAP PO SCH (22:47)
[2022-02-17] MEDS: AMLODIPINE 5 MG TAB PO SCH (22:47)
[2022-02-17] MEDS ORDERED: LITHIUM CARBONATE 300 MG CAP ONE (22:50)
[2022-02-18 03:45] LABS: Absolute Lymphocytes (CBC) 1.1 K/uL (0.7-4.9); Hematocrit 41.6 % (36.0-45.0); Lymphocytes % 8.5 % (15.3-44.8); MCV 94.7 fL (80-100); MPV 8.2 fL (7.6-11.3); RBC Red Blood Cell Count 4.39 M/uL (3.86-4.86)
[2022-02-18 04:07] LABS: Albumin 3.8 g/dL (3.4-5.0); Bilirubin Total 0.5 mg/dL (0.2-1.0); Potassium 4.1 mmol/L (3.5-5.1); Protein, Total 6.7 g/dL (6.4-8.2)
[2022-02-18] MEDS: METHYLPREDNISOLONE 40 MG INJ IV SCH ×2 (05:42→13:16)
[2022-02-18] MEDS: LEVOTHYROXINE SOD 0.1 MG TAB PO SCH (05:42)
[2022-02-18] MEDS: PANTOPRAZOLE 40MG TABLET PO SCH (05:45)
--- NOTE | 2022-02-18 08:59 | PN ---
Date of Progress Note: 02/18/2022 Ms. Dumont came in with COPD exacerbation, acute on chronic diastolic congestive heart failure exacer . Echocardiogram showed an ejection fraction more than 70%. She has improved and her O2 satur ation is better. She remains in sinus rhythm. She is presently on aspirin, Lovenox, steroid, Lasix inhalers. I think we should resume all her other medications and consider the use of low-dose beta-b locker. Her heart rates have remained normal, although was bradycardic when she first came in. We w ill continue to follow her on an as-needed basis, but whenever it is okay with Dr. Barrientos we can send her home. SUPA/GEORGINA Voice ID: [id number] Report ID: [id number]
[2022-02-18] MEDS ORDERED: ATORVASTATIN 80 MG TAB PO SCH (09:00)
[2022-02-18] MEDS ORDERED: CLOPIDOGREL 75 MG TABLET PO SCH (09:00)
[2022-02-18] MEDS ORDERED: LORATADINE 10 MG TAB PO SCH (09:00)
[2022-02-18] MEDS ORDERED: ASPIRIN 81 MG CHEWABLE TABLET PO SCH (09:00)
[2022-02-18] MEDS ORDERED: ARIPiprazole 5 MG TAB PO SCH (09:00)
[2022-02-18] MEDS ORDERED: LOSARTAN POTASSIUM 50 MG TABLET PO SCH (09:00)
[2022-02-18] MEDS ORDERED: clonazePAM 1 MG TAB PO SCH (09:00)
[2022-02-18] MEDS: INSULIN -REGULAR HUMAN 50 UNIT/0.5 ML ML SQ SCH ×4 (09:43→20:48)
[2022-02-18] MEDS: FUROSEMIDE 20 MG/ 2ML VIAL IV SCH ×2 (09:44→17:53)
[2022-02-18] MEDS: ENOXAPARIN 40 MG/0.4 ML SQ SCH (09:44)
[2022-02-18] MEDS: ACETAMINOPHEN 500 MG TAB PO PRN (09:45)
[2022-02-18] MEDS: LITHIUM CARBONATE 300 MG CAP PO SCH ×3 (09:45→20:38)
[2022-02-18] MEDS: ASPIRIN EC 81 MG TAB PO SCH (09:45)
[2022-02-18] MEDS: AMLODIPINE 5 MG TAB PO SCH ×2 (09:45→20:38)
[2022-02-18] MEDS: DULERA 200/5 (MOMETASONE/FORMOTEROL) INHALER IH SCH ×2 (09:46→20:37)
--- NOTE | 2022-02-18 10:45 | CON ---
Date of Consultation: 02/17/2022 Reason For Consultation: Respiratory failure and bradycardia and hypoxia. History Of Present Illness: Ms. Dumont is 76. She is known to us from previous admission. She has a history of severe COPD, diastolic congestive heart failure, hypertension, dyslipidemia, bipolar dis order, hypothyroidism, and gastroesophageal reflux disease. Comes in with main complaint of low puls e and low oxygen, was found to have respiratory failure. Admitted for further evaluation and treatme nt. Her main complaint was shortness of breath. She did not have any PND, orthopnea, or pedal edema . Denied any palpitation or syncope. Denied any fever or chills. Chest x-ray showed mild congestiv e heart failure. EKG showed right bundle-branch block. Her heart rate was 74. Glucose was 155. Sh e had a PO2 of 53 and pCO2 was 55, consistent with CO2 retention and COPD. Past Medical History: As stated above. Allergies: CLINDAMYCIN, PENICILLIN, AND ZINC. Review of Systems: Negative. Social History: Positive for tobacco use. Family History: Noncontributory. Medications: At home include Abilify, Norvasc, aspirin, Lipitor, Plavix, Sinemet, lithium, inhalers, Lasix, losartan, Synthroid, and Protonix. Physical Examination: Vital Signs: Her heart rate was 74. She was in sinus tach with occasional PACs. Afebrile. HEENT: Negative. Neck: Supple with no bruit. Chest: Reveals expiratory wheezing and some rales at the bases. Cardiac: Revealed a sinus rhythm with an S4 and gallops. No murmurs or rubs. Abdomen: Benign. Extremities: Revealed no clubbing, cyanosis, or edema. Diagnostic Data: As stated earlier. Troponin and BNP are unremarkable. Echocardiogram which was do ne showed hyperdynamic left ventricle with a normal ejection fraction of more than 70%. Impression And Plan: 1.Acute on chronic diastolic congestive heart failure. 2.Acute exacerbation of chronic obstructive pulmonary disease. 3.Hypertension. 4.Dyslipidemia. 5.Bradycardia that has resolved. 6.Hypothyroidism. 7.Gastroesophageal reflux. 8.Hypertension. I think the plan for treatment for this woman should include inhalers and steroids for COPD. We told her to increase her Lasix dose for congestive heart failure. Consider low-dose beta priti, prefer ably Coreg, if we have to. Although we may have to watch her heart rate on that regard. We will con tinue to follow her. SUPA/GEORGINA Voice ID: [id number] Report ID: [id number]
--- NOTE | 2022-02-18 12:14 | P.PN ---
Subjective Date of Service: 02/18/22 Chief Complaint: Respiratory failure No acute events overnight. She had a home oxygen evaluation yesterday, which revealed her SpO2 of 86 % on room air with exertion. Currently, she is at rest with an SpO2 was 96 % on 2 L NC. Review of Systems 10-point ROS is otherwise unremarkable Respiratory: Cough, SOB with Excertion Physical Examination - Vital Signs Temperature: 97.3 F Blood Pressure: 130/86 Pulse: 67 Respirations: 18 Pulse Ox (%): 96 Assessment And Plan - Plan - Physical Exam General: Alert, In no apparent distress, Oriented x3 HEENT: Atraumatic, PERRLA, Mucous membr. moist/pink, EOMI, Sclerae nonicteric Neck: Supple, Minimal JVD distendtion Respiratory: Normal air movement, Crackles/rales (faint, bibasilar) Cardiovascular: No edema, Regular rate/rhythm, Normal S1 S2, No gallops, No rubs, No murmurs Gastrointestinal: Normal bowel sounds, Hypoactive, Soft and benign, No tenderness, No rebound, No guarding Musculoskeletal: No clubbing Integumentary: No rashes Neurological: Normal gait, Cranial nerves 3-12 intact, Normal affect # Acute Hypoxemic Hypercapnic Respiratory Failure - suspect secondary Acute on Chronic Decompensated Congestive Heart Failure with Preserved Ejection Fraction and Possible Mild Acute Chronic Obstructive Pulmonary Disease Exacerbation # Obesity - BMI 32.2 kg/m2 On room air with exertion, her SpO2 dropped to 86 %. Currently, she is on 2 L nasal cannula, with improvement of her SpO2 readings to 96 %. - Evaluation thus far: - D-Dimer = <215 - Procalcitonin = <0.05 - NT-Pro BNP = 187 (may be falsely low/normal in obesity) - Troponin = 11.7 - ABG = pH 7.38, PCO2 55.9, PO2 53.5 - Chest x-ray = "Mild CHF" - TTE = "normal left ventricular ejection fraction of > 60%. hyperdynamic l eft ventricle. mild mitral and tricuspid regurgitation. aortic valve sclerosis with no aortic stenosis." - Management plan: - Consulted Pulmonary Medicine - recommendations appreciated - Bronchodilators and steroids per Pulm - Consulted Cardiology - recommendations appreciated - Continue IV furosemide for today - Consulted Respiratory Therapy - Supplemental oxygen to maintain SpO2 > 92% - May require home oxygen - Strict I/Os - Daily weight - Encouraged incentive spirometry # Steroid-Induced Hyperglycemia in Newly Diagnosed Type II Diabetes Mellitus - Hgb A1c = 7.2 % - Correction scale insulin ordered # Hypertension - Continue home amlodipine, losartan # Dyslipidemia - Continue home atorvastatin # Hypothyroidism - Continue home levothyroxine # Bipolar Disorder - Continue home lithium, clonazepam, aripiprazole Stewart Barrientos M.D. Discharge Plan: Home Plan to discharge in: 24 Hours
[2022-02-18 13:51] LABS: Arterial Blood Carboxyhemoglob 1.1 % (0-1.5); Blood Gas Oxyhemoglobin 90.8 % (94-97); Blood O2 Saturation 93.1 % (92-98.5)
--- NOTE | 2022-02-18 15:15 | RAD REPORT ---
EXAM DESCRIPTION: CT - Head Brain Wo Cont - 02/18/2022 3:10 pm CLINICAL HISTORY: acute headache Headache, drowsiness COMPARISON: Head Brain Wo Cont dated 12/19/2021 TECHNIQUE: All CT scans are performed using dose optimization technique as appropriate and may inclu de automated exposure control or mA/KV adjustment according to patient size. FINDINGS: No intracranial hemorrhage, hydrocephalus or extra-axial fluid collection.Mild brain atrop hy.No areas of brain edema or evidence of midline shift. The paranasal sinuses and mastoids are clear. The calvarium is intact. IMPRESSION: No acute intracranial abnormality.
--- NOTE | 2022-02-18 16:48 | P.PN ---
Subjective Date of Service: 02/18/22 Chief Complaint: Respiratory failure Subjective: Improving (Patient is doing much better prior history of smoking [place] any respiratory complaint) Review of Systems 10-point ROS is otherwise unremarkable Physical Examination - Vital Signs Temperature: 98.6 F Blood Pressure: 130/60 Pulse: 71 Respirations: 16 Pulse Ox (%): 96 - Physical Exam General: Alert, In no apparent distress, Oriented x3 Neck: Supple Respiratory: Clear to auscultation bilaterally, Diminished Cardiovascular: No edema, Normal S1 S2 Assessment And Plan - Current Problems (Diagnosis) (1) Respiratory failure Current Visit: Yes Status: Acute Plan: Patient admitted with respiratory failure pulmonary function test this did not show any evidence of obstructive airways disease however she does have cardiomegaly on chest x-ray denies any symptoms of sleep apnea apparently very active at baseline does not smoke repeat blood gases today shows mild hypoxemia probably has underlying diastolic dysfunction add spironolactone had initially pressed prescribed her an inhaler at home Flovent is listed I recommend using Advair instead and I will follow-up her in the outpatient clinic patient will not qualify for home O2 Qualifiers: Chronicity: acute on chronic Physician Review: Patient Assessed, Agree with Above Assessment and Plan
[2022-02-18] MEDS ORDERED: SPIRONOLACTONE 25 MG TABLET PO SCH (21:00)
[2022-02-18] MEDS ORDERED: predniSONE 10 MG TAB PO SCH (21:00)
[2022-02-19 04:32] LABS: Hematocrit 44.9 % (36.0-45.0); Lymphocytes % 7.9 % (15.3-44.8); MCV 94.3 fL (80-100); MPV 8.6 fL (7.6-11.3); RBC Red Blood Cell Count 4.76 M/uL (3.86-4.86)
[2022-02-19 04:47] LABS: Albumin 3.5 g/dL (3.4-5.0); Bilirubin Total 0.5 mg/dL (0.2-1.0); Potassium 4.1 mmol/L (3.5-5.1); Protein, Total 6.3 g/dL (6.4-8.2)
[2022-02-19 05:22] VITALS: BMI 30.1
[2022-02-19] MEDS: PANTOPRAZOLE 40MG TABLET PO SCH (05:58)
[2022-02-19] MEDS: LEVOTHYROXINE SOD 0.1 MG TAB PO SCH (05:58)
--- NOTE | 2022-02-19 08:46 | P.DS ---
Admission Date: 02/16/22 Discharge Date: 02/19/22 Disposition: ROUTINE DISCHARGE Discharge Condition: GOOD Reason for Admission: Respiratory failure Consultations: 1. Pulmonary Medicine 2. Cardiology Hospital Course: DIAGNOSES: # Acute Hypoxemic Hypercapnic Respiratory Failure - suspect secondary Acute on Chronic Decompensated Congestive Heart Failure with Preserved Ejection Fraction and Possible Mild Acute Chronic Obstructive Pulmonary Disease Exacerbation # Unspecified Movement Disorder - suspect Parkinson's Disease (given home use of Carbidopa-Levodopa) vs Tardive Dyskinesia (seems unlikely due to low dose of Aripiprazole and uncertain duration of antipsychotic use) # Obesity - BMI 32.2 kg/m2 # Steroid-Induced Hyperglycemia in Newly Diagnosed Type II Diabetes Mellitus # Steroid-Induced Leukocytosis # Hypertension # Dyslipidemia # Hypothyroidism # Bipolar Disorder HOSPITAL COURSE: Ms. Shannon Dumont is a pleasant 76-year-old female with a past medical history significant for chronic congestive diastolic heart failure with preserved ejection fraction, chronic obstructive pulmonary disease, hypertension, dyslipidemia, hypothyroidism, and bipolar disorder who was admitted to the [facility] on 02/16/2022 for acute onset shortness of breath. Upon further evaluation, she was found to have acute hypoxemic hypercapnic respiratory failure which was likely multifactorial in nature. The most likely etiology for her symptoms include decompensated congestive heart failure with preserved ejection fraction as well as an acute chronic obstructive pulmonary disease exacerbation. During her evaluation she was evaluated by Pulmonary Medicine and Cardiology. Dr. Mott evaluated her and she was treated with bronchodilators and steroids per his recommendations. From a Cardiology standpoint, he was evaluated by Dr. Maria and treated with IV furosemide. Over the course of her hospitalization, her symptoms improved significantly and she was breathing comfortably on 2 L nasal cannula. She had a home oxygen evaluation and was deemed eligible for home oxygen. With the assistance of case management, home oxygen was arranged and delivered to her home. Of note, her evaluation was significant for hyperglycemia. Upon further evaluation, her hemoglobin A1c was 7.2%, making her meet the criteria for newonset diabetes mellitus. She was counseled on life style modifications and advised to follow-up with her PCP for further evaluation (i.e. microalbuminuria, annual foot exams, ophthalmogic exams, etc.) On 02/19/2022, she was seen on morning rounds and deemed medically stable for discharge. She was discharged with instructions to schedule follow-up appointments with her PCP (Dr. Mobley) in 3-5 days, Cardiology (Dr. Maria), Pulmonology (Dr. Mott), and Neurology for evaluation of Parkinson's Disease (Dr. Turcios). She was provided prescriptions for furosemide and prednisone. She was given the opportunity to ask questions and reported no further questions. Furthermore, all questions were answered to the best of my ability. Today, I personally spent 35 minutes on her case, of which greater than 50% of the time was spent in patient education, counseling, and coordination of care as described above. - Physical Exam General: Alert, In no apparent distress, Oriented x3 HEENT: Atraumatic, PERRLA, Mucous membr. moist/pink, EOMI, Sclerae nonicteric Neck: Supple, No JVD distention Respiratory: Normal air movement, CTAB Cardiovascular: No edema, Regular rate/rhythm, Normal S1 S2, No gallops, No rubs, No murmurs Gastrointestinal: Normal bowel sounds, Soft and benign, No tenderness, No rebound, No guarding Musculoskeletal: No clubbing Integumentary: No rashes Neurological: Normal gait, Cranial nerves 3-12 intact, Normal affect, Bilateral hand pill-rolling tremor Vital Signs/Physical Exam: Temp Pulse Resp BP Pulse Ox 97.9 F 62 18 140/66 93 02/19/22 04:00 02/19/22 04:00 02/19/22 04:00 02/19/22 04:00 02/19/22 04:00 Laboratory Data at Discharge: WBC 12.4 K/uL (4.3-10.9) H 02/19/22 03:22 Hgb 14.8 g/dL (12.0-15.0) 02/19/22 03:22 Hct 44.9 % (36.0-45.0) 02/19/22 03:22 Plt Count 234 K/uL (152-406) 02/19/22 03:22 PT 9.7 SECONDS (9.5-12.5) 02/16/22 13:30 INR 0.88 02/16/22 13:30 Sodium 137 mmol/L (136-145) 02/19/22 03:22 Potassium 4.1 mmol/L (3.5-5.1) 02/19/22 03:22 BUN 21 mg/dL (7-18) H 02/19/22 03:22 Creatinine 0.85 mg/dL (0.55-1.3) 02/19/22 03:22 Glucose 231 mg/dL (74-106) H 02/19/22 03:22 Total Bilirubin 0.5 mg/dL (0.2-1.0) 02/19/22 03:22 AST 7 U/L (15-37) L 02/19/22 03:22 ALT 17 U/L (12-78) 02/19/22 03:22 Alkaline Phosphatase 101 U/L (45-117) 02/19/22 03:22 Triglycerides 145 mg/dL (<150) 02/17/22 05:59 Cholesterol 171 mg/dL (<200) 02/17/22 05:59 HDL Cholesterol 56 mg/dL (40-60) 02/17/22 05:59 Cholesterol/HDL Ratio 3.05 02/17/22 05:59 Home Medications: Amlodipine [Norvasc*] 5 mg PO BID 02/17/22 Aripiprazole [Abilify] 1 tab PO DAILY 02/17/22 Aspirin 1 tab PO DAILY 02/17/22 Atorvastatin Calcium [Lipitor] 1 tab PO DAILY 02/17/22 Carbidopa/Levodopa [Carbidopa-Levo 25-100 mg Odt] 1 tab PO TID 02/17/22 Cholecalciferol (Vitamin D3) [Vitamin D 1000 Iu Tab*] 1 tab PO DAILY 02/17/22 Clopidogrel Bisulfate [Plavix] 1 tab PO DAILY 02/17/22 Doxepin HCl 1 tab PO BEDTIME 02/17/22 Fluticasone Propionate [Flovent Diskus] 1 spray IH DAILY 02/17/22 Levothyroxine [Synthroid*] 100 mcg PO [id number] 02/17/22 [place] Carbonate [Lithotabs *] 1 tab PO TID 02/17/22 Loratadine [Claritin*] 10 mg PO DAILY 02/17/22 Losartan Potassium 50 mg PO DAILY 02/17/22 Pantoprazole Sodium 1 tab PO DAILY 02/17/22 Solifenacin [Vesicare*] 1 tab PO DAILY 02/17/22 Venlafaxine HCl [Effexor] 1 tab PO DAILY 02/17/22 clonazePAM [Clonazepam] 1 mg PO DAILY 02/17/22 Albuterol Neb [Proventil 0.083% Neb Soln] 2.5 mg NEB [id number] PRN amp 02/19/22 Furosemide [Lasix] 20 mg PO DAILY #30 tab 02/19/22 Mometasone/Formoterol [Dulera 200 Mcg/5 Mcg Inhaler] 2 puff IH BID inhaler 02/19/22 Spironolactone [Aldactone*] 25 mg PO BID tab 02/19/22 predniSONE [Deltasone*] 10 mg PO BID 5 Days #10 tab 02/19/22 New Medications: predniSONE [Deltasone*] 10 mg PO BID 5 Days #10 tab Furosemide [Lasix] 20 mg PO DAILY #30 tab Physician Discharge Instructions: 1. Please schedule follow-up with your PCP (Dr. Mobley) in 3-5 days 2. Please schedule follow-up with Cardiology (Dr. Maria) in 5-7 days 3. Please schedule follow-up with Pulmonary (Dr. Mott) in 5-7 days 4. Please schedule follow-up with Neurology (Dr. Turcios) in 5-7 days for possible Parkinson's disease Diet: AHA Activity: Ad roberta Followup: Tyrell Mott MD [ACTIVE - CAN ADMIT] - (Call to schedule appointment.) JUDE MOBLEY [Primary Care Provider] - (Call to schedule appointment. ) Santi Maria MD [ACTIVE - CAN ADMIT] - (Call to schedule appointment.) Magdiel Turcios MD [ASSOCIATE-ACTIVE - CAN ADMIT] - (Call to schedule appoinment.)
[2022-02-19 10:11] VITALS: O2SAT 94
[2022-02-19 11:42] VITALS: BP 168/90; TEMP 98.7
== END 2022-02-19 10:30 | disposition home health service (06) | DRG 291 ==
LOC: ER 11:43 → ERHOLD 18:53 → 2ND 20:02
PROVIDERS: ADMIT Internal Medicine; ATTEND Internal Medicine
DX: I11.0 Hypertensive heart disease with heart failure (principal); I50.33 Acute on chronic diastolic (congestive) heart failure; J96.02 Acute respiratory failure with hypercapnia; J96.01 Acute respiratory failure with hypoxia; J44.1 Chronic obstructive pulmonary disease with (acute) exacerbation; G20 Parkinson's disease; G24.01 Drug induced subacute dyskinesia; E66.9 Obesity, unspecified; Z68.32 Body mass index [BMI] 32.0-32.9, adult; E11.65 Type 2 diabetes mellitus with hyperglycemia; D72.829 Elevated white blood cell count, unspecified; E78.5 Hyperlipidemia, unspecified; E03.9 Hypothyroidism, unspecified; F31.9 Bipolar disorder, unspecified; I45.10 Unspecified right bundle-branch block; Z88.0 Allergy status to penicillin; Z20.822 Contact with and (suspected) exposure to COVID-19
CPT/HCPCS: 36415; 70450; 71045; 71046; 80048; 80053; 80061; 82805; 82947; 83036; 83880; 84145; 84439; 84443; 84484; 85025; 85379; 85610; 93005; 93306; 99285; J1650; J1815; J1940; J2920; J3535; J7512; U0003

== ENCOUNTER 2022-05-11 12:16 | Emergency (ER) | payer OTHER ==
--- OUTSIDE RECORDS SUMMARY | 2022-05-11 12:39 | XMS REPORT | Continuity of Care Document ---
:[address] [facility] t Address [address] [place] [address] Care Team Providers Name Role Phone Roberta Kraft PA-C Primary Care Physician BOAZ ACKERMAN Attending Clinician Unavailable TYE HELM Attending Clinician Unavailable HALLIE DARDEN Attending Clinician Unavailable HALLIE DARDEN Attending Clinician Unavailable JORGE HOLLAND Attending Clinician Unavailable JORGE HOLLAND Attending Clinician Unavailable Darian Quan Attending Clinician , [facility] Sleep Lab Bed Attending Clinician Unavailable Hallie Darden MD Attending Clinician Doctor Unassigned, [place] Attending Clinician Unavailable Only, Adc Test Attending Clinician Unavailable Cornelius CHURCH, Alexandre Mcwilliams Attending Clinician [phone] Doretha CHURCH, Kassie Stewart Attending Clinician KASSIE COYNE Attending Clinician Unavailable Carlos Quan Jr Attending Clinician CARLOS QUAN Attending Clinician Unavailable RADIOLOGY Attending Clinician Unavailable Radiology Attending Clinician Unavailable Wendy España RN Attending Clinician Unavailable PHILLIP DOBSON Attending Clinician Unavailable Phillip Dobson MD Attending Clinician Pao Machado DO Attending Clinician CHERELLE ESPINAL Attending Clinician Unavailable MD BUCKY HOGAN Attending Clinician Unavailable Jazmin Kothari DO Attending Clinician Sharron Muse MD Attending Clinician ROBERTA KOTHARI Attending Clinician Unavailable MD ROBERTA KOTHARI Attending Clinician Unavailable Tye Helm MD Attending Clinician ANASTACIO ZULETA Attending Clinician Unavailable Pob, Adc Lab Main Attending Clinician Unavailable Anastacio Zuleta MD Attending Clinician Tania Oswald RN Attending Clinician Syed STERN, Nelida Gonzalez Attending Clinician Heike Evans MD Attending Clinician Da-Tezayo_A_ Attending Clinician Unavailable ATTGIANCARLO CEJA Attending Clinician Unavailable TYE HELM Admitting Clinician Unavailable KASSIE COYNE Admitting Clinician Unavailable BOAZ ACKERMAN Admitting Clinician Unavailable PAO MACHADO Admitting Clinician Unavailable Pao Machado DO Admitting Clinician CHERELLE ESPINAL Admitting Clinician Unavailable JARRED LAY Admitting Clinician Unavailable ROBERTA KOTHARI Admitting Clinician Unavailable MD ROBERTA KOTHARI Admitting Clinician Unavailable Tye Helm MD Admitting Clinician Heike Evans MD Admitting Clinician Da-Mbayo_A_AH Admitting Clinician Unavailable Payers Payer Name Policy Type Policy Number Effective Date Expiration Date Hector jewell [facility] [id number] 2010 PLUS 00:00:00 [place] [id number] [facility] (use Id 860[facility] [place] [id number] [facility] (use Id 860) [facility] [id number] 2019 - [facility] 00:00:00 (MEDICARE REPLACEMENT/ADV ANTAGE - HMO) Problems Condition Condition Condition Status Onset Resolution Last Treating Co mments Source Name Details Category Date Date Treatment Clinician Date Type 2 Type [address] [facility] diabetes diabetes 4-20 [facility] mellitus mellitus 00:00: Medica 00 [place] Slurred Slurred Disease Active [facility] speech speech 4-18 [facility] 00:[facility]: Medical 00 [place] Dysarthria Dysarthria Disease Active [facility]: Medical 00 [place] Bipolar Bipolar Disease Active [facility] disorder disorder 4-18 [facility] 00:00: 00 [place] Hypothyroi Hypothyroi Disease Active [facility] dism dism 4-18 [facility] 00:[facility]: Medical 00 [place] Hyperlipid Hyperlipid Disease Active [facility] emia emia 4-18 [facility] 00:00: 00 [place] Hypertensi Hypertensi Disease Active [facility] on on 4-18 [facility] 00:00: Medical 00 [place] Coronary Coronary Disease Active [facility] artery artery 4-18 [facility] disease disease 00:00: Medical 00 [place] TREMOR TREMOR Diagnosis Active 2021-09-15 Me moria Active 09-07 08:48:00 l 09/07/2021 00:00: Ajay talavera [address] Hypoxia Hypoxia Disease Active 2020-07 Univers 2-11 ity of 00:00: [place] [address] Medical Branch Abnormal Abnormal Disease Active Metho di gait gait 8-05 st 00:00: Hospita 00 l Cognitive Cognitive Disease Active Met hodi dysfunctio dysfunctio 8-05 st n n 00:00: Hospita 00 l Thrombocyt Thrombocyt Disease Active M ethodi openia openia 02-10 st 00:00: Hospita 00 l Thrombocyt Thrombocyt Disease Active M ethodi openia openia 02-10 st 00:00: Hospita 00 l Bipolar Bipolar Disease Active Methodi disorder, disorder, 02-09 st curr curr 00:00: Hospita episode episode 00 l mixed, mixed, severe, severe, w/o w/o psychotic psychotic features features Obesity Obesity Disease Active Univers (BMI (BMI 2-10 ity of 30-39.9) 30-39.9) 00:00: [place] 00 Medical Branch NSTEMI NSTEMI Disease Active Methodi (non-ST (non-ST 2-10 st elevated elevated 00:00: Hospit a myocardial myocardial 00 l infarction infarction ) ) NSTEMI NSTEMI Disease Active Univers (non-ST (non-ST 2-08 ity of elevated elevated 00:00: [place] myocardial myocardial 00 Me dical infarction infarction Br anch ) ) Chest pain Chest pain Disease Active 2019- U nivers 8-13 ity of 00:00: [place] [facility] Hypertensi Hypertensi Disease Active 2019- U nivers ve urgency ve urgency 8-13 it y of 00:00: [place] 00 Medical Branch Pneumonia Pneumonia Disease Active Uni vers 8-13 ity of 00:00: [place] [facility] Chronic Chronic Disease Active Univers diastolic diastolic 8-13 ity of congestive [place]ive [place] heart heart 00 Medical failure failure Branch Coronary Coronary Disease Active Metho di artery artery 2-13 st disease disease 00:00: Hospita with with 00 l angina angina pectoris pectoris Essential Essential Disease Active Met hodi hypertensi hypertensi 2-13 st on on 00:00: Hospita 00 l Acquired Acquired Disease Active Metho di hypothyroi hypothyroi 2-13 st dism dism 00:00: Hospita 00 l Pure Pure Disease Active Methodi hyperchole hyperchole 2-[address] sterolemia sterolemia 00:00: Ho spita 00 l Bipolar 1 Bipolar 1 Disease Active Met hodi disorder disorder 2-13 st 00:00: Hospita 00 l SOB SOB Disease Active Univers (shortness (shortness 9-14 it y of of breath[place] breath[place] Symptomati Symptomati Disease Active U nivers c sinus c sinus 9-13 ity of bradycardi bradycardi [place] 00 [place] Urinary Urinary Problem Active Common incontinen incontinen Sp amadou ce ce - [facility] Coronary Coronary Problem Active 2016-05-30 Memoria atheroscle atheroscle 05:47:14 l rosis of rosis of Ajay n [place] coronary coronary artery artery Active Problem 05/30/2016 Candelario Palomino Pure Pure Problem Active 2016-05-30 Memor ia hyperchole hyperchole 05:47:14 l sterolemia sterolemia He rmann Active Problem 05/30/2016 Candelario Palomino Atheroscle Problem Active 2016-05-30 M emoria rosis of Atheroscle 05:47:14 l [place] rosis of [place] arteries [place] of the arteries extremitie of the s with extremitie intermitte s with nt intermitte claudicati nt on claudicati on Active Problem 05/30/2016 Candelario Palomino Other Other Diagnosis Active 2016-05-30 Mem oria symptoms symptoms 05:47:14 l involving involving Herm camelia cardiovasc cardiovasc ular ular system system Active Diagnosis 05/30/2016 Candelario Palomino Unspecifie Unspecifi Diagnosis Active 2016-05-30 Memoria d ed 05:47:14 l hypothyroi hypothyroi He [facility] dism dism Active Diagnosis 05/30/2016 Candelario Palomino Bipolar Bipolar Problem Resolve 2022-04-09 M emoria (qualifier (qualifier d 04:14:25 l value) value) Alessandro Resolved Problem 04/09/2022 [facility] Headache Headache Problem Active 2022-04-09 Memoria (finding) (finding) 04:14:25 l Active [place] Problem 04/09/2022 [facility] Tremor Tremor Problem Active 2022-04-09 Chris eldon (finding) (finding) 04:14:25 l Active [place] Problem 04/09/2022 [facility] Dystonia Dystonia Problem Active 2022-04-09 Memoria (disorder) (disorder) 04:14:25 l Active Alessandro Problem 04/09/2022 [facility] Chronic Chronic Problem Active 2022-04-09 Me moria obstructiv obstructiv 04:14:25 l e lung e lung Alessandro disease disease (disorder) (disorder) Active Problem 04/09/2022 [facility] Allergies, Adverse Reactions, Alerts Allergy Allergy Status Severity Reaction(s) Onset Inactive Treating Comm ents Source Name Type Date Date Clinician AMOXICIL Allergy Active [facility] 00:[facility]: Medical 00 Center Amoxicil Propensi Active [facility] ty to 18 [facility] adverse 00:00: Medical reaction 00 Center s Metformi Propensi Active Other (See Rash on M ethodi n ty to Comments) 02-[address] adverse 00:00: needle Hospita reaction 00 sensation l s to per drug . Zinc Propensi Active Unknown - Unive rs ty to See comments 01-10 ity of adverse 00:00: [place] reaction 00 Medical s Branch ZINC DRUG Active Unknown-Cmnt Univ ers INGREDI 01-10 ity of 00:00: [place] [facility] Zinc Propensi Active Rash Methodi ty to 2-10 st adverse 00:00: Hospita reaction 00 l s to drug Clindamy Propensi Active Unknown - Uni vers lynne ty to See comments 02-25 ity of adverse 00:00: [place] reaction 00 Medical s Branch CLINDAMY DRUG Active Unknown-Cmnt 0 Un bárbara LYNNE INGREDI 02-25 ity of 00:00: [place] 00 Medical Branch Amoxicil Propensi Active Rash itching Metho di david ty to 2 st adverse 00:00: Hospita reaction 00 l s to drug Amoxicil Propensi Active Rash Univer s david ty to 02-21 ity of adverse 00:00: [place] reaction 00 Medical s Branch AMOXICIL DRUG Active Rash Univers DAVID INGREDI 02-21 ity of 00:00: [place] 00 Medical Branch azithrom azithrom Active Unknown Commo n ycin ycin [facility] amoxicil amoxicil Active Unknown Commo n david david [facility] amlodipi amlodipi Active Unknown Commo n ne ne [facility] tramadol tramadol Active Unknown Commo n [facility] 608 Drug Active Unknown Common allergy [facility] NO KNOWN Allergy Active [facility] S Family History Family Member Diagnosis Comments Start Date Stop Date Source Natural mother Hypertension [facility] Social History Social Habit Start Date Stop Date Quantity Comments Source History of [facility] - Tobacco Use [facility] Exposure to Not sure University of SARS-CoV-2 [place] [facility] (event) Branch History SDOH [facility] Alcohol Binge Medical Rosemary ter History SDOH [facility] Alcohol Comment Medical C enter History SDOH [facility] Alcohol Std [facility] Cent[facility] r Drinks Alcohol intake 2021-11-02 2021-11-02 Ex-drinker [facility] es 00:00:00 00:00:00 (finding) [facility] Tobacco use and 2021-10-31 2021-10-[address] [facility] exposure 00:00:00 00:00:00 [facility] Center Tobacco use and 2021-10-31 2021-10-[address] [facility] exposure 00:00:00 00:00:00 [facility] Center History SDOH 2021-10-31 2021-10-[address] [facility] Alcohol Frequency 00:00:00 00:00:00 [facility] Social History 2015-06-30 2015-06-30 [facility] cherelle 09:03:20 09:03:20 Smokin2015-04-14 2015-04-14 [facility] 00:00:00 00:00:00 Sex Assigned At [address] [facility] 00:00:00 00:00:00 [facility] Smoking Status Start Date Stop Date Source Never smoker [facility] Medications Ordered Filled Start Stop Current Ordering Indication Dosage Frequency Signature Comments Components Source Medication Medication Date Date Medication? Clinician (SIG) Name Name Aayush Yes 1 tab, PO, M emoria mg-100 mg 9-22 BID, # 180 l oral tablet 14:10: tab, 3 Herm camelia 00 Refill(s), Pharmacy: [facility] 482, 152.4, cm, 02/21/22 14:47:00 CDT, Height, 74.318, kg, 02/21/22 14:47:00 CDT, Weight Sinemet 25 2021-0 Yes 1 tab, PO, M emoria mg-100 mg 8-09 BID, # 60 l oral tablet 20:03: tab, 3 Herm camelia 00 Refill(s), Pharmacy: [facility] 482, 152.4, cm, 02/21/22 14:47:00 CDT, Height, 74.318, kg, 02/21/22 14:47:00 CDT, Weight Sinemet 25 2021-0 Yes 1 tab, PO, M emoria mg-100 mg 8-09 BID, # 60 l oral tablet 20:03: tab, 3 Herm camelia 00 Refill(s), Pharmacy: [facility] 482, 152.4, cm, 02/21/22 14:47:00 CDT, Height, 74.318, kg, 02/21/22 14:47:00 CDT, Weight aspirin 81 2022- No 81mg QD Take [address] MG chewable 4-21 04-21 tablet (81 L ukes tablet 00:00: 23:59 mg total) Medic al 00 :00 by mouth Center daily. clopidogreL 2022- No 75mg QD Take [address] (PLAVIX) 75 4-21 04-21 tablet (75 L ukes mg tablet 00:00: 23:59 mg total) Me dical 00 :00 by mouth Center daily. multivitami 2022- No 1{tbl} QD Take [address] n 4-21 04-21 tablet by Loli (THERAGRAN) 00:00: 23:59 mouth Medi gil tablet 00 :00 daily. Center aspirin 81 2021-2022- No 81mg QD Take [address] MG chewable 4-21 04-21 tablet (81 L ukes tablet 00:00: 23:59 mg total) Medic al 00 :00 by mouth Center daily. clopidogreL 2021-2022- No 75mg QD Take [address] (PLAVIX) 75 4-21 04-21 tablet (75 L ukes mg tablet 00:00: 23:59 mg total) Me dical 00 :00 by mouth Center daily. multivitami 2022- No 1{tbl} QD Take [address] n 4-03 11- tablet by [facility] (THERAGRAN) 00:00: 23:59 mouth Medi gil tablet 00 :00 daily. Center multivitami 2022- No 1{tbl} QD Take [address] n 4-03 11- tablet by [facility]ukes (THERAGRAN) 00:00: 23:59 mouth Medi gil tablet 00 :00 daily. Center aspirin 81 2022- No 81mg QD Take [address] MG chewable -03 11- tablet (81 L ukes tablet 00:00: 23:59 mg total) Medic al 00 :00 by mouth Center daily. clopidogreL 2022- No 75mg QD Take [address] (PLAVIX) 75 -03 11- tablet (75 L ukes mg tablet 00:00: 23:59 mg total) Me dical 00 :00 by mouth Center daily. clonazePAM Yes 2mg Take [address] (KlonoPIN) 4-20 by mouth [facility]ukes 2 MG tablet 17:57: every Medic al 07 night as Center needed for Anxiety. amLODIPine Yes hypertensio 5mg QD Take [address] (NORVASC) 5 4-20 n by mouth Luke s MG tablet 17:57: daily. Medica l 07 [place] doxepin Yes 75mg QD Take [address] (SINEquan) 4-20 by mouth [facility]ukes 75 MG 17:57: nightly. Medical capsule 07 Center furosemide Yes 20mg QD Take [address] (LASIX) 20 4-20 by mouth [facility]ukes MG tablet 17:57: daily. Medica l 07 [place] levothyroxi Yes 100ug Take [address] ne 4-20 mcg by Lukes (SYNTHROID, 17:57: mouth Medic al LEVOTHROID) 07 Every Center 100 MCG morning on tablet an empty stomach. losartan Yes 50mg QD Take [address] (COZAAR) 50 4-20 by mouth Luke s MG tablet 17:57: daily. [address] venlafaxine 0 Yes 50mg QD Take [address] (EFFEXOR) 4-20 by mouth Lukes 50 MG 17:57: daily. Medical tablet [address] [place] [address] lithium 300 0 Yes 300mg Q.[id number] Take [address] mg tablet 4-20 [id number] mg by Reilly es 17:57: 3D mouth 3 Medical 07 (three) Center times daily. clonazePAM 0 Yes 2mg Take [address] (KlonoPIN) 4-20 by mouth Lukes 2 MG tablet 17:57: every Medic al 07 night as Center needed for Anxiety. amLODIPine 0 Yes hypertensio 5mg QD Take [address] (NORVASC) 5 4-20 n by mouth Luke s MG tablet 17:57: daily. [address] doxepin 0 Yes 75mg QD Take [address] (SINEquan) 4-20 by mouth Lukes 75 MG 17:57: nightly. Medical capsule [address] [place] [address] furosemide 0 Yes 20mg QD Take [address] (LASIX) 20 4-20 by mouth Lukes MG tablet 17:57: daily. [address] levothyroxi 0 Yes 100ug Take [address] ne 4-20 mcg by Lukes (SYNTHROID, 17:57: mouth Medic al LEVOTHROID) 07 Every Center 100 MCG morning on tablet an empty stomach. lithium 300 0 Yes 300mg Q.[id number] Take [address] mg tablet 4-20 [id number] mg by Reilly es 17:57: 3D mouth 3 Medical 07 (three) Center times daily. losartan 0 Yes 50mg QD Take [address] (COZAAR) 50 4-20 by mouth Luke s MG tablet 17:57: daily. [address] clonazePAM 0 Yes 2mg Take [address] (KlonoPIN) 4-20 by mouth Lukes 2 MG tablet 17:57: every Medic al 07 night as Center needed for Anxiety. venlafaxine 0 Yes 50mg QD Take [address] (EFFEXOR) 4-20 by mouth Lukes 50 MG 17:57: daily. Medical tablet [address] [place] [address] amLODIPine Yes hypertensio 5mg QD Take [address] (NORVASC) 5 4-20 n by mouth Luke s MG tablet 17:57: daily. Medica l [address] [place] [address] lithium 300 Yes 300mg Q.[id number] Take [address] mg tablet 4-20 [id number] mg by Reilly es 17:57: 3D mouth 3 Medical 07 (three) Center times daily. doxepin Yes 75mg QD Take [address] (SINEquan) 4-20 by mouth Lukes 75 MG 17:57: nightly. Medical capsule 07 [place] furosemide Yes 20mg QD Take [address] (LASIX) 20 4-20 by mouth Lukes MG tablet 17:57: daily. Medica l [address] [place] [address] levothyroxi Yes 100ug Take [address] ne 4-20 mcg by Lukes (SYNTHROID, 17:57: mouth Medic al LEVOTHROID) 07 Every Center 100 MCG morning on tablet an empty stomach. losartan Yes 50mg QD Take [address] (COZAAR) 50 4-20 by mouth Luke s MG tablet 17:57: daily. Medica l [address] [place] [address] venlafaxine Yes 50mg QD Take [address] (EFFEXOR) 4-20 by mouth Lukes 50 MG 17:57: daily. Medical tablet 07 [place] atorvastati 2022- No 80mg QD Take [address] n (LIPITOR) 4-20 04-20 tablet (80 L ukes 80 MG 00:00: 23:59 mg total) Medica l tablet 00 :00 by mouth Center nightly. carbidopa-l 2022- No 1{tbl} Q.[id number] Take [address] evodopa 4-20 04-20 [id number] tablet by [facility]ukes (SINEMET) 00:00: 23:59 3D mouth 3 Medi gil 25-100 mg 00 :00 (three) Center per tablet times daily. atorvastati 2022- No 80mg QD Take [address] n (LIPITOR) 4-20 04-20 tablet (80 L ukes 80 MG 00:00: 23:59 mg total) Medica l tablet 00 :00 by mouth Center nightly. carbidopa-l 2022- No 1{tbl} Q.[id number] Take [address] evodopa -02 11-20 [id number] tablet by Lukes (SINEMET) 00:00: 23:59 3D mouth 3 Medi gil 25-100 mg 00 :00 (three) Center per tablet times daily. atorvastati 2022- No 80mg QD Take [address] n (LIPITOR) 11-02-20 tablet (80 L ukes 80 MG 00:00: 23:59 mg total) Medica l tablet 00 :00 by mouth Center nightly. carbidopa-l 2022- No 1{tbl} Q.[id number] Take [address] evodopa 11-02-20 [id number] tablet by [facility]ukes (SINEMET) 00:00: 23:59 3D mouth 3 Medi gil 25-100 mg 00 :00 (three) Center per tablet times daily. Doxepin Yes TAKE 1 Memoria Hydrochlori 1-07 CAPSULE BY l de 50 MG 22:19: MOUTH ONCE Her bran Oral 00 DAILY AT Capsule BEDTIME venlafaxine Yes TAKE 1 Chris eldon 50 mg oral 1-07 TABLET BY l tablet 22:19: MOUTH ONCE Shanice nn 00 DAILY WITH FOOD eszopiclone Yes 3 mg = 1 Me moria 3 mg oral 1-07 tab, PO, l tablet 22:19: Bedtime, Alessandro 00 PRN for insomnia, 0 Refill(s) ARIPiprazol Yes 0 Memori a e 15 mg 1-07 Refill(s) l oral tablet 22:19: Ajay n 00 Doxepin Yes TAKE 1 Memoria Hydrochlori 1-07 CAPSULE BY l de 50 MG 22:19: MOUTH ONCE Her bran Oral 00 DAILY AT Capsule BEDTIME venlafaxine Yes TAKE 1 Chris eldon 50 mg oral 1-07 TABLET BY l tablet 22:19: MOUTH ONCE Shanice nn 00 DAILY WITH FOOD eszopiclone Yes 3 mg = 1 Me moria 3 mg oral 1-07 tab, PO, l tablet 22:19: Bedtime, [place] 00 PRN for insomnia, 0 Refill(s) ARIPiprazol Yes 0 Memori a e 15 mg 1-07 Refill(s) l oral tablet 22:19: Ajay n cariprazine Yes 0 Memori a 3 MG Oral -07 Refill(s) l Capsule 22:18: [place] [Vraylar] 00 cariprazine Yes 0 Memori a 3 MG Oral -07 Refill(s) l Capsule 22:18: Alessandro [Vraylar] clonazePAM Yes 0 Memoria 2 mg oral -07 Refill(s) l tablet 22:17: [place] clonazePAM Yes 0 Memoria 2 mg oral -07 Refill(s) l tablet 22:17: [place] Yes 300 mg = 1 Chris eldon Carbonate 1-07 tab, PO, l 300 MG Oral 22:16: BID, # 60 H ermann Tablet 00 tab, 1 Refill(s) [place] Yes 300 mg = 1 Chris eldon Carbonate 1-07 tab, PO, l 300 MG Oral 22:16: BID, # 60 H ermann Tablet 00 tab, 1 Refill(s) tamsulosin 2020-07- No [id number] .4mg Take 1 Univers 0.4 mg 24 09-01 capsule by ity of hr capsule 00:00: 05:59 mouth [place] 00 :00 daily for Medical 30 days. Branch tamsulosin 2020-07- No [id number] .4mg Take 1 Univers 0.4 mg 24 09-01 capsule by ity of hr capsule 00:00: 05:59 mouth [place] 00 :00 daily for Medical 30 days. Branch tamsulosin 2020-07- No [id number] .4mg Take 1 Univers 0.4 mg 24 09-01 capsule by ity of hr capsule 00:00: 05:59 mouth [place] 00 :00 daily for Medical 30 days. Branch Levothyroxi 2020-07 Yes Take by Uni vers ne 2-16 mouth. ity of (TIROSINT) 12:45: [place] 100 mcg Cap 14 Medical Branch lisinopril 2021-1 Yes 20mg Take 20 mg U nivers [...] by mouth ity of tablet 12:45: daily. [place] [address] Medical Branch aspirin 2020-07 Yes 325mg Take [...] by mouth ity of 12:45: every 24 [place] 14 (twenty-fo Medical ur) hours Branch as needed. solifenacin 2020-07 Yes 5mg Take 5 mg U nivers 5 mg tablet 2-16 by mouth ity of 12:45: daily. [place] [address] Medical Branch doxepin 25 2020-07 Yes 50mg Take 50 mg U nivers mg capsule 2-16 by mouth ity o f 12:45: daily. [place] [address] Medical Branch venlafaxine 2020-07 Yes 50mg Take 50 mg Univers HCl 2-16 by mouth ity of (EFFEXOR 12:45: daily. [place] ORAL) Medical Branch Levothyroxi 2020-07 Yes Take by Uni vers ne 2-16 mouth. ity of (TIROSINT) 12:45: [...] by mouth ity of tablet 12:45: daily. [address] Branch aspirin 2020-07 Yes 325mg Take 325 [...] by mouth ity of 12:45: every 24 [place] 14 (twenty-fo Medical ur) hours Branch as needed. solifenacin 2020-07 Yes 5mg Take 5 mg U nivers 5 mg tablet 2-16 by mouth ity of 12:45: daily. [address] Branch doxepin 25 2020-07 Yes 50mg Take 50 mg U nivers mg capsule 2-16 by mouth ity o f 12:45: daily. [address] Branch venlafaxine 2020-07 Yes 50mg Take 50 mg Univers HCl 2-16 by mouth ity of (EFFEXOR 12:45: daily. [place] ORAL) Medical Branch Levothyroxi 2020-07 Yes Take by Uni vers ne 2-16 mouth. ity of (TIROSINT) 12:45: [place] 100 mcg Cap [address] [place] [address] Branch lisinopril 2020-07 Yes 20mg Take 20 [...] by mouth ity of tablet 12:45: daily. [address] Branch aspirin 2020-07 Yes 325mg Take 325 [...] by mouth ity of 12:45: every 24 [place] 14 (twenty-fo Medical ur) hours Branch as needed. solifenacin 2020-07 Yes 5mg Take 5 mg U nivers 5 mg tablet 2-16 by mouth ity of 12:45: daily. [address] Branch doxepin 25 2020-07 Yes 50mg Take 50 mg U nivers mg capsule 2-16 by mouth ity o f 12:45: daily. [address] Branch venlafaxine 2020-07 Yes 50mg Take 50 mg Univers HCl 2-16 by mouth ity of (EFFEXOR 12:45: daily. [place] ORAL) Medical Branch Levothyroxi 2020-07 Yes Take by Uni vers ne 2-16 mouth. ity of (TIROSINT) 12:45: [...] by mouth ity of tablet 12:45: daily. [place] [address] Medical Branch aspirin 2020-07 Yes 325mg Take [...] by mouth ity of 12:45: every 24 [place] 14 (twenty-fo Medical ur) hours Branch as needed. solifenacin 2020-07 Yes 5mg Take 5 mg U nivers 5 mg tablet 2-16 by mouth ity of 12:45: daily. [place] [address] Medical Branch doxepin 25 2020-07 Yes 50mg Take 50 mg U nivers mg capsule 2-16 by mouth ity o f 12:45: daily. [place] [address] Medical Branch venlafaxine 2020-07 Yes 50mg Take 50 mg Univers HCl 2-16 by mouth ity of (EFFEXOR 12:45: daily. [place] ORAL) 14 Medical Branch Levothyroxi 2020-07 Yes Take by Uni vers ne 2-16 mouth. ity of (TIROSINT) 12:45: [...] by mouth ity of tablet 12:45: daily. [place] [address] Medical Branch aspirin 2020-07 Yes 325mg Take [...] by mouth ity of 12:45: every 24 [place] 14 (twenty-fo Medical ur) hours Branch as needed. solifenacin 2020-07 Yes 5mg Take 5 mg U nivers 5 mg tablet 2-16 by mouth ity of 12:45: daily. [address] Branch doxepin 25 2020-07 Yes 50mg Take 50 mg U nivers mg capsule 2-16 by mouth ity o f 12:45: daily. [address] Branch venlafaxine 2020-07 Yes 50mg Take 50 mg Univers HCl 2-16 by mouth ity of (EFFEXOR 12:45: daily. [place] ORAL) 14 Medical Branch Levothyroxi 2020-07 Yes Take by Uni vers ne 2-16 mouth. ity of (TIROSINT) 12:45: [...] by mouth ity of tablet 12:45: daily. [place] [address] Medical Branch aspirin 2020-07 Yes 325mg Take [...] by mouth ity of 12:45: every 24 [place] 14 (twenty-fo Medical ur) hours Branch as needed. solifenacin 2020-07 Yes 5mg Take 5 mg U nivers 5 mg tablet 2-16 by mouth ity of 12:45: daily. [address] Branch doxepin 25 2020-07 Yes 50mg Take 50 mg U nivers mg capsule 2-16 by mouth ity o f 12:45: daily. [place] [address] Medical Branch venlafaxine 2020-07 Yes 50mg Take 50 mg Univers HCl 2-16 by mouth ity of (EFFEXOR 12:45: daily. [place] ORAL) 14 Medical Branch Levothyroxi 2020-07 Yes Take by Uni vers ne 2-16 mouth. ity of (TIROSINT) 12:45: [...] by mouth ity of tablet 12:45: daily. [place] [address] Medical Branch aspirin 2020-07 Yes 325mg Take [...] by mouth ity of 12:45: every 24 [place] 14 (twenty-fo Medical ur) hours Branch as needed. solifenacin 2020-07 Yes 5mg Take 5 mg U nivers 5 mg tablet 2-16 by mouth ity of 12:45: daily. [place] [address] Medical Branch doxepin 25 2020-07 Yes 50mg Take 50 mg U nivers mg capsule 2-16 by mouth ity o f 12:45: daily. [place] [address] Medical Branch venlafaxine 2020-07 Yes 50mg Take 50 mg Univers HCl 2-16 by mouth ity of (EFFEXOR 12:45: daily. [place] ORAL) 14 Medical Branch albuterol 2020-07 Yes [id number] 2{puff} Inhale 2 Univers 90 2-16 Puffs ity of mcg/actuati 00:00: every 6 [place] as on inhaler 00 (six) Medical hours as Branch needed for Wheezing or Shortness of Breath. albuterol 2020-07 Yes [id number] 2{puff} Inhale 2 Univers 90 2-16 Puffs ity of mcg/actuati 00:00: every 6 [place] as on inhaler 00 (six) Medical hours as Branch needed for Wheezing or Shortness of Breath. albuterol 2020-07 Yes [id number] 2{puff} Inhale 2 Univers 90 2-16 Puffs ity of mcg/actuati 00:00: every 6 [place] as on inhaler 00 (six) Medical hours as Branch needed for Wheezing or Shortness of Breath. albuterol 2020-07 Yes [id number] 2{puff} Inhale 2 Univers 90 2-16 Puffs ity of mcg/actuati 00:00: every 6 [place] as on inhaler 00 (six) Medical hours as Branch needed for Wheezing or Shortness of Breath. albuterol 2020-07 Yes [id number] 2{puff} Inhale 2 Univers 90 2-16 Puffs ity of mcg/actuati 00:00: every 6 [place] on inhaler 00 (six) Medical hours as Branch needed for Wheezing or Shortness of Breath. albuterol 2020-07 Yes [id number] 2{puff} Inhale 2 Univers 90 2-16 Puffs ity of mcg/actuati 00:00: every 6 [place] on inhaler 00 (six) Medical hours as Branch needed for Wheezing or Shortness of Breath. albuterol 2020-07 Yes [id number] 2{puff} Inhale 2 Univers 90 2-16 Puffs ity of mcg/actuati 00:00: every 6 [place] on inhaler 00 (six) Medical hours as Branch needed for Wheezing or Shortness of Breath. tamsulosin 2020-07 Yes .4mg 0.4 mg, Univ ers (FLOMAX) 2-13 Oral, ity of capsule 0.4 03:00: DAILY, [place] 00 First dose Medical on [place] [facility] 06/26/21 at 2100, Until Discontinu ed, Routine lithium 2020-07 Yes 300mg 300 mg, Univer s carbonate 2-13 Oral, BID, ity of (LITHONATE) 02:00: First dose [place] capsule 300 00 on [place] [facility] mg 06/26/21 Branch at 2000, Until Discontinu ed, Routine cefTRIAXone 2020-07 Yes 1000mg 1,000 mg, Univers (ROCEPHIN) 2-13 IV ity of 1,000 mg in 00:30: Piggyback, [place] NaCl 0.9% 00 Q24H ABX, Medic al (NS) 50 mL First dose [facility] MINI-BAG on [place] 06/26/21 at 1830, Until Discontinu ed, Administer over 30 Minutes, 50 mL
Reas on for Anti-Infec tive: Empiric Therapy for Suspected Infection& lt;br>Empi torsten Therapy Site: Respirator y
Durat ion of therapy: 7 days doxepin 2020-07 Yes 50mg 50 mg, Univers (SINEQUAN) 2-12 Oral, ity of capsule 50 15:00: DAILY, [place] mg 00 First dose Medical on [place] Branch 06/26/21 at 0900, Until Discontinu ed, Routine clopidogreL 2020-07 Yes 75mg 75 mg, Univ ers (PLAVIX) 2-12 Oral, ity of tablet 75 15:00: DAILY, [place] mg 00 First dose Medical on [facility] 06/26/21 at 0900, Until Discontinu ed, Routine aspirin 2020-07 Yes 325mg 325 mg, Univer s E.C. 2-12 Oral, ity of (ECOTRIN) 15:00: DAILY, [place] tablet 325 00 First dose Med ical mg on [place] Branch 06/26/21 at 0900, Until Discontinu ed, Routine azithromyci 2020-07 No 500mg 500 mg, IV Univers n 2-12 -12 Piggyback, ity of (ZITHROMAX) 13:45: 23:22 Q24H ABX, [place] 500 mg in 00 :10 3 doses, Medica l NaCl 0.9% First dose Bran ch (NS) 250 mL on [place] VIAL-MATE 06/26/21 IV at 0745, piggyback Last dose on 06/28/21 at 0745, Administer over 60 Minutes, 250 mL
Reas on for Anti-Infec tive: Empiric Therapy for Suspected Infection< br>Empiric Therapy Site: Respirator y
Durat ion of therapy: 7 days levothyroxi 2020-07 Yes 100ug 100 mcg, U nivers ne 2-12 Oral, ity of (SYNTHROID) 12:00: QAM-0600, [place] tablet 100 00 First dose Med ical mcg on [place] Branch 06/26/21 at 0600, Until Discontinu ed venlafaxine 2020-07 Yes 37.5mg 37.5 mg, Univers XR (EFFEXOR 2-12 Oral, QHS, it y of XR) 24 hr 03:00: First dose [place] capsule 00 on [facility] Medical 37.5 mg 06/25/21 Branch at 2100, Until Discontinu ed atorvastati 2020-07 Yes 80mg 80 mg, Univ ers n (LIPITOR) 2-12 Oral, QHS, it y of tablet 80 03:00: First dose [place] mg 00 on [facility] 06/25/21 Branch at 2100, Until Discontinu ed, Routine pantoprazol 2020-07 Yes 40mg 40 mg, Univ ers e 2-12 Oral, BID, ity of (PROTONIX) 02:00: First dose [place] EC tablet 00 on [facility] Medical 40 mg 06/25/21 Branch at 2000, Until Discontinu ed, Routine lisinopriL 2020-07 Yes 20mg 20 mg, Unive rs (PRINIVIL,Z 2-12 Oral, BID, it y of ESTRIL) 02:00: [place] dose [place] tablet 20 00 on [facility] Medical mg 06/25/21 Branch at 2000, Until Discontinu ed, Routine amLODIPine 2020-07 Yes 5mg 5 mg, Univer s (NORVASC) 2-12 Oral, BID, ity of tablet 5 mg 02:00: First dose [place] 00 on [facility] 06/25/21 Branch at 2000, Until Discontinu ed, Routine enoxaparin 2020-07 Yes 40mg 40 mg, Unive rs (LOVENOX) 2-11 Subcutaneo ity of injection 23:00: us, DAILY, [place] 40 mg 00 First dose Medical on [facility] Branch 06/25/21 at 1700, Until Discontinu ed, Routine ipratropium 2020-07 Yes 3mL 3 mL, Unive rs -albuteroL 2-11 Inhalation ity of (DUONEB) 18:00: , QID, [place] 0.5 mg-3 00 First dose Medic al mg(2.5 mg on [facility] base)/3 mL 06/25/21 nebulizer at 1200, solution 3 Until mL Discontinu ed, Routine Sliding 2020-07 Yes Subcutaneo Univ ers Scale 2-11 us, TID ity of Insulin - 18:00: MEALS+HS, [place] as Lispro 00 First dose Medical (HumaLOG) + on [facility] 06/25/21 Testing at 1200, Until Discontinu ed, Routine predniSONE 2020-07 Yes 40mg 40 mg, Unive rs (DELTASONE) 2-11 Oral, ity of tablet 40 17:15: DAILY, [place] mg 00 First dose Medical on [facility] 06/25/21 at 1115, Until Discontinu ed, Routine furosemide 2020-07 Yes 20mg 20 mg, Unive rs (LASIX) 2-11 Slow IV ity of injection 17:15: Push, [place] 20 mg 00 Q12H, Medical First dose Branch on [facility] 06/25/21 at 1115, Until Discontinu ed, Routine albuterol 2020-07 Yes 2.5mg 2.5 mg, Univ ers (PROVENTIL) 2-11 Inhalation it y of 2.5 mg /3 17:02: , Q4HPRN, [place] as mL (0.083 11 Starting Medica l %) on [facility] nebulizer 06/25/21 solution at 1102, 2.5 mg Until Discontinu ed, Routine, Shortness of Breath, Wheezing baclofen 2020-07 Yes 10mg 10 mg, Univers (LIORESAL) 2-11 Oral, ity of tablet 10 16:48: TIDPRN, [place] mg 12 Starting Medical on [facility] 06/25/21 at 1048, Until Discontinu ed, Routine, Pain (scale 7-10) glucagon 2020-07 Yes 1mg 1 mg, Univers (GLUCAGEN 2-11 Intramuscu ity of DIAGNOSTIC 16:26: lar, PRN, [place] KIT) 37 Starting Medical injection 1 on [facility] Branch mg 06/25/21 at 1026, Until Discontinu ed, JAKOB, Blood Glucose < or = 70 mg/dL and patient is unable to swallow or has mental changes. dextrose 50 2020-07 Yes 25mL 25 mL, Univ ers % in water 2-11 Slow IV ity of (D50W) 16:26: Push, PRN, [place] injection 37 Starting Medica l 25 mL on [facility] Branch 06/25/21 at 1026, Until Discontinu ed, JAKOB, Blood Glucose < or = 70 mg/dL and patient is unable to swallow or has mental status changes. acetaminoph 2020-07 Yes 650mg 650 mg, [place] en 08-26 Oral, ity of (TYLENOL) 16:26: Q6HPRN, [place] tablet 650 04 Starting Medic al mg on [facility] Branch 06/25/21 at 1026, Until Discontinu ed, Routine, Pain (scale 1-3) iohexol 2020-07- No [id number] 100mL 100 mL, Univers (OMNIPAQUE 08-26 Intravenou it y of 350 12:15: 12:00 s, ONCE, 1 [place] BULK-100 00 :00 dose, On Medical mL) [facility] injection 06/25/21 100 mL at 0615, Routine eszopiclone 2020-07- No 3mg Take 3 mg Univers 3 mg tablet 08-26 by mouth ity of 10:51: 00:00 at [place] 23 :00 bedtime. Medical Branch gabapentin 2020-07- No Take by Uni vers (GRALISE) 08-26 mouth. ity of 300 mg Tb24 10:51: 00:00 [place] 18 :00 Medical Branch FLUTICASONE 2020-07- No Use in Uni vers PROPIONATE 08-26 each ity of (FLONASE 10:51: 00:00 nostril. [place] NASAL) 18 :00 Medical Branch levocetiriz 2020-07- No 5mg Take 5 mg Univers ine (XYZAL) 08-26 by mouth ity of 5 mg tablet 10:51: 00:00 [place] 18 :00 evening. Medical Branch QUEtiapine 2020-07- No 50mg Take 50 mg Univers (SEROQUEL) 08-26 by mouth ity of 50 mg 10:51: 00:00 daily. [place] tablet 18 :00 Medical Branch nebivolol 2020-07- No 10mg Take 10 mg U nivers (BYSTOLIC) 2- 12-11 by mouth ity of 10 mg 10:51: 00:00 daily. [place] tablet 18 :00 Medical Branch aspirin 2020-07- No 81mg Take 81 mg Uni vers (ECOTRIN 2- 12-11 by mouth ity of LOW 10:51: 00:00 daily. [place] STRENGTH) 18 :00 Medical 81 mg EC Branch tablet cloNIDine 2020-07- No Take by [facility] [place] ers HCl - 12-11 mouth. ity of (KAPVAY) 10:51: 00:00 [place] 0.1 mg 18 :00 Medical tablet Branch divalproex 2020-07- No 500mg Take 500 U nivers ER 500 mg 2- 12-11 mg by ity of 24 hr 10:51: 00:00 mouth at [place] tablet 18 :00 bedtime. Medical Branch butalbital- 2020-07- No Take by [place] acetaminoph 08-26 12-11 mouth. ity o f en 25-325 10:51: 00:00 [place] mg Tab 18 :00 Medical Branch traZODONE 2020-07- No 100mg Take 100 [place] 100 mg - 12-11 mg by ity of tablet 10:51: 00:00 mouth at [place] 18 :00 bedtime. Medical Branch oxybutynin 2020-07- No 5mg Take 5 mg U nivers chloride 5 08-26 12-11 by mouth 2 it y of mg tablet 10:51: 00:00 (two) [place] 18 :00 times Medical daily. Branch FLUoxetine 2020-07- No 20mg Take 20 mg Univers 20 mg - 12-11 by mouth ity of capsule 10:51: 00:00 daily. [place] 18 :00 Medical Branch furosemide 2020-07- No 40mg Take 40 mg Univers (LASIX) 40 08-26 12-11 by mouth ity of mg tablet 10:51: 00:00 daily. [place] 18 :00 Medical Branch milnacipran 2020-07- No Take by [place] HCl - 12-11 mouth. ity of (SAVELLA 10:51: 00:00 [place] ORAL) 18 :00 Medical Branch ARIPiprazol 2020-07- No 2.5mg Take 2.5 Univers e 2 mg 2-11 12-11 mg by ity of tablet 10:51: 00:00 mouth [place] 18 :00 daily. Medical Branch Iloperidone 2020-07- No 3mg Take 3 mg Univers (FANAPT) 6 2- 12-11 by mouth ity of mg Tab 10:51: 00:00 [place] needed. [place] 18 :00 [place] [facility] divalproex 2020-07- No 250mg Take 250 U nivers 250 mg EC 2-11 12-11 mg by ity of tablet 10:51: 00:00 mouth at [place] 18 :00 bedtime. Medical Branch divalproex 2020-07- No 1000mg Take 1,000 Univers 500 mg EC 2-11 12-11 mg by ity of tablet 10:51: 00:00 mouth at [place] 18 :00 bedtime. Medical Branch zolpidem 2020-07- No 5mg Take 5 mg Uni vers (AMBIEN) 5 - 12-11 by mouth ity of mg tablet 10:51: 00:00 at bedtime [place] 18 :00 as needed Medical for Branch Insomnia. oxybutynin 2020-0 Yes [id number] 5mg Q.5D Take 5 mg M ethodi (DITROPAN) 8-[address] 5 MG tablet 13:49: (two) Hospi ta 36 times a l day. oxybutynin 2020-0 Yes [id number] 5mg Q.5D Take 5 mg M ethodi (DITROPAN) 8-[address] 5 MG tablet 13:49: (two) Hospi ta 36 times a l day. oxybutynin 2020-0 Yes [id number] 5mg Q.5D Take 5 mg M ethodi (DITROPAN) 8-[address] 5 MG tablet 13:49: (two) Hospi ta 36 times a l day. clonAZEPAM 2020-0 Yes 2mg QD Take 2 mg [facility] (KlonoPIN) 8-[address] 1 MG tablet 13:42: daily. [facility] 29 l clonAZEPAM 2020-0 Yes 2mg QD Take 2 mg [facility] (KlonoPIN) 8-[address] 1 MG tablet 13:42: daily. [facility] 29 l clonAZEPAM 2020-0 Yes 2mg QD Take 2 mg [facility] (KlonoPIN) 8-[address] 1 MG tablet 13:42: daily. [facility] 29 l spironolact 2020-0 Yes [id number] 25mg QD Take 25 mg [facility] one 8-[address] (ALDACTONE) 13:38: daily. [facility]osp ximena 25 MG 56 l tablet clopidogrel 2020-0 Yes [id number] 75mg QD Take 75 mg [facility]i (PLAVIX) 75 8-[address] mg tablet 13:38: daily. Hospit a 56 l lisinopril 2020-0 Yes [id number] 20mg Q.5D Take 20 mg [facility] (PRINIVIL,Z 8-[address] ESTRIL) 20 13:38: (two) Hospit a mg tablet 56 times a l day. pantoprazol 2020-0 Yes [id number] 40mg QD Take 40 mg Methodi e 8-[address] (PROTONIX) 13:38: daily. Hospi ta 40 MG EC 56 l tablet spironolact 2020-0 Yes [id number] 25mg QD Take 25 mg Methodi one 8-[address] (ALDACTONE) 13:38: daily. Hosp ximena 25 MG 56 l tablet levothyroxi 2020-0 Yes [id number] 100ug QD Take 100 Methodi ne 8-[address] (SYNTHROID, 13:38: mouth Hospi ta LEVOXYL) 56 daily. l 100 mcg tablet clopidogrel 2020-0 Yes [id number] 75mg QD Take 75 mg Methodi (PLAVIX) 75 8-[address] mg tablet 13:38: daily. Hospit a 56 l aspirin 2020-0 Yes [id number] 325mg QD Take 325 Meth [facility] (ECOTRIN) 8-[address] 325 MG 13:38: mouth Hospita enteric 56 daily. l coated tablet lisinopril 2020-0 Yes [id number] 20mg Q.5D Take 20 mg Methodi (PRINIVIL,Z 8-[address] ESTRIL) 20 13:38: (two) Hospit a mg tablet 56 times a l day. atorvastati 2020-0 Yes [id number] 80mg QD Take 80 mg Methodi n (LIPITOR) 8-[address] 80 MG 13:38: nightly. Hospita tablet 56 l pantoprazol Yes [id number] 40mg QD Take 40 mg Methodi e 8-[address] (PROTONIX) 13:38: daily. Hospi ta 40 MG EC 56 l tablet baclofen Yes [id number] 10mg Q24H Take 10 mg [facility] (LIORESAL) 8-[address] 10 MG 13:38: daily as Hospita tablet 56 needed l (headaches ). Up to 2 tablets a day as needed for headaches levothyroxi Yes [id number] 100ug QD Take 100 Methodi ne 8-[address] (SYNTHROID, 13:38: mouth Hospi ta LEVOXYL) 56 daily. l 100 mcg tablet aspirin Yes [id number] 325mg QD Take 325 Meth [facility] (ECOTRIN) 8-[address] 325 MG 13:38: mouth Hospita enteric 56 daily. l coated tablet multivitami Yes 1{tbl} QD Take 1 [facility]odi n tablet 8-[address] 13:38: mouth Hospita 56 daily. l atorvast[place] Yes [id number] 80mg QD Take 80 mg Methodi n (LIPITOR) 8-[address] 80 MG 13:38: nightly. Hospita tablet 56 l spironolact Yes [id number] 25mg QD Take 25 mg Methodi one 8-[address] (ALDACTONE) 13:38: daily. Hosp ximena 25 MG 56 l tablet baclofen Yes [id number] 10mg Q24H Take 10 mg [facility] (LIORESAL) 8-[address] 10 MG 13:38: daily as Hospita tablet 56 needed l (headaches ). Up to 2 tablets a day as needed for headaches clopidogrel Yes [id number] 75mg QD Take 75 mg Methodi (PLAVIX) 75 8-[address] mg tablet 13:38: daily. Hospit a 56 l multivitami Yes 1{tbl} QD Take 1 [facility]odi n tablet 8-[address] 13:38: mouth Hospita 56 daily. l lisinopril Yes [id number] 20mg Q.5D Take 20 mg [facility]i (PRINIVIL,Z 8-[address] ESTRIL) 20 13:38: (two) Hospit a mg tablet 56 times a l day. pantoprazol Yes [id number] 40mg QD Take 40 mg Methodi e 8-[address] (PROTONIX) 13:38: daily. Hospi ta 40 MG EC 56 l tablet levothyroxi Yes [id number] 100ug QD Take 100 Methodi ne 8-[address] (SYNTHROID, 13:38: mouth Hospi ta LEVOXYL) 56 daily. l 100 mcg tablet aspirin Yes [id number] 325mg QD Take 325 Meth [facility] (ECOTRIN) 8-[address] 325 MG 13:38: mouth Hospita enteric 56 daily. l coated tablet atorvastati Yes [id number] 80mg QD Take 80 mg Methodi n (LIPITOR) 8-[address] 80 MG 13:38: nightly. Hospita tablet 56 l baclofen Yes [id number] 10mg Q24H Take 10 mg [facility] (LIORESAL) 8-[address] 10 MG 13:38: daily as Hospita tablet 56 needed l (headaches ). Up to 2 tablets a day as needed for headaches multivitami Yes 1{tbl} QD Take 1 [facility]odi n tablet 8-[address] 13:38: mouth Hospita 56 daily. l Estradiol Estradiol No Estradiol 0.1 MG/GM 0.1 MG/GM 8-10 0.1 MG/GM 00:00: 00 Estradiol Estradiol No Estradiol 0.1 MG/GM 0.1 MG/GM 8-10 0.1 MG/GM 00:00: 00 cholecalcif 2020- No [id number] 2000U QD Take 1 M ethodi emmanuelle, 02-[address] vitamin D3, 00:00: 04:59 (2,000 Hos hayes (VITAMIN 00 :00 Units l D3) 2,000 total) by unit tablet mouth daily for 30 days .low vitamin D levels. SITagliptin 2020- No [id number] 100mg QD Take 1 M ethodi (JANUVIA) 02-[address] 100 MG 00:00: 04:59 (100 mg Hospita tablet 00 :00 total) by l mouth daily with breakfast for 30 days .type 2 diabetes mellitus. cholecalcif 2020- No [id number] 2000U QD Take 1 M ethodi emmanuelle, 02-[address] vitamin D3, 00:00: 04:59 (2,000 Hos [facility]es (VITAMIN 00 :00 Units l D3) 2,000 total) by unit tablet mouth daily for 30 days .low vitamin D levels. SITagliptin 2020- No [id number] 100mg QD Take 1 M ethodi (JANUVIA) 02-[address] 100 MG 00:00: 04:59 (100 mg Hospita tablet 00 :00 total) by l mouth daily with breakfast for 30 days .type 2 diabetes mellitus. iopamidol 2020- No [id number] 120mL 120 mL, Univers (ISOVUE 01-10 Intravenou ity o f 370-500 mL) 17:45: 17:45 s, ONCE, 1 [place] injection 00 :00 dose, Mon Medic al 120 mL 01/10/21 at Branch 1300, Routine NaCl 0.9% 2020- No 1000mL at 999 Uni vers (NS) bolus 01-10 mL/hr, ity of infusion 17:00: 18:03 1,000 mL, Sky as 1,000 mL 00 :00 IV [facility]fusion, [place] ONCE, 1 dose, 01/10/21 at 1200, STAT gabapentin Yes Take by [facility] [place] ers (GRALISE) 2-12 mouth. ity of 300 mg Tb24 16:56: [place] 40 [facility] FLUTICASONE Yes Use in [facility] [place] ers PROPIONATE 2-12 each ity of (FLONASE 16:56: nostril. [place] NASAL) 40 [facility] levocetiriz Yes 5mg Take 5 mg U nivers ine (XYZAL) 2-12 by mouth ity of 5 mg tablet 16:56: every [place] 40 evening. [facility] Branch Levothyroxi Yes Take by Uni vers ne 2-12 mouth. ity of (TIROSINT) 16:56: [place] 100 mcg Cap 40 [facility] QUEtiapine Yes 50mg Take 50 mg U nivers (SEROQUEL) 2-12 by mouth ity o f 50 mg 16:56: daily. [place] tablet 40 [facility] lisinopril 0 Yes 20mg Take 20 mg [...] Medical 81 mg EC Branch tablet pantoprazol Yes 40mg Take 40 mg Univers e 2-12 by mouth 2 ity of (PROTONIX) 16:56: (two) [place] 40 mg EC 40 times Medical tablet daily. Branch cloNIDine Yes Take by Unive rs HCl 2-12 mouth. ity of (KAPVAY) 16:56: [place] 0.1 mg 40 Medical tablet Branch divalproex 0 Yes 500mg Take 500 [place] ER 500 mg 2-12 mg by ity of 24 hr 16:56: mouth at [place] tablet 40 bedtime. Medical Branch butalbital- Yes Take by Uni vers acetaminoph 2-12 mouth. ity of en 25-325 [...] by mouth ity of capsule 16:56: daily. [place] 40 Medical Branch furosemide 2020-0 Yes 40mg Take 40 mg U nivers (LASIX) 40 2-12 by mouth ity o f mg tablet 16:56: daily. [place] 40 Medical Branch milnacipran 0 Yes Take by Uni vers HCl 2-12 mouth. ity of (SAVELLA 16:56: [place] ORAL) 40 Medical Branch ARIPiprazol Yes 2.5mg Take 2.5 U nivers e 2 mg 2-12 mg by ity of tablet 16:56: mouth [place] 40 daily. Medical Branch Iloperidone 0 Yes 3mg Take 3 mg U nivers (FANAPT) 6 2-12 by mouth ity o f mg Tab 16:56: as needed. [place] 40 Medical Branch divalproex 0 Yes 250mg Take 250 [place] 250 mg EC 2-12 mg by ity of tablet 16:56: mouth at [place] [address] bedtime. Medical Branch divalproex 0 Yes 1000mg Take 1,000 Univers 500 mg EC 2-12 mg by ity of tablet 16:56: mouth at [place] [address] bedtime. Medical Branch loratadine Yes 10mg Take 10 mg U nivers 10 mg 2-12 by mouth ity of tablet 16:56: daily. [place] [address] Medical Branch zolpidem 0 Yes 5mg Take 5 mg [facility] [place] ers (AMBIEN) 5 2-12 by mouth ity o f mg tablet 16:56: at [place]time [place] 40 as needed Medical for Branch Insomnia. gabapentin Yes Take by [facility] [place] ers (GRALISE) 2-12 mouth. ity of 300 mg Tb24 16:56: [place] 40 Medical Branch FLUTICASONE Yes Use in [facility] [place] ers PROPIONATE 2-12 each ity of (FLONASE 16:56: nostril. [place] NASAL) 40 Medical Branch levocetiriz Yes 5mg Take 5 mg U nivers ine (XYZAL) 2-12 by mouth ity of 5 mg tablet 16:56: every [place] [address] evening. Medical Branch Levothyroxi 0 Yes Take by Uni vers ne 2-12 mouth. ity of (TIROSINT) 16:56: [place] 100 mcg Cap 40 Medical Branch QUEtiapine 0 Yes 50mg Take 50 mg U nivers [...] Medical 81 mg EC Branch tablet pantoprazol Yes 40mg Take 40 mg Univers e 2-12 by mouth 2 ity of (PROTONIX) 16:56: (two) [place] 40 mg EC 40 times Medical tablet daily. Branch cloNIDine 0 Yes Take by Unive rs HCl 2-12 mouth. ity of (KAPVAY) 16:56: [place] 0.1 mg 40 Medical tablet Branch divalproex 0 Yes 500mg Take 500 [place] ER 500 mg 2-12 mg by ity of 24 hr 16:56: mouth at [place] tablet 40 bedtime. Medical Branch butalbital- Yes Take by Uni vers acetaminoph 2-12 mouth. ity of en 25-325 [...] by mouth ity of capsule 16:56: daily. [place] 40 Medical Branch furosemide 0 Yes 40mg Take 40 mg U nivers (LASIX) 40 2-12 by mouth ity o f mg tablet 16:56: daily. [place] 40 Medical Branch milnacipran 0 Yes Take by Uni vers HCl 2-12 mouth. ity of (SAVELLA 16:56: [place] ORAL) 40 Medical Branch ARIPiprazol Yes 2.5mg Take 2.5 U nivers e 2 mg 2-12 mg by ity of tablet 16:56: mouth [place] 40 daily. Medical Branch Iloperidone 0 Yes 3mg Take 3 mg U nivers (FANAPT) 6 2-12 by mouth ity o f mg Tab 16:56: as needed. [place] [address] Medical Branch divalproex 0 Yes 250mg Take 250 [place] 250 mg EC 2-12 mg by ity of tablet 16:56: mouth at [place] [address] bedtime. Medical Branch divalproex 0 Yes 1000mg Take 1,000 Univers 500 mg EC 2-12 mg by ity of tablet 16:56: mouth at [place] [address] bedtime. Medical Branch loratadine Yes 10mg Take 10 mg U nivers 10 mg 2-12 by mouth ity of tablet 16:56: daily. [place] [address] Medical Branch zolpidem 0 Yes 5mg Take 5 mg [facility] [place] ers (AMBIEN) 5 2-12 by mouth ity o f mg tablet 16:56: at bedtime [place] 40 as needed Medical for Branch Insomnia. gabapentin Yes Take by [facility] [place] ers (GRALISE) 2-12 mouth. ity of 300 mg Tb24 16:56: [place] 40 Medical Branch FLUTICASONE Yes Use in [facility] [place] ers PROPIONATE 2-12 each ity of (FLONASE 16:56: nostril. [place] NASAL) 40 Medical Branch levocetiriz Yes 5mg Take 5 mg U nivers ine (XYZAL) 2-12 by mouth ity of 5 mg tablet 16:56: every [place] [address] evening. Medical Branch Levothyroxi 0 Yes Take by Uni vers ne 2-12 mouth. ity of (TIROSINT) 16:56: [place] 100 mcg Cap 40 Medical Branch QUEtiapine 0 Yes 50mg Take 50 mg U nivers [...] daily. Branch cloNIDine 0 Yes Take by Unive rs HCl 2-12 mouth. ity of (KAPVAY) 16:56: [place] 0.1 mg 40 Medical tablet Branch divalproex Yes 500mg Take 500 [place] ER 500 mg 2-12 mg by ity of 24 hr 16:56: mouth at [place] tablet 40 bedtime. Medical Branch butalbital- Yes Take by Uni vers acetaminoph 2-12 mouth. ity of en 25-325 16:56: [place] mg Tab 40 Medical Branch baclofen 10 0 Yes 10mg Take 10 mg Univers mg tablet 2-12 by mouth 3 ity of 16:56: (three) [place] 40 times Medical daily. Branch traZODONE Yes 100mg Take 100 Uni vers 100 [...] by mouth ity of capsule 16:56: daily. [place] 40 Medical Branch furosemide 0 Yes 40mg Take 40 mg U nivers (LASIX) 40 2-12 by mouth ity o f mg tablet 16:56: daily. [place] 40 Medical Branch milnacipran 0 Yes Take by Uni vers HCl 2-12 mouth. ity of (SAVELLA 16:56: [place] ORAL) 40 Medical Branch ARIPiprazol Yes 2.5mg Take 2.5 U nivers e 2 mg 2-12 mg by ity of tablet 16:56: mouth [place] 40 daily. Medical Branch Iloperidone Yes 3mg Take 3 mg U nivers (FANAPT) 6 2-12 by mouth ity o f mg Tab 16:56: as needed. [place] [address] Medical Branch divalproex 0 Yes 250mg Take 250 [place] 250 mg EC 2-12 mg by ity of tablet 16:56: mouth at [place] [address] bedtime. Medical Branch divalproex 0 Yes 1000mg Take 1,000 Univers 500 mg EC 2-12 mg by ity of tablet 16:56: mouth at [place] [address] bedtime. Medical Branch loratadine Yes 10mg Take 10 mg U nivers 10 mg 2-12 by mouth ity of tablet 16:56: daily. [place] [address] Medical Branch zolpidem 0 Yes 5mg Take 5 mg Univ ers (AMBIEN) 5 2-12 by mouth ity o f mg tablet 16:56: at bedtime [place] 40 as needed Medical for Branch Insomnia. gabapentin 0 Yes Take by [facility] [place] ers (GRALISE) 2-12 mouth. ity of 300 mg Tb24 16:56: [place] 40 Medical Branch FLUTICASONE Yes Use in [facility] [place] ers PROPIONATE 2-12 each ity of (FLONASE 16:56: nostril. [place] NASAL) 40 Medical Branch levocetiriz Yes 5mg Take 5 mg U nivers ine (XYZAL) 2-12 by mouth ity of 5 mg tablet 16:56: every [place] 40 evening. Medical Branch Levothyroxi Yes Take by Uni vers ne 2-12 mouth. ity of (TIROSINT) 16:56: [place] 100 mcg Cap 40 Medical Branch QUEtiapine 0 Yes 50mg Take 50 mg U nivers [...] daily. Branch cloNIDine 0 Yes Take by Unive rs HCl 2-12 mouth. ity of (KAPVAY) 16:56: [place] 0.1 mg 40 Medical tablet Branch divalproex 0 Yes 500mg Take 500 [place] ER 500 mg 2-12 mg by ity of 24 hr 16:56: mouth at [place] tablet 40 bedtime. Medical Branch butalbital- Yes Take by Uni vers acetaminoph 2-12 mouth. ity of en 25-325 16:56: [place] mg Tab 40 Medical Branch baclofen 10 0 Yes 10mg Take 10 mg Univers mg tablet 2-12 by mouth 3 ity of 16:56: (three) [place] 40 times Medical daily. Branch traZODONE Yes 100mg Take 100 Uni vers 100 [...] by mouth ity of capsule 16:56: daily. [place] 40 Medical Branch furosemide 0 Yes 40mg Take 40 mg U nivers (LASIX) 40 2-12 by mouth ity o f mg tablet 16:56: daily. [place] 40 Medical Branch milnacipran 0 Yes Take by Uni vers HCl 2-12 mouth. ity of (SAVELLA 16:56: [place] ORAL) 40 Medical Branch ARIPiprazol Yes 2.5mg Take 2.5 U nivers e 2 mg 2-12 mg by ity of tablet 16:56: mouth [place] 40 daily. Medical Branch Iloperidone 0 Yes 3mg Take 3 mg U nivers (FANAPT) 6 2-12 by mouth ity o f mg Tab 16:56: as needed. [place] 40 Medical Branch divalproex 0 Yes 250mg Take 250 [place] 250 mg EC 2-12 mg by ity of tablet 16:56: mouth at [place] 40 bedtime. Medical Branch divalproex Yes 1000mg Take 1,000 Univers 500 mg EC 2-12 mg by ity of tablet 16:56: mouth at [place] [address] bedtime. Medical Branch loratadine Yes 10mg Take 10 mg U nivers 10 mg 2-12 by mouth ity of tablet 16:56: daily. [place] [address] Medical Branch zolpidem Yes 5mg Take 5 [...] e microsphr 21:45: 17:00 s, ONCE, 1 [place] (LUMASON) 00 :00 dose, Wed Medic al injection 5 08/25/20 at Br anch mL 1545, Routine
social work faculty member approving Restricted medication : LOBO BIGGS nitroglycer Yes .5[in_u 0.5 Inch, Univers in [...] 00 First dose Med ical mcg on Wed Branch 08/25/20 at 0600, Until Discontinu ed [...] 00 6 (six) Medical hours. Branch nitroglycer Yes .4mg Place 1 Uni vers in [...] 00 6 (six) Medical hours. Branch nitroglycer Yes .4mg Place 1 Uni vers in [...] for Nausea and Vomiting (N/V). traMADoL 50 2021-0 Yes 50mg Take 1 Univ ers mg [...] 00 6 (six) Medical hours. Branch nitroglycer Yes .4mg Place 1 Uni vers in [...] 00 6 (six) Medical hours. Branch nitroglycer Yes .4mg Place 1 Uni vers in [...] acetaminoph 2020- No 650mg Take 2 [place] en 325 mg 2-10 12-11 tablets by ity of tablet 00:00: 00:00 mouth [place] 00 :00 every 6 Medical (six) Branch hours as needed for Pain (scale 1-3). heparin 2020- No 3000U Inject 3 Univ ers sodium,porc 2-10 12-11 mL as ity of ine 00:00: 00:00 directed. [place] (HEPARIN 00 :00 Medical 1000 Branch UNIT/ML) Soln injection heparin 2020- No by IV Univers sod,pork in 2-10 12-11 Infusion ity of 0.45% NaCl 00:00: 00:00 route [facility] (HEPARIN 00 :00 TITRATE. Medical 25,000 UNIT [...] for Nausea and Vomiting (N/V). traMADoL 50 2020- No 50mg Take 1 Uni vers mg tablet 2-10 12-11 tablet by ity of 00:00: 00:00 mouth [place] 00 :00 every 8 Medical (eight) Branch hours as needed for Pain (scale 4-6). diphenhydrA 2020- No 25mg 25 mg, Uni vers MINE 08-24 Oral, ity of (BENADRYL) 20:15: 20:22 ONCE, 1 [place] tablet 25 00 :00 dose, [facility] Medic al mg 08/24/20 at Branch 1415, Routine lisinopriL Yes 20mg 20 mg, Unive rs (PRINIVIL,Z 08-24 Oral, ity of ESTRIL) 15:00: DAILY, [place] tablet 20 00 First dose Medi gil mg on [facility] 08/24/20 at 0900, Until Discontinu ed, Routine FLUoxetine Yes 20mg 20 mg, Unive rs (PROZAC) 08-24 Oral, ity of capsule 20 15:00: DAILY, [place] mg 00 First dose Medical on [facility] 08/24/20 at 0900, Until Discontinu ed, Routine clopidogreL Yes 75mg 75 mg, Univ ers (PLAVIX) 08-24 Oral, ity of tablet 75 15:00: DAILY, [place] mg 00 First dose Medical on [facility] 08/24/20 at 0900, Until Discontinu ed, Routine aspirin Yes 81mg 81 mg, Univers chewable 08-24 Oral, ity of tablet 81 15:00: DAILY, [place] mg 00 First dose Medical on [facility] 08/24/20 at 0900, Until Discontinu ed, Routine ARIPiprazol No 2.5mg 2.5 mg, U nivers e (ABILIFY) 08-24 Oral, ity of tablet 2.5 15:00: 03:19 DAILY, [place] mg 00 :07 First dose Medical on [facility] 08/24/20 at 0900, Until Discontinu ed, Routine pantoprazol 2021-0 Yes 40mg 40 mg, IV U nivers e 08-24 Piggyback, ity of (PROTONIX) 14:00: Q12H, [place] 40 mg in 00 First dose Medic al NaCl 0.9% on Sun Branch (NS) 100 mL 08/24/20 at MINI-BAG 0800, Until Discontinu ed, 100 mL divalproex No 500mg 500 mg, [place] ER 08-24 Oral, ity of (DEPAKOTE 13:15: 03:18 Q24H, [place] ER) 24 hr 00 :17 First dose Medi gil tablet 500 on Sun Branch mg 08/24/20 at 0715, Until Discontinu ed, Routine traZODone No 100mg 100 mg, Uni vers (DESYREL) 08-24 Oral, ity of tablet 100 12:06: 03:19 QHSPRN, [place] as mg 35 :07 Starting Medical [facility] 08/24/20 Branch at 0606, Until [facility] 08/24/20 at 2119, Routine, Insomnia baclofen Yes 10mg 10 mg, Univers (LIORESAL) 08-24 Oral, ity of tablet 10 12:05: TIDPRN, [place] mg 09 Starting Medical [facility] 08/24/20 Branch at 0605, Until Discontinu ed, Routine, muscle spams hydralAZINE Yes 10mg 10 mg, Univ ers (APRESOLINE 08-24 Slow IV ity o f ) injection 12:04: Push, [place] 10 mg 23 Q4HPRN, Medical Starting Branch [facility] 08/24/20 at 0604, Until Discontinu ed, STAT, DBP=>100; SBP=>160, DBP=>100; SBP=>180<b r>Indicati on: Hypertensi ve Emergency iohexol No 82mL 82 mL, Univers (OMNIPAQUE 08-24 Intravenou it y of 350 10:00: 10:00 s, ONCE, 1 [place] BULK-100 00 :00 dose, Tue Medica l mL) 08/24/20 at Branch injection 0400, 82 mL Routine nitroglycer Yes .4mg 0.4 mg, Uni vers in 08-24 Sublingual ity of (NITROSTAT) 08:33: , Q5MIN [place] as sublingual 48 PRN, Medical tablet 0.4 Starting Branc h mg 08/24/20 at 0233, Until Discontinu ed, Routine, Chest pain ondansetron Yes 4mg 4 mg, Slow Univers (ZOFRAN 08-24 IV Push, ity of (PF)) 08:33: Q6HPRN, [place] injection 4 29 Starting Medi gil mg 08/24/20 Branch at 0233, Until Discontinu ed, Routine, Nausea and Vomiting (N/V) HYDROcodone Yes 1{tbl} 1 tablet, Univers -acetaminop 08-24 Oral, ity of hen (NORCO) 08:33: Q6HPRN, [place] 10-325 mg 26 Starting Medica l tablet 1 Sun08/24/20 Branc h tablet at 0233, Until Discontinu ed, Routine, Pain (scale 7-10) traMADoL 2020- No 50mg 50 mg, Univer s (ULTRAM) 08-24 Oral, ity of tablet 50 08:33: 08:32 Q8HPRN, [place] mg 17 :17 Starting Medical [facility] 08/24/20 Branch at 0233, Until [facility] 08/26/20 at 0232, Routine, Pain (scale 4-6) acetaminoph Yes 650mg 650 mg, [place] en 08-24 Oral, ity of (TYLENOL) 08:33: Q6HPRN, [place] tablet 650 14 Starting Medic al mg 08/24/20 Branch at 0233, Until Discontinu ed, Routine, Pain (scale 1-3) aspirin 2020- No 325mg 325 mg, Unive rs tablet 325 08-24 Oral, ity of mg 06:30: 08:46 ONCE, 1 [place] 00 :00 dose, [facility] 08/24/20 at Branch 0030, STAT heparin Yes [...] INITIAL BOLUS OR INITIAL INFUSION RATE.
HEPARIN 2020-0 2020- No 4000U 4,000 Univers SODIUM 08-24 02-09 Units, IV ity of (PORCINE) 05:30: 06:22 Push, [place] 1,000 00 :00 ONCE, 1 Medical UNIT/ML dose, Mon Branch BOLUS ACS 08/23/20 at ORDER SET 2330, Routine heparin Yes 3000U FOR Univers (1,000 2-09 REBOLUSING ity of unit/mL, 10 05:19: , Starting [place] mL vial) 12 Mon 08/23/20 Medic al for at 2319, Branch Rebolusing Until Discontinu ed, Routine
Dosing based on aPTT testing parameters (refer to continuous heparin drip order).
butalbital- 2020-0 Yes Take by Uni vers acetaminoph 8-15 mouth. ity of en 25-325 02:33: [place] mg Tab 39 Medical Branch baclofen 10 2019-0 Yes 10mg Take 10 mg Univers mg tablet 8-15 by mouth 3 ity of 02:33: (three) [place] [address] times Medical daily. Branch traZODONE 2019-0 Yes 100mg Take 100 Uni vers 100 mg 8-15 mg by ity of tablet 02:33: mouth at [place] [address] bedtime. Medical Branch oxybutynin 2019-0 Yes 5mg Take 5 mg [place] chloride 5 8-15 by mouth. ity of mg tablet 02:33: [place] [address] Medical Branch FLUoxetine 2019-0 Yes 20mg Take 20 mg U nivers 20 mg 8-15 by mouth ity of capsule 02:33: daily. [place] [address] Medical Branch furosemide 2019-0 Yes 40mg Take 40 mg U nivers (LASIX) 40 8-15 by mouth ity o f mg tablet 02:33: daily. [place] [address] Medical Branch milnacipran 2019-0 Yes Take by Uni vers HCl 8-15 mouth. ity of (SAVELLA 02:33: [place] ORAL) Medical Branch ARIPiprazol 2019-0 Yes 2.5mg Take 2.5 U nivers e 2 mg 8-15 mg by ity of tablet 02:33: mouth [place] [address] daily. Medical Branch Iloperidone 2019-0 Yes 3mg Take 3 mg U nivers (FANAPT) 6 8-15 by mouth ity o f mg Tab 02:33: as needed. [place] [address] Medical Branch gabapentin 2019-0 Yes Take by [facility] [place] ers (GRALISE) 8-15 mouth. ity of 300 mg Tb24 02:33: [place] [address] Medical Branch FLUTICASONE 2019-0 Yes Use in Univ ers PROPIONATE 8-15 each ity of (FLONASE 02:33: nostril. [place] NASAL) Medical Branch levocetiriz 2019-0 Yes 5mg Take 5 mg U nivers ine (XYZAL) 8-15 by mouth ity of 5 mg tablet 02:33: every [place] 39 evening. Medical Branch Levothyroxi 2020-0 Yes Take by Uni vers ne 8-15 mouth. ity of (TIROSINT) 02:33: [...] daily. Branch cloNIDine 2019-0 Yes Take by Unive rs HCl 8-15 mouth. ity of (KAPVAY) 02:33: [place] 0.1 mg 39 Medical tablet Branch divalproex 2020-0 Yes 500mg Take 500 [place] ER 500 mg 8-15 mg by ity of 24 hr 02:33: mouth [place] tablet 39 every 24 Medical (twenty-fo Branch ur) hours. butalbital- 2020-0 Yes Take by Uni vers acetaminoph 8-15 mouth. ity of en 25-325 [...] by mouth. ity of mg tablet 02:33: [place] 39 Medical Branch FLUoxetine 2020-0 Yes 20mg Take 20 mg U nivers 20 mg 8-15 by mouth ity of capsule 02:33: daily. [place] [address] Medical Branch furosemide 2020-0 Yes 40mg Take 40 mg U nivers (LASIX) 40 8-15 by mouth ity o f mg tablet 02:33: daily. [place] [address] Medical Branch milnacipran 2020-0 Yes Take by Uni vers HCl 8-15 mouth. ity of (SAVELLA 02:33: [place] ORAL) Medical Branch ARIPiprazol 2019-0 Yes 2.5mg Take 2.5 U nivers e 2 mg 8-15 mg by ity of tablet 02:33: mouth [place] [address] daily. Medical Branch Iloperidone 2019-0 Yes 3mg Take 3 mg U nivers (FANAPT) 6 8-15 by mouth ity o f mg Tab 02:33: as needed. [place] [address] Medical Branch gabapentin 2019-0 Yes Take by [facility] [place] ers (GRALISE) 8-15 mouth. ity of 300 mg Tb24 02:33: [place] [address] Medical Branch FLUTICASONE 2019-0 Yes Use in Univ ers PROPIONATE 8-15 each ity of (FLONASE 02:33: nostril. [place] NASAL) Medical Branch levocetiriz 2019-0 Yes 5mg Take 5 mg U nivers ine (XYZAL) 8-15 by mouth ity of 5 mg tablet 02:33: every [place] [address] evening. Medical Branch Levothyroxi 2019-0 Yes Take by Uni vers ne 8-15 mouth. ity of (TIROSINT) 02:33: [place] 100 mcg Cap Medical Branch QUEtiapine 2019-0 [...] daily. Branch cloNIDine 2019-0 Yes Take by Unive rs HCl 8-15 mouth. ity of (KAPVAY) 02:33: [place] 0.1 mg 39 Medical tablet Branch divalproex 2019-0 Yes 500mg Take 500 [place] ER 500 mg 8-15 mg by ity of 24 hr 02:33: mouth [place] tablet 39 every 24 Medical (twenty-fo Branch ur) hours. butalbital- 2019-0 Yes Take by Uni vers acetaminoph 8-15 mouth. ity of en 25-325 02:33: [place] mg Tab 39 Medical Branch baclofen 10 2019-0 Yes 10mg Take 10 mg Univers mg tablet 8-15 by mouth 3 ity of 02:33: (three) [place] 39 times Medical daily. Branch traZODONE 2019-0 Yes 100mg Take 100 Uni vers 100 mg 8-15 mg by ity of tablet 02:33: mouth at [place] [address] bedtime. Medical Branch oxybutynin 2019-0 Yes 5mg Take 5 mg [place] chloride 5 8-15 by mouth. ity of mg tablet 02:33: [place] [address] Medical Branch FLUoxetine 2019-0 Yes 20mg Take 20 mg U nivers 20 mg 8-15 by mouth ity of capsule 02:33: daily. [place] [address] Medical Branch furosemide 2019-0 Yes 40mg Take 40 mg U nivers (LASIX) 40 8-15 by mouth ity o f mg tablet 02:33: daily. [place] [address] Medical Branch milnacipran 2019-0 Yes Take by Uni vers HCl 8-15 mouth. ity of (SAVELLA 02:33: [place] ORAL) 39 Medical Branch ARIPiprazol 2019-0 Yes 2.5mg Take 2.5 U nivers e 2 mg 8-15 mg by ity of tablet 02:33: mouth [place] 39 daily. Medical Branch Iloperidone 2019-0 Yes 3mg Take 3 mg U nivers (FANAPT) 6 8-15 by mouth ity o f mg Tab 02:33: as needed. [place] 39 Medical Branch gabapentin 2020-0 Yes Take by Univ ers (GRALISE) 8-15 mouth. ity of 300 mg Tb24 02:33: [place] 39 Medical Branch FLUTICASONE 2020-0 Yes Use in Univ ers PROPIONATE 8-15 each ity of (FLONASE 02:33: nostril. [place] NASAL) 39 Medical Branch levocetiriz 2020-0 Yes 5mg Take 5 mg U nivers ine (XYZAL) 8-15 by mouth ity of 5 mg tablet 02:33: every [place] 39 evening. Medical Branch Levothyroxi 2020-0 Yes Take by Uni vers ne 8-15 mouth. ity of (TIROSINT) 02:33: [...] daily. Branch cloNIDine 2019-0 Yes Take by [facility] [place] rs HCl 8-15 mouth. ity of (KAPVAY) 02:33: [place] 0.1 mg 39 Medical tablet Branch divalproex 2020-0 Yes 500mg Take 500 [place] ER 500 mg 8-15 mg by ity of 24 hr 02:33: mouth [place] tablet 39 every 24 Medical (twenty-fo Branch ur) hours. butalbital- 2020-0 Yes Take by Uni vers acetaminoph 8-15 mouth. ity of en 25-325 02:33: [place] mg Tab 39 Medical Branch baclofen 10 2019-0 Yes 10mg Take 10 mg Univers mg tablet 8-15 by mouth 3 ity of 02:33: (three) [place] times Medical daily. Branch traZODONE 2020-0 Yes 100mg Take 100 Uni vers 100 mg 8-15 mg by ity of tablet 02:33: mouth at [place] [address] bedtime. Medical Branch oxybutynin 2020-0 Yes 5mg Take 5 mg [place] chloride 5 8-15 by mouth. ity of mg tablet 02:33: [place] [address] Medical Branch FLUoxetine 2020-0 Yes 20mg Take 20 mg U nivers 20 mg 8-15 by mouth ity of capsule 02:33: daily. [place] [address] Medical Branch furosemide 2019-0 Yes 40mg Take 40 mg U nivers (LASIX) 40 8-15 by mouth ity o f mg tablet 02:33: daily. [place] [address] Medical Branch milnacipran 2019-0 Yes Take by Uni vers HCl 8-15 mouth. ity of (SAVELLA 02:33: [place] ORAL) Medical Branch ARIPiprazol 2019-0 Yes 2.5mg Take 2.5 U nivers e 2 mg 8-15 mg by ity of tablet 02:33: mouth [place] [address] daily. Medical Branch Iloperidone 2019-0 Yes 3mg Take 3 mg U nivers (FANAPT) 6 8-15 by mouth ity o f mg Tab 02:33: as needed. [place] [address] Medical Branch gabapentin 2019-0 Yes Take by [facility] [place] ers (GRALISE) 8-15 mouth. ity of 300 mg Tb24 02:33: [place] [address] Medical Branch FLUTICASONE 2019-0 Yes Use in [facility] [place] ers PROPIONATE 8-15 each ity of (FLONASE 02:33: nostril. [place] NASAL) Medical Branch levocetiriz 2019-0 Yes 5mg Take 5 mg U nivers ine (XYZAL) 8-15 by mouth ity of 5 mg tablet 02:33: every [place] [address] evening. Medical Branch Levothyroxi 2019-0 Yes Take by Uni vers ne 8-15 mouth. ity of (TIROSINT) 02:33: [...] by mouth ity of LOW 02:33: daily. [place] STRENGTH) 39 Medical 81 mg EC Branch tablet pantoprazol 2020-0 Yes 40mg Take 40 mg Univers e 8-15 by mouth 2 ity of (PROTONIX) 02:33: (two) [place] 40 mg EC 39 times Medical tablet daily. Branch cloNIDine 2019-0 Yes Take by Unive rs HCl 8-15 mouth. ity of (KAPVAY) 02:33: [place] 0.1 mg 39 Medical tablet Branch divalproex 2020-0 Yes 500mg Take 500 [place] ER 500 mg 8-15 mg by ity of 24 hr 02:33: mouth [place] tablet 39 every 24 Medical (twenty-fo Branch ur) hours. butalbital- 2019-0 Yes Take by Uni vers acetaminoph 8-15 mouth. ity of en 25-325 02:33: [place] mg Tab 39 Medical Branch baclofen 10 2019-0 Yes 10mg Take 10 mg Univers mg tablet 8-15 by mouth 3 ity of 02:33: (three) [place] [address] times Medical daily. Branch traZODONE 2019-0 Yes 100mg Take 100 Uni vers 100 mg 8-15 mg by ity of tablet 02:33: mouth at [place] [address] bedtime. Medical Branch oxybutynin 2019-0 Yes 5mg Take 5 mg [place] chloride 5 8-15 by mouth. ity of mg tablet 02:33: [place] [address] Medical Branch FLUoxetine 2020-0 Yes 20mg Take 20 mg U nivers 20 mg 8-15 by mouth ity of capsule 02:33: daily. [place] [address] Medical Branch furosemide 2020-0 Yes 40mg Take 40 mg U nivers (LASIX) 40 8-15 by mouth ity o f mg tablet 02:33: daily. [place] [address] Medical Branch milnacipran 2020-0 Yes Take by Uni vers HCl 8-15 mouth. ity of (SAVELLA 02:33: [place] ORAL) 39 Medical Branch ARIPiprazol 2020-0 Yes 2.5mg Take 2.5 U nivers e 2 mg 8-15 mg by ity of tablet 02:33: mouth [place] 39 daily. Medical Branch Iloperidone 2020-0 Yes 3mg Take 3 mg U nivers (FANAPT) 6 8-15 by mouth ity o f mg Tab 02:33: as needed. [place] [address] Medical Branch gabapentin 2020-0 Yes Take by [facility] [place] ers (GRALISE) 8-15 mouth. ity of 300 mg Tb24 02:33: [place] [address] Medical Branch FLUTICASONE 2020-0 Yes Use in Univ ers PROPIONATE 8-15 each ity of (FLONASE 02:33: nostril. [place] NASAL) 39 Medical Branch levocetiriz 2020-0 Yes 5mg Take 5 mg U nivers ine (XYZAL) 8-15 by mouth ity of 5 mg tablet 02:33: every [place] [address] evening. Medical Branch Levothyroxi 2020-0 Yes Take by Uni vers ne 8-15 mouth. ity of (TIROSINT) 02:33: [place] 100 mcg Cap 39 Medical Branch QUEtiapine [...] by mouth ity of LOW 02:33: daily. [place] STRENGTH) 39 Medical 81 mg EC Branch tablet pantoprazol 2020-0 Yes 40mg Take 40 mg Univers e 8-15 by mouth 2 ity of (PROTONIX) 02:33: (two) [place] 40 mg EC 39 times Medical tablet daily. Branch cloNIDine 2020-0 Yes Take by Unive rs HCl 8-15 mouth. ity of (KAPVAY) 02:33: [place] 0.1 mg 39 Medical tablet Branch divalproex 2020-0 Yes 500mg Take 500 [place] ER 500 mg 8-15 mg by ity of 24 hr 02:33: mouth [place] tablet 39 every 24 Medical (twenty-fo Branch ur) hours. levothyroxi 2020-0 Yes 100ug 100 mcg, U nivers ne 8-14 Oral, ity of (SYNTHROID) 11:00: QAM-0600, [place] tablet 100 00 First dose Med ical mcg on [facility] [place] 02/27/20 at 0600, Until Discontinu ed, Routine traZODone 2020-0 Yes 100mg 100 mg, Univ ers (DESYREL) 8-14 Oral, QHS, ity of tablet 100 02:00: First dose [place] mg 00 on [facility] 02/26/20 at Branch 2100, Until Discontinu ed, Routine divalproex 2020-0 Yes 250mg 250 mg, Uni vers (DEPAKOTE) 8- Oral, QHS, ity of EC tablet 02:00: First dose [place] 250 mg 00 on [facility] 02/26/20 at Branch 2100, Until Discontinu ed, Routine atorvastati 2020-0 Yes 80mg 80 mg, Univ ers n (LIPITOR) 8-14 Oral, QHS, it y of tablet 80 02:00: First dose [place] mg 00 on [facility] 02/26/20 at Branch 2100, Until Discontinu ed, Routine morpHINE 2020-0 Yes 2mg 2 mg, Slow Uni vers injection 2 - IV Push, ity of mg 00:00: Q3HPRN, [place] 00 Starting Medical [facility] 02/26/20 at 1900, Until Discontinu ed, Routine, Pain (scale 7-10) ascorbic 2020-0 2020- No [id number] 500mg Take 1 U nivers acid, 02-26 tablet by ity of vitamin C, 00:00: 04:59 mouth 2 [place] 500 mg 00 :00 (two) Medical tablet times Branch daily for 30 days. cholecalcif 2020-0 2020- No [id number] 1000U Take 1 [facility] emmanuelle, 02-26 tablet by ity of vitamin D3, 00:00: 04:59 mouth 2 [place] 25 mcg 00 :00 (two) Medical (1,000 times Branch unit) daily for tablet 30 days. zinc 2020-0 2020- No [id number] 220mg Take 1 Unive rs sulfate 220 02-26 capsule by i ty of (50) mg 00:00: 04:59 mouth 2 [place] capsule 00 :00 (two) Medical times Branch daily for 30 days. ascorbic 2020-0 2020- No [id number] 500mg Take 1 U nivers acid, 02-26 tablet by ity of vitamin C, 00:00: 04:59 mouth 2 [place] 500 mg 00 :00 (two) Medical tablet times Branch daily for 30 days. cholecalcif 2020-0 2020- No [id number] 1000U Take 1 [facility] emmanuelle, 02-26 tablet by ity of vitamin D3, 00:00: 04:59 mouth 2 [place] 25 mcg 00 :00 (two) Medical (1,000 times Branch unit) daily for tablet 30 days. zinc 2020-0 2020- No [id number] 220mg Take 1 Unive rs sulfate 220 02-26 capsule by i ty of (50) mg 00:00: 04:59 mouth 2 [place] capsule 00 :00 (two) Medical times Branch daily for 30 days. ascorbic 2020-0 2020- No [id number] 500mg Take 1 U nivers acid, 02-26 tablet by ity of vitamin C, 00:00: 04:59 mouth 2 [place] 500 mg 00 :00 (two) Medical tablet times Branch daily for 30 days. cholecalcif 2020-0 2020- No [id number] 1000U Take 1 [facility] emmanuelle, 02-26 tablet by ity of vitamin D3, 00:00: 04:59 mouth 2 [place] 25 mcg 00 :00 (two) Medical (1,000 times Branch unit) daily for tablet 30 days. zinc 2020-0 2020- No [id number] 220mg Take 1 Unive rs sulfate 220 02-26- capsule by i ty of (50) mg 00:00: 04:59 mouth 2 [place] capsule 00 :00 (two) Medical times Branch daily for 30 days. ascorbic 2020-0 2020- No [id number] 500mg Take 1 U nivers acid, 8-14 tablet by ity of vitamin C, 00:00: 04:59 mouth 2 [place] 500 mg 00 :00 (two) Medical tablet times Branch daily for 30 days. cholecalcif 2020-0 2020- No [id number] 1000U Take 1 [facility] emmanuelle, 02-26 tablet by ity of vitamin D3, 00:00: 04:59 mouth 2 [place] 25 mcg 00 :00 (two) Medical (1,000 times Branch unit) daily for tablet 30 days. zinc 2020-0 2020- No [id number] 220mg Take 1 Unive rs sulfate 220 02-26 capsule by i ty of (50) mg 00:00: 04:59 mouth 2 [place] capsule 00 :00 (two) Medical times Branch daily for 30 days. ascorbic 2020-0 2020- No [id number] 500mg Take 1 U nivers acid, 02-26 tablet by ity of vitamin C, 00:00: 04:59 mouth 2 [place] 500 mg 00 :00 (two) Medical tablet times Branch daily for 30 days. cholecalcif 2020-0 2020- No [id number] 1000U Take 1 [facility] emmanuelle, 02-26 tablet by ity of vitamin D3, 00:00: 04:59 mouth 2 [place] 25 mcg 00 :00 (two) Medical (1,000 times Branch unit) daily for tablet 30 days. zinc 2020-0 2020- No [id number] 220mg Take 1 Unive rs sulfate 220 02-26 capsule by i ty of (50) mg 00:00: 04:59 mouth 2 [place] capsule 00 :00 (two) Medical times Branch daily for 30 days. QUEtiapine 2020-0 Yes 50mg 50 mg, Unive rs (SEROQUEL) 8- Oral, QPM, ity of tablet 50 22:00: First dose [place] mg 00 on [facility] 02/26/20 at Branch 1700, Until Discontinu ed, Routine ARIPiprazol 2020-0 Yes 5mg 5 mg, Unive rs e (ABILIFY) 8- Oral, QPM, it y of tablet 5 mg 22:00: First dose [place] 00 on [facility] 02/26/20 at Branch 1700, Until Discontinu ed, Routine morpHINE 2020-0 2020- No 2mg 2 mg, Slow [place] injection 2 02-25 IV Push, ity of mg 21:44: 22:23 Q3HPRN, [place] 48 :16 Starting Medical [facility] 02/26/20 at 1644, Until [facility] 02/26/20 at 1723, Routine, Pain (scale 7-10) sulfur 2020-0 2020- No 5mL 5 mL, Univers hexafluorid 02-25 Intravenou i ty of e microsphr 17:30: 14:45 s, ONCE, 1 [place] (LUMASON) 00 :00 dose, [facility] Medic al injection 5 02/26/20 at Br anch mL 1230, Routine
social work faculty member approving Restricted medication : LOBO BIGGS amLODIPine 2020-0 Yes 5mg 5 mg, Univer s (NORVASC) 8 Oral, ity of tablet 5 mg 14:00: DAILY, [place] 00 First dose Medical on [facility] 02/26/20 at 0900, Until Discontinu ed, Routine FLUoxetine 2020-0 Yes 20mg 20 mg, Unive rs (PROZAC) 8 Oral, ity of capsule 20 14:00: DAILY, [...] 00 First dose Med ical mL on [facility]gyback 02/26/20 at 750 mg 0845, Until Discontinu ed, 150 mL
R marjan for Anti-Infec tive: Documented Infection< br>Documen jessica Infection Site: Respirator y
Durat ion of Therapy: 7 days baclofen 2020-0 Yes 10mg 10 mg, Univers (LIORESAL) 8-13 Oral, BID, ity of tablet 10 13:00: First dose [place] mg 00 on [facility] Medical 02/26/20 at Branch 0800, Until Discontinu ed, Routine cholecalcif 2020-0 Yes 1000U 1,000 Univ ers emmanuelle 8-13 Units, ity of (vitamin 13:00: Oral, BID, [place] D3) tablet 00 First dose Med ical 1,000 Units on [facility] Branch 02/26/20 at 0800, Until Discontinu ed, Routine ascorbic 2020-0 Yes 500mg 500 mg, Unive rs acid 8-13 Oral, TID, ity of (vitamin C) 13:00: First dose [place] (VITAMIN C) 00 on [facility] Medica l tablet 500 02/26/20 at [facility] mg 0800, Until Discontinu ed, Routine zinc 2020-0 Yes 220mg 220 mg, Univers sulfate 8-13 Oral, BID, ity of (ORAZINC) 13:00: First dose [place] capsule [facility] Branch 0800, Until Discontinu ed, Routine docusate 2020-0 Yes 100mg 100 mg, Unive rs (COLACE) 8-13 Oral, BID, ity o f capsule 100 13:00: First dose [place] mg 00 on [facility] Medical 02/26/20 at Branch 0800, Until Discontinu ed, Routine lisinopril 2020-0 Yes 20mg 20 mg, Unive rs (PRINIVIL,Z 8-13 Oral, BID, it y of ESTRIL) 12:45: [place] 00 on [facility] Medical mg 02/26/20 at Branch 0745, Until Discontinu ed, Routine aspirin 2020-0 Yes 81mg 81 mg, Univers chewable 8-13 Oral, QAM ity of tablet 81 12:45: WITH [place] mg 00 BREAKFAST, Medical First dose Branch on [place] 02/26/20 at 0745, Until Discontinu ed, Routine hydralAZINE 2020-0 Yes 10mg 10 mg, Univ ers (APRESOLINE 02-25 Slow IV ity o f ) injection 12:32: Push, [place] 10 mg 39 Q4HPRN, Medical Starting Branch [place] 02/26/20 at 0732, Until Discontinu ed, Routine, sbp > 180 or dbp > 115 lactobacill 2020-0 Yes 1{tbl} 1 tablet, Univers us 8 Oral, BID, ity of acidophilus 11:45: First dose [place] (ACIDOPHILL 00 on [facility] Medica l US) 25 02/26/20 at Branch million 0645, cell -100 Until mg captab 1 Discontinu tablet ed, Routine ondansetron 2019-0 Yes 4mg 4 mg, Slow Univers (ZOFRAN 02-25 IV Push, ity of (PF)) 11:32: Q6HPRN, [place] injection 4 06 Starting Medi gil mg [place] Branch 02/26/20 at 0632, Until Discontinu ed, Routine, Nausea and Vomiting (N/V) ondansetron 2019-0 2019- No 4mg 4 mg, Slow Univers (ZOFRAN 02-25 IV Push, ity of (PF)) 10:30: 09:24 ONCE, 1 [place] injection 4 00 :00 dose, [place] Med ical mg 02/26/20 at Branch 0530, JAKOB acetaminoph 2019- 2020- No 650mg 650 mg, U nivers en 02-25 Oral, ity of (TYLENOL) 10:30: 09:23 ONCE, 1 [place] tablet 650 00 :00 dose, [place] Medi gil mg 02/26/20 at Branch 0530, JAKOB iohexol 2019-0 2020- No 120mL 120 mL, Unive rs (OMNIPAQUE 02-25 Intravenou it y of 350 08:30: 08:30 s, ONCE, 1 [place] BULK-150 00 :00 dose, [place] Medica l mL) 02/26/20 at [place] injection 0330, 120 mL Routine oxybutynin 2019-0 2020- No 5mg Take 5 mg U nivers chloride 5 02-25 by mouth. ity of mg tablet 07:19: 00:00 [place] 48 :00 Medical Branch rOPINIRole 2019-0 2020- No 1mg Take 1 mg U nivers (REQUIP) 1 02-25 by mouth 2 it y of mg tablet 07:18: 00:00 (two) [place] 43 :00 times Medical daily. Branch LORazepam 2019- No 1mg Take 1 mg [place] (ATIVAN) 1 02-25 by mouth. ity of mg tablet 07:16: 00:00 [place] 58 :00 Medical Branch Lamotrigine 2019- No Take by [place] (LAMICTAL 02-25 mouth. ity of ODT) 25 mg 07:16: 00:00 [place] TbDL 19 :00 Medical Branch aspirin 325 2019- No 325mg Take 325 Univers mg tablet 02-25 mg by ity of 07:14: 00:00 mouth [place] 55 :00 daily. Medical Branch amLODIPine 2019- No 10mg Take 10 mg Univers (NORVASC) 02-25 by mouth ity o f 10 mg 07:14: 00:00 daily. [place] tablet 46 :00 Medical Branch ACETAMINOPH 2019- No Take by [place] EN WITH 02-25 mouth 2 ity of CODEINE 07:14: 00:00 (two) [place] (TYLENOL-CO 10 :00 times Medical DEINE NO.3 daily. Branch ORAL) Estradiol Estradiol No Estradiol 0.1 MG/GM 0.1 MG/GM 7-31 0.1 MG/GM 00:00: 00 Estradiol Estradiol No Estradiol 0.1 MG/GM 0.1 MG/GM 7-31 0.1 MG/GM 00:00: 00 topiramate Yes 25 mg = 1 Me mor[place] 25 MG Oral 5-09 tab, PO, l Tablet 19:07: BID, # 60 Ajay n [Topamax] 59 tab, 3 Refill(s), Pharmacy: [id number] topiramate Yes 25 mg = 1 Me [place] 25 MG Oral 5-09 tab, PO, l Tablet 19:07: BID, # 60 Ajay n [Topamax] 59 tab, 3 Refill(s), Pharmacy: [facility] [id number] spironolact 2020- No Unive rs one 25 mg 08-17 ity of tablet 00:00: 00:00 [place] 00 :00 Medical Branch RANEXA 500 2019- No Univer s mg 12 hr 08-17 ity of tablet 00:00: 00:00 [place] 00 :00 Medical Branch loratadine 2019- No 10mg Take 1 Univ ers 10 mg 04-06 tablet by ity of tablet 00:00: 00:00 mouth [place] 00 :00 daily. Medical Branch promethazin 2019- No 5mL Take 5 mL Univers e-codeine 04-06 by mouth 4 ity of 6.25-10 00:00: 00:00 (four) [place] mg/5 mL 00 :00 times Medical syrup daily as Branch needed for Cough. mupirocin 2017-0 Yes Apply to [facility] [place] ers (BACTROBAN) 3-20 area(s) 3 ity of 2 % 00:00: (three) [place] ointment 00 times Medical daily. Branch mupirocin 2018-0 Yes Apply to [facility] [place] ers (BACTROBAN) 3-20 area(s) 3 ity of 2 % 00:00: (three) [place] ointment 00 times Medical daily. Branch mupirocin 2018-0 Yes Apply to Univ ers (BACTROBAN) 3-20 area(s) 3 ity of 2 % 00:00: (three) [place] ointment 00 times Medical daily. Branch mupirocin 2018-0 Yes Apply to [facility] [place] ers (BACTROBAN) 3-20 area(s) 3 ity of 2 % 00:00: (three) [place] ointment 00 times Medical daily. Branch mupirocin 2018-0 Yes Apply to Univ ers (BACTROBAN) 3-20 area(s) 3 ity of 2 % 00:00: (three) [place] ointment 00 times Medical daily. Branch mupirocin 2018-0 Yes Apply to Univ ers (BACTROBAN) 3-20 area(s) 3 ity of 2 % 00:00: (three) [place] ointment 00 times Medical daily. Branch mupirocin 2018-0 Yes Apply to [facility] [place] ers (BACTROBAN) 3-20 area(s) 3 ity of 2 % 00:00: (three) [place] ointment 00 times Medical daily. Branch mupirocin 2018-0 Yes Apply to [facility] [place] ers (BACTROBAN) 3-20 area(s) 3 ity of 2 % 00:00: (three) [place] ointment 00 times Medical daily. Branch mupirocin Yes Apply to [facility] [place] ers (BACTROBAN) 3-20 area(s) 3 ity of 2 % 00:00: (three) [place] ointment 00 times Medical daily. Branch mupirocin 2020- No Apply to [facility] vers (BACTROBAN) 3-20 12-11 area(s) 3 it y of 2 % 00:00: 00:00 (three) [place] ointment 00 :00 times Medical daily. Branch Zostavax 2015-07 Yes Ahmed Unknown Memor ia 1-15 Ahmed l 05:47: [place] Crestor 2015-07 Yes Ahmed 1 tablet Memor ia 1-15 Ahmed l 05:47: [place] Hydrochloro 2015-07 Yes Ahmed once Memor ia t 1-15 Ahmed capsule l 05:47: once a day [place] Levothyroxi 2015-07 Yes Ahmed 1 tablet M emoria ne Sodium 1-15 Ahmed every l 05:47: morning on [place] an empty stomach Asprin 2015-07 Yes Ahmed Unknown Memoria 1-15 Ahmed l 05:47: [place] 2015-07 Yes Ahmed 1 capsule [place] Carbonate 1-15 Ahmed l 05:47: [place] Lorazepam 2015-07 Yes Ahmed 1 tablet Mem oria 1-15 Ahmed l 05:47: [place] Ropinirole 2015-07 Yes Ahmed 1 tablet 1 Memoria HCl 1-15 Ahmed to 3 hours l 05:47: before [place] bedtime Lamotrigine 2015-07 Yes Ahmed 1 tablet M emoria 1-15 Ahmed l 05:47: [place] Metoprolol 2015-07 Yes Ahmed 1 tablet Me moria Succinate 1-15 Ahmed l ER 05:47: [place] Plavix 2015-07 Yes Ahmed 1 tablet Memori a 1-15 Ahmed l 05:47: Alessadn[place] Risperidone 2015-07 Yes Ahmed 1 tablet M emoria 1-15 Ahmed l 05:47: [place] Quetiapine 2016-1 Yes Ahmed 1 tablet Me moria Fumarate 1-15 Ahmed at bedtime l 05:47: [place] Zostavax 2015-07 Yes Ahmed Unknown Memor ia 1-15 Ahmed l 05:47: [place] Crestor 2015-07 Yes Ahmed 1 tablet Memor ia 1-15 Ahmed l 05:47: [place] Hydrochloro 2015-07 Yes Ahmed once Memor ia t 1-15 Ahmed capsule l 05:47: once a day [place] Levothyroxi 2015-07 Yes Ahmed 1 tablet M em[place] ne Sodium 1-15 Ahmed every l 05:47: morning on [place] 14 an empty stomach Asprin 2015-07 Yes Ahmed Unknown Memoria 1-15 Ahmed l 05:47: [place] 2015-07 Yes Ahmed 1 capsule [place] Carbonate 1-15 Ahmed l 05:47: [place] Lorazepam 2015-07 Yes Ahmed 1 tablet Mem oria 1-15 Ahmed l 05:47: [place] Ropinirole 2015-07 Yes Ahmed 1 tablet 1 Memoria HCl 1-15 Ahmed to 3 hours l 05:47: before [place] bedtime Lamotrigine 2015-07 Yes Ahmed 1 tablet M emoria 1-15 Ahmed l 05:47: [place] Metoprolol 2015-07 Yes Ahmed 1 tablet Me moria Succinate 1-15 Ahmed l ER 05:47: [place] Plavix 2015-07 Yes Ahmed 1 tablet Memori a 1-15 Ahmed l 05:47: [place] Risperidone 2015-07 Yes Ahmed 1 tablet M emoria 1-15 Ahmed l 05:47: [place] Quetiapine 2015-07 Yes Ahmed 1 tablet Me [place] Fumarate 1-15 Ahmed at bedtime l 05:47: [place] atorvastati Yes 80mg Take 1 Tab Univers n (LIPITOR) 9-19 by mouth ity of 80 mg 00:00: at [facility] 00 bedtime. Medical Branch clopidogrel 0 Yes 75mg Take 1 Tab Univers (PLAVIX) 75 9-19 by mouth ity of mg tablet 00:00: daily. [address] Branch atorvastati 0 Yes 80mg Take 1 [...] tablet 00:00: daily. Medical Branch aspirin 81 2015-0 Yes 81mg Take 1 Tab U nivers mg chewable 9-19 by mouth ity of tablet 00:00: daily. Medical Branch atorvastati 2015-0 Yes 80mg Take 1 Tab Univers n (LIPITOR) 9-19 by mouth ity of 80 mg 00:00: at [place] tablet 00 bedtime. Medical Branch clopidogrel 2015-0 Yes 75mg Take 1 Tab Univers (PLAVIX) 75 9-19 by mouth ity of mg tablet 00:00: daily. Medical Branch aspirin 81 2015-0 Yes 81mg Take 1 Tab U nivers mg chewable 9-19 by mouth ity of tablet 00:00: daily. Medical Branch atorvastati 2015-0 [...] tablet 00:00: daily. Medical Branch aspirin 81 2015-0 Yes 81mg Take 1 Tab U nivers mg chewable 9-19 by mouth ity of tablet 00:00: daily. Medical Branch atorvastati 2015-0 [...] 00:00: daily. Medical Branch aspirin 81 2014-0 2021- No 81mg Take 1 Tab Univers mg chewable 9-19 12-11 by mouth ity of tablet 00:00: 00:00 daily. [place] 00 :00 Medical Branch metoprolol 2020- No 12.5mg Take 0.5 Univers tartrate 04-03 Tabs by ity of (LOPRESSOR) 00:00: 00:00 mouth 2 [place] 25 mg 00 :00 (two) Medical tablet times Branch daily. nitroglycer 2019- No .3mg Place 1 [place] in 04-03 Tab under ity of (NITROSTAT) 00:00: 00:00 the tongue [place] 0.3 mg 00 :00 every 5 Medical sublingual (five) Branch tablet minutes as needed for Chest pain. Protonix Yes Ahmed 1 tablet [place] 8-24 Ahmed l 00:00: Protonix Yes Ahmed 1 tablet [place] 824 Ahmed l 00:00: Acetamin Acetamin No Acetamin Fanapt 6 MG Fanapt 6 MG No 1{table BID Fanapt 6 t} MG traZODone traZODone No 1{table QD traZODone HCl 100 MG HCl 100 MG t_at_be HCl 100 MG dtime} Levothyroxi Levothyroxi No QD Levothyrox ne Sodium ne Sodium ine Sodium 100 MCG 100 MCG 100 MCG Solifenacin Solifenacin No 1{table QD Solifenaci Succinate 5 Succinate 5 t} n MG MG Succinate 5 MG Atorvastati Atorvastati No 1{table QD Atorvastat n Calcium n Calcium t} in Calcium 20 MG 20 MG 20 MG Ecotrin 325 Ecotrin 325 No 1{table QD Ecotrin MG MG t} 325 MG Lisinopril Lisinopril No 1{table QD Lisinopril 20 MG 20 MG t} 20 MG Divalproex Divalproex No 1{table BID Divalproex Sodium 500 Sodium 500 t} Sodium 500 MG MG MG Clopidogrel Clopidogrel No 1{table QD Clopidogre Bisulfate Bisulfate t} l 75 MG 75 MG Bisulfate 75 MG Acetamin Acetamin No Acetamin Fanapt 6 MG Fanapt 6 MG No 1{table BID Fanapt 6 t} MG traZODone traZODone No 1{table QD traZODone HCl 100 MG HCl 100 MG t_at_be HCl 100 MG dtime} Levothyroxi Levothyroxi No QD Levothyrox ne Sodium ne Sodium ine Sodium 100 MCG 100 MCG 100 MCG Solifenacin Solifenacin No 1{table QD Solifenaci Succinate 5 Succinate 5 t} n MG MG Succinate 5 MG Atorvastati Atorvastati No 1{table QD Atorvastat n Calcium n Calcium t} in Calcium 20 MG 20 MG 20 MG Ecotrin 325 Ecotrin 325 No 1{table QD Ecotrin MG MG t} 325 MG Lisinopril Lisinopril No 1{table QD Lisinopril 20 MG 20 MG t} 20 MG Divalproex Divalproex No 1{table BID Divalproex Sodium 500 Sodium 500 t} Sodium 500 MG MG MG Clopidogrel Clopidogrel No 1{table QD Clopidogre Bisulfate Bisulfate t} l 75 MG 75 MG Bisulfate 75 MG Immunizations Ordered Filled Immunization Date Status Comments Sour e Immunization Name Name Influenza Virus 2021-03-23 Completed Universit y of Vaccine (3+ yrs) 00:00:00 [facility] Influenza Virus 2021-03-23 Completed Universit y of Vaccine (3+ yrs) 00:00:00 [facility] Influenza Virus 2021-03-23 Completed Universit y of Vaccine (3+ yrs) 00:00:00 [facility] Influenza Virus 2021-03-23 Completed Universit y of Vaccine (3+ yrs) 00:00:00 [facility] Influenza Virus 2021-03-23 Completed Universit y of Vaccine (3+ yrs) 00:00:00 [facility] Influenza Virus 2021-03-23 Completed Universit y of Vaccine (3+ yrs) 00:00:00 [facility] Influenza Virus 2021-03-23 Completed Universit y of Vaccine (3+ yrs) 00:00:00 [facility] Pneumococcal 2020-04-17 Completed University o f Polysaccharide, 00:00:00 [facility] ical PPSV23 (PNEUMOVAX) Branch Influenza High Dose 2020-04-17 Completed Unive rsity of 00:00:00 [facility] Pneumococcal 2020-04-17 Completed University o f Polysaccharide, 00:00:00 [facility] ical PPSV23 (PNEUMOVAX) Branch Influenza High Dose 2020-04-17 Completed Unive rsity of 00:00:00 [facility] Pneumococcal 2020-04-17 Completed University o f Polysaccharide, 00:00:00 [place] Med ical PPSV23 (PNEUMOVAX) Branch Influenza High Dose 2020-04-17 Completed Unive rsity of 00:00:00 [facility] Pneumococcal 2020-04-17 Completed University o f Polysaccharide, 00:00:00 [place] Med ical PPSV23 (PNEUMOVAX) Branch Influenza High Dose 2020-04-17 Completed Unive rsity of 00:00:00 [facility] Pneumococcal 2020-04-17 Completed University o f Polysaccharide, 00:00:00 [place] Med ical PPSV23 (PNEUMOVAX) Branch Influenza High Dose 2020-04-17 Completed Unive rsity of 00:00:00 [facility] Pneumococcal 2020-04-17 Completed University o f Polysaccharide, 00:00:00 [place] Med ical PPSV23 (PNEUMOVAX) Branch Influenza High Dose 2020-04-17 Completed Unive rsity of 00:00:00 [facility] Pneumococcal 2020-04-17 Completed University o f Polysaccharide, 00:00:00 [place] Med ical PPSV23 (PNEUMOVAX) Branch Influenza High Dose 2020-04-17 Completed Unive rsity of 00:00:00 [facility] Zoster(Zostavax)( 2020-01-01 Completed Unive rsity of ingles) 00:00:00 [facility] Pneumococcal 13 2020-01-01 Completed Universit y of Conjugate, PCV13 00:00:00 [facility] dical (Prevnar 13) Branch Zoster Vaccine 2020-01-01 Completed University of Recombinant 00:00:00 [facility] Zoster(Zostavax)( 2020-01-01 Completed Unive rsity of ingles) 00:00:00 [facility] Pneumococcal 13 2020-01-01 Completed Universit y of Conjugate, PCV13 00:00:00 [place] Me dical (Prevnar 13) Branch Zoster Vaccine 2020-01-01 Completed University of Recombinant 00:00:00 [facility] Zoster(Zostavax)( 2020-01-01 Completed Unive rsity of ingles) 00:00:00 [facility] Pneumococcal 13 2020-01-01 Completed Universit y of Conjugate, PCV13 00:00:00 [place] Me dical (Prevnar 13) Branch Zoster Vaccine 2020-01-01 Completed University of Recombinant 00:00:00 [facility] Zoster(Zostavax)( 2020-01-01 Completed Unive rsity of ingles) 00:00:00 [facility] Pneumococcal 13 2020-01-01 Completed Universit y of Conjugate, PCV13 00:00:00 [facility] dical (Prevnar 13) Branch Zoster Vaccine 2020-01-01 Completed University of Recombinant 00:00:00 [facility] Zoster(Zostavax)( 2020-01-01 Completed Unive rsity of ingles) 00:00:00 [facility] Pneumococcal 13 2020-01-01 Completed Universit y of Conjugate, PCV13 00:00:00 [facility] dical (Prevnar 13) Branch Zoster Vaccine 2020-01-01 Completed University of Recombinant 00:00:00 [facility] Zoster(Zostavax)( 2020-01-01 Completed Unive rsity of ingles) 00:00:00 [facility] Pneumococcal 13 2020-01-01 Completed Universit y of Conjugate, PCV13 00:00:00 [facility] dical (Prevnar 13) [place] Zoster Vaccine 2020-01-01 Completed University of Recombinant 00:00:00 [facility] Pneumococcal 13 2020-01-01 Completed Universit y of Conjugate, PCV13 00:00:00 [facility] dical (Prevnar 13) [place] Zoster Vaccine 2020-01-01 Completed University of Recombinant 00:00:00 [facility] Pneumococcal 13 2020-01-01 Completed Universit y of Conjugate, PCV13 00:00:00 [facility] dical (Prevnar 13) [place] Zoster Vaccine 2020-01-01 Completed University of Recombinant 00:00:00 [facility] Pneumococcal 13 2020-01-01 Completed Universit y of Conjugate, PCV13 00:00:00 [place] Me dical (Prevnar 13) Branch Zoster Vaccine 2020-01-01 Completed University of Recombinant 00:00:00 [facility] Pneumococcal 13 2020-01-01 Completed Universit y of Conjugate, PCV13 00:00:00 [place] Me dical (Prevnar 13) Branch Zoster Vaccine 2020-01-01 Completed University of Recombinant 00:00:00 [facility] Pneumococcal 13 2020-01-01 Completed Universit y of Conjugate, PCV13 00:00:00 [facility] dical (Prevnar 13) [place] Zoster Vaccine 2020-01-01 Completed University of Recombinant 00:00:00 [facility] Pneumococcal 13 2020-01-01 Completed Universit y of Conjugate, PCV13 00:00:00 [facility] dical (Prevnar 13) [place] Zoster Vaccine 2020-01-01 Completed University of Recombinant 00:00:00 [facility] Pneumococcal 13 2020-01-01 Completed Universit y of Conjugate, PCV13 00:00:00 [facility] dical (Prevnar 13) Branch Zoster Vaccine 2020-01-01 Completed University of Recombinant 00:00:00 [facility] Pneumococcal 13 2020-01-01 Completed Universit y of Conjugate, PCV13 00:00:00 [facility] dical (Prevnar 13) Branch Zoster Vaccine 2020-01-01 Completed University of Recombinant 00:00:00 [facility] Pneumococcal 13 2020-01-01 Completed Universit y of Conjugate, PCV13 00:00:00 [facility] dical (Prevnar 13) [place] Zoster Vaccine 2020-01-01 Completed University of Recombinant 00:00:00 [facility] Zoster(Zostavax)( 2020-01-01 Completed Unive rsity of ingles) 00:00:00 [facility] Pneumococcal 13 2020-01-01 Completed Universit y of Conjugate, PCV13 00:00:00 [facility] dical (Prevnar 13) [place] Zoster Vaccine 2020-01-01 Completed University of Recombinant 00:00:00 [facility] Influenza High Dose 2019-08-12 Completed Unive rsity of 00:00:00 [facility] Zoster Vaccine 2019-08-12 Completed University of Recombinant 00:00:00 [facility] Zoster(Zostavax)( 2019-08-12 Completed Unive rsity of ingles) 00:00:00 [facility] Influenza High Dose 2019-08-12 Completed Unive rsity of 00:00:00 [facility] Zoster Vaccine 2019-08-12 Completed University of Recombinant 00:00:00 [facility] Zoster(Zostavax)( 2019-08-12 Completed Unive rsity of ingles) 00:00:00 [facility] Influenza High Dose 2019-08-12 Completed Unive rsity of 00:00:00 [facility] Zoster Vaccine 2019-08-12 Completed University of Recombinant 00:00:00 [facility] Zoster(Zostavax)( 2019-08-12 Completed Unive rsity of ingles) 00:00:00 [facility] Influenza High Dose 2019-08-12 Completed Unive rsity of 00:00:00 [facility] Zoster Vaccine 2019-08-12 Completed University of Recombinant 00:00:00 [facility] Zoster(Zostavax)( 2019-08-12 Completed Unive rsity of ingles) 00:00:00 [facility] Influenza High Dose 2019-08-12 Completed Unive rsity of 00:00:00 [facility] Zoster Vaccine 2019-08-12 Completed University of Recombinant 00:00:00 [facility] Zoster(Zostavax)( 2019-08-12 Completed Unive rsity of ingles) 00:00:00 [facility] Influenza High Dose 2019-08-12 Completed Unive rsity of 00:00:00 [facility] Zoster Vaccine 2019-08-12 Completed University of Recombinant 00:00:00 [facility] Influenza High Dose 2019-08-12 Completed Unive rsity of 00:00:00 [facility] Zoster Vaccine 2019-08-12 Completed University of Recombinant 00:00:00 [facility] Influenza High Dose 2019-08-12 Completed Unive rsity of 00:00:00 [facility] Zoster Vaccine 2019-08-12 Completed University of Recombinant 00:00:00 [facility] Influenza High Dose 2019-08-12 Completed Unive rsity of 00:00:00 [facility] Zoster Vaccine 2019-08-12 Completed University of Recombinant 00:00:00 [facility] Influenza High Dose 2019-08-12 Completed Unive rsity of 00:00:00 [facility] Zoster Vaccine 2019-08-12 Completed University of Recombinant 00:00:00 [facility] Influenza High Dose 2019-08-12 Completed Unive rsity of 00:00:00 [facility] Zoster Vaccine 2019-08-12 Completed University of Recombinant 00:00:00 [facility] Influenza High Dose 2019-08-12 Completed Unive rsity of 00:00:00 [facility] Zoster Vaccine 2019-08-12 Completed University of Recombinant 00:00:00 [facility] Influenza High Dose 2019-08-12 Completed Unive rsity of 00:00:00 [facility] Zoster Vaccine 2019-08-12 Completed University of Recombinant 00:00:00 [facility] Influenza High Dose 2019-08-12 Completed Unive rsity of 00:00:00 [facility] Zoster Vaccine 2019-08-12 Completed University of Recombinant 00:00:00 [facility] Influenza High Dose 2019-08-12 Completed Unive rsity of 00:00:00 [facility] Zoster Vaccine 2019-08-12 Completed University of Recombinant 00:00:00 [facility] Zoster(Zostavax)( 2019-08-12 Completed Unive rsity of ingles) 00:00:00 [facility] Influenza High Dose 2019-08-12 Completed Unive rsity of 00:00:00 [facility] Zoster Vaccine 2019-08-12 Completed University of Recombinant 00:00:00 [facility] Zoster(Zostavax)( 2019-08-12 Completed Unive rsity of ingles) 00:00:00 [facility] Td 2017-10-02 Completed University of 00:00:00 [facility] Tetanus/Diptheria 2017-10-02 Completed Univers ity of 00:00:00 [facility] Td 2017-10-02 Completed University of 00:00:00 [facility] Tetanus/Diptheria 2017-10-02 Completed Univers ity of 00:00:00 [facility] Td 2017-10-02 Completed University of 00:00:00 [facility] Tetanus/Diptheria 2017-10-02 Completed Univers ity of 00:00:00 [facility] Td 2017-10-02 Completed University of 00:00:00 [facility] Branch Tetanus/Diptheria 2017-10-02 Completed Univers ity of 00:00:00 [facility] Td 2017-10-02 Completed University of 00:00:00 [facility] Tetanus/Diptheria 2017-10-02 Completed Univers ity of 00:00:00 [facility] Td 2017-10-02 Completed University of 00:00:00 [facility] Td 2017-10-02 Completed University of 00:00:00 [facility] Td 2017-10-02 Completed University of 00:00:00 [facility] Td 2017-10-02 Completed University of 00:00:00 [facility] Td 2017-10-02 Completed University of 00:00:00 [facility] Td 2017-10-02 Completed University of 00:00:00 [facility] Td 2017-10-02 Completed University of 00:00:00 [facility] Td 2017-10-02 Completed University of 00:00:00 [facility] Td 2017-10-02 Completed University of 00:00:00 [facility] Td 2017-10-02 Completed University of 00:00:00 [facility] Tetanus/Diptheria 2017-10-02 Completed Univers ity of 00:00:00 [facility] Td 2017-10-02 Completed University of 00:00:00 [facility] Tetanus/Diptheria 2017-10-02 Completed Univers ity of 00:00:00 [facility] Vital Signs Vital Name Observation Time Observation Value Comments Source HEIGHT 2021-10-31 03:00:00 152.4 cm WEIGHT 2021-10-31 03:00:00 68.947 kg HEIGHT 2021-10-31 03:00:00 152.4 cm WEIGHT 2021-10-31 03:00:00 68.947 kg HEIGHT 2021-10-31 03:00:00 152.4 cm WEIGHT 2021-10-31 03:00:00 68.947 kg Respiratory rate 2021-06-30 17:27:00 18 /min [facility] Oxygen saturation in 2021-06-30 17:27:00 95 /[facility] Arterial blood by [facility] [facility] Systolic blood 2021-06-30 13:34:00 115 mm[Hg] Univer sity of pressure [facility] Diastolic blood 2021-06-30 13:34:00 63 mm[Hg] Unive rsity of pressure [facility] Heart rate 2021-06-30 13:34:00 64 /min [facility] Body temperature 2021-06-30 13:34:00 36.89 Kaylan [facility] Body weight 2021-06-29 09:57:00 70.988 kg Universi ty [facility] BMI 2021-06-29 09:57:00 30.56 kg/m2 [facility] Body height 2021-06-25 09:50:00 152.4 cm [facility] temperature 2021-06-02 13:00:00 98.5 [degF] Common [facility] bmi 2021-06-02 13:00:00 29.49 kg/m2 [facility] oximetry 2021-06-02 13:00:00 91 % Common [facility] blood pressure 2021-06-02 13:00:00 141 mm[Hg] [facility] blood pressure 2021-06-02 13:00:00 84 mm[Hg] [facility] height 2021-06-02 13:00:00 60 [in_i] [facility] - [facility] weight 2021-06-02 13:00:00 151.0 [lb_av] [facility] Systolic blood 2021-01-11 04:00:00 111 mm[Hg] Univer sity of pressure [facility] Diastolic blood 2021-01-11 04:00:00 66 mm[Hg] Unive rsity of pressure [facility] Heart rate 2021-01-11 04:00:00 66 /min [facility] Respiratory rate 2021-01-11 04:00:00 21 /min Univ ersity of [facility] Oxygen saturation in 2021-01-11 04:00:00 94 /min [facility] blood by [place] [facility] Body temperature 2021-01-11 03:35:00 36.83 Kaylan [facility] Body weight 2021-01-11 03:35:00 74.39 kg [facility] BMI 2021-01-11 03:35:00 32.03 kg/m2 [facility] Systolic blood 2021-01-10 21:07:00 95 mm[Hg] Univer sity of pressure [facility] Diastolic blood 2021-01-10 21:07:00 48 mm[Hg] Unive rsity of pressure [facility] Heart rate 2021-01-10 21:07:00 66 /min [facility] Respiratory rate 2021-01-10 21:07:00 24 /min Univ [facility] Oxygen saturation in 2021-01-10 21:07:00 97 /min [facility] Arterial blood by [place] [facility] Body weight 2021-01-10 15:20:00 74.39 kg [facility] BMI 2021-01-10 15:20:00 32.03 kg/m2 [facility] Body temperature 2021-01-10 15:15:00 36.83 Kaylan [facility] Systolic blood 2020-08-25 21:44:00 140 mm[Hg] Univer sity of pressure [facility] Diastolic blood 2020-08-25 21:44:00 71 mm[Hg] Unive rsity of pressure [facility] Heart rate 2020-08-25 21:44:00 73 /min [facility] Body temperature 2020-08-25 21:44:00 37 Kaylan [facility] Respiratory rate 2020-08-25 21:44:00 18 /min Univ [facility] Oxygen saturation in 2020-08-25 21:44:00 90 /min [facility] Arterial blood by [place] [facility] Body weight 2020-08-25 11:36:00 74.39 kg bedscale [facility] BMI 2020-08-25 11:36:00 32.03 kg/m2 [facility] Body height 2020-08-24 07:04:00 152.4 cm [facility] Systolic blood 2020-02-28 01:30:00 102 mm[Hg] Univer sity of pressure [facility] Diastolic blood 2020-02-28 01:30:00 73 mm[Hg] Unive rsity of pressure [facility] Heart rate 2020-02-28 01:30:00 81 /min [facility] Body temperature 2020-02-28 01:30:00 36.33 Kaylan Univ [facility] Respiratory rate 2020-02-28 01:30:00 22 /min Univ ersity of [facility] Oxygen saturation in 2020-02-28 01:30:00 93 /min [facility] Arterial blood by [place] [facility] gil [facility] Body weight 2020-02-27 09:00:00 70.489 kg [facility] BMI 2020-02-27 09:00:00 30.35 kg/m2 [facility] Body height 2020-02-26 06:19:00 152.4 cm [facility] Systolic blood 2020-02-28 01:30:00 102 mm[Hg] Univer sity of pressure [facility] Diastolic blood 2020-02-28 01:30:00 73 mm[Hg] Unive rsity of pressure [facility] Heart rate 2020-02-28 01:30:00 81 /min Universi ty [facility] Medical [place] Body temperature 2020-02-28 01:30:00 36.33 Kaylan [facility] Respiratory rate 2020-02-28 01:30:00 22 /min [facility] in 2020-02-28 01:30:00 93 /min [facility] blood by [facility] Pulse oximetry Branch Body weight 2020-02-27 09:00:00 70.489 kg Universi ty [facility] BMI 2020-02-27 09:00:00 30.35 kg/m2 Universi ty [facility] Body height 2020-02-26 06:19:00 152.4 cm [facility] Systolic (mm Hg) 2022-04-06 14:19:00 Chris rial [facility] Diastolic (mm Hg) 2022-04-06 14:19:00 Mem [facility] Heart Rate 2022-04-06 14:19:00 [facility] Respitory Rate 2022-04-06 14:19:00 [facility] Height 2022-04-06 14:19:00 152.4 cm [facility] Weight 2022-04-06 14:19:00 [facility] BMI Calculated 2022-04-06 14:19:00 [facility] Systolic (mm Hg) 2022-02-21 19:26:00 Chris [facility] Diastolic (mm Hg) 2022-02-21 19:26:00 [facility] Heart Rate 2022-02-21 19:26:00 [facility] Respitory Rate 2022-02-21 19:26:00 [facility] Height 2022-02-21 19:26:00 152.4 cm [facility] Weight 2022-02-21 19:26:00 [facility] BMI Calculated 2022-02-21 19:26:00 [facility] Systolic (mm Hg) 2021-12-13 14:39:00 Chris rial [facility] Diastolic (mm Hg) 2021-12-13 14:39:00 [facility] Heart Rate 2021-12-13 14:39:00 [facility] Respitory Rate 2021-12-13 14:39:00 [facility] Height 2021-12-13 14:39:00 152.4 cm [facility] Weight 2021-12-13 14:39:00 [facility] BMI Calculated 2021-12-13 14:39:00 [facility] Systolic blood 2021-11-02 16:05:00 117 mm[Hg] [facility] Diastolic blood 2021-11-02 16:05:00 61 mm[Hg] [facility] Heart rate 2021-11-02 16:05:00 64 /min [facility] Body temperature 2021-11-02 16:05:00 35.67 Kaylan [facility] Respiratory rate 2021-11-02 16:05:00 18 /min [facility] Oxygen saturation in 2021-11-02 16:05:00 94 /min [facility] Arterial blood by Medical Ce nter Pulse oximetry Body height 2021-10-31 04:36:00 152.4 cm [facility] Body weight 2021-10-31 04:36:00 68.947 kg [facility] BMI 2021-10-31 04:36:00 29.69 kg/m2 [facility] Systolic (mm Hg) 2021-09-20 19:52:00 Chris rial [facility] Diastolic (mm Hg) 2021-09-20 19:52:00 [facility] Heart Rate 2021-09-20 19:52:00 [facility] Respitory Rate 2021-09-20 19:52:00 [facility] Height 2021-09-20 19:52:00 152.4 cm [facility] Weight 2021-09-20 19:52:00 [facility] BMI Calculated 2021-09-20 19:52:00 [facility] Systolic (mm Hg) 2021-09-06 17:09:00 Chris rial [facility] Diastolic (mm Hg) 2021-09-06 17:09:00 [facility] Heart Rate 2021-09-06 17:09:00 [facility] Height 2021-09-06 17:09:00 152.4 cm [facility] Weight 2021-09-06 17:09:00 [facility] BMI Calculated 2021-09-06 17:09:00 [facility] Systolic (mm Hg) 2021-07-22 21:42:00 Chris [facility] Heart Rate 2021-07-22 21:42:00 [facility] Respitory Rate 2021-07-22 21:42:00 [facility] Height 2021-07-22 21:42:00 152.4 cm [facility] Weight 2021-07-22 21:42:00 [facility] BMI Calculated 2021-07-22 21:42:00 [facility] Height 2018-11-21 18:51:00 152.4 cm [facility] BMI Calculated 2018-11-21 18:51:00 [facility] Weight 2018-11-21 18:51:00 [facility] Respitory Rate 2018-11-21 18:51:00 [facility] Heart Rate 2018-11-21 18:51:00 [facility] Systolic (mm Hg) 2018-11-21 18:51:00 Chris rial [facility] Diastolic (mm Hg) 2018-11-21 18:51:00 Mem [facility] Weight 2015-04-14 18:15:00 [facility] Heart Rate 2015-04-14 18:15:00 [facility] Diastolic (mm Hg) 2015-04-14 18:15:00 Mem [facility] Systolic (mm Hg) 2015-04-14 18:15:00 Chris [facility] Weight 2015-03-11 19:00:00 [facility] Heart Rate 2015-03-11 19:00:00 [facility] Diastolic (mm Hg) 2015-03-11 19:00:00 Mem [facility] Systolic (mm Hg) 2015-03-11 19:00:00 [facility] Weight 2015-02-23 17:15:00 [facility] Heart Rate 2015-02-23 17:15:00 [facility] Diastolic (mm Hg) 2015-02-23 17:15:00 [facility] Systolic (mm Hg) 2015-02-23 17:15:00 Chris rial [facility] Procedures Procedure Date / Time Performing Clinician Source Performed SLEEP STUDY DATA REPORT 2022-03-04 05:01:00 Doctor Unassigned, N o [facility] POCT-GLUCOSE METER 2021-11-02 17:02:00 [facility] 2021-11-02 12:04:00 [facility] 2021-11-02 08:08:00 [facility]SE [facility] 2021-11-01 20:57:00 [facility] PO[facility]SE METER 2021-11-01 17:45:00 [facility] PO[facility]SE METER 2021-11-01 14:25:00 [facility] POCT-[facility]UCOSE METER 2021-11-01 08:37:00 [facility] MUSK AND LRP4 AB PANEL 2021-11-01 08:21:00 De La Cruz [facility] ACETYLCHOLINE BINDING 2021-11-01 08:21:00 Jono [facility] ACETYLCHOLINE BLOCKING 2021-11-01 08:21:00 Jono [facility] BASIC METABOLIC PANEL (7) 2021-11-01 04:49:00 Cornelius Weisbro[facility] BASIC METABOLIC PANEL 2021-11-01 04:49:00 Cornelius Weisbrod [facility] HEPATIC FUNCTION PANEL 2021-11-01 04:49:00 Alexandre Shields [facility] HEPATIC FUNCTION PANEL 2021-11-01 04:49:00 Alexandre Shields [facility] HEMOGLOBIN A1C 2021-11-01 04:49:00 [facility] HEMOGLOBIN A1C 2021-11-01 04:49:00 [facility] PROTHROMBIN TIME/INR 2021-11-01 04:49[facility]00 [facility] 2021-11-01 04:49:00 Alexandre Shields [facility] LIPID PANEL 2021-11-01 04:49:00 Alexandre Shields [facility] LIPID PANEL 2021-11-01 04:49:00 Alexandre Shields [facility] MAGNESIUM 2021-11-01 04:49:00 Alexandre Shields [facility] MAGNESIUM 2021-11-01 04:49:00 Alexandre Shields [facility] PHOSPHORUS 2021-11-01 04:49:00 Alexandre Shields [facility] PHOSPHORUS 2021-11-01 04:49:00 Alexandre Shields [facility] CBC W/PLT COUNT & AUTO 2021-11-01 04:49:00 Alexandre Shields [facility] CBC W/PLT COUNT & AUTO 2021-11-01 04:49:00 Alexandre Shields [facility] CBC W/PLT COUNT & AUTO 2021-11-01 04:49:00 Alexandre Shields [facility] CBC W/PLT COUNT & AUTO 2021-11-01 04:49:00 Alexandre Shields [facility] POCT-GLUCOSE METER 2021-10-31 21:10:00 Kassie Coyne [facility] POCT-GLUCOSE METER 2021-10-31 21:10:00 Kassie Coyne [facility] POCT-GLUCOSE METER 2021-10-31 17:46:00 Kassie Coyne [facility] POCT-GLUCOSE METER 2021-10-31 17:46:00 Kassie Coyne [facility] POCT-GLUCOSE METER 2021-10-31 11:36:00 Alexandre Shields [facility] POCT-GLUCOSE METER 2021-10-31 11:36:00 Alexandre Shields [facility] MR BRAIN WITHOUT IV 2021-10-31 11:00:00 Cornelius [facility] MR BRAIN WITHOUT IV 2021-10-31 11:00:00 Cornelius [facility] POCT-GLUCOSE METER 2021-10-31 08:21:[facility] PO[facility]SE METER 2021-10-31 08:21:00 Cornelius Weisbrod [facility] HIGH SENSITIVITY TROPONIN 2021-10-31 07:58:00 [facility] HIGH SENSITIVITY TROPONIN 2021-10-31 07:58:00 [facility] URINALYSIS W/ MICROSCOPIC 2021-10-31 07:58:00 [facility] URINALYSIS W/ MICROSCOPIC 2021-10-31 07:58:00 [facility] LITH[facility] L[facility] 2021-10-31 05:37:00 [facility] LITHIUM LEVEL 2021-10-31 05:37:00 [facility] HIGH SENSITIVITY TROPONIN 2021-10-31 05:08:00 [facility] HIGH SENSITIVITY TROPONIN 2021-10-31 05:08:00 [facility]IT[facility] FOLATE 2021-10-31 05:08[facility] B12 [facility] FOLATE 2021-10-31 05:08:00 [facility] C-REACTIVE PROTEIN 2021-10-31 05:08:00 [facility] C-REACTIVE PROTEIN 2021-10-31 05:08:00 [facility] TSH/FREE T4 IF INDICATED 2021-10-31 05:08:00 [facility] TSH/FREE T4 IF INDICATED 2021-10-31 05:08:00 Alexandre Shields [facility] RPR 2021-10-31 05:08:00 [facility] RPR 2021-10-31 05:08:00 [facility] EKG-SCANNED 2021-10-31 00:00:00 Provider, Default [facility] EKG-SCANNED 2021-10-31 00:00:00 Provider, Default [facility] XR SHOULDER 2+ VW RIGHT 2021-08-05 18:16:41 Boaz Ackerman [facility] ersity [facility] POCT GLUCOSE (AUTOMATED) 2021-06-30 13:37:00 Phillip Dobson Un iversity of [facility] POCT GLUCOSE (AUTOMATED) 2021-06-30 01:48:00 Phillip Dobson Un iversity of [facility] POCT GLUCOSE (AUTOMATED) 2021-06-29 22:47:00 Phillip Dobson Un iversity of [facility] POCT GLUCOSE (AUTOMATED) 2021-06-29 17:31:00 Phillip Dobson Un iversity of [facility] POCT GLUCOSE (AUTOMATED) 2021-06-29 13:54:00 Phillip Dobson Un iversity of [facility] BASIC METABOLIC PANEL 2021-06-29 09:50:00 Pao Machado [facility] (NA, K, CL, CO2, GLUCOSE, Medica l Branch BUN, CREATININE, CA) CBC WITH DIFF 2021-06-29 09:50:00 [facility]o [facility] POCT GLUCOSE (AUTOMATED) 2021-06-29 02:57:00 Phillip Dobson Un iversity of [facility] Branch LITHIUM 2021-06-29 00:46:00 [facility]o [facility] POCT GLUCOSE (AUTOMATED) 2021-06-28 23:02:00 Phillip Dobson Un iversity of [facility] POCT GLUCOSE (AUTOMATED) 2021-06-28 19:27:00 Phillip Dobson Un iversity of [facility] POCT GLUCOSE (AUTOMATED) 2021-06-28 17:54:00 Olya Phillip Hector Un iversity of [facility] POCT GLUCOSE (AUTOMATED) 2021-06-28 13:54:00 Suzicole Phillip Hector Un iversity of [facility] POCT GLUCOSE (AUTOMATED) 2021-06-28 02:59:00 Phillip Dobson Un iversity of [facility] POCT GLUCOSE (AUTOMATED) 2021-06-27 23:08:00 Suzicole Phillip Hector Un iversity of [facility] POCT GLUCOSE (AUTOMATED) 2021-06-27 17:48:00 Phillip Dobson Un iversity of [facility] POCT GLUCOSE (AUTOMATED) 2021-06-27 13:42:00 Olya Phillip Hector Un iversity of [facility] CBC WITH DIFF 2021-06-27 10:31:00 [facility] BASIC METABOLIC PANEL 2021-06-27 10:30:00 Pao Machado [facility] (NA, K, CL, CO2, GLUCOSE, Medica l Branch BUN, CREATININE, CA) LITHIUM 2021-06-27 10:30:00 [facility]o [facility] POCT GLUCOSE (AUTOMATED) 2021-06-27 04:10:00 Olya Phillip Young Un iversity of [facility] POCT GLUCOSE (AUTOMATED) 2021-06-26 23:15:00 Phillip Dobson Un iversity of [facility] POCT GLUCOSE (AUTOMATED) 2021-06-26 17:57:00 Phillip Dobson Un iversity of [facility] POCT GLUCOSE (AUTOMATED) 2021-06-26 14:15:00 Phillip Dobson Un iversity of [facility] MAGNESIUM 2021-06-26 10:57:00 [facility] BASIC METABOLIC PANEL 2021-06-26 10:57:00 Pao Machado [facility] (NA, K, CL, CO2, GLUCOSE, Medica l Branch BUN, CREATININE, CA) LITHIUM 2021-06-26 10:57:00 Ivan[facility] CBC WITH DIFF 2021-06-26 10:57:00 [facility] POCT GLUCOSE (AUTOMATED) 2021-06-26 03:42:00 [facility]) 2021-06-25 23:28:00 [facility] GLYCOSYLATED HEMOGLOBIN 2021-06-25 18:33:00 [facility] (A1C) [facility] POCT GLUCOSE (AUTOMATED) 2021-06-25 17:50:00 [facility]MON[facility] 2021-06-25 12:05:29 Phillip Dobson [facility] ANGIOGRAM [facility] CT HEAD WO CONTRAST 2021-06-25 12:04:25 Phillip Dobson [facility] XR CHEST 1 VW 2021-06-25 10:11:48 Phillip Dobson [facility] ACUTE CARE ARTERIAL BLOOD 2021-06-25 10:02:00 [facility] G[facility] LIPASE 2021-06-25 09:52:00 Phillip Dobson [facility] TROPONIN I 2021-06-25 09:52:00 Phillip Dobson [facility] THYROID STIMULATING 2021-06-25 09:52:00 Phillip Dobson [facility] HORMONE [facility] COMP. METABOLIC PANEL 2021-06-25 09:52:00 Phillip Dobson [facility] ([id number]) [facility] LITHIUM 2021-06-25 09:52:00 Phillip Dobson [facility] VALPROIC ACID, FREE 2021-06-25 09:52:00 Phillip Dobson [facility] CBC WITH DIFF 2021-06-25 09:52:00 Phillip Dobson [facility] N-TERMINAL PRO-BNP 2021-06-25 09:52:00 Phillip Dobson [facility] COVID-19 (ID NOW RAPID 2021-06-25 09:52:00 Phillip Dobson [facility] TESTING) Medical Branch LAB ONLY COVID 2021-06-25 09:52:00 Phillip Dobson [facility] INTERPRETATION [facility] HB ECG ROUTINE & RHYTHM 2021-06-25 09:38:10 Phillip Dobson [facility] STRIP [facility] CONSENT/REFUSAL FOR 2021-06-25 09:30:41 Doctor Unassigned, [facility] Name [facility] CONSENT/REFUSAL FOR 2021-01-11 03:23:18 Doctor Unassigned, No [facility]AT[facility] Name [facility] CT ABDOMEN PELVIS W 2021-01-10 17:52:47 Micha Sharron [facility] CONTRAST [facility] CT HEAD WO CONTRAST 2021-01-10 16:46:02 Micha Sharrno [facility] XR CHEST 1 VW 2021-01-10 16:40:02 Micha [facility] BLOOD CULTURE SCREEN 2021-01-10 15:57:00 Sharron Muse [facility] URINALYSIS 2021-01-10 15:54:00 Micha [facility] COVID-[facility] (ID NOW RAPID 2021-01-10 15:50:00 Sharron Muse [facility] TESTING) Medical Branch BLOOD CULTURE SCREEN 2021-01-10 15:49:00 Sharron Muse [facility] LIPASE 2021-01-10 15:49:00 [facility] TROPONIN I 2021-01-10 15:49:00 Micha [facility] HEPATIC FUNCTION PANEL 2021-01-10 15:49:00 Sharron Muse [facility] ([id number]) (ALB,T.PRO,BILI Medical Branch T,BU/BC,ALT,AST,ALK PHOS) BASIC METABOLIC PANEL 2021-01-10 15:49:00 Sharron Muse [facility] (NA, K, CL, CO2, GLUCOSE, Medica l Branch BUN, CREATININE, CA) CBC WITH DIFF 2021-01-10 15:49:00 [facility] PROTHROMBIN TIME / INR 2021-01-10 15:49:00 Sharron Muse [facility] ACTIVATED PARTIAL 2021-01-10 15:49:[address] [facility] N-TERMINAL PRO-BNP 2021-01-10 15:49:00 Sharron Muse [facility] LACTIC ACID WHOLE BLOOD 2021-01-10 15:48:00 Sharron Muse [facility] CONSENT/REFUSAL FOR 2021-01-10 15:07:15 Doctor Unassigned, No Un [facility] DIAGNOSIS AND TREATMENT Name Medical Branch ACTIVATED PARTIAL 2020-08-25 17:37:00 Alicja [facility] ECHO ROUTINE W/DOPPLER 2020-08-25 16:02:28 [facility] 2020-08-25 11:31:00 [facility] BASIC METABOLIC PANEL 2020-08-25 11:31:00 Alicja [facility] (NA, K, CL, CO2, GLUCOSE, Medica l Branch BUN, CREATININE, CA) VALPROIC ACID, FREE 2020-08-25 11:31:00 Alicja [facility] CBC WITH DIFF 2020-08-25 11:31:00 Alicja [facility] ACTIVATED PARTIAL 2020-08-25 04:49:00 Alicja [facility] ACTIVATED PARTIAL 2020-08-24 21:33:[address] [facility] ACTIVATED PARTIAL 2020-08-24 12:55:00 Alicja [facility] CT CHEST PULMONARY 2020-08-24 09:48:08 Alicja [facility] ANGIOGRAM [facility] CT HEAD WO CONTRAST 2020-08-24 09:46:17 Alicja [facility] CRITICAL CARE 2020-08-24 05:26:20 [facility] XR CHEST 1 VW 2020-08-24 04:24:36 [facility] LIPASE 2020-08-24 04:11:00 [facility] TROPONIN I 2020-08-24 04:11:00 [facility] HEPATIC FUNCTION PANEL 2020-08-24 04:11:00 Sharron Muse [facility] ([id number]) (ALB,T.PRO,BILI Medical Branch T,BU/BC,ALT,AST,ALK PHOS) BASIC METABOLIC PANEL 2020-08-24 04:11:00 Sharron Muse [facility] (NA, K, CL, CO2, GLUCOSE, Medica l Branch BUN, CREATININE, CA) LIPID PANEL ([id number])(TOTAL 2020-08-24 04:11:00 Tye Helm [facility] CHOLESTEROL, Medical [place] TRIGLYCERIDES, HDL) CBC WITH DIFF 2020-08-24 04:11:00 [facility] PROTHROMBIN TIME / INR 2020-08-24 04:11:00 Sharron Muse [facility] ACTIVATED PARTIAL 2020-08-24 04:11:00 Micha [facility] THRMPLAS [facility] N-TERMINAL PRO-BNP 2020-08-24 04:11:00 Sharron Muse [facility] COVID-19 (ID NOW RAPID 2020-08-24 04:11:00 Sharron Muse [facility] TESTING) Medical Branch LAB ONLY COVID 2020-08-24 04:11:00 Sharron Muse [facility] INTERPRETATION [facility] HB ECG ROUTINE & RHYTHM 2020-08-24 04:05:40 Sharron Muse [facility] NOTICE OF PRIVACY 2020-08-24 03:37:43 Doctor Unassigned, No [facility] CONSENT/REFUSAL FOR 2020-08-24 03:37:26 [facility]REAT[facility] Name [facility] HOSPITAL ADMISSION 2020-08-23 06:01:00 Doctor Unassigned, No [facility] URINALYSIS 2020-03-08 20:53:00 [facility] CBC WITH DIFF 2020-03-08 20:30:00 [facility]az [facility] XR CHEST 2 VW 2020-03-08 20:14:25 [facility] ASSIGNMENT OF BENEFITS 2020-03-08 19:52:19 Doctor Unassigned, No [facility] Name Medical Branch MAGNESIUM 2020-02-27 10:25:00 [facility] TROPONIN I 2020-02-27 10:25:00 [facility] COMP. METABOLIC PANEL 2020-02-27 10:25[facility]00 [id number] CBC WITH DIFF 2020-02-27 10:25:00 [facility] N-TERMINAL PRO-BNP 2020-02-27 10:25:00 Heike Evans [facility] ACUTE CARE VENOUS BLOOD 2020-02-27 10:20:00 Heike Evans [facility] GAS [facility] URINALYSIS 2020-02-26 15:55:00 [facility] URINE CULTURE 2020-02-26 15:55:00 [facility] SODIUM, URINE RANDOM 2020-02-26 15:55:00 Heike Evans [facility] ADC / LCC - DRUG SCREEN 2020-02-26 15:55:00 Heike Evans [facility] TRIAGE [facility] PROTEIN CREAT RATIO URINE 2020-02-26 15:55:00 [facility]OUT[facility] W/DOPPLER 2020-02-26 13:42:41 [facility] VITAMIN B12, LEVEL 2020-02-26 13:32:00 Heike Evans [facility] FOLATE 2020-02-26 13:32:00 [facility] PROTHROMBIN TIME / INR 2020-02-26 13:32:00 Cristina, Adnan [facility] D-DIMER 2020-02-26 13:32:[address] [facility] ACTIVATED PARTIAL 2020-02-26 13:32:00 Cristina [facility] THRMPLAS JENNA [facility] VITAMIN D, 25-OH 2020-02-26 13:32:00 Cristina [facility] PROCALCITONIN 2020-02-26 13:32:[address] [facility] LACTATE DEHYDROGENASE 2020-02-26 13:31:00 Cristina josefa [facility] TROPONIN I 2020-02-26 13:31:[address] [facility] POCT GLUCOSE (AUTOMATED) 2020-02-26 12:33:00 Heike Evans [facility] COVID-19 (PCR MOLECULAR 2020-02-26 09:16:00 Phillip Dobson [facility] TESTING) [facility] Branch CT CHEST PULMONARY 2020-02-26 08:21:09 Nelida Lynch [facility] ANGIOGRAM Medical Branch XR CHEST 1 VW 2020-02-26 06:50:57 Nelida yLnch [facility] PHOSPHORUS 2020-02-26 06:45:[address] [facility] URIC ACID 2020-02-26 06:45:[address] [facility] LIPASE 2020-02-26 06:45:00 Nelida Lynch [facility] MAGNESIUM 2020-02-26 06:45:[address] [facility] FERRITIN SERUM 2020-02-26 06:45:[address] [facility] TROPONIN I 2020-02-26 06:45:00 Nelida Lynch [facility] THYROID STIMULATING 2020-02-26 06:45:00 Nelida Lynch [facility] HORMONE [facility] Branch HEPATIC FUNCTION PANEL 2020-02-26 06:45:00 Nelida Lynch [facility] ([id number]) (ALB,T.PRO,BILI Medical Branch T,BU/BC,ALT,AST,ALK PHOS) BASIC METABOLIC PANEL 2020-02-26 06:45:00 Nelida Lynch [facility] (NA, K, CL, CO2, GLUCOSE, Medica l Branch BUN, CREATININE, CA) LIPID PANEL ([id number])(TOTAL 2020-02-26 06:45:00 [facility] CHOLESTEROL, [facility] TRIGLYCERIDES, HDL) SEDIMENTATION RATE 2020-02-26 06:45:00 Heike Evans [facility] CBC WITH DIFF 2020-02-26 06:45:00 Nelida Lynch [facility] GLYCOSYLATED HEMOGLOBIN 2020-02-26 06:45:00 Heike Evans [facility] (A1C) [facility] N-TERMINAL PRO-BNP 2020-02-26 06:45:00 Nelida Lynch [facility] COVID-19 (ID NOW RAPID 2020-02-26 06:45:00 Nelida Lynch [facility] TESTING) Medical Branch EKG-12 LEAD 2020-02-26 06:37:08 Nelida Lynch [facility] EKG-12 LEAD 2020-02-26 06:33:25 Phillip Dobson [facility] NOTICE OF PRIVACY 2020-02-26 06:09:15 Doctor Unassigned, No [facility] PRACTICES Name Medical Branch CONSENT/REFUSAL FOR 2020-02-26 06:08:44 Doctor Unassigned, [facility] DIAGNOSIS AND TREATMENT Name Medical Branch Placement of stent [facility] Plan of Care Planned Activity Planned Date Details Comments Source Future Scheduled 2022-05-11 HEPATITIS B VACCINES Met [facility] Test 12:20:49 (1 of 3 - 3-dose series) [code = HEPATITIS B VACCINES (1 of 3 - 3-dose series)] Future Scheduled 2022-05-11 COVID-19 VACCINE (#1) [facility] Test 12:20:49 [code = COVID-19 VACCINE (#1)] Future Scheduled 2022-05-11 Hepatitis C screening [facility] Test 12:20:49 (procedure) [code = 924884798] Future Scheduled 2022-05-11 COLONOSCOPY SCREENING [facility] Test 12:20:49 [code = COLONOSCOPY SCREENING] Future Scheduled 2022-05-11 65+ [facility]AL [facility] 12:20:49 VACCINE (2 - PPSV23 if available, else PCV20) [code = 65+ PNEUMOCOCCAL VACCINE (2 - PPSV23 if available, else PCV20)] Future Scheduled 2022-05-11 INFLUENZA VACCINE [facility] Test 12:20:49 [code = INFLUENZA VACCINE] Future Scheduled 2022-03-16 HEPATITIS B VACCINES Met [facility] Test 03:52:42 (1 of 3 - 3-dose series) [code = HEPATITIS B VACCINES (1 of 3 - 3-dose series)] Future Scheduled 2022-03-16 COVID-19 VACCINE (#1) [facility] Test 03:52:42 [code = COVID-19 VACCINE (#1)] Future Scheduled 2022-03-16 Hepatitis C screening [facility] Test 03:52:42 (procedure) [code = 774596913] Future Scheduled 2022-03-16 COLONOSCOPY SCREENING [facility] Test 03:52:42 [code = COLONOSCOPY SCREENING] Future Scheduled 2022-03-16 65+ [facility]OCOCCAL [facility] Test 03:52:42 VACCINE (2 - PPSV23 or PCV20) [code = 65+ PNEUMOCOCCAL VACCINE (2 - PPSV23 or PCV20)] Future Scheduled 2022-03-16 INFLUENZA VACCINE Method [facility] Test 03:52:42 [code = INFLUENZA VACCINE] Future Scheduled 2022-03-16 INFLUENZA VACCINE (#1) [facility] 00:[facility]00 [code = INFLUENZA Medical Ce nter VACCINE (#1)] Future Scheduled 2022-03-16 INFLUENZA VACCINE (#1) [facility] Test 00:00:00 [code = INFLUENZA Medical Ce nter VACCINE (#1)] Future Scheduled 2022-03-16 INFLUENZA VACCINE (#1) [facility] Test 00:00:00 [code = INFLUENZA Medical Ce nter VACCINE (#1)] Future Scheduled 2022-03-10 HEPATITIS B VACCINES Met [facility] Test 01:03:34 (1 of 3 - 3-dose series) [code = HEPATITIS B VACCINES (1 of 3 - 3-dose series)] Future Scheduled 2022-03-10 COVID-19 VACCINE (#1) [facility] Test 01:03:34 [code = COVID-19 VACCINE (#1)] Future Scheduled 2022-03-10 Hepatitis C screening Me [facility] Test 01:03:34 (procedure) [code = 122838269] Future Scheduled 2022-03-10 BREAST CANCER [facility] Test 01:03:34 SCREENING [code = BREAST CANCER SCREENING] Future Scheduled 2022-03-10 COLONOSCOPY SCREENING [facility] Test 01:03:34 [code = COLONOSCOPY SCREENING] Future Scheduled 2022-03-10 65+ [facility] Test 01:03:34 VACCINE (2 - PPSV23 or PCV20) [code = 65+ PNEUMOCOCCAL VACCINE (2 - PPSV23 or PCV20)] Future Scheduled 2022-03-10 INFLUENZA VACCINE [facility] Test 01:03:34 [code = INFLUENZA VACCINE] Future Scheduled 2021-11-[address] [facility] 00[facility] measurement Medical Center (procedure) [code = 76127718] Future Scheduled 2021-11-[address] [facility] Test 00[facility]00 measurement Medical Center (procedure) [code = 29074199] Future Scheduled 2021-11-[address] [facility] Test 00:00:00 measurement Medical Center (procedure) [code = 31572561] Future Scheduled 2021-07-16 FALLS RISK SCREENING [facility] Test 00:00:00 [code = FALLS RISK Medical C enter SCREENING] Future Scheduled 2021-07-16 Medicare IPPE (WELCOME [facility] Test 00:00:00 TO MEDICARE) [code = Medical Center Medicare IPPE (WELCOME TO MEDICARE)] Future Scheduled 2021-07-16 FALLS RISK SCREENING [facility] Test 00:00:00 [code = FALLS RISK Medical C enter SCREENING] Future Scheduled 2021-07-16 Medicare IPPE (WELCOME [facility] Test 00:00:00 TO MEDICARE) [code = Medical Center Medicare IPPE (WELCOME TO MEDICARE)] Future Scheduled 2021-07-16 FALLS RISK SCREENING [facility] Test 00:00:00 [code = FALLS RISK Medical C enter SCREENING] Future Scheduled 2021-07-16 Medicare IPPE (WELCOME [facility] Test 00:00:00 TO MEDICARE) [code = Medical Center Medicare IPPE (WELCOME TO MEDICARE)] Future Scheduled 1996 SHINGLES VACCINES ([address] [facility] Test 00:00:00 of 2) [code = SHINGLES Medic al Center VACCINES (1 of 2)] Future Scheduled 1996 SHINGLES VACCINES ([address] [facility] Test 00:00:00 of 2) [code = SHINGLES Medic al Center VACCINES (1 of 2)] Future Scheduled 1996 SHINGLES VACCINES ([address] [facility] Test 00:00:00 of 2) [code = SHINGLES Medic al Center VACCINES (1 of 2)] Future Scheduled 1965 DTAP/TDAP/TD [facility]ACCINES [facility] Test 00:00:00 (1 - Tdap) [code = Medical C enter DTAP/TDAP/TD VACCINES (1 - Tdap)] Future Scheduled 1965 DTAP/TDAP/TD [facility]ACCINES [facility] Test 00:00:00 (1 - Tdap) [code = Medical C enter DTAP/TDAP/TD VACCINES (1 - Tdap)] Future Scheduled 1965 DTAP/TDAP/TD VACCINES [facility] Test 00:00:00 (1 - Tdap) [code = Medical C enter DTAP/TDAP/TD VACCINES (1 - Tdap)] Future Scheduled 1964 HEPATITIS C [facility]CRE[facility] 00:00:00 [code = HEPATITIS C Medical Center SCREENING] Future Scheduled 1964 HEPATITIS C [facility] 00:00:00 [code = HEPATITIS C Medical Center SCREENING] Future Scheduled 1964 HEPATITIS C [facility] 00:00:00 [code = HEPATITIS C Medical Center SCREENING] Future Scheduled [address] DIABET[address] EYE EXAM [facility] Test 00:00:00 [code = DIABETIC EYE Medical Center EXAM] Future Scheduled [address] [facility] Test 00:[facility]:00 examination Medical Center (regime/therapy) [code = 837195744] Future Scheduled 1956 Urine screening for [facility] Test 00:00:00 protein (procedure) Medical Center [code = 026776707] Future Scheduled [address] EYE EXAM [facility] Test 00:00:00 [code = DIABETIC EYE Medical Center EXAM] Future Scheduled [address] [facility] Test 00:00:00 examination Medical Center (regime/therapy) [code = 435689242] Future Scheduled 1956 Urine screening for [facility] Test 00:00:00 protein (procedure) Medical Center [code = 734289001] Future Scheduled [address] DIABET[address] EYE EXAM [facility] Test 00:00:00 [code = DIABETIC EYE Medical Center EXAM] Future Scheduled [address] [facility] Test 00:00:00 examination Medical Center (regime/therapy) [code = 235136829] Future Scheduled 1956 Urine screening for [facility] Test 00:00:00 protein (procedure) Medical Center [code = 252134946] Future Scheduled 1952 PNEUMOCOCCAL 65+ [facility] Test 00:00:00 (1 - PCV) [code = Medical Ce nter PNEUMOCOCCAL 65+ YRS (1 - PCV)] Future Scheduled 1952 PNEUMOCOCCAL 65+ Y[facility] Test 00:00:00 (1 - PCV) [code = Medical Ce nter PNEUMOCOCCAL 65+ YRS (1 - PCV)] Future Scheduled 1952 PNEUMOCOCCAL 65+ Y[facility] Test 00:00:00 (1 - PCV) [code = Medical Ce nter PNEUMOCOCCAL 65+ YRS (1 - PCV)] Future Scheduled 1946 COVID-19 VACCINE (#1[facility] 00:00:00 [code = COVID-[address] VACCINE (#1)] Future Scheduled 1946 COVID-19 VACCINE (#1) [facility] 00:00:00 [code = COVID-[address] VACCINE (#1)] Future Scheduled 1946 COVID-19 VACCINE (#1[facility] 00:00:00 [code = COVID-[address] VACCINE (#1)] Future Scheduled [address] [facility] Test 00:00:00 (combo) [code = CT Medical C enter Colonography (combo)] Future Scheduled [address] [facility] [facility] Test 00:00:00 malignant neoplasm of Medica l Center colon (procedure) [code = 082151407] Future Scheduled 1946 DXA SCAN [code = DXA [facility] Test 00:00:00 SCAN] [facility] Future Scheduled [address] [facility] Test 00:00:00 malignant neoplasm of Medica l Center colon (procedure) [code = 537062204] Future Scheduled 1946 DXA SCAN [code = DXA [facility] Test 00:00:00 SCAN] [facility] Future Scheduled [address] [facility] Test 00:00:00 malignant neoplasm of Medica l Center colon (procedure) [code = 179639146] Future Scheduled [address] [facility] Test 00:00:00 malignant neoplasm of Medica l Center colon (procedure) [code = 573858180] Future Scheduled 1946 Sigmoidoscopy [facility]code [facility] S[facility]oidoscopy] [facility] Future Scheduled [address] [facility] Test 00:00:00 (combo) [code = CT Medical C enter Colonography (combo)] Future Scheduled [address] [facility] Test 00:00:00 malignant neoplasm of Medica l Center colon (procedure) [code = 285423056] Future Scheduled [address] [facility] Test 00:00:00 malignant neoplasm of Medica l Center colon (procedure) [code = 898066336] Future Scheduled 1946 DXA SCAN [code = DXA [facility] Test 00:00:00 SCAN] [facility] Future Scheduled [address] [facility] Test 00:00:00 malignant neoplasm of Medica l Center colon (procedure) [code = 564648613] Future Scheduled [address] [facility] Test 00:00:00 malignant neoplasm of Medica l Center colon (procedure) [code = 012766150] Future Scheduled 1946 Sigmoidoscopy [facility]code [facility] S[facility]oscopy] [facility] Encounters Start End Encounter Admission Attending Care Care Encounter Source Date/Time Date/Time Type Type Clinicians Facility Department ID 2021-08-10 [facility] [id number] Common 14:15:17 BOAZ [id number] [facility] 2021-05-16 Emergency [facility] [id number] Univers 04:29:43 ity [facility] 2021-05-16 Emergency [facility] [id number] Univers 04:16:10 ity [facility] 2021-05-13 Emergency [facility] [id number] Univers 12:12:27 [facility] 2020-08-23 Inpatient X ALICJA [facility] ANTHONY [id number] Univers 21:53:00 TYE [facility] 2022-08-08 2022-08-08 Outpatient MHIE RADHA [id number] Memoria 09:00:00 09:00:00 15 fausto Francois 2022-05-08 2022-05-08 Outpatient R NAE DARDENAKFausto [facility] [id number] Univers 20:00:00 20:00:00 HALLIE DARDEN [facility] 2022-05-08 2022-05-08 Outpatient R JORGE HOLLAND [facility] [id number] Univers 10:00:00 10:00:00 JORGE HOLLAND i [facility] 2022-05-05 2022-05-05 Outpatient R [facility] [id number] Univers 08:15:00 08:15:00 [facility] 2022-04-06 2022-04-07 Outpatient nullFlavo MNA [id number] Memoria 14:15:00 04:59:59 r Neurology 14 fausto Francois 2022-04-06 2022-04-06 Outpatient TERRY QuanMISCHER MHMISCHER [id number] 09:15:00 23:59:59 Darian 14 Carlos 2022-04-06 2022-04-06 Outpatient MHIE RADHA [id number] Memoria 09:15:00 09:15:00 14 fausto Francois 2022-04-06 2022-04-06 Outpatient MHIE RADHA [id number] Memoria 09:15:00 09:15:00 14 fausto Francois 2022-03-04 2022-03-04 Flanging Roll Operator 1, [facility] Sleep Lab Bed [facility] 1. 2.840.114 [id number] Univers 20:00:00 22:30:00 Visit Danette Dardenfausto [employer] 350.1.13. 10 ity of [place] 4.2.7.2.686 [facility] [id number] [facility] [address] 2022-03-04 2022-03-04 Outpatient R DANETTE DARDENL [facility] [id number] Univers 20:00:00 20:00:00 DANETTE DARDENL ity [facility] 2022-03-04 2022-03-04 Orders Doctor LB 1.2.840.114 [id number] Univers 00:00:00 00:00:00 Only Unassigned, MEGAN 350.1.13.10 [facility] 4.2.7.2.686 [place] [id number] [facility] [address] 2022-03-03 2022-03-03 Laboratory Only, [facility] Test [facility] 1.2.840. 114 [id number] Univers 09:15:00 09:30:00 Only EleazarhannahmalenaNaeanali Busby JULIONAVYA 350.1.13. 10 ity of [place] 4.2.7.2.686 [facility] [id number] [facility] [address] 2022-03-03 2022-03-03 Outpatient R DANETTE DARDENL [facility] [id number] Univers 09:15:00 09:15:00 NAE DARDENHIL ity of [facility] 2022-02-21 2022-02-22 Outpatient nullFlavo MNA [id number] Memoria 19:15:00 04:59:59 r Neurology 13 l Yumiko Bowserann 2022-02-21 2022-02-22 Outpatient nullFlavo MNA [id number] Memoria 19:15:00 04:59:59 r Neurology 13 l [place] 2022-02-21 2022-02-21 Outpatient CHRISTIANO Quan [facility] [id number] 14:15:00 23:59:59 Darian Gonzalez 2022-02-21 2022-02-21 Outpatient MHIE MHIE [id number] Memoria 14:15:00 14:15:00 13 fausto Francois 2022-02-09 2022-02-09 Ambulatory nullFlavo MNA [id number] Memoria 19:00:00 19:00:00 Pre-Reg r Neurology 12 l Yumiko Francois 2022-02-09 2022-02-09 Ambulatory nullFlavo MNA [id number] Memoria 19:00:00 19:00:00 Pre-Reg r Neurology 12 l Yumiko Francois 2022-02-09 2022-02-09 Outpatient MHIE MHIE [id number] Memoria 14:00:00 14:00:00 12 fausto Francois 2022-02-09 2022-02-09 [facility] [id number] 14:00:00 14:00:00 Darian 12 Carlos 2022-01-25 2022-01-25 Outpatient MHIE MHIE [id number] Memoria 11:45:00 11:45:00 11 fausto Francois 2022-01-25 2022-01-25 Outpatient MHIE MHIE [id number] Memoria 11:45:00 11:45:00 11 fausto [place] 2022-01-04 2022-01-04 Ambulatory nullFlavo MNA [id number] Memoria 20:15:00 20:15:00 Pre-Reg r Neurology 11 l Yumiko Francois 2022-01-04 2022-01-04 [facility]patient [facility] [id number] 15:15:00 15:15:00 Darian 11 Carlos 2021-12-13 2021-12-14 Outpatient nullFlavo MNA [id number] Memoria 14:30:00 04:59:59 r Neurology 10 fausto Francois 2021-12-13 2021-12-14 Outpatient nullFlavo MNA [id number] Memoria 14:30:00 04:59:59 r Neurology 10 fausto Francois 2021-12-13 2021-12-13 Outpatient TERRY QuanFLSCHEMELYN [id number] 09:30:00 23:59:59 Darian 10 Carlos 2021-12-13 2021-12-13 Outpatient MHIE MHIE [id number] Memoria 09:30:00 09:30:00 10 l [place] 2021-11-17 2021-11-19 Outside nullFlavo MNA [id number] Memoria 19:43:37 04:59:59 Medical r Neurology 00 l Records Yumiko Francois 2021-11-17 2021-11-19 Outside nullFlavo MNA [id number] Memoria 19:43:37 04:59:59 Medical r Neurology 00 l Records Yumiko Francois 2021-11-17 2021-11-18 Outpatient MISCHER MISCHER [id number] 14:43:37 23:59:59 00 2021-10-31 2021-11-02 [facility] [id number] [facility] 03:05[facility]00 17:56:00 Encounter Doretha Kassie [facility] 2021-10-31 2021-11-02 [facility] [id number] [facility] 03:05:00 17:56:00 Encounter Doretha [facility] 2021-10-31 2021-11-02 [facility] [id number] SLE 03:05:00 17:56:00 KASSIE 2021-10-31 2021-10-31 Travel [facility] [id number] [facility] 00:00:00 [facility] 2021-10-31 2021-10-31 Travel [facility] [id number] [facility] 00:[facility]00 00:00:00 [facility] 2021-10-18 2021-10-18 Ambulatory nullFlavo MNA [id number] Memoria 16:00:00 16:00:00 Pre-Reg r Neurology 07 l [place] Alessandro 2021-10-18 2021-10-18 Ambulatory nullFlavo MNA [id number] Memoria 16:00:00 16:00:00 Pre-Reg r Neurology 07 l [place] [facility] 2021-10-18 2021-10-18 Ambulatory nullFlavo MNA [id number] Memoria 15:30:00 15:30:00 Pre-Reg r Neurology 09 l Yumiko [facility] 2021-10-18 2021-10-18 Ambulatory nullFlavo MNA [id number] Memoria 15:30:00 15:30:00 Pre-Reg r Neurology 09 l Yumiko [facility] 2021-10-18 2021-10-18 Outpatient MHIE RADHA [id number] Memoria 11:00:00 11:00:00 07 fausto Alessandro 2021-10-18 2021-10-18 [id number] 11:00:00 11:00:00 Darian 07 Carlos 2021-10-18 2021-10-18 Outpatient MHIE RADHA [id number] Memoria 10:30:00 10:30:00 09 fausto Alessandro 2021-10-18 2021-10-18 Outpatient Avelina [facility] [id number] 10:30:00 10:30:00 Darian 09 Carlos 2021-09-20 2021-09-21 Outpatient nullFlavo MNA [id number] Memoria 20:00:00 05:59:59 r Neurology 08 l [place] [facility] 2021-09-20 2021-09-21 Outpatient nullFlavo MNA [id number] Memoria 20:00:00 05:59:59 r Neurology 08 l [facility] 2021-09-20 2021-09-20 [facility] [id number] 14:00:00 23:59:59 Darian 08 Carlos 2021-09-20 2021-09-20 Outpatient MHIE SJ [id number] Memoria 14:00:00 14:00:00 08 [facility] 2021-09-15 2021-09-16 Outpatient nullFlavo [facility] [id number] Memoria 14:35:00 05:59:00 r Alessandro 00 [facility] 2021-09-15 2021-09-16 Outpatient nullFlavo [facility] [id number] Memoria 14:35:00 05:59:00 r Alessandro 00 [facility] 2021-09-15 2021-09-15 Outpatient Avelina [facility] [id number] 08:35:00 23:59:00 Carlos L 2021-09-15 2021-09-15 Outpatient AVELINA [facility] [id number] [facility] 08:35:00 23:59:00 CARLOS 2021-09-06 2021-09-07 Outpatient nullFlavo MNA [id number] Memoria 16:45:00 05:59:59 r Neurology 06 l Yumiko Francois 2021-09-06 2021-09-07 Outpatient nullFlavo MNA [id number] Memoria 16:45:00 05:59:59 r Neurology 06 l Yumiko Francois 2021-09-06 2021-09-06 Outpatient CHRISTIANO Quan MHMISCHER [id number] 10:45:00 23:59:59 Darian 06 Carlos 2021-09-06 2021-09-06 Outpatient MHIE MHIE [id number] Memoria 10:45:00 10:45:00 06 fausto Francois 2021-09-02 2021-09-02 Ambulatory nullFlavo MNA [id number] Memoria 19:00:00 19:00:00 Pre-Reg r Neurology 05 l Yumiko Francois 2021-09-02 2021-09-02 Ambulatory nullFlavo MNA [id number] Memoria 19:00:00 19:00:00 Pre-Reg r Neurology 05 l Yumiko Francois 2021-09-02 2021-09-02 Outpatient MHIE MHIE [id number] Memoria 13:00:00 13:00:00 05 l Alessandro 2021-09-02 2021-09-02 Outpatient CHRISTIANO Quan MISCHER [id number] 13:00:00 13:00:00 Darian 05 Carlos 2021-08-05 2021-08-05 Outpatient R RADIOLOGY [facility] [id number] Univers 11:52:00 23:59:00 ity [facility] 2021-08-05 2021-08-05 Hospital Radiology [facility] 1.2.840.114 [id number] Univers 11:45:00 23:59:00 Encounter JENI 350.1.13.10 ity [facility] 4.2.7.2.686 [facility] [id number] 2021-07-22 2021-07-23 Outpatient nullFlavo MNA [id number] Memoria 21:30:00 05:59:59 r Neurology 04 l Yumiko Francois 2021-07-22 2021-07-23 Outpatient nullFlavo MNA [id number] Memoria 21:30:00 05:59:59 r Neurology 04 l Yumiko Francois 2021-07-22 2021-07-22 Outpatient CECI [facility]ELYN [facility] [id number] 15:30:00 23:59:59 Darian Martin Gonzalez 2021-07-22 2021-07-22 Outpatient MHIE MHIE [id number] Memoria 15:30:00 15:30:00 04 fausto Francois 2021-07-01 2021-07-01 Transition ANTHONY [place] 1.2.840.114 [id number] Univers 00:00:00 00:00:00 of Care Wendy B IRIZARRY 350.1.13.10 [place] [id number] [facility] [address] 2021-07-01 2021-07-01 Transition ANTHONY [place] 1.2.840.114 [id number] Univers 00:00:00 00:00:00 of Care Wendy B IRIZARRY 350.1.13.10 [place] [id number] [facility] [address] 2021-06-25 2021-06-30 Inpatient X [facility] [id number] Univers 03:33:00 12:43:00 PHILLIP ity [facility] 2021-06-25 2021-06-30 [facility] 1.2.840. 114 [id number] Univers 03:33:00 12:43:00 Encounter Pao Machado 350.1.13.10 [facility] [place] [id number] [facility] [address] 2021-06-20 2021-06-20 (TEL) [facility] [id number] Co mmon 00:00:00 00:00:00 Spirit - [facility] 2021-06-02 2021-06-[address] [facility] [id number] m[place] 00:00:00 00:00:00 VISIT EST Spir it PT LEVEL 3 - [facility] 2021-03-02 2021-03-02 Outpatient [facility] [id number] [address] [place] 00:00:00 00:00:00 799 [address] i 2021-02-22 2021-02-22 Outpatient [facility] [id number] 898 [place] [place] 00:00:00 00:00:00 415 Method i 2021-02-08 2021-02-17 [id number] 264 [place] 00:00:00 00:00:00 CHERELLE 585 Method i 2021-01-10 2021-01-10 [facility] 1.2.840.114 [id number] [facility] 22:27:00 23:03:00 Jazmin Ngo 350.1.13.10 ity of [place] 4.2.7.2.686 [facility] [id number] [facility] 084 Branch 2021-01-10 2021-01-10 Emergency [facility] 1.2.320.347 [id number] [facility] 10:08:00 16:27:00 Sharron Ngo 350.1.13.10 i ty [facility] 4.2.7.2.686 [facility] [id number] [facility] 084 Branch 2021-01-10 2021-01-10 Orders Doctor ASHER 1.2.840.[id number] [place] [address] 00:00:00 00:00:00 Only Unassigned, MEGAN 350.1.13.10 [facility] 4.2.7.2.686 [place] [id number] [facility] 009 Branch 2020-08-25 2020-08-27 [facility] [id number] [place] 00:00:00 00:00:00 ROBERTA [address] 2020-08-23 2020-08-25 Hospital Sharron Muse [facility] 1.2.840.1 [id number] [facility] 21:53:00 19:10:00 Encounter Tye Helm 350.1.13.10 ity of [place] 4.2.7.2.686 [facility] [id number] [facility] [address] [place] 2020-03-08 2020-03-08 [facility] Radiology [facility] 1.2.840.114 [id number] 14:58:59 23:59:00 Encounter [place] 350.1.13.10 [place] 4.2.7.2.686 [place] [id number] 2020-03-08 2020-03-08 [facility] Radiology [facility] 1.2.840.114 [id number] Univers 14:58:59 23:59:00 Encounter [place] 350.1.13.10 ity of [place] 4.2.7.2.686 [facility] [id number] [facility] [address] [place] [address] 2020-03-08 2020-03-08 Outpatient R ANASTACIO ZULETA [facility] [id number] [facility] 15:15:00 15:15:00 ity of [facility] 2020-03-08 2020-03-08 Flanging Roll Operator Ravi, [facility] 1.2.840.114 [id number] 14:56:21 15:11:21 Visit Lab Main [place] 350.1.13.10 [place] 4.2.7.2.686 Professio [id number] [address] 2020-03-08 2020-03-08 Flanging Roll Operator Ravi, [facility] Lab Main [facility] 1.2.8 40.114 [id number] [facility] 14:56:21 15:11:21 Visit Anastacio Zuleta 350.1.13.10 ity of [place] 4.2.7.2.686 [facility] Professio [phone] Al dical [address] 2020-03-08 2020-03-08 Orders Doctor ASHER 1.2.840.114 [id number] 00:00:00 00:00:00 Only Unassigned, MEGAN 350.1.13.10 [place] [facility] 4.2.7.2.686 [id number] 009 2020-03-08 2020-03-08 Orders Doctor ASHER 1.2.840.114 [id number] Univers 00:00:00 00:00:00 Only Unassigned, MEGAN 350.1.13.10 [place] [facility] 4.2.7.2.686 Sky as [id number] [facility] 009 Branch 2020-03-01 2020-03-01 Transition Anthony Oswald 1.2.840.114 [id number] 00:00:00 00:00:00 of Care Tania Irizarry 350.1.13.10 [place] 4.2.7.2.686 [id number] 2020-03-01 2020-03-01 Transition Anthony Oswald 1.2.840.114 [id number] Univers 00:00:00 00:00:00 of Care Tania Irizarry 350.1.13.10 it y of [place]7.2.[place] [id number] [facility] 403 Branch 2020-02-26 2020-02-27 [facility] 1.2.840. 114 [id number] 01:10:00 21:32:00 Encounter CristinaHeike osborn 350.1.13.10 [place] 4.2.7.2.686 [place] [id number] [facility] 2020-02-26 2020-02-27 [facility] Nelida Gonzalez [facility] 1.2.840. 114 [id number] [facility] 01:10:00 21:32:00 Encounter CristinaHeike osborn 350.1.13.10 [place] of [place] 4.2.7.2.686 [place] [id number] [facility] [address] [place] 2019-09-03 2019-09-03 Outpatient Da-Mbayo [facility] [address] [place] [address] 07:18:00 07:18:00 _A_AH 81787 Family Practic e 2019-09-03 2019-09-03 Outpatient Da-Mbayo [facility] [address] [place] [address] 07:18:00 07:18:00 _A_AH 61904 Family Practic e 2019-09-03 2019-09-03 Outpatient Da-Mbayo [facility] 794 [facility]202 [facility] 07:18:00 07:18:00 _A_AH 91496 Family Practic e 2019-09-03 2019-09-03 Outpatient Da-Mbayo [facility] [phone] [place] 07:18:00 07:18:00 _A_ 59014 Family Practic mariah 2019-01-02 2019-01-02 Ambulatory nullFlavo MNA [id number] [place] 19:00:00 19:00:00 Pre-Reg r Neurology 03 l Yumiko Alessandro 2019-01-02 2019-01-02 Ambulatory nullFlavo MNA [id number] [facility] 19:00:00 19:00:00 Pre-Reg r Neurology 03 fausto [place] Alessandro 2019-01-02 2019-01-02 Outpatient MHIE MHIE [id number] [place] 14:00:00 14:00:00 03 fausto Francois 2019-01-02 2019-01-02 Outpatient Avelina MISCHER MHMISCHER [id number] 14:00:00 14:00:00 Darian Laure Gonzalez 2018-11-21 2018-11-22 Outpatient nullFlavo MNA [id number] [facility] 18:15:00 04:59:59 r Neurology 02 fausto Yumiko Francois 2018-11-21 2018-11-22 Outpatient nullFlavo MNA [id number] [facility] 18:15:00 04:59:59 r Neurology 02 fausto Yumiko Francois 2018-11-21 2018-11-21 [facility] [id number] 13:15:00 23:59:59 Darian Sharath Gonzalez 2018-11-21 2018-11-21 Outpatient MHIE MHIE [id number] [place] 13:15:00 13:15:00 02 fausto Francois 2018-11-13 2018-11-13 Outpatient [facility] [id number] [address] [place] [address] 00:00:00 00:00:00 MOHAMMED Robbin jarrett 2017-11-07 2017-11-07 Outpatient MHIE MHIE [id number] [facility] 09:30:00 09:30:00 01 fausto Francois 2017-11-07 2017-11-07 Outpatient MHIE MHIE [id number] [facility] 09:30:00 09:30:00 01 fausto Francois 2017-08-09 2017-08-09 Outpatient MHIE MHIE [id number] [facility] 09:45:00 09:45:00 00 fausto Francois 2017-08-09 2017-08-09 [facility] [id number] [place] 09:45:00 09:45:00 00 l Alessandro 2015-04-14 2015-04-14 pt was nullFlavo Ahmed [id number] -0 [facility] 18:15:00 18:15:00 seen at malcolm Palomino MD, 5ea-4643-9 l [facility] for PA [id number] Herm camelia [place] on 03.28.20142015-04-14 2015-04-14 pt was nullFlavo Ahmed [id number] -0 [facility] 18:15:00 18:15:00 seen at malcolm Palomino MD, 5ea-4643-9 l [facility] for PA [id number] Herm camelia [place] on 03.28.20142015-04-14 2015-04-14 Outpatient Candelario Palomino [id number] [facility]inic 12:15:00 12:15:00 Candelario Palomino MD, Dominick cordero MD, HAIDER MALONEY 2015-03-11 2015-03-11 f/u nullFlavo Ahmed [id number] -6 [facility] 19:00:00 19:00:00 testing malcolm Palomino MD, i5v-2o51-r fausto MALONEY [id number] Shanice nn [id number] 2015-03-11 2015-03-11 f/u nullFlavo Ahmed [id number] -6 [facility] 19:00:00 19:00:00 testing malcolm Palomino MD, m1z-2v66-j fausto MALONEY [id number] [facility] nn [id number] 2015-03-11 2015-03-11 f/u nullFlavo Ahmed [id number] -1 [facility] 19:00:00 19:00:00 testing malcolm Palomino MD, 642-4573-b fausto MALONEY 8t4-4eprs2 Shanice nn 4c55ee 2015-03-11 2015-03-11 f/u nullFlavo Ahmed 7ele44k7 -1 [facility] 19:00:00 19:00:00 testing malcolm Palomino MD, 642-4573-b fausto MALONEY 9b9-6qqgs5 Shanice nn 4c55ee 2015-03-11 2015-03-11 Outpatient Ahmed Ahmed [id number] [facility]inic 13:00:00 13:00:00 Candelario Palomino MD, Dominick cordero MD, PA PA 2015-03-08 2015-03-08 Unknown nullFlavo Ahmed [id number] -3 [facility] 15:14:00 15:14:00 malcolm Palomino MD, ead-4745-8 l PA [id number]-4py6xi Shanice nn 8dec6f 2015-03-08 2015-03-08 Unknown nullFlavo Ahmed 6454acaf -5 [facility] 15:14:00 15:14:00 malcolm Palomino MD, n7y-2764-p l PA [id number] Shanice nn 46aec5 2015-03-08 2015-03-08 Unknown nullFlavo Ahmed [id number] -8 [facility] 15:14:00 15:14:00 malcolm Palomino MD, 4cc-4285-8 l PA [id number] Shanice nn 2015-03-08 2015-03-08 Unknown nullFlavo Ahmed [id number] -8 [facility] 15:14:00 15:14:00 malcolm Palomino MD, 4cc-4285-8 l PA [id number] Shanice nn 2015-03-08 2015-03-08 Unknown nullFlavo Ahmed u74sw5r6 -3 [facility] 15:14:00 15:14:00 malcolm Palomino MD, ead-4745-8 l PA [id number]-5ca0bz Shanice nn 8dec6f 2015-03-08 2015-03-08 Unknown nullFlavo Ahmed 6454acaf -5 Mem[facility] 15:14:00 15:14:00 malcolm Palomino MD, l5b-9362-k l PA [id number] Shanice nn 46aec5 2015-03-08 2015-03-08 Unknown nullFlavo Ahmed [id number] -2 Memoria 14:14:00 14:14:00 malcolm Palomino MD, aa3-4306-9 l PA i45-87p99z Shanice nn 63a353 2015-03-08 2015-03-08 Unknown nullFlavo Ahmed [id number] -2 [facility] 14:14:00 14:14:00 r Sarahmed, MD, aa3-4306-9 l HAIDER e72-77p26y Shanice nn 75j541 2015-03-08 2015-03-08 Outpatient Candelario Palomino [id number] [facility]inic 09:14:00 09:14:00 Candelario Palomino MD, Dominick cordero MD, HAIDER MALONEY 2015-02-23 2015-02-23 pt nullFlavo Ahmed 1jnv3p13 -9 [facility] 17:15:00 17:15:00 referred malcolm Palomino MD, 333-4228-a l by Dr. MALONEY 0t2-1j379s Shanice demarco [facility] 0e07d6 office for changes in pt EKG and CP 2015-02-23 2015-02-23 pt nullFlavo Ahmed [id number] -4 [facility] 17:15:00 17:15:00 referred malcolm Palomino MD, 7ec-42e2-[address] MALONEY [id number]-ow5922 Shanice Garcia's 692c3f office for changes in pt EKG and CP 2015-02-23 2015-02-23 pt nullFlavo Ahmed [id number] -c [facility] 17:15:00 17:15:00 referred malcolm Palomino MD, 7da-4b79-a l by Dr. HAIDER alexo81-ful33gsurinder Garcia's afb0ae office for changes in pt EKG and CP 2015-02-23 2015-02-23 pt nullFlavo Ahmed [id number] -c [facility] 17:15:00 17:15:00 referred malcolm Palomino MD, 7da-4b79-a l by Dr. HAIDER alexw86-orw00j Shanice demarco [facility] afb0ae office for changes in pt EKG and CP 2015-02-23 2015-02-23 pt nullFlavo Ahmed 3ddw5l99 -9 Memoria 17:15:00 17:15:00 referred malcolm Palomino MD, 333-4228-a l by Dr. MALONEY [id number] Shanice Garcia's 0e07d6 office for changes in pt EKG and CP 2015-02-23 2015-02-23 pt nullFlavo Ahmed 23hry621 -4 [facility]oria 17:15:00 17:15:00 referred malcolm Palomino MD, 7ec-42e2-[address] MALONEY [id number]-yf2192 Shanice Garcia's 692c3f office for changes in pt EKG and CP 2015-02-23 2015-02-23 Outpatient Candelario Palomino [id number] eClinic 11:15:00 11:15:00 Candelario Palomino MD, Dominick cordero MD, HAIDER MALONEY Results Test Description Test Time Test Comments Results Result Comments Source POC-Glucose meter 2021-11-02 17:14:46 Test Item Value Reference Range Interpretation Comme nts POC-Glucose Meter (test code = 148 mg/dL 70-110 H : TESTED AT [facility] 6720 [facility] 1538) [facility], [facility] 30: Clinical Care Coordinator/Techni karis ID = [id number] for Umeh, Akumbu Lab Interpretation (test code = Abnormal 39984-4) [facility] [id number] 17:14:46 Test Item Value Reference Range Interpretation Comments POC-Glucose Meter (test 148 mg/dL 70-110 H : TE STED AT [facility] code = 1538) [address] [facility], 770 30: Clinical Care Coordinator/Techni karis ID = [id number] for Umeh, Akumbu Lab Interpretation (test Abnormal code = 71134-7) [facility] [id number] 17:14:46 Test Item Value Reference Range Interpretation Comments POC-Glucose Meter (test 148 mg/dL 70-110 H : TE STED AT [facility] code = 1538) [address] [facility], [facility] 30: Clinical Care Coordinator/Techni karis ID = [id number] for Umeh, Akumbu Lab Interpretation (test Abnormal code = 57104-4) [facility] [id number] 17:14:46 Test Item Value Reference Range Interpretation Comments POC-GLUCOSE METER 148 mg/dL 70-110 H : TESTED A T [facility] 6720 (BEAKER) (test code = BERTNE R [facility], 1538) [address]77: Clinical Care Coordinator/Techni karis ID = [id number] for Um eh, Akumbu POCT-GLUCOSE [id number] 12:16:00 Test Item Value Reference Range Interpretation Comments POC-GLUCOSE METER 204 mg/dL 70-110 H : TESTED A T [facility] 6720 (BANNER) (test code = [facility], 1538) [address]: Clinical Care Coordinator/Techni karis ID = [id number] for Um eh, Akumbu POCT-GLUCOSE [id number] 08:20:04 Test Item Value Reference Range Interpretation Comments POC-GLUCOSE METER 123 mg/dL 70-110 H : TESTED A T [facility] 6720 (BANNER) (test code = [facility], 1538) 74175: Clinical Care Coordinator/Techni karis ID = [id number] for Um eh, Akumbu POCT-GLUCOSE [id number] 21:10:11 Test Item Value Reference Range Interpretation Comments POC-GLUCOSE METER 180 mg/dL 70-110 H : TESTED A T [facility] 6720 (BANNER) (test code = [facility], 1538) 85495: Clinical Care Coordinator/Techni karis ID = [id number] for Felipe carmitaNadiya pena POCT-GLUCOSE [id number] 17:56:50 Test Item Value Reference Range Interpretation Comments POC-GLUCOSE METER 156 mg/dL 70-110 H : TESTED A T [facility] 6720 (BANNER) (test code = [facility], 1538) 72666: Clinical Care Coordinator/Techni karis ID = [id number] for Carol Garrido POCT-GLUCOSE [id number] 14:36:46 Test Item Value Reference Range Interpretation Comments POC-GLUCOSE METER 245 mg/dL 70-110 H : TESTED A T [facility] 6720 (BANNER) (test code = [facility], 1538) 49156: Clinical Care Coordinator/Techni karis ID = [id number] for Heather Lopez HEMOGLOBIN [id number] 10:02:53 Test Item Value Reference Range Interpretation Comments HEMOGLOBIN A1C 6.9 % See_Comment H [Automated m essage] ELECTROPHORESIS (BANNER) The system which (test code = 3811) generated this result transmitted ref erence range: <=5.6%. The reference range was not used to int erpret this result as normal/abnormal . "The A1c is measured using a NGSP-certified method. HbA1c value equal to or greater than 6.5% as thediagnosis cutoff for diabetes. An HbA1c value of 5.7- 6.4% indicates increased risk for diabetes (prediabetes)."Clinical Care Coordinator ID - ADMOperator ID - ADMPOCT-GLUCOSE [id number] 08:48:27 Test Item Value Reference Range Interpretation Comments POC-GLUCOSE METER 133 mg/dL 70-110 H : TESTED A T [facility] 6720 (BEAKER) (test code = [place], 1538) 14223: Clinical Care Coordinator/Techni karis ID = [id number] for MAKEDA INGRAM HEPATIC FUNCTION [id number] 06:11:15 Test Item Value Reference Range Interpretation [...] (test code = 9 U/L 6-55 347) Clinical Care Coordinator ID - WENDY WLIPID [id number] 06:11:14 Test Item Value Reference Range Interpretation Comments TRIGLYCERIDES (BEAKER) (test code = 274 mg/dL 540) CHOLESTEROL (BEAKER) (test code = 163 mg/dL 631) HDL CHOLESTEROL (BEAKER) (test code 44 mg/dL = 976) LDL CHOLESTEROL CALCULATED (BEAKER) 64 mg/dL (test code = 633) Triglyceride Reference Range: Low Risk <150 Borderline 150-199 High Risk 200- 499 Very High Risk >=500Cholesterol Reference Range: Low Risk <200 Borderline 200-239 High Risk >240HDL Cholesterol Reference Range: Low Risk >=60 High Risk <40LDL Cholesterol Reference Range: Optimal <100 Near Optimal 100-129 Borderline 130-159 High 160-189 Very High >=190 Clinical Care Coordinator ID - WENDY [id number] 06:11:13 Test Item Value Reference Range Interpretation Comments MAGNESIUM (BEAKER) (test code = 1.7 mg/dL 1.6-2.6 627) Clinical Care Coordinator ABEBE NGUYEN [id number] 06:11:13 Test Item Value Reference Range Interpretation Comments PHOSPHORUS (BEAKER) (test code = 2.7 mg/dL 2.3-4.7 604) Clinical Care Coordinator ID Julian NGUYEN WBASIC METABOLIC [id number] 06:11:12 Test Item Value Reference Range Interpretation [...] S NOT APPLICABLE FOR DIALYSIS PATIEN TS. Clinical Care Coordinator ABEBE PORTILLOROTHROMBIN TIME/[id number] 05:31:32 Test Item Value Reference Range Interpretation Comments PROTIME (BEAKER) 12.8 seconds 11.9-14.2 (test code = 759) INR (BEAKER) (test 0.98 See_Comment [Automat ed message] code = 370) The system [employer] generated this result transmitted ref erence range: <=5.90. The reference range was not used to int erpret this result as normal/abnormal . RECOMMENDED COUMADIN/WARFARIN INR THERAPY RANGESSTANDARD DOSE: 2.0 - 3.0 Includes: PROPHYLAXIS for venous thrombosis, systemic embolization; TREATMENT for venous thrombosis and/or pulmonary embolus.HIGH RISK: Target INR is 2.5-3.5 for patients with mechanical heart valves.CBC W/PLT COUNT & AUTO [id number] 05:16:25 Test Item Value Reference Range Interpretation [...] (test code = 416) BASOPHILS ABSOLUTE COUNT (AKER) 0.05 K/ L 0.01-0.08 (test code = 417) IMMATURE GRANULOCYTES-RELATIVE 1 % 0-1 PERCENT (BEAKER) (test code = 2801) POCT-GLUCOSE [id number] 21:22:09 Test Item Value Reference Range Interpretation Comments POC-GLUCOSE METER 131 mg/dL 70-110 H : TESTED A T [facility] 6720 (BANNER) (test code = [facility], 1538) 68329: Clinical Care Coordinator/Techni karis ID = [id number] for DE NNIS, JANIS POCT-GLUCOSE [id number] 17:58:49 Test Item Value Reference Range Interpretation Comments POC-GLUCOSE METER 123 mg/dL 70-110 H : TESTED A T [facility] 6720 (BANNER) (test code = [facility], 1538) 11282: Clinical Care Coordinator/Techni karis ID = [id number] for COLE BURKSINEMarilyn, MAKEDA POCT-GLUCOSE [id number] 11:49:12 Test Item Value Reference Range Interpretation Comments POC-GLUCOSE METER 124 mg/dL 70-110 H : TESTED A T [facility] 6720 (BANNER) (test code = [facility], 1538) 62635: Clinical Care Coordinator/Techni karis ID = [id number] for COLE BURKSINEZ, MAKEDA [id number] 11:30:26 Test Item Value Reference Range Interpretation Comments RPR SCREEN (BANNER) (test code = Nonreactive Nonreactive 420) MR, BRAIN, WITHOUT [id number] 11:17:00Reason for exam:->Ischemic Stroke EvaluationLOS BANOS COMMUN[facility]ITALName: SHANNON JONES : 1945 Sex: FFINAL REPORT MR, BRAIN, WITHOUT CONTRAST INDICATION: Stroke, follow upIschemic Stroke Evaluation TECHNIQUE: Multiplanar, multisequence MR imaging of the brain was obtained. COMPARISON: None FINDINGS:Brain parenchyma is normal in morphology. Midline structures are normally developed. No restricted diffusion to suggest recent ischemic insult. No abnormal susceptibility. Mild generalized parenchymal volume loss is present.Scattered T2/FLAIR hyperintense foci within the periventricular and subcortical white matter are nonspecific, however, statistically represent chronic microvascular ischemic changes. No hydrocephalus. Orbits are within normal limits. Bilateral lens prostheses are present.No obstructive paranasal sinus disease. Mild T2 hyperintensity within the left mastoid air cells. IMPRESSION: No acute intracranial findings Signed: Mendel Tovarort Verified Date/Time: 10/31/2021 11:17:06 Reading Location: [address] Neuro Reading Room VITAMIN B12 AND [id number] 09:41:02 Test Item Value Reference Range Interpretation Comments VITAMIN B12 377 pg/mL 213-816 (BEAKER) (test code = 774) FOLATE ([employer]) 12.06 ng/mL See_Comment [Automated message] (test code = 362) The system which generated this result transmitted ref erence range: >=7.00. The reference range was not used to interpr et this result as normal/abnormal . Clinical Care Coordinator ID - WENDY TALLEY SENSITIVITY TROPONIN [id number] 09:16:31 Test Item Value Reference Range Interpretation Comments HIGH SENSITIVITY 8 pg/ml See_Comment [Automated message] TROPONIN I (test code = The system which 4506134) generated this result transmitted ref erence range: <=17. Th e reference range was not used to interpr et this result as normal/abnormal . Clinical Care Coordinator ID - ADMINThe DIESEL SERVICE APPRENTICE STAT High Sensitivity Troponin-I results should be used in conjunction with other diagnostic information such as ECG, clinical observations and information, and patientsymptoms to aid in the diagnosis of [place]. Urinalysis w/ [id number] 09:11:47 Test Item Value Reference Range Interpretation Comments Color, UA (test code Colorless = 5778-6) Clarity, UA (test Clear code = 5767-9) Specific [place], UA 1.015 1.001-1.035 (test code = 5811-5) pH, UA (test code = 7.0 5.0-8.0 5803-2) Protein, UA (test Negative Negative code = 03094-5) Glucose, UA (test 50 mg/dL Negative A code = 365) Ketones, UA (test Negative Negative code = 2514-8) Bilirubin, UA (test Negative Negative code = 76343-4) Blood, UA (test code Negative Negative = 68563-5) Nitrite, UA (test Negative Negative code = 5802-4) Leukocytes, UA (test Small Negative A code = 5799-2) Urobilinogen, UA 0.2 mg/dL 0.2-1.0 (test code = 57726-5) RBC, UA (test code = 1 See_Comment [Autom ated 10789-1) message] The system which generated this result transmitted reference range : /HPF. The reference range was not used to interpret this result as normal/abnormal . WBC, UA (test code = 4 See_Comment [Autom ated 5821-4) message] The system which generated this result transmitted reference range : /HPF. The reference range was not used to interpret this result as normal/abnormal . Bacteria, UA (test None Seen code = 61521-2) Squam Epithel, UA <1 See_Comment [Automate d (test code = 69879-0) messag e] The system which generated this result transmitted reference range : /HPF. The reference range was not used to interpret this result as normal/abnormal . Crystals, Urine (test None Seen code = 81347-2) Specimen Source (test code = 2795) JOSELITO (test code = JOSELITO) Clinical Care Coordinator ID - [auto]Clinical Care Coordinator ID - tech Lab Interpretation Abnormal (test code = 11489-4) [facility]/ [id number] 09:11:47 Test Item Value Reference Range Interpretation Comments Color, UA (test code Colorless = 5778-6) Clarity, UA (test Clear code = 5767-9) Specific [place], UA 1.015 1.001-1.035 (test code = 5811-5) pH, UA (test code = 7.0 5.0-8.0 5803-2) Protein, UA (test Negative Negative code = 53413-7) Glucose, UA (test 50 mg/dL Negative A code = 365) Ketones, UA (test Negative Negative code = 2514-8) Bilirubin, UA (test Negative Negative code = 64730-4) Blood, UA (test code Negative Negative = 75644-9) Nitrite, UA (test Negative Negative code = 5802-4) Leukocytes, UA (test Small Negative A code = 5799-2) Urobilinogen, UA 0.2 mg/dL 0.2-1.0 (test code = 29977-6) RBC, UA (test code = 1 See_Comment [Autom ated 12093-5) message] The system which generated this result transmitted reference range : /HPF. The reference range was not used to interpret this result as normal/abnormal . WBC, UA (test code = 4 See_Comment [Autom ated 5821-4) message] The system which generated this result transmitted reference range : /HPF. The reference range was not used to interpret this result as normal/abnormal . Bacteria, UA (test None Seen code = 89397-4) Squam Epithel, UA <1 See_Comment [Automate d (test code = 50235-9) messag e] The system which generated this result transmitted reference range : /HPF. The reference range was not used to interpret this result as normal/abnormal . Crystals, Urine (test None Seen code = 59470-2) Specimen Source (test code = 2795) JOSELITO (test code = JOSELITO) Clinical Care Coordinator ID - [auto]Clinical Care Coordinator ID - tech Lab Interpretation Abnormal (test code = 00329-3) [facility] w/ [id number] 09:11:47 Test Item Value Reference Range Interpretation Comments Color, UA (test code Colorless = 5778-6) Clarity, UA (test Clear code = 5767-9) Specific [place], UA 1.015 1.001-1.035 (test code = 5811-5) pH, UA (test code = 7.0 5.0-8.0 5803-2) Protein, UA (test Negative Negative code = 36018-5) Glucose, UA (test 50 mg/dL Negative A code = 365) Ketones, UA (test Negative Negative code = 2514-8) Bilirubin, UA (test Negative Negative code = 59518-1) Blood, UA (test code Negative Negative = 62268-8) Nitrite, UA (test Negative Negative code = 5802-4) Leukocytes, UA (test Small Negative A code = 5799-2) Urobilinogen, UA 0.2 mg/dL 0.2-1.0 (test code = 72473-8) RBC, UA (test code = 1 See_Comment [Autom ated 24198-0) message] The system which generated this result transmitted reference range : /HPF. The reference range was not used to interpret this result as normal/abnormal . WBC, UA (test code = 4 See_Comment [Autom ated 5821-4) message] The system which generated this result transmitted reference range : /HPF. The reference range was not used to interpret this result as normal/abnormal . Bacteria, UA (test None Seen code = 57968-9) Squam Epithel, UA <1 See_Comment [Automate d (test code = 59142-0) messag e] The system which generated this result transmitted reference range : /HPF. The reference range was not used to interpret this result as normal/abnormal . Crystals, Urine (test None Seen code = 68170-1) Specimen Source (test code = 2795) JOSELITO (test code = JOSELITO) Clinical Care Coordinator ID - [auto]Clinical Care Coordinator ID - tech Lab Interpretation Abnormal (test code = 76563-5) [facility] [id number] 09:11:47 Test Item Value Reference Range Interpretation [...] = 1521) SOURCE(BEAKER) (test code = 2795) Clinical Care Coordinator ID - [auto]Clinical Care Coordinator ID - techPOCT-GLUCOSE [id number] 08:33:13 Test Item Value Reference Range Interpretation Comments POC-GLUCOSE METER 153 mg/dL 70-110 H : [facility] ([facility] (test code = FABIO Malcolm [facility], 1538) [address]32[address]: Clinical Care Coordinator/Techni karis ID = [id number] for MAKEDA INGRAM TSH/FREE T4 IF [id number] 06:22:39 Test Item Value Reference Range Interpretation Comments THYROID STIMULATING HORMONE 4.087 uIU/mL 0.350-4.940 (BEAKER) (test code = 772) Clinical Care Coordinator ID - WENDY WC-REACTIVE [id number] 06:09:55 Test Item Value Reference Range Interpretation Comments C-REACTIVE PROTEIN (BEAKER) (test 0.09 mg/dL 0.00-0.50 code = 676) Clinical Care Coordinator ID - ADMINHIGH SENSITIVITY TROPONIN [id number] 05:54:45 Test Item Value Reference Range Interpretation Comments HIGH SENSITIVITY 10 pg/ml See_Comment [Automated message] TROPONIN I (test code = The system which 9617404) generated this result transmitted ref erence range: <=17. Th e reference range was not used to int erpret this result as normal/abnormal . Clinical Care Coordinator ID - ADMINThe DIESEL SERVICE APPRENTICE STAT High Sensitivity Troponin-I results should be used in conjunction with other diagnostic information such as ECG, clinical observations and information, and patientsymptoms to aid in the diagnosis of [place]. POCT GLUCOSE (AUTOMATED)2021-06-30 17:54:03 Test Item Value Reference Range Interpretation Comments POCT GLU (test code = 0854497384) 123 mg/dL 70-110 H Lab Interpretation (test code = Abnormal 91349-9) [facility] GLUCOSE (AUTOMATED)2021-06-30 01:51:13 Test Item Value Reference Range Interpretation Comments POCT GLU (test code = 0384267213) 187 mg/dL 70-110 H Lab Interpretation (test code = Abnormal 37560-2) [facility] GLUCOSE (AUTOMATED)2021-06-30 00:01:13 Test Item Value Reference Range Interpretation Comments POCT GLU (test code = 8658625257) 234 mg/dL 70-110 H Lab Interpretation (test code = Abnormal 81461-4) [facility] GLUCOSE (AUTOMATED)2021-06-29 18:26:23 Test Item Value Reference Range Interpretation Comments POCT GLU (test code = 6960481486) 168 mg/dL 70-110 H Lab Interpretation (test code = Abnormal 27233-2) [facility] GLUCOSE (AUTOMATED)2021-06-29 13:59:36 Test Item Value Reference Range Interpretation Comments POCT GLU (test code = 0095861431) 136 mg/dL 70-110 H Lab Interpretation (test code = Abnormal 62288-2) [facility] METABOLIC PANEL (NA, K, CL, CO2, GLUCOSE, BUN, CREATININE, CA)2021-06-29 10:49:32 Test Item Value Reference Range Interpretation Comments NA (test code = 135 mmol/L 135-145 0916537366) K (test code = 3.8 mmol/L 3.5-5.0 8538822559) CL (test code = 100 mmol/L 98-108 9743007054) CO2 TOTAL (test code = 29 mmol/L 23-31 5996658458) AGAP (test code = 2-16 2742680758) BUN (test code = 45 mg/dL 7-23 H 0308152351) GLUCOSE (test code = 123 mg/dL 70-110 H 0179892679) CREATININE (test code = 1.02 mg/dL 0.50-1.04 3350148035) CALCIUM (test code = 9.9 mg/dL 8.6-10.6 2476226373) eGFR (test code = mL/min/1.73m2 1121510279) JOSELITO (test code = JOSELITO) Association of [...] tests). Lab Interpretation Abnormal (test code = 51142-6) [facility] WITH [id number] 10:43:29 Test Item Value Reference Range Interpretation Comments WBC (test code = See_Comment H [Automated 4237-2) message] The sy stem which generated this result transmitted reference range : 4.30 - 11.10 10*3/?L. The reference range was not used to interpret this result as normal/abnormal . RBC (test code = See_Comment [Automated 407-8) message] The sy stem which generated this [...] (test code = 52.7 fL 39.0-49.9 H 53905-3) RDW-CV (test code = 14.8 % 12.0-15.5 788-0) PLT (test code = See_Comment [Automated 777-3) message] The sy stem which generated this result transmitted reference range : 166 - 358 10*3/ ?L. The reference r lawrence was not used to interpret this result as normal/abnormal . MPV (test code = 10.3 fL 9.5-12.9 61830-0) NRBC/100 WBC (test See_Comment [Automat ed code = 0803457890) message] The system which generated this result transmitted reference range : 0.0 - 10.0 /100 WBCs. The refer ence range was not u sed to interpret th is result as normal/abnormal . NRBC x10^3 (test code <0.01 See_Comment [Auto mated = 5319668483) message] The s ystem which generated this result transmitted reference range : 10*3/?L. The reference range was not used to interpret this result as normal/abnormal . GRAN MAT (NEUT) % 68.3 % (test code = 770-8) IMM GRAN % (test code 1.90 % = 4481810957) LYMPH % (test code = 20.8 % 736-9) MONO % (test code = 8.4 % 5905-5) EOS % (test code = 0.3 % 713-8) BASO % (test code = 0.3 % 706-2) GRAN MAT x10^3(ANC) 8.42 10*3/uL 1.88-7.09 H (test code = 1498389466) IMM GRAN x10^3 (test 0.23 10*3/uL 0.00-0.06 H code = 7047969784) LYMPH x10^3 (test code 2.57 10*3/uL 1.32-3.29 = 731-0) MONO x10^3 (test code 1.04 10*3/uL 0.33-0.92 H = 742-7) EOS x10^3 (test code = 0.04 10*3/uL 0.03-0.39 711-2) BASO x10^3 (test code 0.04 10*3/uL 0.01-0.07 = 704-7) Lab Interpretation Abnormal (test code = 10070-1) [facility] GLUCOSE (AUTOMATED)2021-06-29 03:27:42 Test Item Value Reference Range Interpretation Comments POCT GLU (test code = 4994772662) 180 mg/dL 70-110 H Lab Interpretation (test code = Abnormal 44183-8) [facility] 02[facility]05:26 Test Item Value Reference Range Interpretation Comments [place] (test code = 1.2 mmol/L 0.6-1.2 9562602110) JOSELITO (test code = JOSELITO) Toxic Range: ? Greater than 1.2 mmol/L Lab Interpretation (test Normal code = 07724-3) [facility] GLUCOSE (AUTOMATED)2021-06-28 23:05:55 Test Item Value Reference Range Interpretation Comments POCT GLU (test code = 1425691640) 257 mg/dL 70-110 H Lab Interpretation (test code = Abnormal 73463-4) [facility] GLUCOSE (AUTOMATED)2021-06-28 19:34:47 Test Item Value Reference Range Interpretation Comments POCT GLU (test code = 1218492067) 264 mg/dL 70-110 H Lab Interpretation (test code = Abnormal 75916-2) [facility] GLUCOSE (AUTOMATED)2021-06-28 18:12:03 Test Item Value Reference Range Interpretation Comments POCT GLU (test code = 3207301981) 193 mg/dL 70-110 H Lab Interpretation (test code = Abnormal 63989-3) [facility] GLUCOSE (AUTOMATED)2021-06-28 14:00:09 Test Item Value Reference Range Interpretation Comments POCT GLU (test code = 7450729144) 137 mg/dL 70-110 H Lab Interpretation (test code = Abnormal 61286-7) [facility] GLUCOSE (AUTOMATED)2021-06-28 03:05:08 Test Item Value Reference Range Interpretation Comments POCT GLU (test code = 9585139805) 201 mg/dL 70-110 H Lab Interpretation (test code = Abnormal 98074-9) [facility] GLUCOSE (AUTOMATED)2021-06-27 23:21:36 Test Item Value Reference Range Interpretation Comments POCT GLU (test code = 6690194840) 274 mg/dL 70-110 H Lab Interpretation (test code = Abnormal 28530-9) [facility] GLUCOSE (AUTOMATED)2021-06-27 17:51:17 Test Item Value Reference Range Interpretation Comments POCT GLU (test code = 2031760384) 220 mg/dL 70-110 H Lab Interpretation (test code = Abnormal 17671-1) [facility] GLUCOSE (AUTOMATED)2021-06-27 13:47:06 Test Item Value Reference Range Interpretation Comments POCT GLU (test code = 8365604565) 153 mg/dL 70-110 H Lab Interpretation (test code = Abnormal 11399-8) [facility] METABOLIC PANEL (NA, K, CL, CO2, GLUCOSE, BUN, CREATININE, CA)2021-06-27 12:18:05 Test Item Value Reference Range Interpretation Comments NA (test code = 137 mmol/L 135-145 4666511696) K (test code = 4.2 mmol/L 3.5-5.0 1344956666) CL (test code = 102 mmol/L 98-108 6491427703) CO2 TOTAL (test code = 33 mmol/L 23-31 H 0941882761) AGAP (test code = 2-16 3802824135) BUN (test code = 29 mg/dL 7-23 H 0355905480) GLUCOSE (test code = 132 mg/dL 70-110 H 9114231716) CREATININE (test code = 0.89 mg/dL 0.50-1.04 9852643200) CALCIUM (test code = 9.9 mg/dL 8.6-10.6 8929153960) eGFR (test code = mL/min/1.73m2 7008375179) JOSELITO (test code = JOSELITO) Association of [...] tests). Lab Interpretation Abnormal (test code = 27179-7) [facility] 12:14:49 Test Item Value Reference Range Interpretation Comments [place] (test code = 1.1 mmol/L 0.6-1.2 6642542172) JOSELITO (test code = JOSELITO) Toxic Range: ? Greater than 1.2 mmol/L Lab Interpretation (test Normal code = 04326-9) [facility] WITH [id number] 11:55:26 Test Item Value Reference Range Interpretation Comments WBC (test code = See_Comment H [Automated 8585-2) message] The sy stem which generated this result transmitted reference range : 4.30 - 11.10 10*3/?L. The reference range was not used to interpret this result as normal/abnormal . RBC (test code = See_Comment [Automated 427-8) message] The sy stem which generated this [...] (test code = 53.7 fL 39.0-49.9 H 11955-7) RDW-CV (test code = 14.9 % 12.0-15.5 788-0) PLT (test code = See_Comment [Automated 777-3) message] The sy stem which generated this result transmitted reference range : 166 - 358 10*3/ ?L. The reference r lawrence was not used to interpret this result as normal/abnormal . MPV (test code = 10.3 fL 9.5-12.9 91277-4) NRBC/100 WBC (test See_Comment [Automat ed code = 1591860596) message] The system which generated this result transmitted reference range : 0.0 - 10.0 /100 WBCs. The refer ence range was not u sed to interpret th is result as normal/abnormal . NRBC x10^3 (test code <0.01 See_Comment [Auto mated = 6235963269) message] The s ystem which generated this result transmitted reference range : 10*3/?L. The reference range was not used to interpret this result as normal/abnormal . GRAN MAT (NEUT) % 72.7 % (test code = 770-8) IMM GRAN % (test code 1.20 % = 0657674735) LYMPH % (test code = 17.8 % 736-9) MONO % (test code = 7.6 % 5905-5) EOS % (test code = 0.3 % 713-8) BASO % (test code = 0.4 % 706-2) GRAN MAT x10^3(ANC) 8.38 10*3/uL 1.88-7.09 H (test code = 8704291168) IMM GRAN x10^3 (test 0.14 10*3/uL 0.00-0.06 H code = 5116757229) LYMPH x10^3 (test code 2.05 10*3/uL 1.32-3.29 = 731-0) MONO x10^3 (test code 0.88 10*3/uL 0.33-0.92 = 742-7) EOS x10^3 (test code = 0.03 10*3/uL 0.03-0.39 711-2) BASO x10^3 (test code 0.05 10*3/uL 0.01-0.07 = 704-7) Lab Interpretation Abnormal (test code = 10924-2) [facility] GLUCOSE (AUTOMATED)2021-06-27 04:14:04 Test Item Value Reference Range Interpretation Comments POCT GLU (test code = 3930427608) 181 mg/dL 70-110 H Lab Interpretation (test code = Abnormal 31473-2) [facility] GLUCOSE (AUTOMATED)2021-06-26 23:24:01 Test Item Value Reference Range Interpretation Comments POCT GLU (test code = 7576229692) 239 mg/dL 70-110 H Lab Interpretation (test code = Abnormal 74292-9) [facility] GLUCOSE (AUTOMATED)2021-06-26 18:00:26 Test Item Value Reference Range Interpretation Comments POCT GLU (test code = 9130831510) 176 mg/dL 70-110 H Lab Interpretation (test code = Abnormal 22039-0) [facility] GLUCOSE (AUTOMATED)2021-06-26 14:20:03 Test Item Value Reference Range Interpretation Comments POCT GLU (test code = 5215617293) 141 mg/dL 70-110 H Lab Interpretation (test code = Abnormal 44215-3) [id number] 12:30:12 Test Item Value Reference Range Interpretation Comments MAGNESIUM (test code = 9550342736) 1.8 mg/dL 1.7-2.4 Lab Interpretation (test code = Normal 59868-7) [facility] Metabolic Panel (NA, K, CL, CO2, GLUCOSE, BUN, CREATININE, CA)2021-06-26 12:30:12 Test Item Value Reference Range Interpretation Comments NA (test code = 136 mmol/L 135-145 2885332004) K (test code = 4.5 mmol/L 3.5-5.0 5556835872) CL (test code = 100 mmol/L 98-108 9525499571) CO2 TOTAL (test code = 32 mmol/L 23-31 H 8805755368) AGAP (test code = 2-16 2052958857) BUN (test code = 25 mg/dL 7-23 H 3824704940) GLUCOSE (test code = 130 mg/dL 70-110 H 3575845586) CREATININE (test code = 0.80 mg/dL 0.50-1.04 1693312072) CALCIUM (test code = 9.9 mg/dL 8.6-10.6 9612758701) eGFR (test code = mL/min/1.73m2 2753760292) JOSELITO (test code = JOSELITO) Association of [...] tests). Lab Interpretation Abnormal (test code = 06782-3) [facility] 12:26:51 Test Item Value Reference Range Interpretation Comments [place] (test code = 1.0 mmol/L 0.6-1.2 8491512540) JOSELITO (test code = JOSELITO) Toxic Range: ? Greater than 1.2 mmol/L Lab Interpretation (test Normal code = 15473-9) [facility] with [id number] 11:48:08 Test Item Value Reference Range Interpretation Comments WBC (test code = See_Comment H [Automated 0190-2) message] The system which generated this result transmit jessica reference range : 4.30 - 11.10 10*3/?L. The reference range was not used to interpret this result as normal/abnormal . RBC (test code = See_Comment [Automated 529-8) message] The system which generated this result [...] (test code = 52.7 fL 39.0-49.9 H 21563-0) RDW-CV (test code = 14.7 % 12.0-15.5 788-0) PLT (test code = See_Comment [Automated 777-3) message] The system which generated this result transmit ejssica reference range : 166 - 358 10*3/ ?L. The reference range was not u sed to interpret th is result as normal/abnormal . MPV (test code = 10.0 fL 9.5-12.9 42159-5) NRBC/100 WBC (test See_Comment [Automat ed code = 1221710504) message] The system which generated this result transmit jessica reference range : 0.0 - 10.0 /100 WBCs. The reference range was not used to interpret this result as normal/abnormal . NRBC x10^3 (test code <0.01 See_Comment [Auto mated = 4741794943) message] The system which generated this result transmit jessica reference range : 10*3/?L. The reference range was not used to interpret this result as normal/abnormal . GRAN MAT (NEUT) % 82.1 % (test code = 770-8) IMM GRAN % (test code 1.40 % = 0568802370) LYMPH % (test code = 10.7 % 736-9) MONO % (test code = 5.5 % 5905-5) EOS % (test code = 0.0 % 713-8) BASO % (test code = 0.3 % 706-2) GRAN MAT x10^3(ANC) 11.86 10*3/uL 1.88-7.09 H (test code = 1727554570) IMM GRAN x10^3 (test 0.20 10*3/uL 0.00-0.06 H code = 9117201452) LYMPH x10^3 (test code 1.54 10*3/uL 1.32-3.29 = 731-0) MONO x10^3 (test code 0.80 10*3/uL 0.33-0.92 = 742-7) EOS x10^3 (test code = <0.03 0.03-0.39 L 711-2) BASO x10^3 (test code 0.05 10*3/uL 0.01-0.07 = 704-7) Lab Interpretation Abnormal (test code = 82784-4) [facility] GLUCOSE (AUTOMATED)2021-06-26 04:13:50 Test Item Value Reference Range Interpretation Comments POCT GLU (test code = 7815289589) 247 mg/dL 70-110 H Lab Interpretation (test code = Abnormal 97777-4) [facility] GLUCOSE (AUTOMATED)2021-06-25 23:32:22 Test Item Value Reference Range Interpretation Comments POCT GLU (test code = 1984725816) 203 mg/dL 70-110 H Lab Interpretation (test code = Abnormal 19178-1) [facility] Texas[facility]cosylated Hemoglobin (A1C)2021-06-25 19:15:18 Test Item Value Reference Range Interpretation Comments HGB A1C (test code = 7.4 % 4.0-5.7 H 4548-4) JOSELITO (test code = JOSELITO) Reference RangesNormal: <5.7%Prediabetes: 5.7 - 6.4%Diabetes: > 6.5% Lab Interpretation (test Abnormal code = 14952-0) [facility] TexasVALPRO[facility] ACID, [id number] 18:48:46 Test Item Value Reference Range Interpretation Comments Valproic Acid, Free <2.0 4.0-15.0 L (test code = 8445151455) JOSELITO (test code = JOSELITO) Toxic Range: ? Greater than 15 ug/mL Test developed and characteristics determined by [facility] Laboratory Services. Lab Interpretation Abnormal (test code = 83036-5) [facility]2021-06-25 17:55:33 Test Item Value Reference Range Interpretation Comments POCT GLU (test code = 8919208290) 125 mg/dL 70-110 H Lab Interpretation (test code = Abnormal 49889-3) [facility] Texas[facility]-TERMINAL [id number] 11:07:16 Test Item Value Reference Range Interpretation Comments NT-proBNP (test code 127 pg/mL See_Comment [Autom ated = 8962485607) message] The system which generated this result transmitted reference range : <=450. The reference range was not used to interpret this result as normal/abnormal . JOSELITO (test code = JOSELITO) Biotin has been reported to cause a negative bias, interpret results relative to patient's use of biotin. Lab Interpretation Normal (test code = 09729-6) [facility]2021-[facility]-11 10:46:23 Test Item Value Reference Range Interpretation Comments [place] (test code = 1.7 mmol/L 0.6-1.2 H 6525978894) JOSELITO (test code = JOSELITO) Toxic Range: ? Greater than 1.2 mmol/L Lab Interpretation (test Abnormal code = 90974-7) [facility] TexasCOMP. METABOLIC PANEL (84725)2021-06-25 10:46:18 Test Item Value Reference Range Interpretation Comments NA (test code = 137 mmol/L 135-145 3962443811) K (test code = 4.7 mmol/L 3.5-5.0 7665301903) CL (test code = 105 mmol/L 98-108 4720972154) CO2 TOTAL (test code = 32 mmol/L 23-31 H 5966272722) AGAP (test code = <1 2-16 L 1652534282) BUN (test code = 21 mg/dL 7-23 7992977107) GLUCOSE (test code = 138 mg/dL 70-110 H 3619721881) CREATININE (test code = 0.93 mg/dL 0.50-1.04 8637199213) TOTAL BILI (test code = 0.6 mg/dL 0.1-1.3 5489250756) CALCIUM (test code = 10.0 mg/dL 8.6-10.6 3942023580) T PROTEIN (test code = 6.1 g/dL 6.3-8.2 L 2822552143) ALBUMIN (test code = 3.7 g/dL 3.5-5.0 9272203523) ALK PHOS (test code = 82 U/L 34-122 2322848007) ALTv (test code = 22 U/L 5-35 1742-6) AST(SGOT) (test code = 25 U/L 13-40 1535326350) eGFR (test code = mL/min/1.73m2 5023207819) JOSELITO (test code = JOSELITO) Association of [...] tests). Lab Interpretation Abnormal (test code = 49285-2) [facility] TexasTHYROID STIMULATING [id number] 10:45:12 Test Item Value Reference Range Interpretation Comments TSH (test code = See_Comment H [Automated message] 4431013805) The system [employer] generated this result transmitted ref erence range: 0.45 - 4 .70 mIU/L. The refe rence range was not u sed to interpret this result as normal/abnor mal. Lab Interpretation (test Abnormal code = 63631-5) [facility] TexasTROP[facility]IN [id number] 10:26:31 Test Item Value Reference Interpretation Comments Range TROPONIN I (test 0.003 ng/mL See_Comment [Automated code = 9789027655) message] The system which generated this result [...] biotin. Lab Interpretation Normal (test code = 04731-4) [facility] TexasLIP[facility], [id number] 10:14:53 Test Item Value Reference Range Interpretation Comments LIPASE (test code = 6673965944) 246 U/L 0-220 H Lab Interpretation (test code = Abnormal 15052-5) [facility] Care Arterial Blood Gas.2021-06-25 10:06:46 Test Item Value Reference Range Interpretation Comments PH (test code = 2) 7.35-7.45 L PCO2 (test code = See_Comment H [Automate d message] 5493204268) The system [employer] generated this result transmitted ref erence range: 35 - 45 mmHg. The reference r lawrence was not used to interpret this result as normal/abnor mal. PO2 (test code = See_Comment [Automated message] 2519209360) The system [employer] generated this result transmitted ref erence range: 80 - 100 mmHg. The reference r lawrence was not used to interpret this result as normal/abnor mal. HCO3 (test code = See_Comment [Automate d message] 6488948461) The system [employer] generated this result transmitted ref erence range: 22 - 26 mEq/L. The reference r lawrence was not used to interpret this result as normal/abnor mal. BE (test code = See_Comment [Automated message] 4125474444) The system [employer] generated this result transmitted ref erence range: -3.0 - 3 .0 mEq/L. The refe rence range was not u sed to interpret this result as normal/abnor mal. Lab Interpretation (test Abnormal code = 51659-4) [facility] WITH [id number] 10:03:11 Test Item Value Reference Range Interpretation [...] (test code = 54.3 fL 39.0-49.9 H 34819-9) RDW-CV (test code = 14.7 % 12.0-15.5 788-0) PLT (test code = See_Comment [Automated 777-3) message] The sy stem which generated this result transmitted reference range : 166 - 358 10*3/ ?L. The reference r lawrence was not used to interpret this result as normal/abnormal . MPV (test code = 10.0 fL 9.5-12.9 34787-8) NRBC/100 WBC (test See_Comment [Automat ed code = 0908610222) message] The system which generated this result transmitted reference range : 0.0 - 10.0 /100 WBCs. The refer ence range was not u sed to interpret th is result as normal/abnormal . NRBC x10^3 (test code <0.01 See_Comment [Auto mated = 6470330399) message] The s ystem which generated this result transmitted reference range : 10*3/?L. The reference range was not used to interpret this result as normal/abnormal . GRAN MAT (NEUT) % 54.4 % (test code = 770-8) IMM GRAN % (test code 1.60 % = 6314462985) LYMPH % (test code = 32.2 % 736-9) MONO % (test code = 7.1 % 5905-5) EOS % (test code = 3.6 % 713-8) BASO % (test code = 1.1 % 706-2) GRAN MAT x10^3(ANC) 4.36 10*3/uL 1.88-7.09 (test code = 1931591028) IMM GRAN x10^3 (test 0.13 10*3/uL 0.00-0.06 H code = 5131463678) LYMPH x10^3 (test code 2.58 10*3/uL 1.32-3.29 = 731-0) MONO x10^3 (test code 0.57 10*3/uL 0.33-0.92 = 742-7) EOS x10^3 (test code = 0.29 10*3/uL 0.03-0.39 711-2) BASO x10^3 (test code 0.09 10*3/uL 0.01-0.07 H = 704-7) Lab Interpretation Abnormal (test code = 36301-7) [facility]ARS-CoV-2 (COVID-19) RNA [Presence] in Respiratory specimen by WILMER with probe [id number] 00:06:22 Test Item Value Reference Range Interpretation Comments SARS-CoV-2 (COVID-19) RNA Not detected Not-Detected [Presence] in Respiratory specimen by WILMER with probe detection (test code = 82741-8) Whether patient is employed in a healthcare setting (test code = 80546-1) Whether the patient has symptoms related to condition of interest (test code = 87567-2) Patient was hospitalized because of this condition (test code = 09706-9) Whether the patient was admitted to intensive care unit (ICU) for condition of interest (test code = 59991-9) Whether patient resides in a congregate care setting (test code = 69691-9) [facility] CHEST 1 [id number] 19:34:29 No acute cardiopulmonary abnormality. Preliminary Report Dictated by Resident: Augie Murphy MD., have reviewed this study and agree with the abovereport.EXAM: XR CHEST 1 VW HISTORY: 75 years-old Female; hypoxia TECHNIQUE: Single frontal view of the chest. COMPARISON: Chest CT dated 08/24/2020. Chest radiographs dated 08/23/2020. FINDINGS: The lungs are moderately well-expanded, and clear apart from mild perihilarvascular congestion. No focal consolidation, pleural effusion, orpneumothorax is visualized. An azygos fissure is incidentally seen. The cardiomediastinal silhouette is at the upper limits of normal in size.Calcifications outline the aortic arch. No acute osseous abnormalityis present. Osteophytic changes affect theleft glenohumeral joint. [facility], Radiant Results Inft User -01/10/2021 2:35 PM CDT EXAM: XR CHEST 1 VWHISTORY: 75 years-old Female; hypoxia TECHNIQUE: Single frontal view of the chest.COMPARISON: ChestCT dated 08/24/2020. Chest radiographs dated 08/23/2020.FINDINGS:The lungs are moderately well-expanded,and clear apart from mild perihilarvascular congestion. No focal consolidation, pleural effusion, orpneumothorax is visualized. An azygos fissure is incidentally seen.The cardiomediastinal silhouette is at the upper limits of normal in size.Calcifications outline the aortic arch. No acute osseous abnor mality is present. Osteophytic changes affect theleft glenohumeral joint.IMPRESSIONNo acute cardiopulmonary abnormality.Preliminary Report Dictated by Resident: Augie Tesfaye MD., have reviewed this study and agree with the abovereport.[facility] TexasCT ABDOMEN PELVIS W [id number] 18:54:43 1. ?No acute intra-abdominal abnormality.2. ?Diverticulosis [...] GALLBLADDER AND BILIARY TREE: The gallbladder is unrema rkable. There is nointra or extrahepatic biliary ductal [...] of diverticulitis. An unremarkable appendix is seen. Thesmallbowel is unremarkable. PELVIS/BLADDER: The urinary bladder is mildly distended. The uterus andbilateral ovaries appear unremarkable. VESSELS: Mild atherosclerotic disease of the abdominal aorta and itsbranches. BONES AND SOFT TISSUES: No suspicious lytic or sclerotic bony lesions. Mildlevocurvature of the thoracolumbar spine. An anterior wedge deformity ofthe L1 vertebral body is seen with less than 30% height loss. [facility], Radiant Results Inft User - 01/10/2021 1:55 PM CDTFormatting of this notemight be different from the original.EXAM: CT ABDOMEN PELVIS W CONTRAST 01/10/2021 12:32 PMHISTORY: 75 years-old Female with Diverticulitis suspected .COMPARISON: CT PE 08/24/2020.TECHNIQUE AND FINDINGS: C ontiguous axial imaging from the level of the lungbases through the pubic symphysis was performed after the administration ofintravenous nonionic iodinated contrast. Abdomen was scanned in venousphase.Corresponding coronal and sagittal MPR reconstructions wereobtained. Auto mA and/or iterative reconst ruction were used to reduceradiation dose.FINDINGS:Evaluation is limited by motion artifact.LOWER THORAX: Trace bibasilar streaky atelectasis. Coronary artery stentsor atherosclerotic disease of the coronary arteries are seen. The lungsbases are otherwise clear. No pleural or pericardial effusions arev isualized. LIVER: The liver has is diffusely hypoattenuating compared to spleen. Theliver has normalcontour. Focal fatty sparing is seen along the gallbladderfossa. No other focal hepatic lesion. The portal veins are patent.GALLBLADDER AND BILIARY TREE: The gallbladder is unremarkable. There is nointra or extrahepatic biliary ductal dilation.SPLEEN: The spleen enhances normally. PANCREAS: Unremarkable.ADRENAL GLANDS: Indeterminate attenuation 2.4 x 1.8 x 2.1 cm right adrenalnodule. The left adrenalgland is unremarkable.KIDNEYS: The kidneys enhance normally. No nephrolithiasis or hydronephrosisis seen. No masses. PERITONEUM AND RETROPERITONEUM: Trace simple appearing free fluid is seenwithin the pelvis.LYMPH NODES: No lymphadenopathy.GI TRACT: Moderate descending and sigmoid colon diverticulosiswithoutevidence of diverticulitis. An unremarkable appendix is seen. The smallbowel is unremarkable.PELVIS/BLADDER: The urinary bladder is mildly distended. The uterus andbilateral ovaries appear unremarkable.VESSELS: Mild atherosclerotic disease of the abdominal aorta and itsbranches.BONES AND SOFT TISSUES: No suspicious lytic or sclerotic bony lesions. Mildlevocurvature of the thoracolumbar spine. A n anterior wedge deformity ofthe L1 vertebral body is seen with less than 30% height loss.IMPRESSION1. No acute intra-abdominal abnormality.2. Diverticulosis of the descending sigmoid colon without evidence ofdiverticulitis.3. Anterior wedge deformity of the L1 vertebral body with less than 30%height loss is old..Preliminary Report Dictated by Resident: Augie Cruz MD., have reviewed this study and agree with the abovereport.[facility] TexasCT HEAD WO [id number] 17:01:[address] headCT HEAD WO CONTRAST HISTORY: Female 75 years Mental status change, unknown cause RICHARD RISON: CT head dated 08/24/2020 TECHNIQUE: Routine CT [...] clear. [facility], Radiant Results Inft User - 01/10/2021 12:[address] HEAD WO CONTRASTHISTORY: Female 75 years Mental status change, unknown cause COMPARISON: CT head dated 08/24/2020TECHNIQUE: Routine CT head without contrastFINDINGS:The ventricles and cerebral sulci are normal in caliber and configuration.No hydrocephalus, midline shift or pathological extra-axial fluidcollection is present. Thebasal cisterns are unremarkable.No acute intracranial hemorrhage or mass effect is present. The sahu-whitematter differentiation is preserved. No parenchymal attenuation abnormalityis present.The calvarium and skull base are unremarkable. The mastoid air cells andvisualized paranasal air sinuses are clear.IMPRESSIONNormal CT headUnFoundation Surgical Hospital of El PasoCBC with [id number] 16:44:53 Test Item Value Reference Range Interpretation [...] (test code = 54.3 fL 39.0-49.9 H 00157-4) RDW-CV (test code = 14.2 % 12.0-15.5 788-0) PLT (test code = See_Comment L [Automated 777-3) message] The sy stem which generated this result transmitted reference range : 166 - 358 10*3/ ?L. The reference r lawrence was not used to interpret this result as normal/abnormal . MPV (test code = 10.9 fL 9.5-12.9 54383-0) IPF % (test code = 3.6 % 1.3-7.7 Platelet count 4047972213) measured by fluorescence method. NRBC/100 WBC (test See_Comment [Automat ed code = 9962593637) message] The system which generated this result transmitted reference range : 0.0 - 10.0 /100 WBCs. The refer ence range was not u sed to interpret th is result as normal/abnormal . NRBC x10^3 (test code <0.01 See_Comment [Auto mated = 6627095124) message] The s ystem which generated this result transmitted reference range : 10*3/?L. The reference range was not used to interpret this result as normal/abnormal . GRAN MAT (NEUT) % 48.3 % (test code = 770-8) IMM GRAN % (test code 4.10 % = 3531224255) LYMPH % (test code = 37.9 % 736-9) MONO % (test code = 8.3 % 5905-5) EOS % (test code = 0.9 % 713-8) BASO % (test code = 0.5 % 706-2) GRAN MAT x10^3(ANC) 2.73 10*3/uL 1.88-7.09 (test code = 4896240794) IMM GRAN x10^3 (test 0.23 10*3/uL 0.00-0.06 H code = 8616084490) LYMPH x10^3 (test code 2.14 10*3/uL 1.32-3.29 = 731-0) MONO x10^3 (test code 0.47 10*3/uL 0.33-0.92 = 742-7) EOS x10^3 (test code = 0.05 10*3/uL 0.03-0.39 711-2) BASO x10^3 (test code 0.03 10*3/uL 0.01-0.07 = 704-7) PLT ESTIMATE (test Decreased Normal A code = 9317-9) Lab Interpretation Abnormal (test code = 93567-9) [facility] TexasTroponin [id number] 16:36:49 Test Item Value Reference Interpretation Comments Range TROPONIN I (test 0.011 ng/mL See_Comment [Automated code = 3529274284) message] The system which generated this result [...] biotin. Lab Interpretation Normal (test code = 63678-5) [facility] TexasN-TERMINAL [id number] 16:33:49 Test Item Value Reference Range Interpretation Comments NT-proBNP (test code 348 pg/mL See_Comment H [Autom ated = 7728290638) message] The system which generated this result transmitted reference range : <=125. The reference range was not used to interpret this result as normal/abnormal . JOSELITO (test code = JOSELITO) Biotin has been reported to cause a negative bias, interpret results relative to patient's use of biotin. Lab Interpretation Abnormal (test code = 08480-2) [facility] TexasBasi Metabolic Panel (NA, K, CL, CO2, GLUCOSE, BUN, CREATININE, CA)2021-01-10 16:24:49 Test Item Value Reference Range Interpretation Comments NA (test code = 137 mmol/L 135-145 6412589442) K (test code = 4.8 mmol/L 3.5-5.0 2302243398) CL (test code = 106 mmol/L 98-108 4425819848) CO2 TOTAL (test code = 27 mmol/L 23-31 3909687325) AGAP (test code = 2-16 3321105212) BUN (test code = 22 mg/dL 7-23 5815352885) GLUCOSE (test code = 113 mg/dL 70-110 H 7742870188) CREATININE (test code = 0.99 mg/dL 0.50-1.04 9658316562) CALCIUM (test code = 9.4 mg/dL 8.6-10.6 3581653540) eGFR (test code = mL/min/1.73m2 9895487880) JOSELITO (test code = JOSELITO) Association of [...] tests). Lab Interpretation Abnormal (test code = 08986-5) [facility] TexasHepatic Function Panel (ALB, T.PRO, BILI T, BU/BC, ALT, AST, ALK PHOS)2021-01-10 16:24:49 Test Item Value Reference Range Interpretation Comments TOTAL BILI (test code = 0089974729) 0.5 mg/dL 0.1-1.1 BILI UNCON (test code = 1801514066) 0.3 mg/dL 0.1-1.1 BILI CONJ (test code = 4276683808) 0.0 mg/dL 0.0-0.3 T PROTEIN (test code = 1877563444) 6.4 g/dL 6.3-8.2 ALBUMIN (test code = 3549857046) 3.9 g/dL 3.5-5.0 ALK PHOS (test code = 8377708258) 53 U/L 34-122 ALTv (test code = 1742-6) 10 U/L 5-35 AST(SGOT) (test code = 4189942174) 19 U/L 13-40 Lab Interpretation (test code = Normal 83437-1) [facility] TexasLipase [id number] 16:24:49 Test Item Value Reference Range Interpretation Comments LIPASE (test code = 5489308640) 228 U/L 0-220 H Lab Interpretation (test code = Abnormal 77058-1) [facility] TexasCOVID-19 (ID NOW RAPID TESTING)2021-01-10 16:23:48 Test Item Value Reference Range Interpretation Comments SARS-CoV-2 Rapid ID NOW Not Detected Not Detected (test code = 62790-8) JOSELITO (test code = JOSELITO) ID NOW COVID-19 Assay is an isothermal nucleic acid amplification test intended for the qualitative detection of nucleic acid from SARS-CoV-2 viral RNA in nasopharyngeal (COMIC WRITER) specimens. It is used under Emergency Use [...] indicated. Lab Interpretation Normal (test code = 21091-6) [facility] of TexasaPTT2021-06-28 16:18:29 Test Item Value Reference Range Interpretation Comments APTT Patient (test See_Comment [Automat ed code = 3173-2) message] The system which generated this result transmitted reference range : 23 - 38 Seconds . The reference range was not used to interpr et this result as normal/abnormal . JOSELITO (test code = JOSELITO) The [facility] patient population mean normal value for aPTT is 30 seconds. Lab Interpretation Normal (test code = 82645-3) [facility] TexasProthrombin Time (PT) / [id number] 16:16:28 Test Item Value Reference Range Interpretation Comments PROTIME PATIENT (test See_Comment [Auto mated message] code = 5964-2) The system ich generated this result transmitted ref erence range: 12.0 - 1 4.7 Seconds. The re ference range was not u sed to interpret this result as normal/abnor mal. INR (test code = 6301-6) Nor mal INR <1.1; Warfarin Therap eutic range 2.0 to 3. 0 or 2.5 to 3.5, dep ending upon the indica tions. Lab Interpretation (test Normal code = 36407-8) [facility] TexasUrinalysis2021-06-28 16:16:28 Test Item Value Reference Range Interpretation Comments APPEARANCE (test code = Clear Clear 4990587046) COLOR (test code = Yellow Yellow 2750383383) PH (test code = 4.8-8.0 6703399369) SP GRAVITY (test code = 1.003-1.030 3898603234) GLU U QUAL (test code = Normal Normal 7488377984) BLOOD (test code = Negative Negative 9975780367) KETONES (test code = 5 mg/dL Negative A 4969718288) PROTEIN (test code = Negative Negative 2887-8) UROBILIN (test code = Normal Normal 7835522399) BILIRUBIN (test code = Negative Negative 9327683994) NITRITE (test code = Negative Negative 5367523555) LEUK JACOB (test code = Negative Negative 1066876900) RBC/HPF (test code = <1 See_Comment [Autom ated message] 8525811908) The system ic h generated this result transmitted ref erence range: 0 - 3 HP F. The reference range was not used to int erpret this result as normal/abnormal . WBC/HPF (test code = See_Comment [Autom ated message] 3574557813) The system [employer] generated this result transmitted ref erence range: 0 - 5 HP F. The reference range was not used to int erpret this result as normal/abnormal . BACTERIA (test code = Negative Negative 6830282134) MUCOUS (test code = Slight Negative LPF A 7037703039) HYAL CAST (test code = See_Comment H [Aut omated message] 7198735314) The system [employer] generated this result transmitted ref erence range: <=2 LPF. The reference range was not used to int erpret this result as normal/abnormal . Lab Interpretation (test Abnormal code = 56149-1) [facility] of TexasLactic Acid Whole [id number] 16:02:54 Test Item Value Reference Range Interpretation Comments LACTIC ACID (test code = 1.55 mmol/L 0.50-2.20 7316271155) Lab Interpretation (test code = Normal 13668-7) [facility] TexasSARS-CoV-2 (COVID-19) RNA [Presence] in Respiratory specimen by WILMER with probe [id number] 08:55:44 Test Item Value Reference Range Interpretation Comments SARS-CoV-2 (COVID-19) RNA Not detected Not-Detected [Presence] in Respiratory specimen by WILMER with probe detection (test code = 40373-7) [facility] PARTIAL THRMPLAS [id number] 18:29:00 Test Item Value Reference Range Interpretation Comments APTT Patient (test See_Comment H [Automat ed code = 3173-2) message] The system which generated this result transmitted reference range : 23 - 38 Seconds . The reference range was not used to interpr et this result as normal/abnormal . JOSELITO (test code = JOSELITO) The [facility] patient population mean normal value for aPTT is 30 seconds. Lab Interpretation Abnormal (test code = 29403-3) [facility] TexasVALPROIC ACID, [id number] 17:22:00 Test Item Value Reference Range Interpretation Comments Valproic Acid, Free 21.8 ug/mL 4-15 H (test code = 4324799792) JOSELITO (test code = JOSELITO) Toxic Range: ? Greater than 15 ug/mL Test developed and characteristics determined by [facility] Laboratory Services. Lab Interpretation Abnormal (test code = 28541-6) [facility] TexasTROPONIN [id number] 14:31:00 Test Item Value Reference Range Interpretation Comments TROPONIN I (test 0.064 ng/mL See_Comment H [Automated code = 5890483461) message] The system which generated this result [...] ? Lab Interpretation Abnormal (test code = 18182-7) [facility] TexasBasic Metabolic Panel (NA, K, CL, CO2, GLUCOSE, BUN, CREATININE, CA)2020-08-25 12:58:00 Test Item Value Reference Range Interpretation Comments NA (test code = 138 mmol/L 135-145 3569255163) K (test code = 3.6 mmol/L 3.5-5 6084422348) CL (test code = 104 mmol/L 98-108 7486476593) CO2 TOTAL (test code = 27 mmol/L 23-31 0895766566) AGAP (test code = 2-16 5167943797) BUN (test code = 11 mg/dL 7-23 7836517119) GLUCOSE (test code = 159 mg/dL 70-110 H 5617143225) CREATININE (test code = 0.56 mg/dL 0.5-1.04 3531068231) CALCIUM (test code = 8.9 mg/dL 8.6-10.6 4388932096) eGFR Calculation mL/min/1.73m2 (Non-) (test code = 0015949819) eGFR Calculation mL/min/1.73m2 () (test code = 8111284640) JOSELITO (test code = JOSELITO) Association of [...] tests). Lab Interpretation Abnormal (test code = 95967-0) [facility] with [id number] 12:45:00 Test Item Value Reference Range Interpretation Comments WBC (test code = See_Comment [Automated 0890-2) message] The sy stem which generated this [...] (test code = 51.3 fL 39-49.9 H 53276-5) RDW-CV (test code = 13.8 % 12-15.5 788-0) PLT (test code = See_Comment L [Automated 777-3) message] The sy stem which generated this result transmitted reference range : 166 - 358 10*3/ ?L. The reference r lawrence was not used to interpret this result as normal/abnormal . MPV (test code = 10.5 fL 9.5-12.9 85659-6) NRBC/100 WBC (test See_Comment [Automat ed code = 0938264061) message] The system which generated this result transmitted reference range : 0.0 - 10.0 /100 WBCs. The refer ence range was not u sed to interpret th is result as normal/abnormal . NRBC x10^3 (test code <0.01 See_Comment [Auto mated = 9510071152) message] The s ystem which generated this result transmitted reference range : 10*3/?L. The reference range was not used to interpret this result as normal/abnormal . GRAN MAT (NEUT) % 32.6 % (test code = 770-8) IMM GRAN % (test code 1.30 % = 8997938797) LYMPH % (test code = 46.8 % 736-9) MONO % (test code = 11.4 % 5905-5) EOS % (test code = 7.3 % 713-8) BASO % (test code = 0.6 % 706-2) GRAN MAT x10^3(ANC) 2.18 10*3/uL 1.88-7.09 (test code = 0520717221) IMM GRAN x10^3 (test 0.09 10*3/uL 0-0.06 H code = 1371316921) LYMPH x10^3 (test code 3.13 10*3/uL 1.32-3.29 = 731-0) MONO x10^3 (test code 0.76 10*3/uL 0.33-0.92 = 742-7) EOS x10^3 (test code = 0.49 10*3/uL 0.03-0.39 H 711-2) BASO x10^3 (test code 0.04 10*3/uL 0.01-0.07 = 704-7) Lab Interpretation Abnormal (test code = 25928-8) [facility] TexasACTIVATED PARTIAL THRMPLAS [id number] 05:48:00 Test Item Value Reference Range Interpretation Comments APTT Patient (test See_Comment H [Automat ed code = 3173-2) message] The system which generated this result transmitted reference range : 23 - 38 Seconds . The reference range was not used to interpr et this result as normal/abnormal . JOSELITO (test code = JOSELITO) The [facility] patient population mean normal value for aPTT is 30 seconds. Lab Interpretation Abnormal (test code = 84278-3) [facility] TexasLAB ONLY COVID [id number] 22:44:00COVID DMT InterpretationInterpretation/Recommendations: Molecular NAAT Tests for [...] Tests for IgM and/or IgG Antibodies to SARS-CoV- 2 Virus: Testing for IgM and IgG antibodies [...] COVID-19 testing the patient has had at [facility], including molecular NAAT testing (more commonly known as PCR testing and Rapid ID Now testing) and antibody testing. It does not take into account any testing that a patient has had outside of the [facility] medical record. [facility] LABORATORY SERVICESCOVID RqkzwkvVBWQ-YaP-9 NAAT (no units) ? ? Date ? Value ? 02/26/2020 ? Not Detected ? SARS-CoV-2 Rapid ID NOW (no units) ? ? Date ? Value ? 08/23/2020 ? Not Detected ? ? ? 02/26/2020 ? Not Detected ? [facility] LABORATORY SERVICESUnFoundation Surgical Hospital of El PasoJULIETTE YUN [id number] 22:09:00 Test Item Value Reference Range Interpretation Comments APTT Patient (test code See_Comment H [Au tomated message] = 3173-2) The system [employer] generated this result transmitted ref erence range: 23 - 38 Seconds. The reference range was not used to int erpret this result as normal/abnormal . Lab Interpretation (test Abnormal code = 55075-7) [facility] TexasACTIVATED PARTIAL THRMPLAS [id number] 14:04:00 Test Item Value Reference Range Interpretation Comments APTT Patient (test See_Comment HH [Automat ed code = 3173-2) message] The system which generated this result transmitted reference range : 23 - 38 Seconds . The reference range was not used to interpr et this result as normal/abnormal . JOSELITO (test code = JOSELITO) The [facility] patient population mean normal value for aPTT is 30 seconds. Lab Interpretation Abnormal (test code = 57730-3) [facility] TexasCT CHEST PULMONARY [id number] 10:08:06Impression: 1. No evidence of pulmonary embolus.2. Scattered bilateral groundglass opacities, likelyrepresent subsegmentalatelectasis. Mildly typical infection cannot be excluded.3. Distal esophageal wall thickening, which can be seen with esophagitis,esophageal metaplasia, or esophageal neoplasm. Small hiatal hernia.4. Fatty liver.5. Bilateral adrenal nodules, measuring up to 2.5 cm on the right. Followupadrenal MRI is suggested to further evaluate. RL: 2824AFC: [id number] End of Report Exam: CT Angiography Chest [...] There are degenerative changes of the spine. [facility], Radiant Results Inft User - 08/24/2020 4:09 AM CSTExam: CT Angiography Chest With Contrast, 08/24/2020 2:30 AM.Ordering Physician: TYE HELM.History: Chest pain.Technique: CT angiography chest was performed with intravenous contrast. 3D MIP images were rendered. CT was performed according to ALARA (As Low AsReasonably A chievable).Comparison: None.Findings: There is no evidence of pulmonary embolus. Central pulmonary arteries arenormal in caliber. There is no pleural effusion. Azygos fissure is noted. There are bilateralscattered groundglass opacities, which may represent subsegmentalatelectatic changes. There is no parenchymal consolidation or pulmonarymass. Central airways are patent.Heart size is normal. There iscoronary artery calcification. There is nopericardial effusion. Thoracic aorta is normal in caliber and demonstratesmild calcified plaque. Great vessels demonstrate mild calcified plaqueproximally. There is no mediastinal, hilar, or axillary adenopathy. Thereis a small hiatal hernia. Distal esophagealwall thickening is noted.Visualized liver demonstrates decreased attenuation, consistent with fattyinfiltration. 2.5 cm right adrenal nodule is partially visualized. Theremay be a small left adrenal nodule, also partially visualized.Calcification in the spleen may be related to prior granulomatous disease.There are degenerative changes of the spine.IMPRESSIONImpression: 1. No evidence of pulmonary embolus.2. Scattered bilateral groundglass opacities, likely represent subsegmentalatelectasis. Mildly typical infection cannot be excluded.3. Distal esophageal wall thickening, which can be seen with esop hagitis,esophageal metaplasia, or esophageal neoplasm. Small hiatal hernia.4. Fatty liver.5. Bilateral adrenal nodules, measuring up to 2.5 cm on the right. Followupadrenal MRI is suggested to further evaluate. RL: 2824AFC: 05737Fmi of Report [facility] TexasCT HEAD WO [id number] 10:01:15Impression:No intracranial hemorrhage or midline shift. RL: 2824AFC: [id number] End of Report Exam: CT Head Without [...] orbits,paranasal sinuses, and mastoid complexes are normal. [facility], Radiant Results Inft User - 08/24/2020 4:02 AM CSTExam: CT Head Without Contrast, 08/24/2020 2:30 AM.Ordering Physician:TYE HELM.History: Headache.Technique: CT head was obtained without intravenous contrast. CT wasperformed according to ALARA (As Low As Reasonably Achievable).Comparison: None.Findings:There is no parenchymal hemorrhage, mass effect, or midline shift. Thereare no extra-axial fluid collections. Sahu-white matter differentiation ispreserved. There is no acute major vascular territory infarct.There is mild intracranial arterial calcification. Ventricles, basalcisterns, and cortical sulci are mildlyenlarged, consistent with corticalvolume loss. Osseous structures are unremarkable. Visualized orbits ,paranasal sinuses, and mastoid complexes are normal. IMPRESSIONImpression:No intracranial hemorrhage or midline shift. RL: 2824AFC: [id number] of Report [facility] of TexasLIPID PANEL (20526)(TOTAL CHOLESTEROL, TRIGLYCERIDES, HDL) 2020-08-24 08:59:00 Test Item Value Reference Range Interpretation Comments CHOL (test code = 180 mg/dL 120-200 6282977080) HDL (test code = 35 mg/dL >50 L 9302383179) HDLC RATIO (test code = See_Comment H [Au tomated message] 8199294772) The system [employer] generated this result transmit jessica reference range : <=4.5. The refe rence range was not u sed to interpret th is result as normal/abnormal . TRIG (test code = 251 mg/dL 30-170 H 6236428823) LDL CHOL (test code = 95 mg/dL See_Comment [Auto mated message] 89927-1) The system [employer] generated this result transmit jessica reference range : <=160. The refe rence range was not u sed to interpret th is result as normal/abnormal . VLDL (test code = 50 mg/dL 5-60 6274896041) Lab Interpretation (test Abnormal code = 70439-6) [facility] TexasCritical [id number] 05:26:20NeSharron canseco MD ? ? 08/23/2020 11:26 [...] and interventions, ordering and review of laboratory studies, ordering and review of radiographic studies, pulse oximetry, re-evaluation of patient's condition, blood draw for specimens, development of treatment plan with patient or surrogate, discussions with consu ltants and discussions with [facility] with [id number] 05:16:00 Test Item Value Reference Range Interpretation Comments WBC (test code = See_Comment [Automated 9390-2) message] The sy stem which generated this result transmitted reference range : 4.30 - 11.10 10*3/?L. The reference range was not used to interpret this result as normal/abnormal . RBC (test code = See_Comment L [Automated 469-8) message] The sy stem which generated this [...] (test code = 51.6 fL 39-49.9 H 90481-3) RDW-CV (test code = 13.6 % 12-15.5 788-0) PLT (test code = See_Comment L [Automated 777-3) message] The sy stem which generated this result transmitted reference range : 166 - 358 10*3/ ?L. The reference r lawrence was not used to interpret this result as normal/abnormal . MPV (test code = 10.5 fL 9.5-12.9 45461-8) IPF % (test code = 2.3 % 1.3-7.7 Platelet count 2253309735) measured by fluorescence method. NRBC/100 WBC (test See_Comment [Automat ed code = 4444972166) message] The system which generated this result transmitted reference range : 0.0 - 10.0 /100 WBCs. The refer ence range was not u sed to interpret th is result as normal/abnormal . NRBC x10^3 (test code <0.01 See_Comment [Auto mated = 2752371982) message] The s ystem which generated this result transmitted reference range : 10*3/?L. The reference range was not used to interpret this result as normal/abnormal . GRAN MAT (NEUT) % 33.0 % (test code = 770-8) IMM GRAN % (test code 1.40 % = 9201186060) LYMPH % (test code = 50.3 % 736-9) MONO % (test code = 10.8 % 5905-5) EOS % (test code = 3.6 % 713-8) BASO % (test code = 0.9 % 706-2) GRAN MAT x10^3(ANC) 1.46 10*3/uL 1.88-7.09 L (test code = 2834662995) IMM GRAN x10^3 (test 0.06 10*3/uL 0-0.06 code = 6206172563) LYMPH x10^3 (test code 2.23 10*3/uL 1.32-3.29 = 731-0) MONO x10^3 (test code 0.48 10*3/uL 0.33-0.92 = 742-7) EOS x10^3 (test code = 0.16 10*3/uL 0.03-0.39 711-2) BASO x10^3 (test code 0.04 10*3/uL 0.01-0.07 = 704-7) Lab Interpretation Abnormal (test code = 32588-6) [facility] 1 [id number] 05:01:07 No radiographic evidence of acute cardiopulmonary disease. RL: [id number]: [id number] End of report. ORDERING PROVIDER: EDEL MUSE [...] CSTORDERING PROVIDER: SHARRON MUSEHISTORY: chest pain TECHNIQUE: APview of the chest COMPARISON: NoneFINDINGS: Shallow inspiratory volume with asymmetric elevation of the righthemidiaphragm. Right apical azygous fissure. No focal consolidation,pleural effusion, or pneumothorax. The cardiac silhouette and pulmonaryvasculature are within normal limits. Aortic arch calci fications. Theosseous structures are unremarkable.IMPRESSIONNo radiographic evidence of acute cardiopulmonary disease.RL: [id number]: 79791Hlh of report. [facility] [id number] 04:58:00 Test Item Value Reference Range Interpretation Comments TROPONIN I (test 0.079 ng/mL See_Comment H [Automated code = 0371777790) message] The system which generated this result [...] ? Lab Interpretation Abnormal (test code = 07031-0) [facility] TexasN-TERMINAL [id number] 04:54:00 Test Item Value Reference Range Interpretation Comments NT-proBNP (test code 373 pg/mL See_Comment H [Autom ated = 7419143088) message] The system which generated this result transmitted reference range : <=125. The reference range was not used to interpret this result as normal/abnormal . JOSELITO (test code = JOSELITO) Biotin has been reported to cause a negative bias, interpret results relative to patient's use of biotin. Lab Interpretation Abnormal (test code = 59126-1) [facility] TexasCOVID-19 (ID NOW RAPID TESTING)2020-08-24 04:48:00 Test Item Value Reference Range Interpretation Comments SARS-CoV-2 Rapid ID NOW Not Detected Not Detected (test code = 09925-3) JOSELITO (test code = JOSELITO) ID NOW COVID-19 Assay is an isothermal nucleic acid amplification test intended for the qualitative detection of nucleic acid from SARS-CoV-2 viral RNA in nasopharyngeal (COMIC WRITER) specimens. It is used under Emergency Use [...] indicated. Lab Interpretation Normal (test code = 30225-4) [facility] Metabolic Panel (NA, K, CL, CO2, GLUCOSE, BUN, CREATININE, CA)2020-08-24 04:46:00 Test Item Value Reference Range Interpretation Comments NA (test code = 140 mmol/L 135-145 9309100665) K (test code = 3.9 mmol/L 3.5-5 6071420832) CL (test code = 107 mmol/L 98-108 2139751750) CO2 TOTAL (test code = 29 mmol/L 23-31 8965043435) AGAP (test code = 2-16 2007540111) BUN (test code = 12 mg/dL 7-23 4561254451) GLUCOSE (test code = 157 mg/dL 70-110 H 9826767389) CREATININE (test code = 0.62 mg/dL 0.5-1.04 1908987430) CALCIUM (test code = 9.1 mg/dL 8.6-10.6 6376924130) eGFR Calculation mL/min/1.73m2 (Non-) (test code = 8237065781) eGFR Calculation mL/min/1.73m2 () (test code = 0202677058) JOSELITO (test code = JOSELITO) Association of [...] tests). Lab Interpretation Abnormal (test code = 61646-6) [facility] TexasHepatic Function Panel (ALB, T.PRO, BILI T, BU/BC, ALT, AST, ALK PHOS)2020-08-24 04:46:00 Test Item Value Reference Range Interpretation Comments TOTAL BILI (test code = 2045340657) 0.6 mg/dL 0.1-1.1 BILI UNCON (test code = 0780652739) 0.5 mg/dL 0.1-1.1 BILI CONJ (test code = 8791146910) 0.0 mg/dL 0-0.3 T PROTEIN (test code = 4741897032) 5.7 g/dL 6.3-8.2 L ALBUMIN (test code = 4240174849) 3.4 g/dL 3.5-5 L ALK PHOS (test code = 6718595402) 61 U/L 34-122 ALTv (test code = 1742-6) 10 U/L 5-35 AST(SGOT) (test code = 4956638835) 18 U/L 13-40 Lab Interpretation (test code = Abnormal 07821-9) [facility] TexasLipase [id number] 04:46:00 Test Item Value Reference Range Interpretation Comments LIPASE (test code = 2589691293) 118 U/L 0-220 Lab Interpretation (test code = Normal 97661-5) [facility] TexasaPTT2021-02-09 04:45:00 Test Item Value Reference Range Interpretation Comments APTT Patient (test See_Comment [Automat ed code = 3173-2) message] The system which generated this result transmitted reference range : 23 - 38 Seconds . The reference range was not used to interpr et this result as normal/abnormal . JOSELITO (test code = JOSELITO) The [facility] patient population mean normal value for aPTT is 30 seconds. Lab Interpretation Normal (test code = 13841-5) [facility] TexasProthrombin Time (PT) / [id number] 04:43:00 Test Item Value Reference Range Interpretation [...] tions. Lab Interpretation (test Normal code = 54784-4) [facility] TexasCB WITH [id number] 00:30:00 Test Item Value Reference Range Interpretation [...] (test code = 47.7 fL 39-49.9 Previous 04719-9) preliminary verified result was 47.8 fL on [...] (test code = 10.3 fL 9.5-12.9 Previous 49574-9) preliminary verified result was 10.4 fL on 03/08/2020 at 16 03 CDT IPF % (test code = 2.6 % 1.3-7.7 Platelet count 0642086237) measured by fluorescence method. NRBC/100 WBC (test See_Comment [Automat ed code = 2089133802) message] The system which generated this result transmitted reference range : 0.0 - 10.0 /100 WBCs. The refer ence range was not u sed to interpret th is result as normal/abnormal . NRBC x10^3 (test code <0.01 See_Comment [Auto mated = 4528660055) message] The s ystem which generated this result transmitted reference range : 10*3/?L. The reference range was not used to interpret this result as normal/abnormal . GRAN MAT (NEUT) % 49.6 % (test code = 770-8) IMM GRAN % (test code 2.50 % = 8453077772) LYMPH % (test code = 30.8 % 736-9) MONO % (test code = 10.7 % 5905-5) EOS % (test code = 5.6 % 713-8) BASO % (test code = 0.8 % 706-2) GRAN MAT x10^3(ANC) 2.59 10*3/uL 1.88-7.09 (test code = 4430155500) IMM GRAN x10^3 (test 0.13 10*3/uL 0-0.06 H code = 4711513013) LYMPH x10^3 (test code 1.61 10*3/uL 1.32-3.29 = 731-0) MONO x10^3 (test code 0.56 10*3/uL 0.33-0.92 = 742-7) EOS x10^3 (test code = 0.29 10*3/uL 0.03-0.39 711-2) BASO x10^3 (test code 0.04 10*3/uL 0.01-0.07 = 704-7) Lab Interpretation Abnormal (test code = 47879-3) [facility] TexasURINALYSIS2020-08-24 21:44:00 Test Item Value Reference Range Interpretation Comments APPEARANCE (test code = Clear Clear 2529129842) COLOR (test code = Yellow Yellow 7384624722) PH (test code = 4.8-8.0 9898437652) SP GRAVITY (test code = 1.003-1.030 8692619031) GLU U QUAL (test code = Normal Normal 5874851245) BLOOD (test code = Negative Negative 7044372292) KETONES (test code = Negative Negative 3246200526) PROTEIN (test code = Negative Negative 2887-8) UROBILIN (test code = Normal Normal 2669336020) BILIRUBIN (test code = Negative Negative 1729557947) NITRITE (test code = Negative Negative 2917587192) LEUK JACOB (test code = Negative Negative 5455903417) RBC/HPF (test code = <1 See_Comment [Autom ated message] 8330853637) The system [employer] generated this result transmitted ref erence range: 0 - 3 HP F. The reference range was not used to int erpret this result as normal/abnormal . WBC/HPF (test code = <1 See_Comment [Autom ated message] 0613134475) The system [employer] generated this result transmitted ref erence range: 0 - 5 HP F. The reference range was not used to int erpret this result as normal/abnormal . BACTERIA (test code = Negative Negative 1036397200) MUCOUS (test code = Slight Negative LPF A 9129679954) SQ EPITH (test code = HPF 3241647731) Lab Interpretation (test Abnormal code = 70216-0) [facility] TexasXR CHEST 2 [id number] 20:37:13 No acute cardiopulmonary abnormality Preliminary Report [...] Obstructive chronic bronchitis withexacerbation COMPARISON: Chest radiograph 02/26/2020FINDINGS: The lungs are clear with no focal consolidation. There is no pleuraleffusion or pneumothorax.The cardiomediastinal silhouette is normal. Aortic knob calcification.No acute osseous abnormality is identified.IMPRESSIONNo acute cardiopulmonary abnormalityPreliminary Report Dictated by Resident: Augie Murray MD., have reviewed this study and agree with the abovereport.[facility] TexasURINE [id number] 16:47:00 Test Item Value Reference Range Interpretation Comments URINE CULTURE (test 10,000 - 100,000 CFU/mL code = 630-4) mixed aerobic organisms - suggests endogenous microbial contamination [facility] WITH [id number] 14:11:00 Test Item Value Reference Range Interpretation [...] RDW-SD (test code = 49.1 fL 39-49.9 71588-2) RDW-CV (test code = 13.2 % 12-15.5 788-0) PLT (test code = See_Comment L [Automated 777-3) message] The system which generated this result transmitted reference range : 166 - 358 10*3/?L. The reference range was not used to interpret this result as normal/abnormal . MPV (test code = 10.1 fL 9.5-12.9 08488-6) NRBC/100 WBC (test See_Comment [Automat ed code = 4708786931) message] The system which generated this result transmitted reference range : 0.0 - 10.0 /100 WBCs. The reference range was not used to interpret this result as normal/abnormal . NRBC x10^3 (test code <0.01 See_Comment [Auto mated = 8098947635) message] The system which generated this result transmitted reference range : 10*3/?L. The reference range was not used to interpret this result as normal/abnormal . GRAN MAT (NEUT) % 54.5 % (test code = 770-8) IMM GRAN % (test code 2.40 % = 4081679785) LYMPH % (test code = 24.5 % 736-9) MONO % (test code = 15.7 % 5905-5) EOS % (test code = 2.0 % 713-8) BASO % (test code = 0.9 % 706-2) GRAN MAT x10^3(ANC) 3.78 10*3/uL 1.88-7.09 (test code = 7265888080) IMM GRAN x10^3 (test 0.17 10*3/uL 0-0.06 H code = 9287049734) LYMPH x10^3 (test 1.70 10*3/uL 1.32-3.29 code = 731-0) MONO x10^3 (test code 1.09 10*3/uL 0.33-0.92 H = 742-7) EOS x10^3 (test code 0.14 10*3/uL 0.03-0.39 = 711-2) BASO x10^3 (test code 0.06 10*3/uL 0.01-0.07 = 704-7) BANDS (test code = MARKED INCREASED A 2362938276) Lab Interpretation Abnormal (test code = 51039-8) [facility] [id number] 11:51:00 Test Item Value Reference Range Interpretation Comments TROPONIN I (test <0.012 See_Comment [Automated code = 6267234907) message] The system which generated this result [...] ? Lab Interpretation Normal (test code = 88809-2) [facility] TexasN-TERMINAL [id number] 11:48:00 Test Item Value Reference Range Interpretation Comments NT-proBNP (test code 231 pg/mL See_Comment H [Autom ated = 5837845375) message] The system which generated this result transmitted reference range : <=125. The reference range was not used to interpret this result as normal/abnormal . JOSELITO (test code = JOSELITO) Biotin has been reported to cause a negative bias, interpret results relative to patient's use of biotin. Lab Interpretation Abnormal (test code = 41472-6) [facility] TexasCOMP. METABOLIC PANEL (44938)2020-02-27 11:40:00 Test Item Value Reference Range Interpretation Comments NA (test code = 136 mmol/L 135-145 1097178433) K (test code = 4.1 mmol/L 3.5-5 4968446082) CL (test code = 101 mmol/L 98-108 3955569305) CO2 TOTAL (test code = 28 mmol/L 23-31 2317713834) AGAP (test code = 2-16 0374958379) BUN (test code = 26 mg/dL 7-23 H 7115163366) GLUCOSE (test code = 152 mg/dL 70-110 H 3907170649) CREATININE (test code = 0.72 mg/dL 0.5-1.04 6167697248) TOTAL BILI (test code = 0.5 mg/dL 0.1-1.4 0997404852) CALCIUM (test code = 9.5 mg/dL 8.6-10.6 2249224521) T PROTEIN (test code = 6.5 g/dL 6.3-8.2 7343734338) ALBUMIN (test code = 3.7 g/dL 3.5-5 0650649702) ALK PHOS (test code = 55 U/L 34-122 2235120734) ALTv (test code = 12 U/L 5-35 1742-6) AST(SGOT) (test code = 22 U/L 13-40 0657223473) eGFR Calculation mL/min/1.73m2 (Non-) (test code = 3038880046) eGFR Calculation mL/min/1.73m2 () (test code = 9442153517) JOSELITO (test code = JOSELITO) Association of [...] tests). Lab Interpretation Abnormal (test code = 89725-7) [facility] 11:40:00 Test Item Value Reference Range Interpretation Comments MAGNESIUM (test code = 3018786271) 1.8 mg/dL 1.7-2.4 Lab Interpretation (test code = Normal 91368-3) [facility] TexasACUTE CARE VENOUS BLOOD [id number] 10:29:00 Test Item Value Reference Range Interpretation Comments PH (test code = 7.32-7.42 2442147081) PCO2 NELY (test code = See_Comment H [Auto mated message] 2366400961) The system [employer] generated this result transmitted ref erence range: 41 - 51 mmHg. The reference r lawrence was not used to interpret this result as normal/abnor mal. PO2 NELY (test code = See_Comment [Autom ated message] 9573416082) The system [employer] generated this result transmitted ref erence range: 25 - 40 mmHg. The reference r lawrence was not used to interpret this result as normal/abnor mal. HCO3 NELY (test code = See_Comment H [Auto mated message] 7580192939) The system [employer] generated this result transmitted ref erence range: 24 - 28 mEq/L. The reference r lawrence was not used to interpret this result as normal/abnor mal. AC VBE(BEAKER) (test mEq/L code = 4744228840) Lab Interpretation (test Abnormal code = 46595-4) [facility] TexasVITAMIN D, [id number] 23:35:00 Test Item Value Reference Range Interpretation Comments VIT D 25OH (test code = 23 ng/mL 25-80 L 49444-6) JOSELITO (test code = JOSELITO) Deficiency: <20 ng/mLInsufficiency: 20-24 ng/mLOptimal: 25-80 ng/mL Lab Interpretation (test Abnormal code = 82752-5) [facility] TexasPROCALCITONIN2020-08-13 23:29:00 Test Item Value Reference Interpretation Comments Range Procalcitonin (test <0.02 See_Comment [Automa jessica code = 3273750528) message] The system which generated this result [...] lung abscess/empyema. For further information please refer to:[email or web address] Lab Interpretation Normal (test code = 12501-2) [facility] TexasVITAMIN B12, [id number] 22:16:00 Test Item Value Reference Range Interpretation Comments VIT B12 (test code = 385 pg/mL 240-930 4639226780) JOSELITO (test code = JOSELITO) Biotin has been reported to cause a positive bias, interpret results relative to patient's use of biotin. Lab Interpretation (test Normal code = 80378-6) [facility] TexasFOLATE2020-08-13 22:16:00 Test Item Value Reference Range Interpretation Comments FOLATE SER (test code = 4.9 ng/mL 3-20 Biot in has been 5399546797) reported to cau se a positive bias, interpret resul ts relative to patient's use o f biotin. Lab Interpretation (test Normal code = 83327-0) [facility] TexasCORONAVIRUS COVID-19 [id number] 21:14:00 Test Item Value Reference Range Interpretation Comments SARS-CoV-2 PCR (test Not Detected Not Detected code = 20732-9) JOSELITO (test code = JOSELITO) [employer] SARS-CoV-2 Assay is a nucleic acid amplification test intended for the qualitative detection of RNA from SARS-CoV-2 from nasopharyngeal (COMIC WRITER) specimens. ?It is used under Emergency Use [...] indicated. Lab Interpretation Normal (test code = 21871-1) [facility] TexasPROTEIN CREAT RATIO URINE [id number] 18:19:00 Test Item Value Reference Range Interpretation Comments T. PROT U (test code = 2888-6) 8 mg/dL CREAT U (test code = 3876326485) 52.3 mg/dL Protein/Creatinine Ratio Urine 0.0-2.0 (test code = 8001480231) [facility] TexasSODIUM, URINE [id number] 17:54:00 Test Item Value Reference Range Interpretation Comments NA URINE (test code = 0417767842) 54 mmol/L [facility] TexasADC / L[facility] - DRUG SCREEN [id number] 16:52:00 Test Item Value Reference Range Interpretation Comments BENZO U (test code = Negative Negative 5654078634) CARMEN U (test code = Negative Negative 6631083472) AMPHET (test code = Negative Negative 9735439871) THC (test code = Negative Negative 1183824225) METHADONE (test code Negative Negative = 5487330230) Meth U (test code = Negative Negative 5912422310) OPIATES (test code = Presumptive Negative A 1449388049) Positive Cocaine Metabolite Negative Negative (test code = 7863463989) PROPOXY (test code = Negative Negative 8769384297) Tric U (test code = Presumptive Negative A Confirma tion of 8919492876) Positive Presumptive Positive TCA result requires physician order and this will b e sent to referen ce lab. PCP (test code = Negative Negative 0786333162) OXYCOD (test code = Negative Negative 7551314476) JOSELITO (test code = Urine Drug Cutoff JOSEILTO) Ranges Benzodiazepines: ? ? 150 ng/mLBarbiturates : [...] testing). Lab Interpretation Abnormal (test code = 25052-7) [facility] TexasURINALYSIS2020-08-13 16:42:00 Test Item Value Reference Range Interpretation Comments APPEARANCE (test code = Clear Clear 5527161197) COLOR (test code = Yellow Yellow 9977716086) PH (test code = 4.8-8.0 3015735128) SP GRAVITY (test code = 1.003-1.030 H 6508725065) GLU U QUAL (test code = 50 mg/dL Normal A 4620069118) BLOOD (test code = Negative Negative 2640975436) KETONES (test code = 5 mg/dL Negative A 7101111060) PROTEIN (test code = Negative Negative 2887-8) UROBILIN (test code = Normal Normal 6901424137) BILIRUBIN (test code = Negative Negative 3143371961) NITRITE (test code = Negative Negative 9273102388) LEUK JACOB (test code = Negative Negative 8810982125) RBC/HPF (test code = See_Comment [Autom ated message] 6274105650) The system [employer] generated this result transmitted ref erence range: 0 - 3 HP F. The reference range was not used to int erpret this result as normal/abnormal . WBC/HPF (test code = See_Comment [Autom ated message] 9230271295) The system [employer] generated this result transmitted ref erence range: 0 - 5 HP F. The reference range was not used to int erpret this result as normal/abnormal . BACTERIA (test code = Negative Negative 3384457456) Lab Interpretation (test Abnormal code = 32620-7) [facility] TexasTROPONIN [id number] 14:35:00 Test Item Value Reference Range Interpretation Comments TROPONIN I (test 0.015 ng/mL See_Comment [Automated code = 8970428361) message] The system which generated this result [...] ? Lab Interpretation Normal (test code = 65793-4) [facility] TexasLACTATE [id number] 14:24:00 Test Item Value Reference Range Interpretation Comments LDH (test code = 6500400677) 480 U/L 300-600 Lab Interpretation (test code = Normal 78577-1) [facility] TexasD-[id number] 14:11:00 Test Item Value Reference Interpretation Comments Range D-DIMER (test code = See_Comment [Autom ated 7937435630) message] The system which generated this result [...] diagnosis. Lab Interpretation Normal (test code = 69528-4) [facility] TexasMAGNESIUM2020-08-13 14:07:00 Test Item Value Reference Range Interpretation Comments MAGNESIUM (test code = 1144473541) 1.7 mg/dL 1.7-2.4 Lab Interpretation (test code = Normal 00165-8) [facility] TexasPHOSPHORUS2020-08-13 14:07:00 Test Item Value Reference Range Interpretation Comments PHOSPHORUS (test code = 0518185086) 3.6 mg/dL 2.5-5 Lab Interpretation (test code = Normal 19815-8) [facility] TexasURIC [id number] 14:07:00 Test Item Value Reference Range Interpretation Comments URIC ACID (test code = 9509325742) 5.3 mg/dL 2.9-6 Lab Interpretation (test code = Normal 16679-2) [facility] TexasFERRITIN [id number] 14:07:00 Test Item Value Reference Range Interpretation Comments FERRITIN (test code = 96.9 ng/mL 11-264 4391911513) JOSELITO (test code = JOSELITO) Biotin has been reported to cause a negative bias, interpret results relative to patient's use of biotin. Lab Interpretation (test Normal code = 20936-9) [facility] of TexasGLYCOSYLATED HEMOGLOBIN (A1C)2020-02-26 14:06:00 Test Item Value Reference Range Interpretation Comments HGB A1C (test code = 6.7 % 4-6 H 4548-4) JOSELITO (test code = JOSELITO) %A1C (NGSP) Interpretation (ADA)4.8-5.6 ? ? Normal or (Non-Diabetic Range)5.7-6.4 ? ? Increased Risk (Pre-Diabetic)>6.5 ?Diabetes Indicated Lab Interpretation Abnormal (test code = 84601-0) [facility] TexasaPTT2020-08-13 14:05:00 Test Item Value Reference Range Interpretation Comments APTT Patient (test See_Comment [Automat ed code = 3173-2) message] The system which generated this result transmitted reference range : 23 - 38 Seconds . The reference range was not used to interpr et this result as normal/abnormal . JOSELITO (test code = JOSELITO) The [facility] patient population mean normal value for aPTT is 30 seconds. Lab Interpretation Normal (test code = 14131-8) [facility] TexasPROTHROMBIN TIME / [id number] 14:03:00 Test Item Value Reference Range Interpretation Comments PROTIME PATIENT (test See_Comment [Auto mated message] code = 5964-2) The system [employer] generated this result transmitted ref erence range: 12.0 - 1 4.7 Seconds. The re ference range was not u sed to interpret this result as normal/abnor mal. INR (test code = 6301-6) Nor mal INR <1.1; Warfarin Therap eutic range 2.0 to 3. 0 or 2.5 to 3.5, dep ending upon the indica tions. Lab Interpretation (test Normal code = 49505-1) [facility] TexasLIPID PANEL (50815)(TOTAL CHOLESTEROL, TRIGLYCERIDES, HDL)2020-02-26 13:17:00 Test Item Value Reference Range Interpretation Comments CHOL (test code = 166 mg/dL 120-200 6986993023) HDL (test code = 40 mg/dL >50 L 4003269201) HDLC RATIO (test code = See_Comment [Au tomated message] 6924721176) The system [employer] generated this result transmit jessica reference range : <=4.5. The refe rence range was not u sed to interpret th is result as normal/abnormal . TRIG (test code = 342 mg/dL 30-170 H 1386423713) LDL CHOL (test code = 58 mg/dL See_Comment [Auto mated message] 85604-6) The system [employer] generated this result transmit jessica reference range : <=160. The refe rence range was not u sed to interpret th is result as normal/abnormal . VLDL (test code = 68 mg/dL 5-60 H 3661996328) Lab Interpretation (test Abnormal code = 21360-2) [facility] TexasCT CHEST PULMONARY [id number] 12:46:05 Multifocal groundglass opacities throughout the bilateral lungs. Given thedominant distribution in the perihilar region it may represent changes ofpulmonary edema. an atypical or multifocal infectiousprocess including butnot limited to COVID-19 pneumonia is another possibility. No acute PTE to the alexander bsegmental level. Bilateral hilar lymphadenopathy, likely reactive. Severe narrowing of the proximalright vertebral artery Preliminary Report Dictated by Resident: Daquan Moeller I, Tyrell Hudson MD., have reviewed this study and agree with theabove report.PROCEDURE: CT ANGIO CHEST WITH CONTRAST - PE PROTOCOL CLINICAL INDICATION: PE suspected, high pretest prob ? COMPARISON: 05/14/2018. TECHNIQUE AND FINDINGS: A helical CT scan was performed and reconstructedusing 1.25 mm slice thickness fromthe lung bases through the apices afterthe uncomplicated administration of 100 cc of intravenous Omni paquecontrast. Sagittal and coronal reconstructions, and axial maximum [...] up to 1.2 cm in the shortaxis. The mediastinal structures are unremarkable. Left atrial enlargement is noted. Mild left ventricular hypertrophy.Coronary arterial calcifications and coronary arterial stents are noted.The thoracic aorta is normal in caliber. Moderate atheroscleroticcalcifications affect the aortic arch. There is moderate narrowing of theleft subclavian artery at its origin. The distal branches are patent. Thereis moderateto severe narrowing of the proximal right vertebral arteryapproximately 1 cm from its origin (4:29).Anterior wedging of T11 is likely secondary to a prominent superiorendplate Schmorl's node. No suspicious lytic or sclerotic bony lesions. Nodular thickening of the right adrenal gland, unchanged. The remainder ofthe upper abdomen is unremarkable. [facility], Radiant Results Inft User - 02/26/2020 7:47 [...] gland. Incidentalnote is made of an azygos fissure.There are multifocal groundglass opacities noted in the B/L upper lobeslower lobes. In the left lung and these are predominantly centered aroundthe moshe medially. Trace ground glass opacities in the central right middlelobe are noted. No pleural effusion or pneumothorax. The central airway ispatent. No bronchiectasis or mucous plugging. No bronchial wall thickening.Right hilar lymph nodes measure up to 1.1 cm. Calcified right hilar nodesare noted. Prominent left hilar nodes measure up to 1.2 cm in the shortaxis. The [...] edema. an atypical or multifocal infectious process includingbutnot limited to COVID-19 pneumonia is another possibility.No acute PTE to the subsegmental level.Bilateral hilar lymphadenopathy, likely reactive.Severe narrowing of the proximal right vertebral arteryPreliminary Report Dictated by Resident: Tyrell Caraballo MD., have reviewed this study and agree with theabove report.[facility] TexasSEDIMENTATION [id number] 12:39:00 Test Item Value Reference Range Interpretation Comments ESR (test code = See_Comment [Automated message] [id number]) The system [employer] generated this result transmitted ref erence range: 0 - 20 m m/HR. The reference r lawrence was not used to interpret this result as normal/abnor mal. Lab Interpretation (test Normal code = 57690-0) [facility] GLUCOSE (AUTOMATED)2020-02-26 12:38:00 Test Item Value Reference Range Interpretation Comments POCT GLU (test code = 2992805452) 160 mg/dL 70-110 H Lab Interpretation (test code = Abnormal 02612-0) [facility] 1 [id number] 12:31:33EXAM: XR CHEST 1 VW CLINICAL INDICATION: chest pain and SOB COMPARISON: 09/13/2015 TECHNIQUE: A frontal view of the chest was obtained FINDINGS: Questionable peripheral hazy density in the left upper lobe. Lungs areotherwise clear. No pleural effusion or pneumothorax. The cardiac silhouette is normal in size. Atherosclerotic calcificationsare seen in the aortic arch. No acute osseous abnormality. Preli minary Report Dictated by Resident: Zac Palumbo MD., have reviewed this study and agree withthe above report.[facility], Radiant Results Inft User - 02/26/2020 7:32 [...] Zac Caraballo MD., have reviewed this study and agree withthe above report.[facility] TexasTHYROID STIMULATING [id number] 08:04:00 Test Item Value Reference Range Interpretation Comments TSH (test code = See_Comment Biotin has been [id number]) reported to cau se a negative bias, interpret resul ts relative to karuna rangel's use of biotin. [Automated mess age] The system whic h generated this result transmitted ref erence range: 0.45 - 4 .70 mIU/L. The refe rence range was not u sed to interpret this result as normal/abnor mal. Lab Interpretation (test Normal code = 99348-7) [facility] with [id number] 07:28:00 Test Item Value Reference Range Interpretation Comments WBC (test code = See_Comment [Automated 6590-2) message] The sy stem which generated this result transmitted reference range : 4.30 - 11.10 10*3/?L. The reference range was not used to interpret this result as normal/abnormal . RBC (test code = See_Comment [Automated 569-8) message] The sy stem which generated this [...] RDW-SD (test code = 49.7 fL 39-49.9 14657-9) RDW-CV (test code = 13.1 % 12-15.5 788-0) PLT (test code = See_Comment L [Automated 777-3) message] The sy stem which generated this result transmitted reference range : 166 - 358 10*3/ ?L. The reference r lawrence was not used to interpret this result as normal/abnormal . MPV (test code = 9.5 fL 9.5-12.9 46894-0) NRBC/100 WBC (test See_Comment [Automat ed code = 9285802845) message] The system which generated this result transmitted reference range : 0.0 - 10.0 /100 WBCs. The refer ence range was not u sed to interpret th is result as normal/abnormal . NRBC x10^3 (test code <0.01 See_Comment [Auto mated = 0147048947) message] The s ystem which generated this result transmitted reference range : 10*3/?L. The reference range was not used to interpret this result as normal/abnormal . SEG % (test code = 32 % 33-76 L 87178-4) BAND % (test code = 9 % 0-1 H 51453-0) LYMPH % (test code = 50 % 14-54 43619-7) MONO % (test code = 9 % 0-4 H 73031-0) ANC (test code = 2.59 10*3/uL 1.88-7.09 8609729018) Lab Interpretation Abnormal (test code = 86508-9) [facility] [id number] 07:23:00 Test Item Value Reference Range Interpretation Comments TROPONIN I (test <0.012 See_Comment [Automated code = 3249332452) message] The system which generated this result [...] ? Lab Interpretation Normal (test code = 33188-8) [facility] TexasN-TERMINAL [id number] 07:20:00 Test Item Value Reference Range Interpretation Comments NT-proBNP (test code 335 pg/mL See_Comment H [Autom ated = 3362955165) message] The system which generated this result transmitted reference range : <=125. The reference range was not used to interpret this result as normal/abnormal . JOSELITO (test code = JOSELITO) Biotin has been reported to cause a negative bias, interpret results relative to patient's use of biotin. Lab Interpretation Abnormal (test code = 12457-6) [facility] TexasCOVID-19 (ID NOW RAPID TESTING)2020-02-26 07:13:00 Test Item Value Reference Range Interpretation Comments SARS-CoV-2 Rapid ID NOW Not Detected Not Detected (test code = 57546-0) JOSELITO (test code = JOSELITO) ID NOW COVID-19 Assay is an isothermal nucleic acid amplification test intended for the qualitative detection of nucleic acid from SARS-CoV-2 viral RNA in nasopharyngeal (COMIC WRITER) specimens. It is used under Emergency Use [...] indicated. Lab Interpretation Normal (test code = 19356-2) [facility] Metabolic Panel (NA, K, CL, CO2, GLUCOSE, BUN, CREATININE, CA)2020-02-26 07:11:00 Test Item Value Reference Range Interpretation Comments NA (test code = 137 mmol/L 135-145 8608873124) K (test code = 4.0 mmol/L 3.5-5 9511487499) CL (test code = 105 mmol/L 98-108 7462834895) CO2 TOTAL (test code = 23 mmol/L 23-31 1795508518) AGAP (test code = 2-16 0257308293) BUN (test code = 24 mg/dL 7-23 H 4518434710) GLUCOSE (test code = 176 mg/dL 70-110 H 7084255670) CREATININE (test code = 0.69 mg/dL 0.5-1.04 0908803831) CALCIUM (test code = 9.7 mg/dL 8.6-10.6 2292207475) eGFR Calculation mL/min/1.73m2 (Non-) (test code = 7080089779) eGFR Calculation mL/min/1.73m2 () (test code = 9661295254) JOSELITO (test code = JOSELITO) Association of [...] tests). Lab Interpretation Abnormal (test code = 27532-3) [facility] TexasHepatic Function Panel (ALB, T.PRO, BILI T, BU/BC, ALT, AST, ALK PHOS)2020-02-26 07:11:00 Test Item Value Reference Range Interpretation Comments TOTAL BILI (test code = 6888696451) 0.2 mg/dL 0.1-1.1 BILI UNCON (test code = 2764240005) 0.4 mg/dL 0.1-1.1 BILI CONJ (test code = 3706291690) 0.0 mg/dL 0-0.3 T PROTEIN (test code = 1464807435) 6.5 g/dL 6.3-8.2 ALBUMIN (test code = 4614514594) 3.8 g/dL 3.5-5 ALK PHOS (test code = 2721021836) 51 U/L 34-122 ALTv (test code = 1742-6) 13 U/L 5-35 AST(SGOT) (test code = 2511638158) 21 U/L 13-40 Lab Interpretation (test code = Normal 21476-1) [facility] TexasLipase [id number] 07:11:00 Test Item Value Reference Range Interpretation Comments LIPASE (test code = 0192599353) 188 U/L 0-220 Lab Interpretation (test code = Normal 60419-8) [facility] TexasELECTROLYTES2019-05-10 13:00:00 Test Item Value Reference Range Interpretation Comments Chloride Lvl (test code = Chloride Lvl) 103 98-110 [facility]ced[facility]cuHSTGZXSEJZQL2534-30-81 13:00:00 Test Item Value Reference Range Interpretation Comments Potassium Lvl (test code = Potassium 3.9 3.5-5.3 Lvl) [facility] HospitalHrzthcmXJBNPPRESRJO8053-08-72 13:00:00 Test Item Value Reference Range Interpretation Comments CO2 (test code = CO2) 31 20-32 [facility] HospitalVgghovrJTKZAISJBWVB0161-35-83 13:00:00 Test Item Value Reference Range Interpretation Comments Sodium Lvl (test code = Sodium Lvl) 141 135-146 [facility]amYLFKKUZTIM8714-58-73 13:00:00 Test Item Value Reference Range Interpretation Comments Sed Rate (test code = Sed Rate) 2 [facility] HospitalUuxnzobWCAUOIKQKGHF8700-61-87 13:00:00 Test Item Value Reference Range Interpretation Comments Chloride Lvl (test code = Chloride Lvl) 103 98-110 [facility] HospitalQmlvwnrIQGSZMSTUEEU8119-86-85 13:00:00 Test Item Value Reference Range Interpretation Comments Potassium Lvl (test code = Potassium 3.9 3.5-5.3 Lvl) [facility] HospitalLypvrtzQLITCWLOASUC5290-48-65 13:00:00 Test Item Value Reference Range Interpretation Comments CO2 (test code = CO2) 31 20-32 [facility] HospitalNauedfpGHSXOHZRNLJC4783-91-06 13:00:00 Test Item Value Reference Range Interpretation Comments Sodium Lvl (test code = Sodium Lvl) 141 135-146 [facility] HospitalHdklavpPLPOOCHLOO7449-33-31 13:00:00 Test Item Value Reference Range Interpretation Comments Sed Rate (test code = Sed Rate) 2 [facility]
--- NOTE | 2022-05-11 13:09 | ER ---
Nurse's Notes [facility] Name: Shannon Dumont Age: 77 yrs Sex: Female : 1945 Arrival Date: 05/11/2022 Time: 12:20 Bed DIS1 Private MD: Diagnosis: Person with feared health complaint in whom no diagnosis is made Presentation: 05/11 12:41 Chief complaint: Patient states: I was sent here by my doctor because they couldn't get ld1 a pulse or blood pressure on me. Upon arrival to ER pt had HR of 58, BP 145/107. Denies pain/discomfort. Coronavirus screen: At this time, the client does not indicate any symptoms associated with coronavirus-19. Ebola Screen: No symptoms or risks identified at this time. Initial Sepsis Screen: Does the patient meet any 2 criteria? No. Patient's initial sepsis screen is negative. Does the patient have a suspected source of infection? No. Patient's initial sepsis screen is negative. Risk Assessment: Do you want to hurt yourself or someone else? Patient reports no desire to harm self or others. Onset of symptoms was May 11, 2022. 12:41 Method Of Arrival: Ambulatory ld1 12:41 Acuity: ANNE MARIE 4 ld1 12:45 Acuity: ANNE MARIE 3 iw Triage Assessment: 12:43 General: Appears in no apparent distress. comfortable, Behavior is calm, cooperative, ld1 appropriate for age. Pain: Denies pain. EENT: No signs and/or symptoms were reported regarding the EENT system. Neuro: Level of Consciousness is awake, alert, obeys commands, Oriented to person, place, time, situation. Cardiovascular: Capillary refill < 3 seconds Patient's skin is warm and dry. Respiratory: Airway is patent Respiratory effort is even, unlabored. GI: Abdomen is flat, non-distended. : No signs and/or symptoms were reported regarding the genitourinary system. Derm: No signs and/or symptoms reported regarding the dermatologic system. Musculoskeletal: No signs and/or symptoms reported regarding the musculoskeletal system. Historical: - Allergies: 12:43 Amoxicillin; ld1 12:43 Clindamycin; ld1 - PMHx: 12:43 Bipolar disorder; Chronic pain; COPD; Hypertension; Hypothyroidism; incontinence; ld1 - Immunization history:: Adult Immunizations up to date, Client reports receiving the 2nd dose of the Covid vaccine. - Social history:: Smoking status: Patient denies any tobacco usage or history of. Patient/guardian denies using alcohol. Screenin:24 Abuse screen: Denies threats or abuse. Denies injuries from another. Nutritional iw screening: No deficits noted. Tuberculosis screening: No symptoms or risk factors identified. Fall Risk None identified. Assessment: 13:24 Reassessment: See triage assessment. iw Vital Signs: 12:41 BP 145 / 107; Pulse 58; Resp 18; Temp 97.8(TE); Pulse Ox 99% on 2 lpm NC; Weight 81.19 ld1 kg; Height 5 ft. 2 in. (157.48 cm); Pain 0/10; 12:41 Body Mass Index 32.74 (81.19 kg, 157.48 cm) ld1 ED Course: 12:20 Patient arrived in ED. rg4 12:43 Triage completed. ld1 12:43 Arm band placed on right wrist. ld1 13:03 Jose Faustin PA is PHCP. bogdan 13:03 Jhon Montenegro MD is Attending Physician. [facility] 13:24 Patient has correct armband on for positive identification. Placed in gown. Bed in low iw position. Call light in reach. Side rails up X2. Pulse ox on. NIBP on. Door closed. Noise minimized. 13:25 No provider procedures requiring assistance completed. Patient did not have IV access iw during this emergency room visit. Administered Medications: No medications were administered Medication: 13:25 VIS not applicable for this client. iw Outcome: 13:09 Discharge ordered by . bogdan 13:25 Discharged to home ambulatory. iw 13:25 Condition: stable 13:25 Discharge instructions given to patient, Instructed on discharge instructions, follow up and referral plans. Demonstrated understanding of instructions, follow-up care. 13:25 Patient left the ED. iw Signatures: Jose Faustin PA PA jmm Williams, Irene, RN RN iw Garcia, Rubi rg4 Perla Kumar RN RN ld1
--- NOTE | 2022-05-11 13:09 | EDPHYS ---
Physician Documentation [facility] Name: Shannon Dumont Age: 77 yrs Sex: Female : 1945 Arrival Date: 05/11/2022 Time: 12:20 Bed DIS1 Private MD: TSERING Physician Jhon Montenegro HPI: 05/11 12:48 This 77 yrs old Female presents to ER via Ambulatory with complaints of Low Pulse. jmm 12:48 This is a 77-year-old female with history of bipolar, chronic pain, COPD, hypertension, jmm hyperthyroidism that presents emerged department with complaints of inability to take vital signs at clinic. Concerned the patient may have low blood pressure low pulse. Patient has no symptoms. Patient denies chest pain, weakness, fatigue, near syncope, etc.. Historical: - Allergies: 12:43 Amoxicillin; ld1 12:43 Clindamycin; ld1 - PMHx: 12:43 Bipolar disorder; Chronic pain; COPD; Hypertension; Hypothyroidism; incontinence; ld1 - Immunization history:: Adult Immunizations up to date, Client reports receiving the 2nd dose of the Covid vaccine. - Social history:: Smoking status: Patient denies any tobacco usage or history of. Patient/guardian denies using alcohol. ROS: 12:48 Constitutional: Negative for fever, chills, and weight loss, Cardiovascular: Negative jmm for chest pain, palpitations, and edema, Respiratory: Negative for shortness of breath, cough, wheezing, and pleuritic chest pain. 12:48 All other systems are negative. Exam: 12:48 Constitutional: This is a well developed, well nourished patient who is awake, alert, jmm and in no acute distress. Head/Face: atraumatic. Eyes: EOMI, no conjunctival erythema appreciated ENT: Moist Mucus Membranes Neck: Trachea midline, Supple Chest/axilla: Normal chest wall appearance and motion. Cardiovascular: Regular rate and rhythm. No edema appreciated Respiratory: Normal respirations, no respiratory distress appreciated Abdomen/GI: Non distended Back: Normal ROM Skin: General appearance color normal MS/ Extremity: Moves all extremities, no obvious deformities appreciated, no edema noted to the lower extremities Neuro: Awake and alert Psych: Behavior is normal, Mood is normal, Patient is cooperative and pleasant Vital Signs: 12:41 BP 145 / 107; Pulse 58; Resp 18; Temp 97.8(TE); Pulse Ox 99% on 2 lpm NC; Weight 81.19 ld1 kg; Height 5 ft. 2 in. (157.48 cm); Pain 0/10; 12:41 Body Mass Index 32.74 (81.19 kg, 157.48 cm) ld1 MDM: 13:03 Patient medically screened. [facility] 13:09 Data reviewed: vital signs, nurses notes. Counseling: I had a detailed discussion with bogdan the patient and/or guardian regarding: the historical points, exam findings, and any diagnostic results supporting the discharge/admit diagnosis, the need for outpatient follow up, to return to the emergency department if symptoms worsen or persist or if there are any questions or concerns that arise at home. 13:09 ED course: Patient is alert nontoxic in appearance in the ED. Patient has normal vital [facility] signs in the ED. Advised follow-up PCP and is given strict return precautions. Patient and understood agrees plan of care.. 05/11 12:48 Order name: EKG - Nurse/Tech iw Administered Medications: No medications were administered Disposition Summary: 05/11/22 13:09 Discharge Ordered Location: Home [facility] Condition: Stable [facility] Diagnosis - Person with feared health complaint in whom no diagnosis is made [facility] Followup: jm - With: Private Physician - When: 2 - 3 days - Reason: Recheck today's complaints, Continuance of care, Re-evaluation by your physician Forms: - Medication Reconciliation Form [facility] - Thank You Letter jm - Antibiotic Education jm - Prescription Opioid Use [facility] Signatures: Jhon Montenegro MD MD cha Mickail, Joel, PA PA jmm Williams, Irene, RN RN Perla Kumar RN RN ld1
[2022-05-11 13:35] VITALS: BP 145/107; TEMP 97.8; O2SAT 99
== END 2022-05-11 13:25 | disposition home or self-care (01) ==
LOC: ER 12:16
DX: Z71.1 Person with feared health complaint in whom no diagnosis is made (principal)
CPT/HCPCS: 99283

== ENCOUNTER 2023-03-30 06:01 | Day surgery (SDC) | payer OTHER ==
[2023-03-28 13:39] LABS: Absolute Lymphocytes (CBC) 2.1 K/uL (0.7-4.9); Hematocrit 41.8 % (36.0-45.0); MCV 97.8 fL (80-100); MPV 8.8 fL (7.6-11.3); Platelets 184 thou/uL (152-406); RBC Red Blood Cell Count 4.28 M/uL (3.86-4.86)
[2023-03-28 13:54] LABS: Potassium 3.8 mEq/L (3.5-5.1)
--- NOTE | 2023-03-29 13:03 | EKG ---
Test Date: 2023-03-28 Test Time: 13:08:18 Physicist [place]: SEBASTI[place]N MEASUREMENT RESULTS: Intervals: Rate: 74 IN: 156 QRSD: 126 QT: 474 QTc: 526 Sandy: P: 40 IN: 156 QRS: 26 T: 90 INTERPRETIVE STATEMENTS: Sinus rhythm with premature supraventricular complexes with occasional premature ventricular complexes Possible Left atrial enlargement Right bundle branch block Septal infarct, age undetermined Abnormal ECG Compared to ECG 02/16/2022 13:15:38 Atrial premature complex(es) now present Ventricular premature complex(es) now present Myocardial infarct finding now present Sinus bradycardia no longer present T-wave abnormality no longer present Possible ischemia no longer present Electronically Signed On 03-29-23 13:01:08 CDT by Derrick Max
[2023-03-30] MEDS ORDERED: CEFAZOLIN SODIUM 2 GM/VIAL ONE (06:29)
[2023-03-30] MEDS ORDERED: Ringers Lactate 1,000 ML IV ONE ×2 (06:29→14:57)
[2023-03-30] MEDS ORDERED: propofoL 200 MG/20 ML VIAL IV ONE (09:11)
[2023-03-30] MEDS ORDERED: FENTANYL CITR 100 MCG/2 ML ONE (09:11)
[2023-03-30] MEDS ORDERED: ONDANSETRON 4 MG/2 ML VIAL ONE (09:12)
[2023-03-30] MEDS ORDERED: MIDAZOLAM HCL 2 MG/2 ML INJ ONE (09:12)
[2023-03-30] MEDS ORDERED: ROCURONIUM 50 MG/5 ML VIAL IV ONE (09:12)
[2023-03-30] MEDS ORDERED: LIDOCAINE 2% MPF 5 ML VIAL ONE (09:12)
[2023-03-30] MEDS ORDERED: BUPIVACAINE 0.25% PF 30 ML VIAL ONE (09:26)
[2023-03-30] MEDS: VANCOMYCIN 1 GM/VIAL ONE ×2 (09:42→09:54)
[2023-03-30] MEDS: METHYLENE BLUE 1% 10 ML VIAL ONE ×2 (09:50→09:54)
[2023-03-30] MEDS ORDERED: VANCOMYCIN 1 GM in NA CHLORIDE 0.9% 250 ML IVPB ONE (10:00)
[2023-03-30] MEDS ORDERED: KETOROLAC 30 MG/ML INJ ONE (11:14)
--- NOTE | 2023-03-30 11:45 | P.OP ---
Vice President Of Consulting Services: JOHNATHAN ADORNO Preoperative diagnosis: RIGHT Breast Cancer / Pagets Disease Postoperative diagnosis: RIGHT Breast Cancer / Pagets Disease Primary procedure: RIGHT Breast Skin Sparing Mastectomy Secondary procedure: Higgins Lymph Node Biopsy Anesthesia: GETA + Local Estimated blood loss: <50cc Specimen: RIGHT Breast, Higgins Lymph Node, additional lateral margin Findings: Pagets Disease, Axillary Lymph node negative per pathologist Complications: None Drain(s): NORMA drain (10 mm Flat NORMA) Transferred to: Recovery Room Condition: Good
[2023-03-30] MEDS ORDERED: dexAMETHasone 4 MG/ML VIAL ONE (11:48)
[2023-03-30] MEDS ORDERED: EPHEDRINE SULF 50 MG/ML VIAL ONE (11:50)
[2023-03-30] MEDS ORDERED: SUGAMMADEX SODIUM 200 MG/2 ML VIAL IV ONE (12:33)
[2023-03-30] MEDS ORDERED: NALOXONE 0.4 MG/ML VIAL ONE (12:36)
--- NOTE | 2023-03-30 13:19 | RAD REPORT ---
EXAM DESCRIPTION: NM - Lymphoscintigraphy - 03/30/2023 8:06 am CLINICAL HISTORY: Right breast mastectomy COMPARISON: None. TECHNIQUE: The patient was administered approximately 250 uCi of Tc 99m labeled Lymphoseek through i ntradermal injections along the lateral and medial right breast periareolar margins. Planar Images we re reviewed. FINDINGS: Intense tracer uptake at the site of intradermal injections. No appreciable sentinel lymph node labeling. No uptake along the internal thoracic rona chain. IMPRESSION: No appreciable sentinel lymph node labeling.
--- NOTE | 2023-03-30 13:36 | OP ---
Date of Procedure: 03/30/2023 Surgeon: Derick Kuo MD, Preoperative Diagnosis: Right breast cancer/Paget's disease of the breast. Postoperative Diagnosis: Right breast cancer/Paget's disease of the breast. Procedures Performed: 1. Right breast skin-sparing mastectomy. 2. [place] lymph node biopsy. Anesthesia: General endotracheal plus local with 0.25% Marcaine. Estimated Blood Loss: Less than 50 cc. Specimens: Right breast, sentinel lymph node, additional lateral margin. Findings: 1. Paget's disease of the breast. 2. Axillary lymph node was negative for obvious malignancy per pathologist on frozen section. Complications: None. Drains: 10-mm flat NORMA drain placed in the right breast. Disposition: The patient was transferred to recovery room in good condition. Procedure In Detail: After informed consent was obtained, patient was brought to the operating room, prepped and draped in the usual sterile fashion after adequate anesthesia was achieved. Patient was marked previously with margins and borders, medial sternal border, inferior axillary fold, clavicle, and latissimus dorsi. All anatomic landmarks were marked with marking pen appropriately. An elliptical incision was made in the periareolar fashion where the patient's breast cancer was evident as Paget's disease. Ultimately, I made a dissection down through skin following my previously described skin flaps with a 15 blade. I used electrocautery to develop the superior flap initially dissecting all the way down taking Mio's ligament down to expose the chest wall at the superior border which was the inferior border of the clavicle. I then moved medially to the sternal border and stayed approximately 0.5 cm to 1 cm away from the sternal border and then followed along at the confluence of the rectus muscle inferior mammary crease on the inferior edge and then extended laterally to the latissimus dorsi and included the axillary tail. A marking stitch was placed short superior, long lateral on the breast tissue, at this point. Ultimately I used electrocautery to remove it from the breast and prepectoral fascia intact and sent it off for pathologic examination. At this point, I found an additional bit of adipose tissue on the left lateral chest wall, which had appeared somewhat thickened and as such I took an additional margin at this point from the lateral margin inferior to the axillary tail. This was marked short superior, long lateral suture and deep margin was marked with the ink at this point. I then proceeded to irrigate the area copiously and closed this area with the interrupted 3-0 Vicryl sutures after a 10 mm flat NORMA drain was placed into the chest wall and brought out through a separate stab incision inferior lateral from the breast incision. The drain was secured using a 3-0 nylon suture and the skin was then closed using a 4-0 Monocryl in a running fashion. Dermabond was placed over top. I then turned my attention to the axillary area. The radiation checks were done of both the breast mass tissue after lymphoscintigraphy as well as of the skin level. These were all documented. I then made an incision at the posterior border of the pectoralis major muscle in the axillary fold along the inferior border of the hair-bearing area of the axilla on the right side. This was then taken down using electrocautery to enter the prepectoral fascia. After this was , the gamma probe was used to identify a hot lymph node which was identified at this point. It had a slightly bluish hue to it, but not a heavily blue tinge, but a slight blue tinge was evident. So this was dissected circumferentially around using a predominantly blunt dissection. Clips were placed on the lymphatics at this point on the proximal and distal end and this was ligated using Metzenbaum. It was tested on the back table and found to be the solitary hot lymph node. This was then sent for pathologic examination to ensure negativity of breast cancer in this area or make a decision regarding axillary dissection. The area was copiously irrigated and the clips were on the anatomic position of the lymphatics to allow for fiducial markers as well. At this point, the area was irrigated once again, packed and I waited the pathologist's confirmation at this point. Confirmation was given that the patient had no evidence of disease within the lymph node. The area was checked for background radiation as well. At this point, nothing requiring hemostasis, background radiation was low, no additional radiation appreciated throughout the axilla, and as such, the axillary lymph node was achieved. At this point, the area was irrigated once again and the deep dermal plane was closed with 3-0 Vicryl suture and the skin was closed with a 4-0 Monocryl in a running fashion. Dermabond was placed over top. Patient tolerated the procedure well without evidence of complication and transferred to PACU in good condition. All counts were correct at the end of the case. JUAN DIEGO/GEORGINA Voice ID: [id number] Report ID: [id number] MTDD
--- NOTE | 2023-03-30 15:03 | RAD REPORT ---
EXAM DESCRIPTION: CT - Head Brain Wo Cont - 03/30/2023 2:37 pm CLINICAL HISTORY: Alteration of awareness/confusion COMPARISON: 2021 TECHNIQUE: Computed axial tomography of the head was obtained. IV contrast was not requested. All CT scans are performed using dose optimization technique as appropriate and may include automated exposure control or mA/KV adjustment according to patient size. FINDINGS: An intracranial bleed is not seen The ventricles are normal in caliber No extra-axial fluid collection is noted. No significant hypodensity within the brain. Fluid within the sinuses/ mastoids is not seen. IMPRESSION: No acute intracranial abnormality is seen If patient's symptoms persist MRI of the brain would be recommended
[2023-03-30 17:12] VITALS: TEMP 97
[2023-03-30 17:24] VITALS: BP 118/55; O2SAT 93
== END 2023-03-30 17:05 | disposition home or self-care (01) ==
LOC: OR 06:01
PROVIDERS: ATTEND Surgery
PROC: 07B50ZX Excision of Right Axillary Lymphatic, Open Approach, Diagnostic (ICD-10-PCS; 2023-03-30)
PROC: 0HTT0ZZ Resection of Right Breast, Open Approach (ICD-10-PCS; principal; 2023-03-30 09:45)
DX: C50.911 Malignant neoplasm of unspecified site of right female breast (principal); C50.011 Malignant neoplasm of nipple and areola, right female breast; Z17.0 Estrogen receptor positive status [ER+]
CPT/HCPCS: 19307; 93005; 85025; 80048 ×2; 36415 ×2; 86900; 86850; 86901; 82947; 88307 ×2; 88333; 70450; 78195; J2704; J1100; J2310; J2001; J3010; J2405; J7120 ×2; J7050; A9520; 88305; J2250

== ENCOUNTER 2024-02-20 21:36 | Emergency (ER) | payer OTHER ==
--- NOTE | 2024-02-20 22:20 | RAD REPORT ---
EXAM DESCRIPTION: CT - CTHCSPWOC - 02/20/2024 10:02 pm CLINICAL HISTORY: Trauma, head and neck injury. TRAUMA COMPARISON: No comparisons TECHNIQUE: Axial 5 mm thick images of the head were obtained. Axial 2 mm thick images of the cervical spine were obtained with sagittal and coronal reconstruction images generated and reviewed. All CT scans are performed using dose optimization technique as appropriate and may include automated exposure control or mA/KV adjustment according to patient size. FINDINGS: CT HEAD WITHOUT CONTRAST: No acute hemorrhage, hydrocephalus or extra-axial collection is identified.No areas of brain edema or midline shift. Right parietal scalp hematoma. The paranasal sinuses and mastoids are clear.The calvarium is intact. CT CERVICAL SPINE WITHOUT CONTRAST: No fracture or subluxation.No prevertebral soft tissues swelling is identified. Mild multilevel cervi gil spondylosis. Levoconvex curvature . IMPRESSION: No acute intracranial or cervical spine findings.Right parietal scalp hematoma.
--- NOTE | 2024-02-20 23:22 | EDPHYS ---
Physician Documentation [facility] Name: Shannon Dumont Age: 78 yrs Sex: Female : 1945 Arrival Date: 02/20/2024 Time: 21:36 Bed 18 Private MD: ED Physician Dawson Chung HPI: 02/19 23:51 This 78 yrs old Female presents to ER via Wheelchair with complaints of Laceration To kb Head, Fall Injury. 23:51 Pt is a 78 year old female who presents for head injury after falling in the kitchen kb around 2030 tonight. Pt states she tripped and fell. Denies chest pain, dizziness, shortness of breath. States she thinks she did pass out. No neuro deficits. Denies any other injuries. Pt ambulatory after fall, able to transfer from wheelchair to stretcher. . Historical: - Allergies: 21:58 Amoxicillin; cm10 21:58 Clindamycin; cm10 - PMHx: 21:58 Bipolar disorder; Chronic pain; COPD; Hypertension; Hypothyroidism; incontinence; cm10 - PSHx: 21:58 Mastectomy- Right; Cardiac Stents; cm10 - Immunization history:: Adult Immunizations up to date. - Infectious Disease History:: Denies. - Social history:: Smoking status: Patient denies any tobacco usage or history of. ROS: 23:49 Constitutional: As per HPI kb Exam: 23:49 Constitutional: This is a well developed, well nourished patient who is awake, alert, kb and in no acute distress. ENT: Moist Mucous membranes Cardiovascular: Regular rate Respiratory: Respirations even and unlabored. No increased work of breathing. Talking in full sentences Abdomen/GI: Soft, non-tender. No distention Skin: Warm, dry with normal turgor. Normal color. MS/ Extremity: Pulses equal, no cyanosis. Neurovascular intact. Full, normal range of motion. Neuro: Awake and alert, GCS 15, oriented to person, place, time, and situation. Moves all extremities. Normal gait. 23:49 Head/face: Noted is no obvious of injury or deformity except hematoma, that is moderate, of the right side of the back of head, a laceration(s), 0.5 cm(s), Vital Signs: 21:56 BP 115 / 102; Pulse 52; Resp 16; Pulse Ox 95% on R/A; cm10 22:12 Temp 99.3(O); Weight 67.13 kg; Height 5 ft. 0 in. ; tm6 22:12 Pain 8/10; tm6 23:10 BP 154 / 63; Pulse 49; Pulse Ox 95% on R/A; tm6 23:43 BP 154 / 63; Pulse 50; Resp 20; Temp 99.1(O); Pulse Ox 94% on R/A; Pain 2/10; tm6 22:12 Body Mass Index 28.90 (67.13 kg, 152.4 cm) tm6 22:12 Pain Scale: Adult tm6 23:43 Pain Scale: Adult tm6 MDM: 21:39 Patient medically screened. kb 23:50 Differential diagnosis: closed head injury, hematoma, fracture, contusion, ICH. Data kb reviewed: vital signs, nurses notes. Historians other than the Patient: Daughter/Son: son. Counseling: I had a detailed discussion with the patient and/or guardian regarding the historical points, exam findings, and any diagnostic results supporting the discharge/admit diagnosis, radiology results, the need for outpatient follow up, a family practitioner, to return to the emergency department if symptoms worsen or persist or if there are any questions or concerns that arise at home. ED course: No repair needed for wound. Wound cleaned and bleeding controlled. Educated on return precautions. 02/19 21:50 Order name: CT Head C Spine; Complete Time: 22:21 kb 02/19 22:21 Order name: Wound Care: clean wound please; Complete Time: 23:29 kb Administered Medications: 23:43 Drug: Acetaminophen PO 650 mg PO once Route: PO; tm6 Disposition Summary: 02/20/24 23:21 Discharge Ordered Notes: Location: Home kb Condition: Stable kb Diagnosis - Scalp Laceration/ Open wound of scalp kb - Unspecified injury of head, initial encounter kb Followup: kb - With: Emergency Department - When: As needed - Reason: Worsening of condition Followup: kb - With: Private Physician - When: 2 - 3 days - Reason: Recheck today's complaints, Continuance of care, Re-evaluation by your physician Discharge Instructions: - Discharge Summary Sheet kb - Hematoma, [id number] kb - Head Injury, Adult, [id number] kb Forms: - Medication Reconciliation Form kb - Antibiotic Education kb - Prescription Opioid Use kb - Patient Portal Instructions kb - Leadership Thank You Letter kb Signatures: Dispatcher [employer] Jeanna Garnica, CARISSAC DAVE-Peace Chisholm, RN RN cm10 Puma Garza RN RN tm6
--- NOTE | 2024-02-20 23:22 | ER ---
Nurse's Notes [facility] Name: Shnanon Dumont Age: 78 yrs Sex: Female : 1945 Arrival Date: 02/20/2024 Time: 21:36 Bed 18 Private MD: Diagnosis: Scalp Laceration/ Open wound of scalp;Unspecified injury of head, initial encounter Presentation: 02/19 21:56 Chief complaint: Patient states: Fell and hit head. Pt states that she slipped and cm10 fell. Pt bleeding from the right side of her head upon arrival. Positive LOC, on blood thinners. Coronavirus screen: Client denies travel out of the [place] in the last 14 days. At this time, the client does not indicate any symptoms associated with coronavirus-19. Ebola Screen: Patient denies travel to an Ebola-affected area in the 21 days before illness onset. No symptoms or risks identified at this time. Initial Sepsis Screen: Does the patient meet any 2 criteria? No. Patient's initial sepsis screen is negative. Does the patient have a suspected source of infection? No. Patient's initial sepsis screen is negative. Risk Assessment: Do you want to hurt yourself or someone else? Patient reports no desire to harm self or others. Onset of symptoms was February 20, 2024. 21:56 Method Of Arrival: Wheelchair cm10 21:56 Acuity: ANNE MARIE 2 cm10 Historical: - Allergies: 21:58 Amoxicillin; cm10 21:58 Clindamycin; cm10 - PMHx: 21:58 Bipolar disorder; Chronic pain; COPD; Hypertension; Hypothyroidism; incontinence; cm10 - PSHx: 21:58 Mastectomy- Right; Cardiac Stents; cm10 - Immunization history:: Adult Immunizations up to date. - Infectious Disease History:: Denies. - Social history:: Smoking status: Patient denies any tobacco usage or history of. Screenin:08 [facility] ED Fall Risk Assessment (Adult) History of falling in the last 3 months, tm6 including since admission Yes- single mechanical fall (1 pt) Confusion or Disorientation No (0 pts) Intoxicated or Sedated No (0 pts) Impaired Gait No (0 pts) Mobility Assist Device Used No (0 pt) Altered Elimination No (0 pt) Score/Fall Risk Level 0 - 2 = Low Risk Oriented to surroundings, Maintained a safe environment, Educated pt \T\ family on fall prevention, incl call for assistance when getting out of bed. Abuse screen: Denies threats or abuse. Denies injuries from another. Nutritional screening: No deficits noted. Tuberculosis screening: No symptoms or risk factors identified. Assessment: 22:00 General: Appears in no apparent distress. uncomfortable, Behavior is calm, cooperative. tm6 Pain: Complains of pain in face. Neuro: Level of Consciousness is awake, alert, obeys commands, Oriented to person, place, time, situation. Cardiovascular: Patient's skin is warm and dry. Respiratory: Airway is patent Respiratory effort is even, unlabored, Respiratory pattern is regular, symmetrical. GI: No signs and/or symptoms were reported involving the gastrointestinal system. Abdomen is round non-distended. : No signs and/or symptoms were reported regarding the genitourinary system. EENT: No signs and/or symptoms were reported regarding the EENT system. 22:08 Derm: Wound noted face Wound is head wound, bleeding. Pressure dressing applied. tm6 Musculoskeletal: No signs and/or symptoms reported regarding the musculoskeletal system. Injury Description: Head injury sustained to right cheondoism bleeding. 23:10 Reassessment: Patient and/or family updated on plan of care and expected duration. Pain tm6 level reassessed. Patient is alert, oriented x 3, equal unlabored respirations, skin warm/dry/pink. 23:43 Reassessment: Patient appears in no apparent distress at this time. Patient and/or tm6 family updated on plan of care and expected duration. Pain level reassessed. Patient is alert, oriented x 3, equal unlabored respirations, skin warm/dry/pink. Vital Signs: 21:56 BP 115 / 102; Pulse 52; Resp 16; Pulse Ox 95% on R/A; cm10 22:12 Temp 99.3(O); Weight 67.13 kg; Height 5 ft. 0 in. ; tm6 22:12 Pain 8/10; tm6 23:10 BP 154 / 63; Pulse 49; Pulse Ox 95% on R/A; tm6 23:43 BP 154 / 63; Pulse 50; Resp 20; Temp 99.1(O); Pulse Ox 94% on R/A; Pain 2/10; tm6 22:12 Body Mass Index 28.90 (67.13 kg, 152.4 cm) tm6 22:12 Pain Scale: Adult tm6 23:43 Pain Scale: Adult tm6 ED Course: 21:37 Patient arrived in ED. mr 21:39 [facility]C [facility] kb 21:39 Dawson Chung MD is Attending Physician. kb 21:57 Triage completed. cm10 21:59 Arm band placed on Patient placed in an exam room, on a stretcher. cm10 22:00 Puma Garza, EFREN is Primary Nurse. tm6 22:04 CT Head C Spine In Process Unspecified. EDMS 22:08 Patient has correct armband on for positive identification. Placed in gown. Bed in low tm6 position. Call light in reach. Side rails up X2. Provided Education on: use of call clark. Client placed on continuous cardiac and pulse oximetry monitoring. NIBP monitoring applied. Pulse ox on. NIBP on. Noise minimized. Warm blanket given. 23:29 Wound care: to laceration located on right cheondoism was cleaned with Hibiclens, dressed tm6 with 4X4s, Kerlix, yakov wrap. 23:43 No provider procedures requiring assistance completed. Patient did not have IV access tm6 during this emergency room visit. Administered Medications: 23:43 Drug: Acetaminophen PO 650 mg PO once Route: PO; tm6 Medication: 22:08 VIS not applicable for this client. tm6 Outcome: 23:21 Discharge ordered by . kb 23:43 Discharged to home via wheelchair, with family, tm6 23:43 Condition: stable 23:43 Discharge instructions given to patient, family, Instructed on discharge instructions, follow up and referral plans. wound care, Demonstrated understanding of instructions, follow-up care, wound care, 23:44 Patient left the ED. tm6 Signatures: Dispatcher [employer] EDCO Jeanna Zhou FNP-C [employer]IST-Ckb Cassandra Lockwood, Reg Reg Peace Chan, EFREN RN cm10 Puma Garza, EFREN RN tm6 Corrections: (The following items were deleted from the chart) :59 21:56 Chief complaint: Patient states: Fell and hit head. Pt states that she slipped cm10 and fell. Pt bleeding from the right side of her head upon arrival. cm10 :59 21:56 Acuity: ANNE MARIE 3 cm10 cm10
[2024-02-20] MEDS ORDERED: ACETAMINOPHEN 325 MG TABLET ONE (23:37)
[2024-02-21 01:27] VITALS: BP 154/63
[2024-02-21 01:29] VITALS: TEMP 99.1; O2SAT 94
== END 2024-02-20 23:44 | disposition home or self-care (01) ==
LOC: ER 21:36
DX: S01.01XA Laceration without foreign body of scalp, initial encounter (principal); W01.0XXA Fall on same level from slipping, tripping and stumbling without subsequent striking against object, initial encounter
CPT/HCPCS: 70450; 72125

== ENCOUNTER 2024-08-14 07:14 | Day surgery (SDC) | payer OTHER ==
[2024-08-11 12:33] LABS: Absolute Eosinophils 0.2 K/uL (0-0.5); Absolute Lymphocytes (CBC) 2.1 K/uL (0.7-4.9); Absolute Monocytes 0.6 K/uL (0.1-1.3); Absolute Neutrophil 5.5 K/uL (1.8-8.0); Basophils % 0.5 % (0-1.3); Eosinophils % 1.8 % (0-4.4); Hematocrit 37.6 % (36.0-45.0); Hemoglobin 12.4 g/dL (12.0-15.0); Lymphocytes % 25.3 % (15.3-44.8); MCH 31.8 pg (27.0-35.0); MCHC 32.9 g/dL (32.0-36.0); MCV 96.5 fL (80-100); MPV 8.7 fL (7.6-11.3); Monocytes % 6.7 % (3.3-12.3); Neutrophils % 65.7 % (41.7-73.7); Platelets 184 thou/uL (152-406); Red Cell Distribution Width 14.5 % (12.1-15.2)
[2024-08-11 12:44] LABS: PT Prothrombin Time 9.9 SECONDS (9.4-12.5); PTT, Activated Partial Thromb 30.6 SECONDS (24.3-36.9); Protime INR 0.94
[2024-08-11 12:47] LABS: Anion Gap 5.6 mEq/L (5.0-15.0); Potassium 3.6 mEq/L (3.5-5.1)
[2024-08-14] MEDS: Ringers Lactate 1,000 ML IV ONE (07:50)
[2024-08-14] MEDS ORDERED: propofoL 200 MG/20 ML VIAL IV ONE (08:11)
[2024-08-14] MEDS ORDERED: LIDOCAINE 1% MPF 30 ML VIAL ONE (08:11)
[2024-08-14] MEDS ORDERED: EPHEDRINE SULF 50 MG/ML VIAL ONE (09:23)
[2024-08-14 10:41] VITALS: BP 133/50; TEMP 97.5; O2SAT 95
== END 2024-08-14 10:33 | disposition home or self-care (01) ==
LOC: OR 07:14
PROVIDERS: ATTEND Internal Medicine Gastroenterology
PROC: 0DBM8ZX Excision of Descending Colon, Via Natural or Artificial Opening Endoscopic, Diagnostic (ICD-10-PCS; principal; 2024-08-14 08:30)
DX: D50.9 Iron deficiency anemia, unspecified (principal); K92.1 Melena; K64.8 Other hemorrhoids; K57.30 Diverticulosis of large intestine without perforation or abscess without bleeding; D12.4 Benign neoplasm of descending colon; Z99.81 Dependence on supplemental oxygen; Z86.0100 Personal history of colon polyps, unspecified
CPT/HCPCS: 36415; 80048; 85025; 85610; 85730; 88305; 93005; J2003; J2704; J7120